=== PATIENT | female | born 1925 | race Caucasian/White ===

== ENCOUNTER 2016-07-07 14:58 | Inpatient (IN) | payer OTHER, MEDICARE ==
[2016-07-07] MEDS ORDERED: HYDROmorphone HCL CARPU-JECT 1 MG/1 ML DISP.SYRIN IVPUSH ONE ×4 (15:15→20:36)
[2016-07-07] MEDS ORDERED: HYDROmorphone HCL CARPU-JECT 2 MG/1 ML DISP.SYRIN ONE ×2 (15:26→20:37)
[2016-07-07] MEDS ORDERED: SODIUM CHLORIDE 1,000 ML IV SCH (15:30)
--- NOTE | 2016-07-07 15:38 | PDOC ---
History of Present Illness - General History Source: Patient Exam Limitations: No Limitations <Dick Mcdonnell - Last Filed: 07/07/16 19:37> - History of Present Illness Initial Comments: 07/07/16 15:35 Patient seen immediately on arrival by me documentation done later 89-year-old female with a past medical history of AODM, hypertension, hyperlipidemia, TIA, esophageal stricture, PVD, and RLS Surgical history-hysterectomy Patient is complaining of progressively severe diffuse abdominal pain since this morning She states that she did not have any abdominal pain last night She does admit to some nausea last night and vomited once She had a very small bowel movement a small morning She is complaining of very severe diffuse abdominal pain without localization She denies any dysuria urgency or frequency She denies any back pain or flank pain She denies any fever She denies any chest pain or shortness of breath Patient is in severe pain, and no further history is available at this time <Sandra Park - Last Filed: 07/08/16 14:49> - General Chief Complaint: Pain Stated Complaint: ABDOMINAL PAIN Time Seen by Provider: 07/07/16 15:05 Past History <Dick Mcdonnell - Last Filed: 07/07/16 19:37> - Past Medical History Anemia: No Asthma: No Cancer: No Cardiac Disorders: No CVA: Yes (TIA?) COPD: No CHF: No Dementia: No Diabetes: No GI Disorders: Yes (ESOPHAGEAL STRICTURE) Disorders: No HTN: Yes Hypercholesterolemia: Yes Liver Disease: No Suicide Attempt (Hx): No Seizures: No Thyroid Disease: No - Surgical History Abdominal Surgery: No Appendectomy: No Cardiac Surgery: No Cholecystectomy: No Lung Surgery: No Neurologic Surgery: No Orthopedic Surgery: Yes - Immunization History Td Vaccination: No - Psycho/Social/Smoking Cessation Hx Anxiety: No Suicidal Ideation: No Smoking Status: No Smoking History: Never smoked Have you smoked in the past 12 months: No Number of Cigarettes Smoked Daily: 0 Hx Alcohol Use: No Drug/Substance Use Hx: No Substance Use Type: None Hx Substance Use Treatment: No <Sandra Park - Last Filed: 07/08/16 14:49> - Past Medical History Allergies/Adverse Reactions: Allergies Allergy/AdvReac Type Severity Reaction Status Date / Time [place]-3 acid Ethyl Esters Allergy Unknown Rash Verified 07/07/16 15:14 [From Lovaza] Egg Derived AdvReac Intermediate Vomiting Verified 07/07/16 15:14 Home Medications: Ambulatory Orders Fenofibrate Nanocrystallized [Fenofibrate] 145 mg PO DAILY 02/03/16 Glucosamine Sulfate Dipot Chlr [Glucosamine] 1,500 mg PO DAILY 02/03/16 Metoprolol Succinate [Toprol Xl -] 25 mg PO DAILY 02/03/16 Aspirin/Dipyridamole [Aspirin-Dipyridam ER 25-200 mg] 1 each PO BID 07/07/16 Calcium Carbonate/Vitamin D3 [Calcium 600 + Vit D Tablet] 1 each PO DAILY Multivit-Min/Iron/Folic/Lutein [Centrum Silver Women Tablet] 1 each PO DAILY *Physical Exam - Vital Signs Last Vital Signs Temp Pulse Resp BP Pulse Ox 98.0 F 70 20 135/60 97 07/07/16 14:59 07/07/16 17:15 07/07/16 17:15 07/07/16 17:15 07/07/16 17:15 <Dick Mcdonnell - Last Filed: 07/07/16 19:37> - Vital Signs Last Vital Signs Temp Pulse Resp BP Pulse Ox 98.0 F 110 H 28 H 137/93 96 07/07/16 14:59 07/07/16 14:59 07/07/16 14:59 07/07/16 14:59 07/07/16 14:59 - Physical Exam Comments: 07/07/16 15:36 Physical exam Last Vital Signs Temp Pulse Resp BP Pulse Ox 98.0 F 110 H 28 H 137/93 96 07/07/16 14:59 07/07/16 14:59 07/07/16 14:59 07/07/16 14:59 07/07/16 14:59 GENERAL: The patient is awake, alert, and writhing in pain HEAD: Normal with no signs of trauma. EYES: sclera anicteric, conjunctiva are normal. ENT: Mucous membranes slightly dry NECK: Normal range of motion, supple LUNGS: Breath sounds equal, clear to auscultation bilaterally. No wheezes, and no crackles. HEART: Regular rate and rhythm, normal S1 and S2 without murmur, rub or gallop. ABDOMEN: The abdomen is distended with hypoactive but present bowel sounds There is no CVA tenderness There is diffuse abdominal tenderness to palpation, somewhat more on the right than the left, with voluntary guarding No definite hepatosplenomegaly is appreciated EXTREMITIES: Normal range of motion, no edema. No clubbing or cyanosis. No cords, erythema, or tenderness. NEUROLOGICAL: Patient is alert and answering questions, but writhing in pain, moving all extremities equally, grossly nonfocal neurologic exam PSYCH: Normal mood, normal affect. SKIN: Warm, Dry, <Sandra Park - Last Filed: 07/08/16 14:49> ED Treatment Course - LABORATORY CBC & Chemistry Diagram: 07/07/16 15:43 07/07/16 15:43 - ADDITIONAL ORDERS Additional order review: Laboratory Results 07/07/16 07/07/16 07/07/16 16:25 15:53 15:43 Sodium Potassium Chloride Carbon Dioxide Anion Gap BUN Creatinine Creat Clearance w eGFR Random Glucose Lactic Acid 1.820 Calcium Magnesium Total Bilirubin AST ALT Alkaline Phosphatase LD Total 232 H Creatine Kinase CK-MB (CK-2) Troponin I Total Protein Albumin Total Amylase Lipase Urine Color Yellow Urine Appearance Clear Urine pH 7.0 Ur Specific [place] 1.015 Urine Protein 1+ H Urine Glucose (UA) Trace Urine Ketones Negative Urine Blood Trace-intact Urine Nitrite Negative Urine Bilirubin Negative Urine Urobilinogen 0.2 e.u/dl Ur Leukocyte Esterase 1+ H Urine RBC 3-5 Urine WBC 10-20 Ur Epithelial Cells 3-5 07/07/16 07/07/16 07/07/16 15:43 15:43 15:43 Sodium 135 L Potassium 4.2 Chloride 103 Carbon Dioxide 20 L Anion Gap 12 BUN 27 H D Creatinine 0.8 D Creat Clearance w eGFR > 60 Random Glucose 149 H D Lactic Acid Calcium 10.2 Magnesium 1.6 L D Total Bilirubin 0.6 D AST 35 ALT 28 Alkaline Phosphatase 39 LD Total Creatine Kinase 297 H CK-MB (CK-2) 13.8 H Troponin I < 0.03 L Total Protein 7.4 Albumin 4.3 Total Amylase 1225 H* D Lipase 6575 H Urine Color Urine Appearance Urine pH Ur Specific [place] Urine Protein Urine Glucose (UA) Urine Ketones Urine Blood Urine Nitrite Urine Bilirubin Urine Urobilinogen Ur Leukocyte Esterase Urine RBC Urine WBC Ur Epithelial Cells 07/07/16 15:43 RBC 4.01 MCV 93.2 MCHC 34.2 RDW 12.9 MPV 8.0 - RADIOLOGY Radiology Studies Ordered: 07/07/16 19:38 EXAM: Ultrasound abdomen right upper quadrant IMAGES: 68 EXAM DATE AND TIME: 2016-07-07 17:23:59.0 REASON FOR EXAM: Abdominal pain COMPARISON: Not provided FINDINGS: The liver is enlarged measuring 19.8 cm in sagittal length with increased echotexture compatible with steatosis. There is no intrahepatic biliary dilatation. No hepatic masses visualized. The portal vein is patent The common bile duct is within normal limits for age measuring 6.8 mm There is a large shadowing stone in the gallbladder measuring 2.8 cm noted to be mobile. The gallbladder wall is normal in thickness measuring 1.9 mm. There is no pericholecystic fluid. Presence or absence of a sonographic Hudson's sign was not reported Normal appearance of the pancreas There is a small anechoic cyst in the right kidney measuring 1.7 cm and a small shadowing stone in the lower pole measuring 0.6 cm. No hydronephrosis The visualized abdominal aorta is within normal limits THIS DOCUMENT HAS BEEN ELECTRONICALLY SIGNED Zechariah Luis MD - Medications Given in the ED: ED Medications Discontinued Medications Generic Name Dose Route Start Last Admin Trade Name Freq PRN Reason Stop Dose Admin Hydromorphone HCl 0.5 mg 07/07/16 15:15 07/07/16 15:54 Dilaudid Injection - IVPUSH 07/07/16 15:16 0.5 mg ONCE ONE Administration Hydromorphone HCl 0.5 mg 07/07/16 16:59 07/07/16 16:55 Dilaudid Injection - IVPUSH 07/07/16 17:00 0.5 mg NOW ONE Administration Hydromorphone HCl 0.5 mg 07/07/16 17:45 07/07/16 17:40 Dilaudid Injection - IVPUSH 07/07/16 17:46 0.5 mg NOW ONE Administration <Dick Mcdonnell - Last Filed: 07/07/16 19:37> - LABORATORY CBC & Chemistry Diagram: 07/08/16 05:15 07/08/16 05:15 - RADIOLOGY Radiology Studies Ordered: Category Date Time Status ABDOMEN & PELVIS CT W/O CONTR [CT] Stat CT Scan 07/07/16 15:14 Ordered CHEST X-RAY PORTABLE* [RAD] Stat Radiology 07/07/16 15:14 Ordered <Sandra Park - Last Filed: 07/08/16 14:49> Medical Decision Making - Medical Decision Making 07/07/16 18:[address] Taveras. Discussed case with Dr. Wong 07/07/16 18:[address] Taveras, Who has seen the pt in the past. He states he does not go to [facility] Since she's going to the icu, he would be happy for Dr. Wong to see the patient. <Dick Mcdonnell - Last Filed: 07/07/16 19:37> - Critical Care Time Total Critical Care Time (minutes): 45 Critical Care Statement: The care of this patient involved high complexity decision making to prevent further life threatening deterioration of the patient 's condition and/or to evalute & treat vital organ system(s) failure or risk of failure. - Medical Decision Making 07/07/16 16:50 Laboratory Results - last 24 hr 07/07/16 07/07/16 07/07/16 15:43 15:43 15:43 WBC 9.0 D RBC 4.01 Hgb 12.8 Hct 37.4 MCV 93.2 MCHC 34.2 RDW 12.9 Plt Count 279 MPV 8.0 Sodium 135 L Potassium 4.2 Chloride 103 Carbon Dioxide 20 L Anion Gap 12 BUN 27 H D Creatinine 0.8 D Creat Clearance w eGFR > 60 Random Glucose 149 H D Calcium 10.2 Magnesium 1.6 L D Total Bilirubin 0.6 D AST 35 ALT 28 Alkaline Phosphatase 39 Creatine Kinase 297 H Total Protein 7.4 Albumin 4.3 Total Amylase 07/07/16 15:43 WBC RBC Hgb Hct MCV MCHC RDW Plt Count MPV Sodium Potassium Chloride Carbon Dioxide Anion Gap BUN Creatinine Creat Clearance w eGFR Random Glucose Calcium Magnesium Total Bilirubin AST ALT Alkaline Phosphatase Creatine Kinase Total Protein Albumin Total Amylase 1225 H* D CT scan of the abdomen and pelvis Acute pancreatitis Underlying chronic calcific pancreatitis Soft tissue stranding and edema is noted in a concentric manner around the second portion of the duodenal sweep, probably related to acute pancreatitis Cholelithiasis without CT evidence of acute cholecystitis Diffuse hepatic steatosis Moderate to large hiatal hernia Lipase too high to report per lab, will add LDH for Flushing score amylase 1225 Chest x-ray NAD US ordered 07/07/16 17:00 Patient is tachycardic and tachypneic Discussed with hospitalist-will admit ICU Case discussed with Dr. [id number] ICU bed Case d/w Dr Soriano - GI - will see pt in consultation (discussed with Dr Taveras - states he does not see pts at [facility]) lipase = 6575 07/07/16 17:20 EKG Normal sinus rhythm 64, normal axis Normal AV and IV conduction time Normal QTC There is poor R wave progression across the anterior precordium When compared to the EKG of 09/14/11 Today's EKG is unchanged from the prior EKG 07/07/16 19:08 Right upper quadrant ultrasound The common bile duct is normal There is a large shadowing stone in the gallbladder measuring 2.8 cm noted to be mobile The gallbladder wall is normal in thickness measuring 1.9 mm There is no pericholecystic fluid There is no intrahepatic biliary dilatation This is an imaging prison guard reading <Sandra Park - Last Filed: 07/08/16 14:49> *DC/Admit/Observation/Transfer - Attestations Scribe Attestion: 07/07/16 18:22 Documentation prepared by Dick Mcdonnell, acting as medical territory manager for Sandra Park MD. <Dick Mcdonnell - Last Filed: 07/07/16 19:37> - Discharge Dispostion Admit: Yes <Sandra Park - Last Filed: 07/08/16 14:49> Diagnosis at time of Disposition: Acute pancreatitis, Abdominal pain - Discharge Dispostion Condition at time of disposition: Fair - Referrals
[2016-07-07 16:02] LABS: MCH 31.8 pg (25.7-33.7); MCHC 34.2 g/dl (32.0-36.0); MEAN CELL VOLUME 93.2 fl (80-96); PLATELET COUNT 279 K/MM3 (134-434); RDW 12.9 % (11.6-15.6)
[2016-07-07 16:16] LABS: ALBUMIN 4.3 g/dl (3.5-5.0); ALK PHOS 39 U/L (32-92); ANION GAP 12 (8-16); BILIRUBIN,TOTAL 0.6 mg/dl (0.2-1.0); CALCIUM 10.2 mg/dl (8.4-10.2); CO2 20 mmol/L (22-28); COCKROFT - GAULT 39.95; CREATININE 0.8 mg/dl (0.6-1.3); GLUCOSE,RANDOM 149 mg/dl (74-106); MAGNESIUM 1.6 mg/dL (1.8-2.4); SGOT/AST 35 U/L (10-42); SGPT/ALT 28 U/L (10-40); TOT PROT 7.4 g/dl (6.4-8.3)
[2016-07-07 16:18] LABS: CPK(DFH) 297 IU/L (26-140)
[2016-07-07 17:06] LABS: TROPONIN I (DFP) < 0.03 ng/ml (0.03-0.50)
[2016-07-07 17:07] LABS: CK MB 13.8 ng/ml (0.3-4.0)
[2016-07-07 17:14] LABS: URINE APPEARANCE Clear; URINE BILIRUBIN Negative (NEGATIVE); URINE BLOOD Trace-intact (NEGATIVE); URINE COLOR YELLOW; URINE GLUCOSE (UA) Trace (NEGATIVE); URINE KETONE Negative (NEGATIVE); URINE LEUK ESTERASE 1+ (NEGATIVE); URINE NITRITE Negative (NEGATIVE); URINE PROTEIN 1+ (NEGATIVE); URINE UROBILINOGEN 0.2 E.U/dl (0.2-1.0)
[2016-07-07] MEDS ORDERED: LACTATED RINGERS SOLUTION 1,000 ML IV SCH (17:30)
[2016-07-07] MEDS ORDERED: HYDROmorphone HCL CARPU-JECT 1 MG/1 ML DISP.SYRIN IVPUSH PRN ×2 (21:31→21:33)
[2016-07-07] MEDS: HYDROmorphone HCL CARPU-JECT 1 MG/1 ML DISP.SYRIN IVPUSH PRN (21:44)
[2016-07-07] MEDS: ONDANSETRON 4 MG/2 ML VIAL IVPUSH PRN (21:44)
[2016-07-07] MEDS: LACTATED RINGERS SOLUTION 1,000 ML IV SCH (21:50)
[2016-07-07] MEDS: FAMOTIDINE 20 MG/50 ML IVPB 50 ML IVPB SCH (21:50)
[2016-07-07] MEDS: HEPARIN NA (PORCINE) 5,000 UNITS/ML 1ML VIAL SQ SCH (21:50)
--- NOTE | 2016-07-07 22:01 | CONSULT ---
Consult Consult Specialty:: Pulm/CCM Reason for Consultation:: acute on chronic pancreatitis - History of Present Illness Chief Complaint: nausea and vomiting History of Present Illness: This is a 89 yo woman DM, HTN, HLD, TIA, esophageal stricture, restless leg syndrome, PVD who presented with new onset progressive diffuse abdominal pain c/ b nausea and emesis x1 (NBNB). In ED she was found to have elevated amylase/ lipase:1225/6575. No transaminase (35/28), WBC normal, Calcium normal (10.2), bicarb 20. CTAP: acute pancreatitis, underlying chronic calcific pancreatits and cholelithiais w/o acute cholecystitis. U/S abd with large gall stone. She was treated with IV fluids: NS x 2liters. She is afebrile (98.2f), hemodynamically stable: BP 137/93, NSR HR 60s. GI was consulted and patient transferred to [facility] for continued care. - History Source History Provided By: Patient, Medical Record Limitations to Obtaining History: Poor Historian - Past Medical History LEGAL BILLER: Yes: TIA Cardio/Vascular: Yes: HTN, Hyperlipdemia, Other (PVD) Gastrointestinal: Yes: Constipation, GERD, Hiatal Hernia, Pancreatitis, Other ( esophageal stricture ) Endocrine: Yes: Diabetes Mellitus - Alcohol/Substance Use Hx Alcohol Use: No - Smoking History Smoking history: Never smoked Have you smoked in the past 12 months: No Aproximately how many cigarettes per day: 0 Home Medications - Allergies Allergies/Adverse Reactions: Allergies Allergy/AdvReac Type Severity Reaction Status Date / Time [place]-3 acid Ethyl Esters Allergy Unknown Rash Verified 07/07/16 15:14 [From Lovaza] Egg Derived AdvReac Intermediate Vomiting Verified 07/07/16 15:14 - Home Medications Home Medications: Ambulatory Orders Fenofibrate Nanocrystallized [Fenofibrate] 145 mg PO DAILY 02/03/16 Glucosamine Sulfate Dipot Chlr [Glucosamine] 1,500 mg PO DAILY 02/03/16 Metoprolol Succinate [Toprol Xl -] 25 mg PO DAILY 02/03/16 Aspirin/Dipyridamole [Aspirin-Dipyridam ER 25-200 mg] 1 each PO BID 07/07/16 Calcium Carbonate/Vitamin D3 [Calcium 600 + Vit D Tablet] 1 each PO DAILY Multivit-Min/Iron/Folic/Lutein [Centrum Silver Women Tablet] 1 each PO DAILY Family Disease History - Family Disease History Family History: Unremarkable Review of Systems - Review of Systems Gastrointestinal: reports: Abdominal Pain, Constipation, Nausea, Vomiting Physical Exam Vital Signs: Vital Signs Temperature 98.2 F 07/07/16 20:58 Pulse Rate 65 07/07/16 20:58 Respiratory Rate 16 07/07/16 20:58 Blood Pressure 112/68 07/07/16 20:58 O2 Sat by Pulse Oximetry (%) 96 07/07/16 19:00 Constitutional: Yes: Well Nourished, Calm, Mild Distress Eyes: Yes: EOM Intact HENT: Yes: Normocephalic Neck: Yes: Trachea Midline Cardiovascular: Yes: Regular Rate and Rhythm, S1, S2 Respiratory: Yes: CTA Bilaterally Gastrointestinal: Yes: Normal Bowel Sounds, Soft, Tenderness, Epigastrium, Vomiting Extremities: Yes: WNL Edema: No Integumentary: Yes: WNL Neurological: Yes: Alert, Oriented Labs: CBCD WBC 9.0 K/mm3 (4.0-10.8) D 07/07/16 15:43 RBC 4.01 M/mm3 (3.60-5.2) 07/07/16 15:43 Hgb 12.8 GM/dl (10.7-15.3) 07/07/16 15:43 Hct 37.4 % (32.4-45.2) 07/07/16 15:43 MCV 93.2 fl (80-96) 07/07/16 15:43 MCHC 34.2 g/dl (32.0-36.0) 07/07/16 15:43 RDW 12.9 % (11.6-15.6) 07/07/16 15:43 Plt Count 279 K/MM3 (134-434) 07/07/16 15:43 MPV 8.0 fl (7.5-11.1) 07/07/16 15:43 CMP Sodium 135 mmol/L (136-145) L 07/07/16 15:43 Potassium 4.2 mmol/L (3.5-5.1) 07/07/16 15:43 Chloride 103 mmol/L (98-107) 07/07/16 15:43 Carbon Dioxide 20 mmol/L (22-28) L 07/07/16 15:43 Anion Gap 12 (8-16) 07/07/16 15:43 BUN 27 mg/dl (7-18) H D 07/07/16 15:43 Creatinine 0.8 mg/dl (0.6-1.3) D 07/07/16 15:43 Creat Clearance w eGFR > 60 (>60) 07/07/16 15:43 Random Glucose 149 mg/dl (74-106) H D 07/07/16 15:43 Calcium 10.2 mg/dl (8.4-10.2) 07/07/16 15:43 Total Bilirubin 0.6 mg/dl (0.2-1.0) D 07/07/16 15:43 AST 35 U/L (10-42) 07/07/16 15:43 ALT 28 U/L (10-40) 07/07/16 15:43 Alkaline Phosphatase 39 U/L (32-92) 07/07/16 15:43 Total Protein 7.4 g/dl (6.4-8.3) 07/07/16 15:43 Albumin 4.3 g/dl (3.5-5.0) 07/07/16 15:43 CARDIAC ENZYMES Creatine Kinase 297 IU/L (26-140) H 07/07/16 15:43 Troponin I < 0.03 ng/ml (0.03-0.50) L 07/07/16 15:43 Laboratory Tests 07/07/16 07/07/16 07/07/16 15:43 15:43 15:43 LD Total 232 H Total Amylase 1225 H* D Lipase 6575 H Imaging - Results Cat Scan: Report Reviewed, Image Reviewed Ultrasound: Report Reviewed, Image Reviewed Assessment/Plan a/p: 89 yo woman DM, HTN, HLD, TIA esophageal stricture p/w acute on chronic pancreatitis found to have large gallstone c/f obstructive pancreatitis -GI consulted, will speak to interventional GI about ERCP -IV access -IV fluid replacement -monitor abdominal exam for compartment syndrome -no indication for ABX -pain control: hydromorphone prn -zofran prn for nausea -NPO for now, restart feeds per GI -BMP q6-8hrs -follow fingersticks -DVT/GI prophylaxis Boerem ACNP Pulm/CCM CCT: 35m
--- NOTE | 2016-07-07 22:05 | CON.GI ---
Consult Consult Specialty:: GASTROENTEROLOGY (FOR DR MONZON) Reason for Consultation:: PANCREATITIS - History of Present Illness Chief Complaint: ABDOMINAL PAIN History of Present Illness: 89 YEAR OLD FEMALE WITH ONLY GI HISTORY OF HIATAL HERNIA AND SCHATZKI'S RING ADMITTED WITH PANCREATITIS. SHE DOES NOT DRINK ALCOHOL. SHE IS A DIABETIC AND ON TRADJENTA. GALLSTONES WERE DISCOVERED TODAY. SHE DEVELOPED ABDOMINAL PAIN YESTERDAY WITH NAUSEA. THE DAY PROGRESSED SO DID HER ABDOMINAL PAIN. DUE TO THE PAIN SHE COULD NOT EAT. THE PAIN WAS WORSE TODAY ASSOCIATED WITH WORSENING NAUSEA AND SHE WENT TO THE [facility]. IN THE ER SHE WAS IN SEVERE PAIN. AMYLASE AND LIPASE VALUES WERE ELEVATED BUT LIVER FUNCTIONS WERE NORMAL. CT SCAN SHOWED CHRONIC CALCIFIC PANCREATITIS WITH ACUTE PANCREATITIS. THE US OF THE ABDOMEN REVEALED A NORMAL BILE DUCTS AND LARGE GALLBLADDER STONE. SHE IS A PATIENT OF DR GILLIAM BUT HE TOLD THE ER PHYSICIAN HE DOES NOT GO TO [facility] SO DR MONZON WAS CALLED FOR CONSULT. I AM COVERING FOR THAT GROUP. HERE AT [facility] THE PATIENT IS NAUSEATED AND HAS SOME ABDOMINAL PAIN. SHE HAS NO FEVER AND IS NOT VOMITING. - History Source History Provided By: Patient Limitations to Obtaining History: No Limitations - Past Medical History WHEEL BLOCKER: No: Alzheimer's, CVA, Dementia, Migraine, Multiple Sclerosis, Peripheral Neuropathy, Parkinson's, Seizure, Syncope, TIA, Vertigo, Other Cardio/Vascular: No: AFIB, Aneurysm, Aortic Insufficiency, Aortic Stenosis, CAD , CHF, Deep Vein Thrombosis, HTN, Hyperlipdemia, NE, Mitral Insufficiency, Mitral Stenosis, Murmur, Pulmonary Hypertension, Other Gastrointestinal: Yes: GERD, Other (SCHATZKI'S RING) Hepatobiliary: Yes: Cholelithiasis, Other (DIAGNOSED TODAY) Renal/: No: Renal Failure, Renal Inusuff, BPH, Cancer, Hematuria, Hemodialysis , Neurogenic Bladder, Renal Calculi, UTI, Other Reproductive: Yes: Other (OVARIAN CYSTS/PROLAPSED UTERUS S/P HYSTERECTOMY) Heme/Onc: No: Anemia, B12 Deficiency, Bleeding Disorder, Cancer, Current Chemotherapy, Current Radiation Therapy, Hemochromatosis, Hypercoaguable State, Myeloproliferative Synd, Sickle Cell Disease, Sickle Cell Trait, Thrombocytopenia, Other Infectious Disease: No: AIDS, C-Diff, Herpes Zoster, HIV, MRSA, STD's, Tuberculosis, VREF, Other Psych: No: Addictions, Anxiety, Bipolar, Depression, Panic, Psychosis, Schizophrenia, Other ENT: No: Allergic Rhinitis, Sinusitis, Other Endocrine: No: Wing[place]'s Disease, [place]'s Disease, Diabetes Insipidus, Diabetes Mellitus, Hyperparathyroidism, Hyperthyroidism, Hypothyroidism, Osteopenia, SIADH, Other Dermatology: No: Basal Cell, Cellulitis, Eczema, Melanoma, Psoriasis, Squamous Cell, Other - Past Surgical History Past Surgical History: Yes: Hysterectomy, Joint Replacement, Upper Endoscopy - Alcohol/Substance Use Hx Alcohol Use: No - Smoking History Smoking history: Never smoked Have you smoked in the past 12 months: No Aproximately how many cigarettes per day: 0 Home Medications - Allergies Allergies/Adverse Reactions: Allergies Allergy/AdvReac Type Severity Reaction Status Date / Time [place]-3 acid Ethyl Esters Allergy Unknown Rash Verified 07/07/16 15:14 [From Lovaza] Egg Derived AdvReac Intermediate Vomiting Verified 07/07/16 15:14 - Home Medications Home Medications: Ambulatory Orders Fenofibrate Nanocrystallized [Fenofibrate] 145 mg PO DAILY 02/03/16 Glucosamine Sulfate Dipot Chlr [Glucosamine] 1,500 mg PO DAILY 02/03/16 Metoprolol Succinate [Toprol Xl -] 25 mg PO DAILY 02/03/16 Aspirin/Dipyridamole [Aspirin-Dipyridam ER 25-200 mg] 1 each PO BID 07/07/16 Calcium Carbonate/Vitamin D3 [Calcium 600 + Vit D Tablet] 1 each PO DAILY Multivit-Min/Iron/Folic/Lutein [Centrum Silver Women Tablet] 1 each PO DAILY Family Disease History - Family Disease History Family History: Unremarkable Review of Systems - Review of Systems Constitutional: reports: Loss of Appetite, Malaise Eyes: denies: No Symptoms, Blind Spots, Blurred Vision, Double Vision, Eye Pain , Floaters, Photophobia, Recent Change in Vision, Other HENT: denies: No Symptoms, Difficult Swallowing, Ear Discharge, Ear Pain, Epistaxis, Gingival Bleeding, Hearing Loss, Mouth Swelling, Nasal Congestion, Ocular Prosthesis, Throat Pain, Toothache, Ringing in Ears, Other Neck: denies: No Symptoms, Decreased ROM, Lumps, Pain on Movement, Stiffness, Swollen Glands, Tenderness, Other Cardiovascular: denies: No Symptoms, Chest Pain, Edema, Palpitations, Shortness of Breath, Other Respiratory: denies: No Symptoms, Cough, Exercise Intolerance, Hemoptysis, Orthopnea, PND, Snoring, SOB, SOB on Exertion, Wheezing, Other Gastrointestinal: reports: Abdominal Pain, Dysphagia, Indigestion, Nausea Genitourinary: reports: No Symptoms Musculoskeletal: reports: No Symptoms Integumentary: reports: No Symptoms Neurological: reports: No Symptoms Endocrine: reports: No Symptoms Hematology/Lymphatic: reports: No Symptoms Psychiatric: reports: No Symptoms Physical Exam-GI Vital Signs: Vital Signs Temperature 98.2 F 07/07/16 20:58 Pulse Rate 65 07/07/16 20:58 Respiratory Rate 16 07/07/16 20:58 Blood Pressure 112/68 07/07/16 20:58 O2 Sat by Pulse Oximetry (%) 96 07/07/16 19:00 Constitutional: Yes: Mild Distress Eyes: Yes: Conjunctiva Clear HENT: Yes: Normocephalic Neck: Yes: Supple Cardiovascular: Yes: Regular Rate and Rhythm Respiratory: Yes: Regular Gastrointestinal Inspection: Yes: Distention ...Auscultate: Yes: Hypoactive Bowel Sounds ...Palpate: Yes: Tenderness, Epigastium (MILD GUARDING NO REBOUND) ...Rectal Exam: Yes: Deferred Musculoskeletal: Yes: WNL Extremities: Yes: WNL Integumentary: Yes: WNL Neurological: Yes: Alert, Oriented Psychiatric: Yes: WNL Labs: CBC, BMP 07/07/16 15:43 07/07/16 15:43 Laboratory Tests 07/07/16 07/07/16 07/07/16 15:43 15:43 15:43 WBC 9.0 D RBC 4.01 Hgb 12.8 Hct 37.4 MCV 93.2 MCHC 34.2 RDW 12.9 Plt Count 279 MPV 8.0 Sodium 135 L Potassium 4.2 Chloride 103 Carbon Dioxide 20 L Anion Gap 12 BUN 27 H D Creatinine 0.8 D Creat Clearance w eGFR > 60 Random Glucose 149 H D Calcium 10.2 Magnesium 1.6 L D Total Bilirubin 0.6 D AST 35 ALT 28 Alkaline Phosphatase 39 LD Total Creatine Kinase 297 H CK-MB (CK-2) 13.8 H Troponin I < 0.03 L Total Protein 7.4 Albumin 4.3 Total Amylase Lipase 6575 H Urine Color Urine Appearance Urine pH Ur Specific [place] Urine Protein Urine Glucose (UA) Urine Ketones Urine Blood Urine Nitrite Urine Bilirubin Urine Urobilinogen Ur Leukocyte Esterase Urine RBC Urine WBC Ur Epithelial Cells 07/07/16 07/07/16 07/07/16 15:43 15:43 16:25 WBC RBC Hgb Hct MCV MCHC RDW Plt Count MPV Sodium Potassium Chloride Carbon Dioxide Anion Gap BUN Creatinine Creat Clearance w eGFR Random Glucose Calcium Magnesium Total Bilirubin AST ALT Alkaline Phosphatase LD Total 232 H Creatine Kinase CK-MB (CK-2) Troponin I Total Protein Albumin Total Amylase 1225 H* D Lipase Urine Color Yellow Urine Appearance Clear Urine pH 7.0 Ur Specific [place] 1.015 Urine Protein 1+ H Urine Glucose (UA) Trace Urine Ketones Negative Urine Blood Trace-intact Urine Nitrite Negative Urine Bilirubin Negative Urine Urobilinogen 0.2 e.u/dl Ur Leukocyte Esterase 1+ H Urine RBC 3-5 Urine WBC 10-20 Ur Epithelial Cells 3-5 Imaging - Results Cat Scan: Report Reviewed, Image Reviewed Ultrasound: Report Reviewed, Image Reviewed Problem List - Problems (1) Acute pancreatitis Assessment/Plan: NPO IVF : AT [facility] FERRY WAS AT 250CC FOR A COUPLE OF HOURS. RATE DROPPED TO 200 CC /HR OF LR. CAN LOWER THIS IN 4 HOURS TO 150 CC/HR CK CXR ,WATCH FOR FLUID OVERLOAD, STRICT I&O'S FOLLOW LYTES, CA++, MAG, LIPASE LFT'S ETC. DILAUDID FOR PAIN, ZOFRAN FOR NAUSEA MILD PANCREATITIS BY [place] CRITERIA RECHECK IN 24-48 HOURS ETIOLOGY OF PANCREATITIS: ACUTE ON CHRONIC (STONE IN PANCREATIC DUCT), NO HISTORY OF ETOH, AWAIT TRIGLYCERIDES, ON ONE MED THAT CAUSE PANCREATITIS ( TRADJENTA CAUSES PANCREATITIS) POSSIBLE GALLSTONE PANCREATITIS DOUBT CONSIDERING NORMAL DUCTS AND LFT'S, ALSO CONSIDER MALIGNANCY MAY NEED FURTHER IMAGING(MRI/MRCP) D/C FANNY MONZON et.al. TO COVER IN AM. SHAHID ALONZO MD Code(s): K85.90 - ACUTE PANCREATITIS WITHOUT NECROSIS OR INFECTION, UNSP (2) Chronic calcific pancreatitis Code(s): K86.1 - OTHER CHRONIC PANCREATITIS (3) Hyperlipidemia Assessment/Plan: CK TRIGLYCERIDE LEVELS Code(s): E78.5 - HYPERLIPIDEMIA, UNSPECIFIED
[2016-07-07] MEDS ORDERED: ONDANSETRON 4 MG/2 ML VIAL IVPUSH ONE (22:34)
[2016-07-07] MEDS ORDERED: METOCLOPRAMIDE HCL INJECTION 10 MG/2 ML VIAL IVPUSH PRN (22:35)
[2016-07-07 22:39] VITALS: BMI 24.3
--- NOTE | 2016-07-07 23:23 | HP ---
CHIEF COMPLAINT: Abdominal Pain PCP: [facility] HISTORY OF PRESENT ILLNESS: Patient is a 89 year old female with PMH of DM, HTN, HLD, TIA, PVD, RLS & esophageal stricture who presented to ED with diffuse severe abdominal pain. Patient states she had isolated episodes of nausea and vomiting yesterday evening and went to bed. Since awaking this morning, patient has had severe diffuse abdominal pain that was 10/10 in severity upon initial assessment in ED. Denies fever, chills, chest pain, SOB, headache, visual changes. In the ED she was found to have amylase 1200 & lipase 6500. CT Abdomen showed acute pancreatitis, underlying chronic calcific pancreatits and cholelithiasis w /o acute cholecystitis. Patient denies history of drinking. Denies drug use. Denies episodes of RUQ pain in past. Patient states she is currently on Tradjenta (linagliptin) for DM. Recent Travel: NONE NOTED PAST MEDICAL HISTORY: ABOVE PAST SURGICAL HISTORY: Hysterectomy, orthopedic joint replacement Social History: Smoking:NONE NOTED Alcohol:NONE NOTED Drugs:NONE NOTED Family History: noncontributory Allergies [place]-3 acid Ethyl Esters [From Lovaza] Allergy (Unknown, Verified 07/07/16 15: 14) Rash UNKNOWN Egg Derived Adverse Reaction (Intermediate, Verified 07/07/16 15:14) Vomiting HOME MEDICATIONS: Home Medications Medication Instructions Recorded Fenofibrate Nanocrystallized 145 mg PO DAILY 02/03/16 [Fenofibrate] Glucosamine Sulfate Dipot Chlr 1,500 mg PO DAILY 02/03/16 [Glucosamine] Metoprolol Succinate [Toprol Xl -] 25 mg PO DAILY 02/03/16 Aspirin/Dipyridamole 1 each PO BID 07/07/16 [Aspirin-Dipyridam ER 25-200 mg] Calcium Carbonate/Vitamin D3 1 each PO DAILY 07/07/16 [Calcium 600 + Vit D Tablet] Multivit-Min/Iron/Folic/Lutein 1 each PO DAILY 07/07/16 [Centrum Silver Women Tablet] REVIEW OF SYSTEMS CONSTITUTIONAL: (+)loss of appetite, Absent: fever, chills, diaphoresis, generalized weakness, malaise, weight change HEENT: Absent: rhinorrhea, nasal congestion, throat pain, throat swelling, difficulty swallowing, mouth swelling, ear pain, eye pain, visual changes CARDIOVASCULAR: Absent: chest pain, syncope, palpitations, irregular heart rate, lightheadedness , peripheral edema RESPIRATORY: Absent: cough, shortness of breath, dyspnea with exertion, orthopnea, wheezing, stridor, hemoptysis GASTROINTESTINAL: (+)abdominal pain, nausea, vomiting, constipation, Absent: abdominal distension, diarrhea, melena, hematochezia GENITOURINARY: Absent: dysuria, frequency, urgency, hesitancy, hematuria, flank pain, genital pain MUSCULOSKELETAL: Absent: myalgia, arthralgia, joint swelling, back pain, neck pain SKIN: Absent: rash, itching, pallor HEMATOLOGIC/IMMUNOLOGIC: Absent: easy bleeding, easy bruising, lymphadenopathy, frequent infections ENDOCRINE: Absent: unexplained weight gain, unexplained weight loss, heat intolerance, cold intolerance NEUROLOGIC: Absent: headache, focal weakness or paresthesias, dizziness, unsteady gait, seizure, mental status changes, bladder or bowel incontinence PSYCHIATRIC: Absent: anxiety, depression, suicidal or homicidal ideation, hallucinations. PHYSICAL EXAMINATION Vital Signs - 24 hr 07/07/16 22:19 Temperature 98.3 F Pulse Rate 71 Respiratory 24 Rate Blood Pressure 135/81 O2 Sat by Pulse 96 Oximetry (%) GENERAL: Awake, alert, and fully oriented, in no acute distress. Much more comfortable s/p pain management. HEENT: Atraumatic, EOMI, PERRLA, No lymphadenopathy LUNGS: Breath sounds equal, clear to auscultation bilaterally. No wheezes, and no crackles. No accessory muscle use. HEART: Regular rate and rhythm, normal S1 and S2 without murmur, rub or gallop. ABDOMEN: Soft, mildly tender to palpation diffusely, not distended, hypoactive bowel sounds. no guarding, no rebound, no masses. MUSCULOSKELETAL: Normal range of motion at all joints. No bony deformities or tenderness. No CVA tenderness. UPPER EXTREMITIES: 2+ pulses, warm, well-perfused. No cyanosis. No clubbing. No peripheral edema. LOWER EXTREMITIES: 2+ pulses, warm, well-perfused. No calf tenderness. No peripheral edema. NEUROLOGICAL: Cranial nerves II-XII intact. Normal speech. Gait not observed. PSYCHIATRIC: Cooperative. Good eye contact. Appropriate mood and affect. SKIN: Warm, dry, normal turgor, no rashes or lesions noted, normal capillary refill. Laboratory Results - last 24 hr 07/07/16 21:30 Triglycerides 259 H ASSESSMENT/PLAN: 89 year old female with PMH of DM, HTN, HLD, TIA, PVD, RLS & esophageal stricture who was admitted to ICU with acute pancreatitis. #Acute Sepsis, secondary to Acute on chronic calcific pancreatitis (etiology: Tradjenta vs malignancy vs gallstone) -Keep NPO for now -IVF LR @150mls/hr -Dilaudid pain management -zofran for nausea -GI consulted -may need MRCP in AM, discuss with family -blood culture pending -CXR in AM to ensure not fluid overloaded #DM -ISS -BGM -holding tradjenta (may cause pancreatitis) #HTN -holding home meds for now (already took them today), may restart in AM once able to tolerate PO -Lopressor PRN ordered #UTI -Ceftriaxone ordered -Ur cultures sent Prophylaxis -Heparin 5000BID -Pepcid -NPO -IVF LR@150 -monitor electrolytes Visit type - Emergency Visit Emergency Visit: Yes ED Registration Date: 07/07/16 Care time: The patient presented to the Emergency Department on the above date and was hospitalized for further evaluation of their emergent condition. - New Patient This patient is new to me today: Yes Date on this admission: 07/08/16 - Critical Care Critical Care patient: Yes Total Critical Care Time (in minutes): 45 Critical Care Statement: The care of this patient involved high complexity decision making to prevent further life threatening deterioration of the patient 's condition and/or to evalute & treat vital organ system(s) failure or risk of failure.
[2016-07-08] MEDS ORDERED: METOPROLOL TARTRATE 5 MG/5 ML VIAL IVPUSH PRN ×2 (00:05→04:28)
[2016-07-08] MEDS ORDERED: CEFTRIAXONE 1 GM in DEXTROSE 5%-WATER - 50 ML IVPB SCH (00:15)
[2016-07-08] MEDS ORDERED: cefTRIAXone 1 GM/50 ML BAG (PRE-DOCKED) IVPB SCH (00:30)
--- NOTE | 2016-07-08 01:13 | PN ---
Teaching Attending Note Name of Resident: Antelmo Fernandez ATTENDING PHYSICIAN STATEMENT I saw and evaluated the patient. I reviewed the resident's note and discussed the case with the resident. I agree with the resident's findings and plan as documented. SUBJECTIVE: 89 year old female that presented to the emergency department c/o 1 day history of LUQ abdominal pain 8/10 in intensity , associated with nausea and one episode of vomiting . No fever , no diarrhea. PMH DM HTN PVD Esophageal Stricture TIA Restless Leg Syndrome Sx Hx Hysterectomy Social Hx Denies alcohol abuse Denies smoking ALL Egg OBJECTIVE: Vital Signs Temperature 98.3 F 07/07/16 22:19 Pulse Rate 71 07/07/16 22:19 Respiratory Rate 24 07/07/16 22:19 Blood Pressure 154/75 07/07/16 23:21 O2 Sat by Pulse Oximetry (%) 96 07/07/16 22:19 GENERAL: Awake, alert, and fully oriented, in no acute distress. Much more comfortable s/p pain management. HEENT: Atraumatic, EOMI, PERRLA, No lymphadenopathy LUNGS: Breath sounds equal, clear to auscultation bilaterally. No wheezes, and no crackles. No accessory muscle use. HEART: Regular rate and rhythm, normal S1 and S2 without murmur, rub or gallop. ABDOMEN: Soft, mildly tender to palpation diffusely, not distended, hypoactive bowel sounds. no guarding, no rebound, no masses. MUSCULOSKELETAL: Normal range of motion at all joints. No bony deformities or tenderness. No CVA tenderness. UPPER EXTREMITIES: 2+ pulses, warm, well-perfused. No cyanosis. No clubbing. No peripheral edema. LOWER EXTREMITIES: 2+ pulses, warm, well-perfused. No calf tenderness. No peripheral edema. NEUROLOGICAL: Cranial nerves II-XII intact. Normal speech. Gait not observed. PSYCHIATRIC: Cooperative. Good eye contact. Appropriate mood and affect. SKIN: Warm, dry, normal turgor, no rashes or lesions noted, normal capillary refill. Abnormal Lab Results 07/07/16 07/07/16 07/07/16 15:43 15:43 15:43 Sodium 135 L Carbon Dioxide 20 L BUN 27 H D Random Glucose 149 H D Magnesium 1.6 L D LD Total Creatine Kinase 297 H CK-MB (CK-2) 13.8 H Troponin I < 0.03 L Triglycerides Total Amylase 1225 H* D Lipase 6575 H Urine Protein Ur Leukocyte Esterase 07/07/16 07/07/16 07/07/16 15:43 16:25 21:30 Sodium Carbon Dioxide BUN Random Glucose Magnesium LD Total 232 H Creatine Kinase CK-MB (CK-2) Troponin I Triglycerides 259 H Total Amylase Lipase Urine Protein 1+ H Ur Leukocyte Esterase 1+ H CTAP: acute pancreatitis, underlying chronic calcific pancreatits and cholelithiais w/o acute cholecystitis. U/S abd with large gall stone. ASSESSMENT AND PLAN: 1. Acute on chronic pancreatitis- gallstone , vs medication induced ( Trigenta) . Other causes of obstructive process , such as malignancy, can not be excluded - NPO -IVF -Monitor enzymes - MRCP - Dilaudid for pain 2. Pyuria- - UA cultures are sent - Rocephin was given - was follow cultures 3. DM - continue with SS coverage 4. DVT PPX
[2016-07-08] MEDS: HYDROmorphone HCL CARPU-JECT 1 MG/1 ML DISP.SYRIN IVPUSH PRN ×3 (03:54→11:52)
[2016-07-08] MEDS ORDERED: HYDROmorphone HCL CARPU-JECT 2 MG/1 ML DISP.SYRIN IVPUSH ONE (05:00)
[2016-07-08] MEDS ORDERED: HYDROmorphone HCL CARPU-JECT 2 MG/1 ML DISP.SYRIN ONE (05:06)
[2016-07-08 06:16] LABS: MCH 32.6 pg (25.7-33.7); MCHC 34.1 g/dl (32.0-36.0); MEAN CELL VOLUME 95.4 fl (80-96); MEAN PLT VOLUME 8.1 fl (7.5-11.1); PLATELET COUNT 234 K/MM3 (134-434); RDW 13.5 % (11.6-15.6); WHITE BLOOD COUNT 8.3 K/mm3 (4.0-10.0)
[2016-07-08 06:53] LABS: ALBUMIN 3.3 g/dl (3.4-5.0); CALCIUM 8.8 mg/dL (8.5-10.1); COCKROFT - GAULT 42.5; CREATININE 0.8 mg/dL (0.55-1.02); MAGNESIUM 1.3 mg/dL (1.8-2.4)
--- NOTE | 2016-07-08 06:54 | PN ---
Physical Exam: SUBJECTIVE: Patient seen and examined OBJECTIVE: Vital Signs Period Temp Pulse Resp BP Sys/[place] Pulse Ox Last 24 Hr 98.2 F-98.3 F 66-88 18-24 112-189/50-111 96 GENERAL: The patient is awake, alert, and fully oriented, in no acute distress. HEAD: Normal with no signs of trauma. EYES: PERRL, extraocular movements intact, sclera anicteric, conjunctiva clear. No ptosis. ENT: Ears normal, nares patent, oropharynx clear without exudates, moist mucous membranes. NECK: Trachea midline, full range of motion, supple. LUNGS: Breath sounds equal, clear to auscultation bilaterally, no wheezes, no crackles, no accessory muscle use. HEART: Regular rate and rhythm, S1, S2 without murmur, rub or gallop. ABDOMEN: Soft, nontender, nondistended, normoactive bowel sounds, no guarding, no rebound, no hepatosplenomegaly, no masses. EXTREMITIES: 2+ pulses, warm, well-perfused, no edema. NEUROLOGICAL: Cranial nerves II through XII grossly intact. Normal speech, gait not observed. PSYCH: Normal mood, normal affect. SKIN: Warm, dry, normal turgor, no rashes or lesions noted Laboratory Results - last 24 hr 07/07/16 07/08/16 21:30 05:15 WBC 8.3 RBC 3.64 Hgb 11.9 Hct 34.7 MCV 95.4 MCHC 34.1 RDW 13.5 Plt Count 234 MPV 8.1 Triglycerides 259 H Active Medications Generic Name Dose Route Start Last Admin Trade Name Freq PRN Reason Stop Dose Admin Ceftriaxone Sodium 1 gm 07/08/16 00:30 07/08/16 03:54 Rocephin 1gm Ivpb (Pre-Docked) IVPB 1 gm DAILY ORTEGA Administration Chlorhexidine Gluconate 1 applic 07/08/16 22:00 Hibiclens For Decolonization - TP HS ORTEGA Heparin Sodium (Porcine) 5,000 unit 07/07/16 22:00 07/07/16 21:50 Heparin - SQ 5,000 unit BID ORTEGA Administration Hydromorphone HCl 0.5 mg 07/07/16 21:33 07/07/16 23:00 Dilaudid Injection - IVPUSH 0.5 mg Q4H PRN Administration Pain 4-6 Hydromorphone HCl 1 mg 07/07/16 21:34 07/08/16 06:40 Dilaudid Injection - IVPUSH 2 mg Q4H PRN Administration Pain >6 Lactated Ringer's 1,000 mls @ 150 mls/hr 07/07/16 21:45 07/07/16 21:50 Lactated Ringers Solution IV 07/08/16 12:00 150 mls/hr ASDIR ORTEGA Administration Famotidine/Sodium Chloride 50 mls @ 100 mls/hr 07/07/16 22:00 07/07/16 21:50 Pepcid 20 Mg Premixed Ivpb - IVPB 100 mls/hr BID ORTEGA Administration Insulin Aspart 1 vial 07/08/16 07:00 Novolog Vial Sliding Scale - SQ TIDAC [facility] Protocol Metoprolol Tartrate 5 mg 07/08/16 04:28 Lopressor Injection - IVPUSH Q4H PRN HYPERTENSION Mupirocin 1 applic 07/08/16 10:00 Bactroban Ointment (For Decolonization) - NS 07/13/16 09:59 BID [facility] Ondansetron HCl 4 mg 07/07/16 21:34 07/07/16 21:44 Zofran Injection IVPUSH 4 mg Q6H PRN Administration NAUSEA AND/OR VOMITING ASSESSMENT/PLAN:
[2016-07-08 06:58] LABS: BILIRUBIN,DIRECT 0.1 mg/dL (0.0-0.2); BILIRUBIN,TOTAL 0.3 mg/dL (0.2-1.0); PHOSPHOROUS 4.2 mg/dL (2.5-4.9)
[2016-07-08] MEDS: INSULIN SLIDING SCALE (NOVOLOG) 1 VIAL SQ SCH ×3 (07:07→17:32)
[2016-07-08] MEDS ORDERED: ALBUTEROL SO4 2.5/IPRATROPIUM 0.5 INH SOL 3 ML VIAL.NEB. NEB PRN (08:02)
[2016-07-08] MEDS ORDERED: MAGNESIUM SULF 50% (8.12 MEQ/2 ML-1 GM VIAL) IVPB ONE (08:15)
[2016-07-08] MEDS: LACTATED RINGERS SOLUTION 1,000 ML IV SCH (08:18)
[2016-07-08] MEDS: HEPARIN NA (PORCINE) 5,000 UNITS/ML 1ML VIAL SQ SCH ×2 (10:04→22:11)
[2016-07-08] MEDS: MUPIROCIN 2% TOPICAL OINTMENT FOR DECOLONIZATION NS SCH ×2 (10:04→22:10)
[2016-07-08] MEDS: FAMOTIDINE 20 MG/50 ML IVPB 50 ML IVPB SCH ×2 (10:04→22:11)
--- NOTE | 2016-07-08 11:36 | PN ---
Teaching Attending Note Name of Resident: Bo Butler ATTENDING PHYSICIAN STATEMENT I saw and evaluated the patient. I reviewed the resident's note and discussed the case with the resident. I agree with the resident's findings and plan as documented. SUBJECTIVE: OBJECTIVE: Last Vital Signs Temp Pulse Resp BP Pulse Ox 99.2 F 75 13 142/60 97 07/08/16 10:00 07/08/16 10:00 07/08/16 10:00 07/08/16 10:00 07/08/16 09:29 General NAD CV S1 S2 RRR + murmur no rub/gallop Lungs CTA B/L no wheezing/rales/rhonchi abdomen +epigastric and suprapubic tenderness no rebound or guarding. soft +BS ASSESSMENT AND PLAN: 89yo F wtih PMH DM, HTN, HLD, TIA, PVD, RLS & esophageal stricture presented to the ER and was admitted for further evaluation of their emergent condition 1. Acute pancreatitis- due to gallstones vs medication induced. Bisap 3. clinically stable. remain NPO until has hunger. cont LR, pain control. GI on board. plan for MCP for better visualization. will consult surgery as gallbladder will need to be removed on this admission once pancreatitis has resolved. check TG. hold trajenda. pain control 2. Hypomagnesemia- MG 2g 3. +UA- symptomatic suprapubic tenderness. will treat at this time. Ceftriaxone day1. complete 3 day course 4. HTN- controlled. cont home medications 5. DM- hold oral agents, hold trajenda. ISS, BGM 6. DVT ppx- hep sq The care of this patient involved high complexity decision making to prevent further life threatening deterioration of the patient's condition and/or to evalute & treat vital organ system(s) failure or risk of failure. 40 minutes critical care time
--- NOTE | 2016-07-08 12:39 | PN ---
Teaching Attending Note Name of Resident: Erik Arana ATTENDING PHYSICIAN STATEMENT I saw and evaluated the patient. I reviewed the resident's note and discussed the case with the resident. I agree with the resident's findings and plan as documented. SUBJECTIVE: Patient seen and examined in the ICU. Awake and alert. Some improvement in abdominal pain, but still present. Mildly tachypniec at rest and now on VM O2. Denies CP or SOB. CXR: Increased vascular congestion / fluid in the fissure Intake & Output 07/05/16 07/06/16 07/07/16 07/08/16 23:59 23:59 23:59 23:59 Intake Total 1800 2450 Output Total 75 425 Balance 1725 2025 Weight 128 lb 8.472 oz 125 lb 14.143 oz Last Vital Signs Temp Pulse Resp BP Pulse Ox 99.2 F 83 14 127/58 96 07/08/16 10:00 07/08/16 12:00 07/08/16 12:00 07/08/16 12:00 07/08/16 12:06 Active Medications Albuterol/Ipratropium (Duoneb -) 1 amp NEB Q6H PRN PRN Reason: SHORTNESS OF BREATH Ceftriaxone Sodium (Rocephin 1gm Ivpb (Pre-Docked)) 1 gm IVPB DAILY [facility] Last Admin: 07/08/16 03:54 Dose: 1 gm Chlorhexidine Gluconate (Hibiclens For Decolonization -) 1 applic TP HS [facility] Heparin Sodium (Porcine) (Heparin -) 5,000 unit SQ BID [facility] Last Admin: 07/08/16 10:04 Dose: 5,000 unit Hydromorphone HCl (Dilaudid Injection -) 0.5 mg IVPUSH Q4H PRN PRN Reason: Pain 4-6 Last Admin: 07/07/16 23:00 Dose: 0.5 mg Hydromorphone HCl (Dilaudid Injection -) 1 mg IVPUSH Q4H PRN PRN Reason: Pain >6 Last Admin: 07/08/16 11:52 Dose: 1 mg Famotidine/Sodium Chloride (Pepcid 20 Mg Premixed Ivpb -) 50 mls @ 100 mls/hr IVPB BID [facility] Last Admin: 07/08/16 10:04 Dose: 100 mls/hr Insulin Aspart (Novolog Vial Sliding Scale -) 1 vial SQ TIDAC [facility] PRN Reason: Protocol Last Admin: 07/08/16 12:23 Dose: 2 units Metoprolol Tartrate (Lopressor Injection -) 5 mg IVPUSH Q4H PRN PRN Reason: HYPERTENSION Mupirocin (Bactroban Ointment (For Decolonization) -) 1 applic NS BID [facility] Stop: 07/13/16 09:59 Last Admin: 07/08/16 10:04 Dose: 1 applic Ondansetron HCl (Zofran Injection) 4 mg IVPUSH Q6H PRN PRN Reason: NAUSEA AND/OR VOMITING Last Admin: 07/07/16 21:44 Dose: 4 mg Constitutional: Yes: Awake and alert, mildly tachpneic at rest Eyes: Yes: EOM Intact HENT: Yes: Normocephalic Neck: Yes: Trachea Midline Cardiovascular: Yes: Regular Rate and Rhythm, S1, S2 Respiratory: Yes: CTA Bilaterally Gastrointestinal: Yes: Normal Bowel Sounds, Soft, Tenderness, Epigastrium, Vomiting Extremities: Yes: WNL Edema: No Integumentary: Yes: WNL Neurological: Yes: Alert, Oriented Labs: Laboratory Results - last 24 hr 07/07/16 07/07/16 07/07/16 15:43 15:43 15:43 WBC 9.0 D RBC 4.01 Hgb 12.8 Hct 37.4 MCV 93.2 MCHC 34.2 RDW 12.9 Plt Count 279 MPV 8.0 Sodium 135 L Potassium 4.2 Chloride 103 Carbon Dioxide 20 L Anion Gap 12 BUN 27 H D Creatinine 0.8 D Creat Clearance w eGFR > 60 POC Glucometer Random Glucose 149 H D Lactic Acid Calcium 10.2 Phosphorus Magnesium 1.6 L D Total Bilirubin 0.6 D Direct Bilirubin AST 35 ALT 28 Alkaline Phosphatase 39 LD Total Creatine Kinase 297 H CK-MB (CK-2) 13.8 H Troponin I < 0.03 L Total Protein 7.4 Albumin 4.3 Triglycerides Total Amylase Lipase 6575 H Urine Color Urine Appearance Urine pH Ur Specific [place] Urine Protein Urine Glucose (UA) Urine Ketones Urine Blood Urine Nitrite Urine Bilirubin Urine Urobilinogen Ur Leukocyte Esterase Urine RBC Urine WBC Ur Epithelial Cells 07/07/16 07/07/16 07/07/16 15:43 15:43 15:53 WBC RBC Hgb Hct MCV MCHC RDW Plt Count MPV Sodium Potassium Chloride Carbon Dioxide Anion Gap BUN Creatinine Creat Clearance w eGFR POC Glucometer Random Glucose Lactic Acid 1.820 Calcium Phosphorus Magnesium Total Bilirubin Direct Bilirubin AST ALT Alkaline Phosphatase LD Total 232 H Creatine Kinase CK-MB (CK-2) Troponin I Total Protein Albumin Triglycerides Total Amylase 1225 H* D Lipase Urine Color Urine Appearance Urine pH Ur Specific [place] Urine Protein Urine Glucose (UA) Urine Ketones Urine Blood Urine Nitrite Urine Bilirubin Urine Urobilinogen Ur Leukocyte Esterase Urine RBC Urine WBC Ur Epithelial Cells 07/07/16 07/07/16 07/08/16 16:25 21:30 05:15 WBC 8.3 RBC 3.64 Hgb 11.9 Hct 34.7 MCV 95.4 MCHC 34.1 RDW 13.5 Plt Count 234 MPV 8.1 Sodium Potassium Chloride Carbon Dioxide Anion Gap BUN Creatinine Creat Clearance w eGFR POC Glucometer Random Glucose Lactic Acid Calcium Phosphorus Magnesium Total Bilirubin Direct Bilirubin AST ALT Alkaline Phosphatase LD Total Creatine Kinase CK-MB (CK-2) Troponin I Total Protein Albumin Triglycerides 259 H Total Amylase Lipase Urine Color Yellow Urine Appearance Clear Urine pH 7.0 Ur Specific [place] 1.015 Urine Protein 1+ H Urine Glucose (UA) Trace Urine Ketones Negative Urine Blood Trace-intact Urine Nitrite Negative Urine Bilirubin Negative Urine Urobilinogen 0.2 e.u/dl Ur Leukocyte Esterase 1+ H Urine RBC 3-5 Urine WBC 10-20 Ur Epithelial Cells 3-5 07/08/16 07/08/16 05:15 12:12 WBC RBC Hgb Hct MCV MCHC RDW Plt Count MPV Sodium 141 Potassium 4.0 Chloride 105 Carbon Dioxide 24 Anion Gap 12 BUN 16 Creatinine 0.8 Creat Clearance w eGFR POC Glucometer 151.01133 Random Glucose 125 H Lactic Acid Calcium 8.8 Phosphorus 4.2 Magnesium 1.3 L Total Bilirubin 0.3 Direct Bilirubin 0.1 AST 27 ALT 25 Alkaline Phosphatase 34 L LD Total Creatine Kinase CK-MB (CK-2) Troponin I Total Protein 6.0 L Albumin 3.3 L Triglycerides Total Amylase 816 H Lipase Urine Color Urine Appearance Urine pH Ur Specific [place] Urine Protein Urine Glucose (UA) Urine Ketones Urine Blood Urine Nitrite Urine Bilirubin Urine Urobilinogen Ur Leukocyte Esterase Urine RBC Urine WBC Ur Epithelial Cells Assessment/Plan Acute gallstone/obstructive pancreatitis (?) Early ARDS versus Pulmonary vascular congestion due to volume DM HTN HPL TIA Esophageal stricture by history Decrease IVF Monitor abdominal exam for compartment syndrome Monitor CXR Monitor off ABX for now Pain control May need NIPPV Zofran PRN NPO Follow fingersticks DVT/GI prophylaxis Dr Tirado Critical care time spent in reviewing chart, evaluating patient and formulating plan 35 min
--- NOTE | 2016-07-08 13:17 | CONSULT ---
- Consultation REQUESTING PROVIDER: Dede Brar MD CONSULT REQUEST: CTSP for evaluation and management of abdominal pain due to pancreatitis of ? origin. PCP:Dede Brar HISTORY OF PRESENT ILLNESS: 89 y/o W/F presented w/ abdominal pain of acute origin; w/u in the ER revealed acute on chronic pancreatitis; patient has known cholelithiasis dating back at least 4 years; NOC. Patients chart was reviewed. PMHx: as noted PSHx: as noted Home Medications Medication Instructions Recorded Fenofibrate Nanocrystallized 145 mg PO DAILY 02/03/16 [Fenofibrate] Glucosamine Sulfate Dipot Chlr 1,500 mg PO DAILY 02/03/16 [Glucosamine] Metoprolol Succinate [Toprol Xl -] 25 mg PO DAILY 02/03/16 Aspirin/Dipyridamole 1 each PO BID 07/07/16 [Aspirin-Dipyridam ER 25-200 mg] Calcium Carbonate/Vitamin D3 1 each PO DAILY 07/07/16 [Calcium 600 + Vit D Tablet] Multivit-Min/Iron/Folic/Lutein 1 each PO DAILY 07/07/16 [Centrum Silver Women Tablet] Allergies Allergy/AdvReac Type Severity Reaction Status Date / Time [place]-3 acid Ethyl Esters Allergy Unknown Rash Verified 07/07/16 15:14 [From Lovaza] Egg Derived AdvReac Intermediate Vomiting Verified 07/07/16 15:14 REVIEW OF SYSTEMS: as above PHYSICAL EXAM: GENERAL: Awake, alert, and fully oriented, in no acute distress in ICU. HEAD: Normal with no signs of trauma. EYES:Sclera anicteric, conjunctiva clear. NECK: Normal ROM, supple without lymphadenopathy, JVD, or masses. ABDOMEN: Soft, nontender, distended and tympanitic, normoactive bowel sounds, no guarding, no rebound, no masses. No organomegaly. No hernias. MUSCULOSKELETAL: Normal ROM at all joints. No bony deformities or tenderness. No CVA tenderness. UPPER EXTREMITIES: 2+ pulses, warm, well-perfused. No cyanosis. Cap refill <2 seconds. No peripheral edema. LOWER EXTREMITIES: 2+ pulses, warm, well-perfused. No calf tenderness. No peripheral edema. NEUROLOGICAL: Normal speech, gait not observed. PSYCH: Cooperative. Good eye contact. Appropriate mood and affect. SKIN: Warm, dry, normal turgor, no rashes or lesions noted. Vital Signs Temperature 99.2 F 07/08/16 10:00 Pulse Rate 83 07/08/16 12:00 Respiratory Rate 14 07/08/16 12:00 Blood Pressure 127/58 07/08/16 12:00 O2 Sat by Pulse Oximetry (%) 96 07/08/16 12:06 Lab Results WBC 8.3 K/mm3 (4.0-10.0) 07/08/16 05:15 RBC 3.64 M/mm3 (3.60-5.2) 07/08/16 05:15 Hgb 11.9 GM/dL (10.7-15.3) 07/08/16 05:15 Hct 34.7 % (32.4-45.2) 07/08/16 05:15 MCV 95.4 fl (80-96) 07/08/16 05:15 MCHC 34.1 g/dl (32.0-36.0) 07/08/16 05:15 RDW 13.5 % (11.6-15.6) 07/08/16 05:15 Plt Count 234 K/MM3 (134-434) 07/08/16 05:15 Sodium 141 mmol/L (136-145) 07/08/16 05:15 Potassium 4.0 mmol/L (3.5-5.1) 07/08/16 05:15 Chloride 105 mmol/L (98-107) 07/08/16 05:15 Carbon Dioxide 24 mmol/L (21-32) 07/08/16 05:15 Anion Gap 12 (8-16) 07/08/16 05:15 BUN 16 mg/dL (7-18) 07/08/16 05:15 Creatinine 0.8 mg/dL (0.55-1.02) 07/08/16 05:15 Random Glucose 125 mg/dL (74-106) H 07/08/16 05:15 Calcium 8.8 mg/dL (8.5-10.1) 07/08/16 05:15 labs/imaging to date reviewed. IMP: pancreatitis; doubt of biliary tract origin given 1 large stone in the gallbladder and non dilated ducts and normal LFT's. PLAN:Would continue w/ NPO/IVF/trend amylase/lipase and follow clinically and w / repeat imaging as needed; will f/u. Preston Chan MD FACS Visit type - Case Type Case Type: ED Admission - Emergency Emergency Visit: Yes ED Registration Date: 07/07/16 Care time: The patient presented to the Emergency Department on the above date and was hospitalized for further evaluation of their emergent condition. - New patient This patient is new to me today: Yes Date on this admission: 07/08/16 - Critical Care Critical Care patient: Yes Total Critical Care Time: 30 Critical Care Statement: The care of this patient involved high complexity decision making to prevent further life threatening deterioration of the patient 's condition and/or to evalute & treat vital organ system(s) failure or risk of failure.
--- NOTE | 2016-07-08 13:29 | MSN ---
Progress Note (short form) - Note Progress Note: Saw and evaluated patient this AM. Patient was alert and oriented to time and place and was in no apparent distress. Patient states that her abdominal pain has come down to a 7/10 and is still present at midline. Patient complains of no more nausea or vomiting. Patient has not had any BMs since yesterday morning. Patient has had no burning with urination. Patient will remain NPO but will be given food if she has appetite. Patient will continue to be on 150cc/hr of fluid. GI on board. Pt will get an MRCP for further imaging studies and will most likely need a cholecystectomy once acute pancreatitis resolves. Continue to monitor vitals and labs Current Medications Generic Name Dose Route Start Last Admin Trade Name Freq PRN Reason Stop Dose Admin Albuterol/Ipratropium 1 amp 07/08/16 08:02 Duoneb - NEB Q6H PRN SHORTNESS OF BREATH Chlorhexidine Gluconate 1 applic 07/08/16 22:00 Hibiclens For Decolonization - TP HS [facility] Heparin Sodium (Porcine) 5,000 unit 07/07/16 22:00 07/08/16 10:04 Heparin - SQ 5,000 unit BID [facility] Administration Hydromorphone HCl 0.5 mg 07/07/16 21:33 07/07/16 23:00 Dilaudid Injection - IVPUSH 0.5 mg Q4H PRN Administration Pain 4-6 Hydromorphone HCl 1 mg 07/07/16 21:34 07/08/16 11:52 Dilaudid Injection - IVPUSH 1 mg Q4H PRN Administration Pain >6 Famotidine/Sodium Chloride 50 mls @ 100 mls/hr 07/07/16 22:00 07/08/16 10:04 Pepcid 20 Mg Premixed Ivpb - IVPB 100 mls/hr BID [facility] Administration Insulin Aspart 1 vial 07/08/16 07:00 07/08/16 12:23 Novolog Vial Sliding Scale - SQ 2 units TIDAC [facility] Administration Protocol Metoprolol Tartrate 5 mg 07/08/16 04:28 Lopressor Injection - IVPUSH Q4H PRN HYPERTENSION Mupirocin 1 applic 07/08/16 10:00 07/08/16 10:04 Bactroban Ointment (For Decolonization) - NS 07/13/16 09:59 1 applic BID [facility] Administration Ondansetron HCl 4 mg 07/07/16 21:34 07/07/16 21:44 Zofran Injection IVPUSH 4 mg Q6H PRN Administration NAUSEA AND/OR VOMITING Vital Signs Period Temp Pulse Resp BP Sys/[place]aver Pulse Ox Last 24 Hr 98.0 F-99.2 F 64-110 13-28 112-189/50-111 95-98 PHYSICAL EXAM GENERAL: Alert, oriented to person, time, and place. 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, normal speech, gait not observed EXTREMITIES: 2+ pulses bilaterally, warm, well perfused, no edema Laboratory Results - last 24 hr 07/07/16 07/07/16 07/07/16 15:43 15:43 15:43 WBC 9.0 D RBC 4.01 Hgb 12.8 Hct 37.4 MCV 93.2 MCHC 34.2 RDW 12.9 Plt Count 279 MPV 8.0 Sodium 135 L Potassium 4.2 Chloride 103 Carbon Dioxide 20 L Anion Gap 12 BUN 27 H D Creatinine 0.8 D Creat Clearance w eGFR > 60 POC Glucometer Random Glucose 149 H D Lactic Acid Calcium 10.2 Phosphorus Magnesium 1.6 L D Total Bilirubin 0.6 D Direct Bilirubin AST 35 ALT 28 Alkaline Phosphatase 39 LD Total Creatine Kinase 297 H CK-MB (CK-2) 13.8 H Troponin I < 0.03 L Total Protein 7.4 Albumin 4.3 Triglycerides Total Amylase Lipase 6575 H Urine Color Urine Appearance Urine pH Ur Specific Ruth Urine Protein Urine Glucose (UA) Urine Ketones Urine Blood Urine Nitrite Urine Bilirubin Urine Urobilinogen Ur Leukocyte Esterase Urine RBC Urine WBC Ur Epithelial Cells 07/07/16 07/07/16 07/07/16 15:43 15:43 15:53 WBC RBC Hgb Hct MCV MCHC RDW Plt Count MPV Sodium Potassium Chloride Carbon Dioxide Anion Gap BUN Creatinine Creat Clearance w eGFR POC Glucometer Random Glucose Lactic Acid 1.820 Calcium Phosphorus Magnesium Total Bilirubin Direct Bilirubin AST ALT Alkaline Phosphatase LD Total 232 H Creatine Kinase CK-MB (CK-2) Troponin I Total Protein Albumin Triglycerides Total Amylase 1225 H* D Lipase Urine Color Urine Appearance Urine pH Ur Specific Ruth Urine Protein Urine Glucose (UA) Urine Ketones Urine Blood Urine Nitrite Urine Bilirubin Urine Urobilinogen Ur Leukocyte Esterase Urine RBC Urine WBC Ur Epithelial Cells 07/07/16 07/07/16 07/08/16 16:25 21:30 05:15 WBC 8.3 RBC 3.64 Hgb 11.9 Hct 34.7 MCV 95.4 MCHC 34.1 RDW 13.5 Plt Count 234 MPV 8.1 Sodium Potassium Chloride Carbon Dioxide Anion Gap BUN Creatinine Creat Clearance w eGFR POC Glucometer Random Glucose Lactic Acid Calcium Phosphorus Magnesium Total Bilirubin Direct Bilirubin AST ALT Alkaline Phosphatase LD Total Creatine Kinase CK-MB (CK-2) Troponin I Total Protein Albumin Triglycerides 259 H Total Amylase Lipase Urine Color Yellow Urine Appearance Clear Urine pH 7.0 Ur Specific Ruth 1.015 Urine Protein 1+ H Urine Glucose (UA) Trace Urine Ketones Negative Urine Blood Trace-intact Urine Nitrite Negative Urine Bilirubin Negative Urine Urobilinogen 0.2 e.u/dl Ur Leukocyte Esterase 1+ H Urine RBC 3-5 Urine WBC 10-20 Ur Epithelial Cells 3-5 07/08/16 07/08/16 05:15 12:12 WBC RBC Hgb Hct MCV MCHC RDW Plt Count MPV Sodium 141 Potassium 4.0 Chloride 105 Carbon Dioxide 24 Anion Gap 12 BUN 16 Creatinine 0.8 Creat Clearance w eGFR POC Glucometer 151.73270 Random Glucose 125 H Lactic Acid Calcium 8.8 Phosphorus 4.2 Magnesium 1.3 L Total Bilirubin 0.3 Direct Bilirubin 0.1 AST 27 ALT 25 Alkaline Phosphatase 34 L LD Total Creatine Kinase CK-MB (CK-2) Troponin I Total Protein 6.0 L Albumin 3.3 L Triglycerides Total Amylase 816 H Lipase Urine Color Urine Appearance Urine pH Ur Specific Ruth Urine Protein Urine Glucose (UA) Urine Ketones Urine Blood Urine Nitrite Urine Bilirubin Urine Urobilinogen Ur Leukocyte Esterase Urine RBC Urine WBC Ur Epithelial Cells IMAGING CXR (07/07/16): No acute pathology. Degenerative changes. Hiatal hernia. Large heart. Sclerotic knob. Probable old trauma proximal left. CXR (07/08/16): Repeated for signs of fluid overload. No changes Abdominal/Pelvic CT (07/07/16): Acute pancreatitis. Underlying chronic calcific pancreatitis. Cholelithiasis without CT evidence of cholecystitis Abdominal US (07/07/16): Cholelithiasis, Diffuse fatty infiltration of the liver with hepatomegaly ASSESSMENT/PLAN 89 y/o F with PMHx of DMII, HTN, HLD, TIA presents to ED with severe abdominal pain. Admitted for abdominal pain secondary to acute pancreatitis 1. Acute pancreatitis -Amylase 1225, Lipase 6575 -[place] score of 6, BISAP score of 2 -NPO for now, give food once patient has appetite -Lactated ringers 150cc/hr -IV Dilaudid for pain -IV Zofran for N/V -GI on board -Likely needs MRCP -F/U with surgery for cholecystectomy once pancreatitis resolves 2. DMII -ISS -BGM, ACHS -Hold Tradjenta (can cause pancreatitis) 3. HTN -Lopressor 5 mg Q4H PRN -Restart home meds once off NPO 4. UTI -Discontinued Ceftriaxone -Likely resolved 5. Ppx -IV Heparin for DVT -Famotidine for GI Dispo: Med/surg
[2016-07-08] MEDS ORDERED: LACTATED RINGERS SOLUTION 1,000 ML IV SCH ×3 (13:30→20:15)
--- NOTE | 2016-07-08 14:06 | PN ---
Physical Exam: SUBJECTIVE: Patient seen and examined Pt is complaining of abdominal pain c/o generalized weakness C/o Nausea but no vomiting pt has poor appetite No fever or chills OBJECTIVE: Vital Signs Period Temp Pulse Resp BP Sys/[place]aver Pulse Ox Last 24 Hr 98.2 F-99.7 F 66-88 12-24 95-189/48-111 96-98 GENERAL: The patient is awake, alert, and fully oriented, in no acute distress. HEAD: Normal with no signs of trauma. ENT: Ears normal, nares patent, oropharynx clear without exudates, moist mucous membranes. NECK: Trachea midline, full range of motion, supple. LUNGS: Breath sounds equal, clear to auscultation bilaterally, no wheezes, no crackles, no accessory muscle use. HEART: Regular rate and rhythm, S1, S2 with systolic murmur, rub or gallop. ABDOMEN: Soft, diffusely tender, worse in epigatric, distended, normoactive bowel sounds, mild guarding, no rebound, no hepatosplenomegaly, no masses. EXTREMITIES: 2+ pulses, warm, well-perfused, no edema. NEUROLOGICAL: Normal speech, gait not observed. PSYCH: Normal mood, normal affect. SKIN: Warm, dry, normal turgor, no rashes or lesions noted Laboratory Results - last 24 hr 07/07/16 07/08/16 07/08/16 21:30 05:15 05:15 WBC 8.3 RBC 3.64 Hgb 11.9 Hct 34.7 MCV 95.4 MCHC 34.1 RDW 13.5 Plt Count 234 MPV 8.1 Sodium 141 Potassium 4.0 Chloride 105 Carbon Dioxide 24 Anion Gap 12 BUN 16 Creatinine 0.8 POC Glucometer Random Glucose 125 H Calcium 8.8 Phosphorus 4.2 Magnesium 1.3 L Total Bilirubin 0.3 Direct Bilirubin 0.1 AST 27 ALT 25 Alkaline Phosphatase 34 L Total Protein 6.0 L Albumin 3.3 L Triglycerides 259 H Total Amylase 816 H 07/08/16 12:12 WBC RBC Hgb Hct MCV MCHC RDW Plt Count MPV Sodium Potassium Chloride Carbon Dioxide Anion Gap BUN Creatinine POC Glucometer 151.87233 Random Glucose Calcium Phosphorus Magnesium Total Bilirubin Direct Bilirubin AST ALT Alkaline Phosphatase Total Protein Albumin Triglycerides Total Amylase Active Medications Generic Name Dose Route Start Last Admin Trade Name Freq PRN Reason Stop Dose Admin Albuterol/Ipratropium 1 amp 04/24/17 08:02 Duoneb - NEB Q6H PRN SHORTNESS OF BREATH Chlorhexidine Gluconate 1 applic 07/08/16 22:00 Hibiclens For Decolonization - TP HS [facility] Heparin Sodium (Porcine) 5,000 unit 07/07/16 22:00 07/08/16 10:04 Heparin - SQ 5,000 unit BID [facility] Administration Hydromorphone HCl 0.5 mg 07/07/16 21:33 07/07/16 23:00 Dilaudid Injection - IVPUSH 0.5 mg Q4H PRN Administration Pain 4-6 Hydromorphone HCl 1 mg 07/07/16 21:34 07/08/16 11:52 Dilaudid Injection - IVPUSH 1 mg Q4H PRN Administration Pain >6 Famotidine/Sodium Chloride 50 mls @ 100 mls/hr 07/07/16 22:00 07/08/16 10:04 Pepcid 20 Mg Premixed Ivpb - IVPB 100 mls/hr BID [facility] Administration Lactated Ringer's 1,000 mls @ 75 mls/hr 07/08/16 13:59 Lactated Ringers Solution IV ASDIR [facility] Insulin Aspart 1 vial 07/08/16 07:00 07/08/16 12:23 Novolog Vial Sliding Scale - SQ 2 units TIDAC [facility] Administration Protocol Metoprolol Tartrate 5 mg 07/08/16 04:28 Lopressor Injection - IVPUSH Q4H PRN HYPERTENSION Mupirocin 1 applic 07/08/16 10:00 07/08/16 10:04 Bactroban Ointment (For Decolonization) - NS 07/13/16 09:59 1 applic BID [facility] Administration Ondansetron HCl 4 mg 07/07/16 21:34 07/07/16 21:44 Zofran Injection IVPUSH 4 mg Q6H PRN Administration NAUSEA AND/OR VOMITING CBC, BMP 07/08/16 05:15 07/08/16 05:15 Microbiology Laboratory Tests 07/07/16 07/07/16 07/07/16 15:43 15:43 15:43 LD Total Troponin I < 0.03 L Albumin Total Amylase 1225 H* D Lipase 6575 H Urine Nitrite Ur Leukocyte Esterase Urine WBC 07/07/16 07/07/1617 15:43 16:25 05:15 LD Total 232 H Troponin I Albumin 3.3 L Total Amylase 816 H Lipase Urine Nitrite Negative Ur Leukocyte Esterase 1+ H Urine WBC 10-20 ASSESSMENT/PLAN: 89 year old female with pmh og DM, HTN, HPLD, TIA, PVD, RLS, esophageal stricture presneted to the Ed with complaint of severe abdominal pain accompanied by nausea and non bloody, non bilious episode of vomiting. Pt was found to have Acute pancreatitis. Acute pancreatitis [place] II score 6, Bisap 2 Amylase 1225, Lipase 6575 Pt has Gallstone, no biliary tract dilation, hepatomegaly and fatty infiltrates on CT abdomen and Ultrasound NPO, may resume diet when patient wants to eat IV fluid LR 150ml/h Dilaudid IV PRN for pain Zofran PRN for Nausea GI consulted, Dr Wong Surgery consulted Dr Chan Blood culture Diabetes Pt is NPO Novolog sliding scale Blood sugar has been less than 150 in last 24 hours HTN Pt is NPO will resume home meds whenever patient is tolerating PO meds Lopressor 5mg PRN IV q4h UTI UA with positive leuk esterase, 10-20 WBC Pt has suprapubic tenderness Unknown if it related to generalized abdominal tenderness Ceftriaxone 1mg IV daily Hypomagnesemia Mg 1.6 yesterday, today Mg 1.2 Magnesium sulfate 2gm IV once repeat Mg in am FEN Fluid: NS at 150ml/h Electrolytes: chemistry in am Nutrition: NPO DVT prophyalaxis: SCD Disposition: Pending resolution of pancreatitis Visit type - Emergency Visit Emergency Visit: Yes ED Registration Date: 07/07/16 Care time: The patient presented to the Emergency Department on the above date and was hospitalized for further evaluation of their emergent condition. - New Patient This patient is new to me today: Yes Date on this admission: 07/08/16 - Critical Care Critical Care patient: Yes Total Critical Care Time (in minutes): 40 Critical Care Statement: The care of this patient involved high complexity decision making to prevent further life threatening deterioration of the patient 's condition and/or to evalute & treat vital organ system(s) failure or risk of failure. - Discharge Referral Referred to [facility] No
--- NOTE | 2016-07-08 14:20 | CONSULT ---
Consultation: REQUESTING PROVIDER: CONSULT REQUEST: We have been asked to medically evaluate this patient for ( specify). HISTORY OF PRESENT ILLNESS: Patient is a 89 year old female with PMH of DM, HTN, HLD, TIA, PVD, esophageal stricture who presented to ED yesterday with diffuse severe abdominal pain x 1 day. Patient states that is associated with nausea and constipation. Abdominal pain is 9/10 in severity, constant, feels like "bloating''. Denies fever, chills , chest pain, SOB, headache, visual changes. She is also complaining of increased urgency to urinate for 2 days. She denies dysuria, hematuria. She denies diarrhea. She denies alcohol abuse. The pt denies headache, LOC, vision problems. REVIEW OF SYSTEMS: CONSTITUTIONAL: loss of appetite Absent: fever, chills, diaphoresis, generalized weakness, malaise, weight change HEENT: Absent: rhinorrhea, nasal congestion, throat pain, throat swelling, difficulty swallowing, mouth swelling, ear pain, eye pain, visual changes CARDIOVASCULAR: Absent: chest pain, syncope, palpitations, irregular heart rate, lightheadedness , peripheral edema RESPIRATORY: Absent: cough, shortness of breath, dyspnea with exertion, orthopnea, wheezing, stridor, hemoptysis GASTROINTESTINAL: abdominal pain, abdominal distension Absent: nausea, vomiting, diarrhea, constipation, melena, hematochezia GENITOURINARY: urgency Absent: dysuria, frequency, hesitancy, hematuria, flank pain, genital pain MUSCULOSKELETAL: Absent: myalgia, arthralgia, joint swelling, back pain, neck pain SKIN: Absent: rash, itching, pallor NEUROLOGIC: Absent: headache, focal weakness or paresthesias, dizziness, unsteady gait, seizure, mental status changes, bladder or bowel incontinence PSYCHIATRIC: Absent: anxiety, depression, suicidal or homicidal ideation, hallucinations. PHYSICAL EXAMINATION Vital Signs - 24 hr 07/07/16 07/07/16 07/08/16 22:19 23:21 00:00 Temperature 98.3 F Pulse Rate 71 66 Respiratory 24 20 Rate Blood Pressure 135/81 154/75 174/75 O2 Sat by Pulse 96 Oximetry (%) 07/08/16 07/08/16 07/08/16 02:00 03:00 04:00 Temperature 98.2 F Pulse Rate 76 88 72 Respiratory 18 22 Rate Blood Pressure 172/111 174/102 189/77 O2 Sat by Pulse Oximetry (%) 07/08/16 07/08/16 07/08/16 06:00 08:00 09:00 Temperature Pulse Rate 74 73 Respiratory 18 16 Rate Blood Pressure 112/50 167/72 O2 Sat by Pulse 98 98 Oximetry (%) 07/08/16 07/08/16 07/08/16 09:29 10:00 12:00 Temperature 99.2 F Pulse Rate 72 75 83 Respiratory 13 14 Rate Blood Pressure 142/60 127/58 O2 Sat by Pulse 97 Oximetry (%) 07/08/16 07/08/16 07/08/16 12:06 13:29 13:30 Temperature 99.7 F H Pulse Rate 80 Respiratory 12 Rate Blood Pressure 95/48 O2 Sat by Pulse 96 96 Oximetry (%) GENERAL: Awake, alert, and fully oriented, in no acute distress. HEAD: Normal with no signs of trauma. EYES: Pupils equal, round and reactive to light, extraocular movements intact, sclera anicteric, conjunctiva clear. No lid lag. EARS, NOSE, THROAT: Ears normal, nares patent, oropharynx clear without exudates. Moist mucous membranes. NECK: Normal range of motion, supple without lymphadenopathy, JVD, or masses. LUNGS: Breath sounds equal, clear to auscultation bilaterally. No wheezes, and no crackles. No accessory muscle use. HEART: Regular rate and rhythm, normal S1 and S2 systolic murmur over second right intercostal space and left sternal border, no rub or gallop. ABDOMEN: Soft, nontender, distended, normoactive bowel sounds, no guarding, no rebound, no masses. MUSCULOSKELETAL: Normal range of motion at all joints. No bony deformities or tenderness. No CVA tenderness. UPPER EXTREMITIES: 2+ pulses, warm, well-perfused. No cyanosis. No clubbing. No peripheral edema. LOWER EXTREMITIES: 2+ pulses, warm, well-perfused. No calf tenderness. No peripheral edema. NEUROLOGICAL: No facial asymmetry. Normal speech. Normal gait. PSYCHIATRIC: Cooperative. Good eye contact. Appropriate mood and affect. SKIN: Warm, dry, normal turgor, no rashes or lesions noted. Laboratory Results - last 24 hr 07/07/16 07/08/16 07/08/16 21:30 05:15 05:15 WBC 8.3 RBC 3.64 Hgb 11.9 Hct 34.7 MCV 95.4 MCHC 34.1 RDW 13.5 Plt Count 234 MPV 8.1 Sodium 141 Potassium 4.0 Chloride 105 Carbon Dioxide 24 Anion Gap 12 BUN 16 Creatinine 0.8 POC Glucometer Random Glucose 125 H Calcium 8.8 Phosphorus 4.2 Magnesium 1.3 L Total Bilirubin 0.3 Direct Bilirubin 0.1 AST 27 ALT 25 Alkaline Phosphatase 34 L Total Protein 6.0 L Albumin 3.3 L Triglycerides 259 H Total Amylase 816 H 07/08/16 12:12 WBC RBC Hgb Hct MCV MCHC RDW Plt Count MPV Sodium Potassium Chloride Carbon Dioxide Anion Gap BUN Creatinine POC Glucometer [phone] Random Glucose Calcium Phosphorus Magnesium Total Bilirubin Direct Bilirubin AST ALT Alkaline Phosphatase Total Protein Albumin Triglycerides Total Amylase Active Medications Generic Name Dose Route Start Last Admin Trade Name Freq PRN Reason Stop Dose Admin Albuterol/Ipratropium 1 amp 07/08/16 08:02 Duoneb - NEB Q6H PRN SHORTNESS OF BREATH Chlorhexidine Gluconate 1 applic 07/08/16 22:00 Hibiclens For Decolonization - TP HS ORTEGA Heparin Sodium (Porcine) 5,000 unit 07/07/16 22:00 07/08/16 10:04 Heparin - SQ 5,000 unit BID ORTEGA Administration Hydromorphone HCl 0.5 mg 07/07/16 21:33 07/07/16 23:00 Dilaudid Injection - IVPUSH 0.5 mg Q4H PRN Administration Pain 4-6 Hydromorphone HCl 1 mg 07/07/16 21:34 07/08/16 11:52 Dilaudid Injection - IVPUSH 1 mg Q4H PRN Administration Pain >6 Famotidine/Sodium Chloride 50 mls @ 100 mls/hr 07/07/16 22:00 07/08/16 10:04 Pepcid 20 Mg Premixed Ivpb - IVPB 100 mls/hr BID ORTEGA Administration Lactated Ringer's 1,000 mls @ 75 mls/hr 07/08/16 13:59 Lactated Ringers Solution IV ASDIR [facility]TEGA Insulin Aspart 1 vial 07/08/16 07:00 07/08/16 12:23 Novolog Vial Sliding Scale - SQ 2 units TIDAC [facility]TEGA Administration Protocol Metoprolol Tartrate 5 mg 07/08/16 04:28 Lopressor Injection - IVPUSH Q4H PRN HYPERTENSION Mupirocin 1 applic 07/08/16 10:00 07/08/16 10:04 Bactroban Ointment (For Decolonization) - NS 07/13/16 09:59 1 applic BID ORTEGA Administration Ondansetron HCl 4 mg 07/07/16 21:34 07/07/16 21:44 Zofran Injection IVPUSH 4 mg Q6H PRN Administration NAUSEA AND/OR VOMITING ASSESSMENT/PLAN: Patient is a 89 year old female with PMH of DM, HTN, HLD, TIA, PVD, esophageal stricture who presented to ED with diffuse severe abdominal pain x 1 day. Patient states that is associated with nausea and constipation. She is admitted for acute pancreatitis. Acute pancreatitis: mild -possibly due to gallstone vs. medication induced -continue Ringer Lactate at 75 ml/hr, pain medications -no antibiotics indicated, no biliary duct obstruction, no abscess Asymptomatic bacteriuria: -no antibiotics recommended, pt asymtomatic DM: -continue ISS HTN: -continue Metoprolol Fluid : LR 100ml/hr electrolyte : monitor K, Ca, Mg, nutrition : NPO Dispo: We will continue to follow the patient. Thank you for this consultative opportunity. Visit type - Emergency Visit Emergency Visit: Yes ED Registration Date: 07/07/16 Care time: The patient presented to the Emergency Department on the above date and was hospitalized for further evaluation of their emergent condition. - New Patient This patient is new to me today: Yes Date on this admission: 07/08/16 - Critical Care Critical Care patient: Yes Total Critical Care Time (in minutes): 60 Critical Care Statement: The care of this patient involved high complexity decision making to prevent further life threatening deterioration of the patient 's condition and/or to evalute & treat vital organ system(s) failure or risk of failure.
--- NOTE | 2016-07-08 14:49 | PN ---
Addendum entered and electronically signed by Erik Arana RES 07/08/16 15:17 : magnesium: 1.3, 2gm iv mag given. Addendum entered and electronically signed by Erik Arana, LYDIA 07/08/16 15:16 : cxr : pulmonary edema. Original Note: Physical Exam: SUBJECTIVE: Patient seen and examined patient is of acute mild pancreatitis ( modified mi clasification ), could be gall stone induce states that pain has improved, complains of nausea and vomiting abdomen is distended, BS negative denies chest pain, denies passage of flatus OBJECTIVE: Vital Signs Period Temp Pulse Resp BP Sys/Beaver Pulse Ox Last 24 Hr 98.2 F-99.7 F 66-88 12-24 95-189/48-111 96-98 GENERAL: The patient is awake, alert, and fully oriented, ENT:dry mucus membrane NECK: Trachea midline, full range of motion, supple. LUNGS: Breath sounds equal, clear to auscultation bilaterally, no wheezes, no crackles, HEART:s1s2 normal ABDOMEN: distended, bs1, tenderness in LUQ and epigastric, EXTREMITIES: 2+ pulses, warm, well-perfused, no edema. PSYCH: Normal mood, SKIN: Warm, dry, Laboratory Results - last 24 hr 07/07/16 07/08/16 07/08/16 21:30 05:15 05:15 WBC 8.3 RBC 3.64 Hgb 11.9 Hct 34.7 MCV 95.4 MCHC 34.1 RDW 13.5 Plt Count 234 MPV 8.1 Sodium 141 Potassium 4.0 Chloride 105 Carbon Dioxide 24 Anion Gap 12 BUN 16 Creatinine 0.8 POC Glucometer Random Glucose 125 H Calcium 8.8 Phosphorus 4.2 Magnesium 1.3 L Total Bilirubin 0.3 Direct Bilirubin 0.1 AST 27 ALT 25 Alkaline Phosphatase 34 L Total Protein 6.0 L Albumin 3.3 L Triglycerides 259 H Total Amylase 816 H 07/08/16 12:12 WBC RBC Hgb Hct MCV MCHC RDW Plt Count MPV Sodium Potassium Chloride Carbon Dioxide Anion Gap BUN Creatinine POC Glucometer [phone] Random Glucose Calcium Phosphorus Magnesium Total Bilirubin Direct Bilirubin AST ALT Alkaline Phosphatase Total Protein Albumin Triglycerides Total Amylase Active Medications Generic Name Dose Route Start Last Admin Trade Name Freq PRN Reason Stop Dose Admin Albuterol/Ipratropium 1 amp 07/08/16 08:02 Duoneb - NEB Q6H PRN SHORTNESS OF BREATH Chlorhexidine Gluconate 1 applic 07/08/16 22:00 Hibiclens For Decolonization - TP HS ORTEGA Heparin Sodium (Porcine) 5,000 unit 07/07/16 22:00 07/08/16 10:04 Heparin - SQ 5,000 unit BID ORTEGA Administration Hydromorphone HCl 0.5 mg 07/07/16 21:33 07/07/16 23:00 Dilaudid Injection - IVPUSH 0.5 mg Q4H PRN Administration Pain 4-6 Hydromorphone HCl 1 mg 07/07/16 21:34 07/08/16 11:52 Dilaudid Injection - IVPUSH 1 mg Q4H PRN Administration Pain >6 Famotidine/Sodium Chloride 50 mls @ 100 mls/hr 07/07/16 22:00 07/08/16 10:04 Pepcid 20 Mg Premixed Ivpb - IVPB 100 mls/hr BID ORTEGA Administration Lactated Ringer's 1,000 mls @ 75 mls/hr 07/08/16 14:30 Lactated Ringers Solution IV ASDIR [facility] Insulin Aspart 1 vial 07/08/16 07:00 07/08/16 12:23 Novolog Vial Sliding Scale - SQ 2 units TIDAC [facility] Administration Protocol Metoprolol Tartrate 5 mg 07/08/16 04:28 Lopressor Injection - IVPUSH Q4H PRN HYPERTENSION Mupirocin 1 applic 07/08/16 10:00 07/08/16 10:04 Bactroban Ointment (For Decolonization) - NS 07/13/16 09:59 1 applic BID ORTEGA Administration Ondansetron HCl 4 mg 07/07/16 21:34 07/07/16 21:44 Zofran Injection IVPUSH 4 mg Q6H PRN Administration NAUSEA AND/OR VOMITING ASSESSMENT/PLAN: acute mild pancreatitis ( modified mi classification ) pain control with dilaudid acetaminophen IV fluid RL 100ml/hr, maintain urine output 0.5ml to 1ml/kg/hr zofran for nausea and vomiting duoneb nebulizer incentive spirometry blood glucose monitoring monitor sr calcium and electrolyte monitor vitals monitor intake/ output once pain gets better, distension decrease, try to start her on feed( oral or ng or njft ) DM on novalog sliding scale bgm monitoring HTN monitor BP on lopressor 5mg IV prn Fluid : LR 100ml/hr electrolyte : monitor K, Ca, Mg, nutrition : NPO dvt pro ; heparin sq gi pro : pepcid bid dispo: admit in icu Visit type - Emergency Visit Emergency Visit: Yes ED Registration Date: 07/07/16 Care time: The patient presented to the Emergency Department on the above date and was hospitalized for further evaluation of their emergent condition. - New Patient This patient is new to me today: Yes Date on this admission: 07/08/16 - Critical Care Critical Care patient: Yes Total Critical Care Time (in minutes): 45 Critical Care Statement: The care of this patient involved high complexity decision making to prevent further life threatening deterioration of the patient 's condition and/or to evalute & treat vital organ system(s) failure or risk of failure.
--- NOTE | 2016-07-08 14:56 | PN ---
Teaching Attending Note Name of Resident: Quynh Puente ATTENDING PHYSICIAN STATEMENT I saw and evaluated the patient. I reviewed the resident's note and discussed the case with the resident. I agree with the resident's findings and plan as documented. SUBJECTIVE: OBJECTIVE: ASSESSMENT AND PLAN: acute pancreatitis asymptomatic bacteriuria cultures sent given one dose of rocephin would hold further antibiotics at this time
[2016-07-08] MEDS ORDERED: HYDROmorphone HCL CARPU-JECT 1 MG/1 ML DISP.SYRIN IVPUSH PRN ×2 (15:05→17:45)
[2016-07-08] MEDS ORDERED: ACETAMINOPHEN 1000 MG/100 ML VIAL (NON FORMULARY) IVPB PRN (15:07)
[2016-07-08] MEDS ORDERED: HYDROmorphone HCL CARPU-JECT 1 MG/1 ML DISP.SYRIN ONE (16:13)
[2016-07-08] MEDS ORDERED: HYDROmorphone HCL CARPU-JECT 1 MG/1 ML DISP.SYRIN IVPUSH SCH (18:00)
--- NOTE | 2016-07-08 20:10 | PN ---
GI Progress Note Subjective: No acute events + abdominal pain No vomiting - Objective Vital Signs: Vital Signs Temperature 99.0 F 07/08/16 18:00 Pulse Rate 84 07/08/16 18:00 Respiratory Rate 12 07/08/16 18:00 Blood Pressure 109/61 07/08/16 18:00 O2 Sat by Pulse Oximetry (%) 96 07/08/16 13:30 Constitutional: Calm Eyes: No: Sclera Icterus Cardiovascular: Yes: Regular Rate and Rhythm Respiratory: Yes: CTA Bilaterally Gastrointestinal Inspection: No: Distention ...Auscultate: Yes: Hypoactive Bowel Sounds ...Palpate: Yes: Tenderness (upper abdomen) ...Percussion: No: Tympanitic Edema: No Neurological: Yes: Alert, Oriented Labs: CBC, BMP 07/08/16 05:15 07/08/16 05:15 Problem List - Problems (1) Acute pancreatitis Assessment/Plan: LFTs' not suggestive of gallstone pancreatitis. ? If Tradjenta induced Still with abdominal pain Opiate analgesia IV hydration If pain improves tomorrow advance to clear liquid diet AM labs Code(s): K85.90 - ACUTE PANCREATITIS WITHOUT NECROSIS OR INFECTION, UNSP
[2016-07-08] MEDS ORDERED: HYDROmorphone HCL CARPU-JECT 1 MG/1 ML DISP.SYRIN IVPUSH ONE (21:05)
[2016-07-08] MEDS ORDERED: PT OWN MED DRAWER 7, Y5N ONE (22:03)
[2016-07-08] MEDS: CHLORHEXIDINE GLUCONATE 4% CLEANSER FOR DECOLONIZATION TP SCH (22:11)
[2016-07-09] MEDS ORDERED: HYDROmorphone HCL CARPU-JECT 2 MG/1 ML DISP.SYRIN ONE (00:14)
[2016-07-09] MEDS: HYDROmorphone HCL CARPU-JECT 1 MG/1 ML DISP.SYRIN IVPUSH PRN ×4 (04:48→19:48)
[2016-07-09] MEDS ORDERED: HEMOQUE TEST 1 EACH EACH ONE (06:06)
[2016-07-09] MEDS ORDERED: HYDROmorphone HCL CARPU-JECT 1 MG/1 ML DISP.SYRIN IVPUSH ONE (06:21)
[2016-07-09] MEDS: INSULIN SLIDING SCALE (NOVOLOG) 1 VIAL SQ SCH ×3 (06:34→16:32)
[2016-07-09 06:51] LABS: BASOPHIL 0.2 % (0-2.0); EOSINOPHIL 0.3 % (0-4.5); MCH 31.8 pg (25.7-33.7); MCHC 32.8 g/dl (32.0-36.0); MEAN CELL VOLUME 96.9 fl (80-96); MEAN PLT VOLUME 7.9 fl (7.5-11.1); NEUTROPHILS 87.1 % (42.8-82.8); PLATELET COUNT 201 K/MM3 (134-434); RDW 14.3 % (11.6-15.6); WHITE BLOOD COUNT 11.3 K/mm3 (4.0-10.0)
[2016-07-09 07:14] LABS: ALBUMIN 2.7 g/dl (3.4-5.0); CALCIUM 7.7 mg/dL (8.5-10.1); CREATININE 2.1 mg/dL (0.55-1.02)
[2016-07-09 07:16] LABS: BILIRUBIN,TOTAL 0.5 mg/dL (0.2-1.0); TOT PROT 5.5 g/dl (6.4-8.2)
--- NOTE | 2016-07-09 08:47 | PN ---
Addendum entered and electronically signed by Dez Mercado PA 07/09/16 14:36: Amylase down to 803 Original Note: Progress Note (short form) - Note Progress Note: Resting in position of comfort. Still having some abd pain (slightly improved since admit to hospital). Denies n/v/f/c, CP, SOB, flatus or bowel movement AVSS. Afebrile Lab Trends 3 07/07/16 07/07/16 07/07/16 07/08/16 07/09/16 15:43 15:43 15:43 05:15 05:17 WBC 9.0 D 8.3 11.3 BUN 25 Creatinine 2.1 Magnesium 1.6 L D 1.3 Total Amylase 1225 H* D 816 PE Gen: alert. nad Abd: distended. LUQ/epigastric mild ttp. hypoactive bowel sounds. Problem List - Problems (1) Drug-induced acute pancreatitis Assessment/Plan: LFTs' not suggestive of gallstone pancreatitis. Most likely Tradjenta induced. Pain management PRN IV fluid Monitor rising BUN/Cr Leukocytosis - monitor WBC IV abx at discretion of ICU attending GI/DVT ppx Cont ICU management f/u repeat Amylase No acute surgical pathology indicating surgery. Will continue to follow. Above discussed with Dr. Chan and agrees Code(s): K85.30 - DRUG INDUCED ACUTE PANCREATITIS WITHOUT NECROSIS OR INFCT
[2016-07-09] MEDS ORDERED: LACTATED RINGERS SOLUTION 1,000 ML IV SCH (09:28)
--- NOTE | 2016-07-09 09:35 | PN ---
GI Progress Note Subjective: No acute events States pain somewhat improved No BM as of yet - Objective Vital Signs: Vital Signs Temperature 98.8 F 07/09/16 02:00 Pulse Rate 82 07/09/16 06:00 Respiratory Rate 19 07/09/16 06:00 Blood Pressure 115/65 07/09/16 06:00 O2 Sat by Pulse Oximetry (%) 96 07/08/16 19:49 Constitutional: Calm Eyes: No: Sclera Icterus Cardiovascular: Yes: Regular Rate and Rhythm, Murmur Respiratory: Yes: CTA Bilaterally Gastrointestinal Inspection: Yes: Distention (protuberant abdomen) ...Auscultate: Yes: Normoactive Bowel Sounds (improved from yesterday) ...Palpate: Yes: Tenderness (marked TTP epigastrium (same as yesterday). + TTP LLQ/RLQ) Edema: No Neurological: Yes: Alert, Oriented Labs: CBC, BMP 07/09/16 05:17 07/09/16 05:17 Problem List - Problems (1) Acute pancreatitis Assessment/Plan: Ms. portillo says that the pain somewhat improved however still markedly tender on exam today with worsening leukocytosis. BISAP score is 3 at this point. High risk for mortality. Along with markedly elevated CRP which is independent indicator for severe pancreatitis Renal evaluation called. No IV dye was given when CT scan was initially performed therefore evaluating extent for extent of pancreatic injury / neccrosis on that study is limited Continue supportive measures Guarded condition I discussed the case with her son today and that his mother is still critically ill Code(s): K85.90 - ACUTE PANCREATITIS WITHOUT NECROSIS OR INFECTION, UNSP
[2016-07-09] MEDS: FAMOTIDINE 20 MG/50 ML IVPB 50 ML IVPB SCH ×2 (09:47→21:30)
[2016-07-09] MEDS: HEPARIN NA (PORCINE) 5,000 UNITS/ML 1ML VIAL SQ SCH ×2 (09:47→21:30)
[2016-07-09] MEDS: MUPIROCIN 2% TOPICAL OINTMENT FOR DECOLONIZATION NS SCH ×2 (09:48→21:30)
--- NOTE | 2016-07-09 09:56 | EKG ---
Test Reason : Blood Pressure : / mmHG Vent. Rate : 064 BPM Atrial Rate : 064 BPM P-R Int : 182 ms QRS Dur : 082 ms QT Int : 416 ms P-R-T Axes : 058 042 038 degrees QTc Int : 429 ms NORMAL SINUS RHYTHM POSSIBLE LEFT ATRIAL ENLARGEMENT POOR R WAVE PROGRESSION NO PREVIOUS ECGS AVAILABLE Confirmed by MD SHAHLA, JEFFERSON ([id number]) on 07/09/2016 9:55:59 AM Referred By: PHILLIP Confirmed By:JEFFERSON GALE MD
[2016-07-09] MEDS: DEXTROSE 5%-LACTATED RINGERS 1,000 ML IV SCH (12:15)
--- NOTE | 2016-07-09 12:31 | MSN ---
Progress Note (short form) - Note Progress Note: Saw and evaluated patient this AM. Patient was alert and oriented to time and place and was in no apparent distress. Patient appeared to be more comfortable but still stated that her pain was a 7/10. Pain was situated in RUQ and midline abdominal area. Patient also felt much more fatigued. Patient denied F/C, N/V, shortness of breath, chest pain, diarrhea, constipation. Patient still has not had any BMs since admission. Patient's creatinine increased from 0.8 to 2.1. Patient's WBC also increased from 8.3 to 11.3. CXR done this AM shows some increased density at the left base. F/U recommended. Raised patient's fluids from 100 to 150cc/hr. GI and surgery on board. Per GI, patient will continue to be on supportive measures. Per surgery, there is no acute surgical pathology indicating surgery. Will continue to monitor patient's vitals and labs Current Medications Generic Name Dose Route Start Last Admin Trade Name Freq PRN Reason Stop Dose Admin Albuterol/Ipratropium 1 amp 07/08/16 08:02 Duoneb - NEB Q6H PRN SHORTNESS OF BREATH Chlorhexidine Gluconate 1 applic 07/08/16 22:00 07/08/16 22:11 Hibiclens For Decolonization - TP 1 applic HS ORTEGA Administration Heparin Sodium (Porcine) 5,000 unit 07/07/16 22:00 07/09/16 09:47 Heparin - SQ 5,000 unit BID ORTEGA Administration Hydromorphone HCl 2 mg 07/09/16 00:14 07/09/16 09:27 Dilaudid Injection - IVPUSH 2 mg Q3H PRN Administration Pain >6 Famotidine/Sodium Chloride 50 mls @ 100 mls/hr 07/07/16 22:00 07/09/16 09:47 Pepcid 20 Mg Premixed Ivpb - IVPB 100 mls/hr BID ORTEGA Administration Dextrose/Lactated Ringer's 1,000 mls @ 150 mls/hr 07/09/16 12:15 D5-Lr - IV ASDIR [facility] Insulin Aspart 1 vial 07/08/16 07:00 07/09/16 06:34 Novolog Vial Sliding Scale - SQ Not Given TIDAC [facility] Protocol Metoprolol Tartrate 5 mg 07/08/16 04:28 Lopressor Injection - IVPUSH Q4H PRN HYPERTENSION Mupirocin 1 applic 07/08/16 10:00 07/09/16 09:48 Bactroban Ointment (For Decolonization) - NS 07/13/16 09:59 1 applic BID ORTEGA Administration Ondansetron HCl 4 mg 07/07/16 21:34 07/07/16 21:44 Zofran Injection IVPUSH 4 mg Q6H PRN Administration NAUSEA AND/OR VOMITING Vital Signs Period Temp Pulse Resp BP Sys/Beaver Pulse Ox Last 24 Hr 98.8 F-99.7 F 79-88 10-22 95-157/48-89 96-96 PHYSICAL EXAM GENERAL: Alert, oriented to person, time, and place. 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, normal speech, gait not observed EXTREMITIES: 2+ pulses bilaterally, warm, well perfused, no edema Laboratory Results - last 24 hr 07/08/16 07/08/16 07/09/16 17:27 20:48 05:17 WBC 11.3 H D RBC 3.86 Hgb 12.3 Hct 37.4 MCV 96.9 H MCHC 32.8 RDW 14.3 Plt Count 201 MPV 7.9 Neutrophils % 87.1 H Lymphocytes % 6.5 L Monocytes % 5.9 Eosinophils % 0.3 Basophils % 0.2 Sodium Potassium Chloride Carbon Dioxide Anion Gap BUN Creatinine Creat Clearance w eGFR POC Glucometer 144.72827 141.63437 Random Glucose Calcium Total Bilirubin AST ALT Alkaline Phosphatase C-Reactive Protein Total Protein Albumin Total Amylase 07/09/16 07/09/16 07/09/16 05:17 05:17 05:17 WBC RBC Hgb Hct MCV MCHC RDW Plt Count MPV Neutrophils % Lymphocytes % Monocytes % Eosinophils % Basophils % Sodium 139 Potassium 4.5 Chloride 106 Carbon Dioxide 22 Anion Gap 11 BUN 25 H D Creatinine 2.1 H D Creat Clearance w eGFR 22.18 POC Glucometer Random Glucose 123 H Calcium 7.7 L Total Bilirubin 0.5 D AST 38 H D ALT 29 Alkaline Phosphatase 31 L C-Reactive Protein 26.0 H Total Protein 5.5 L Albumin 2.7 L Total Amylase 803 H Cancelled 07/09/16 06:13 WBC RBC Hgb Hct MCV MCHC RDW Plt Count MPV Neutrophils % Lymphocytes % Monocytes % Eosinophils % Basophils % Sodium Potassium Chloride Carbon Dioxide Anion Gap BUN Creatinine Creat Clearance w eGFR POC Glucometer [phone] Random Glucose Calcium Total Bilirubin AST ALT Alkaline Phosphatase C-Reactive Protein Total Protein Albumin Total Amylase IMAGING CXR (07/07/16): No acute pathology. Degenerative changes. Hiatal hernia. Large heart. Sclerotic knob. Probable old trauma proximal left. CXR (07/08/16): Repeated for signs of fluid overload. No changes Abdominal/Pelvic CT (07/07/16): Acute pancreatitis. Underlying chronic calcific pancreatitis. Cholelithiasis without CT evidence of cholecystitis Abdominal US (07/07/16): Cholelithiasis, Diffuse fatty infiltration of the liver with hepatomegaly CXR (07/09/16): Increased density seen at the left base. ASSESSMENT/PLAN 89 y/o F with PMHx of DMII, HTN, HLD, TIA presents to ED with severe abdominal pain. Admitted for abdominal pain secondary to acute pancreatitis 1. Acute pancreatitis -Amylase 1225, Lipase 6575 -[place] score of 6, BISAP score of 3 -NPO -Lactated ringers 150cc/hr -IV Dilaudid, Tylenol for pain -IV Zofran for N/V -GI and surgery on board -Continue supportive measures per GI 2. DMII -ISS -BGM, ACHS -Hold Tradjenta (can cause pancreatitis) 3. Renal insufficiency -Creatinine 2.1 -Likely secondary to hypovolemia -Raised fluids to 150 cc/hr -Continue to monitor 4. HTN -Lopressor 5 mg Q4H PRN -Restart home meds once off NPO 5. UTI -Discontinued Ceftriaxone -Likely resolved 6. Ppx -IV Heparin for DVT -Famotidine for GI Dispo: ICU
--- NOTE | 2016-07-09 13:00 | PN ---
Teaching Attending Note Name of Resident: Quynh Puente ATTENDING PHYSICIAN STATEMENT I saw and evaluated the patient. I reviewed the resident's note and discussed the case with the resident. I agree with the resident's findings and plan as documented. SUBJECTIVE: OBJECTIVE: ASSESSMENT AND PLAN: severe pancreatitis- PARVEEN IVF, analgesia management per ICU/GI/surgery doubt UTI s/p ceftriaxone f/u cultures overall prognosis is guarded
--- NOTE | 2016-07-09 13:06 | PN ---
Teaching Attending Note Name of Resident: Erik Arana ATTENDING PHYSICIAN STATEMENT I saw and evaluated the patient. I reviewed the resident's note and discussed the case with the resident. I agree with the resident's findings and plan as documented. SUBJECTIVE: Patient seen and examined in the ICU. Awake and alert. Some improvement in abdominal pain, but still present. Mildly tachypniec at rest and now on VM O2. Denies CP or SOB. CXR: Increased vascular congestion / fluid in the fissure Intake & Output 07/05/16 07/06/16 07/07/16 07/08/16 23:59 23:59 23:59 23:59 Intake Total 1800 2450 Output Total 75 425 Balance 1725 2025 Weight 128 lb 8.472 oz 125 lb 14.143 oz Last Vital Signs Temp Pulse Resp BP Pulse Ox 99.2 F 83 14 127/58 96 07/08/16 10:00 07/08/16 12:00 07/08/16 12:00 07/08/16 12:00 07/08/16 12:06 Active Medications Albuterol/Ipratropium (Duoneb -) 1 amp NEB Q6H PRN PRN Reason: SHORTNESS OF BREATH Ceftriaxone Sodium (Rocephin 1gm Ivpb (Pre-Docked)) 1 gm IVPB DAILY [facility] Last Admin: 07/08/16 03:54 Dose: 1 gm Chlorhexidine Gluconate (Hibiclens For Decolonization -) 1 applic TP HS [facility] Heparin Sodium (Porcine) (Heparin -) 5,000 unit SQ BID [facility] Last Admin: 07/08/16 10:04 Dose: 5,000 unit Hydromorphone HCl (Dilaudid Injection -) 0.5 mg IVPUSH Q4H PRN PRN Reason: Pain 4-6 Last Admin: 07/07/16 23:00 Dose: 0.5 mg Hydromorphone HCl (Dilaudid Injection -) 1 mg IVPUSH Q4H PRN PRN Reason: Pain >6 Last Admin: 07/08/16 11:52 Dose: 1 mg Famotidine/Sodium Chloride (Pepcid 20 Mg Premixed Ivpb -) 50 mls @ 100 mls/hr IVPB BID [facility] Last Admin: 07/08/16 10:04 Dose: 100 mls/hr Insulin Aspart (Novolog Vial Sliding Scale -) 1 vial SQ TIDAC [facility] PRN Reason: Protocol Last Admin: 07/08/16 12:23 Dose: 2 units Metoprolol Tartrate (Lopressor Injection -) 5 mg IVPUSH Q4H PRN PRN Reason: HYPERTENSION Mupirocin (Bactroban Ointment (For Decolonization) -) 1 applic NS BID [facility] Stop: 07/13/16 09:59 Last Admin: 07/08/16 10:04 Dose: 1 applic Ondansetron HCl (Zofran Injection) 4 mg IVPUSH Q6H PRN PRN Reason: NAUSEA AND/OR VOMITING Last Admin: 07/07/16 21:44 Dose: 4 mg Constitutional: Yes: Awake and alert, mildly tachpneic at rest Eyes: Yes: EOM Intact HENT: Yes: Normocephalic Neck: Yes: Trachea Midline Cardiovascular: Yes: Regular Rate and Rhythm, S1, S2 Respiratory: Yes: CTA Bilaterally Gastrointestinal: Yes: Normal Bowel Sounds, Soft, Tenderness, Epigastrium, Vomiting Extremities: Yes: WNL Edema: No Integumentary: Yes: WNL Neurological: Yes: Alert, Oriented Labs: Laboratory Results - last 24 hr 07/07/16 07/07/16 07/07/16 15:43 15:43 15:43 WBC 9.0 D RBC 4.01 Hgb 12.8 Hct 37.4 MCV 93.2 MCHC 34.2 RDW 12.9 Plt Count 279 MPV 8.0 Sodium 135 L Potassium 4.2 Chloride 103 Carbon Dioxide 20 L Anion Gap 12 BUN 27 H D Creatinine 0.8 D Creat Clearance w eGFR > 60 POC Glucometer Random Glucose 149 H D Lactic Acid Calcium 10.2 Phosphorus Magnesium 1.6 L D Total Bilirubin 0.6 D Direct Bilirubin AST 35 ALT 28 Alkaline Phosphatase 39 LD Total Creatine Kinase 297 H CK-MB (CK-2) 13.8 H Troponin I < 0.03 L Total Protein 7.4 Albumin 4.3 Triglycerides Total Amylase Lipase 6575 H Urine Color Urine Appearance Urine pH Ur Specific [place] Urine Protein Urine Glucose (UA) Urine Ketones Urine Blood Urine Nitrite Urine Bilirubin Urine Urobilinogen Ur Leukocyte Esterase Urine RBC Urine WBC Ur Epithelial Cells 07/07/16 07/07/16 07/07/16 15:43 15:43 15:53 WBC RBC Hgb Hct MCV MCHC RDW Plt Count MPV Sodium Potassium Chloride Carbon Dioxide Anion Gap BUN Creatinine Creat Clearance w eGFR POC Glucometer Random Glucose Lactic Acid 1.820 Calcium Phosphorus Magnesium Total Bilirubin Direct Bilirubin AST ALT Alkaline Phosphatase LD Total 232 H Creatine Kinase CK-MB (CK-2) Troponin I Total Protein Albumin Triglycerides Total Amylase 1225 H* D Lipase Urine Color Urine Appearance Urine pH Ur Specific [place] Urine Protein Urine Glucose (UA) Urine Ketones Urine Blood Urine Nitrite Urine Bilirubin Urine Urobilinogen Ur Leukocyte Esterase Urine RBC Urine WBC Ur Epithelial Cells 07/07/16 07/07/16 07/08/16 16:25 21:30 05:15 WBC 8.3 RBC 3.64 Hgb 11.9 Hct 34.7 MCV 95.4 MCHC 34.1 RDW 13.5 Plt Count 234 MPV 8.1 Sodium Potassium Chloride Carbon Dioxide Anion Gap BUN Creatinine Creat Clearance w eGFR POC Glucometer Random Glucose Lactic Acid Calcium Phosphorus Magnesium Total Bilirubin Direct Bilirubin AST ALT Alkaline Phosphatase LD Total Creatine Kinase CK-MB (CK-2) Troponin I Total Protein Albumin Triglycerides 259 H Total Amylase Lipase Urine Color Yellow Urine Appearance Clear Urine pH 7.0 Ur Specific [place] 1.015 Urine Protein 1+ H Urine Glucose (UA) Trace Urine Ketones Negative Urine Blood Trace-intact Urine Nitrite Negative Urine Bilirubin Negative Urine Urobilinogen 0.2 e.u/dl Ur Leukocyte Esterase 1+ H Urine RBC 3-5 Urine WBC 10-20 Ur Epithelial Cells 3-5 07/08/16 07/08/16 05:15 12:12 WBC RBC Hgb Hct MCV MCHC RDW Plt Count MPV Sodium 141 Potassium 4.0 Chloride 105 Carbon Dioxide 24 Anion Gap 12 BUN 16 Creatinine 0.8 Creat Clearance w eGFR POC Glucometer 151.57183 Random Glucose 125 H Lactic Acid Calcium 8.8 Phosphorus 4.2 Magnesium 1.3 L Total Bilirubin 0.3 Direct Bilirubin 0.1 AST 27 ALT 25 Alkaline Phosphatase 34 L LD Total Creatine Kinase CK-MB (CK-2) Troponin I Total Protein 6.0 L Albumin 3.3 L Triglycerides Total Amylase 816 H Lipase Urine Color Urine Appearance Urine pH Ur Specific [place] Urine Protein Urine Glucose (UA) Urine Ketones Urine Blood Urine Nitrite Urine Bilirubin Urine Urobilinogen Ur Leukocyte Esterase Urine RBC Urine WBC Ur Epithelial Cells Assessment/Plan Acute gallstone/obstructive pancreatitis Mild Pulmonary vascular congestion possibly due to volume DM HTN HPL TIA Esophageal stricture by history Increase IVF due to ARF and fluctuating hemodynamics Monitor abdominal exam Monitor CXR Monitor off ABX for now Pain control NIPPV if respiratory status worsens Zofran PRN NPO Follow fingersticks DVT/GI prophylaxis Check afternoon BMP Dr Tirado Critical care time spent in reviewing chart, evaluating patient and formulating plan 35 min
--- NOTE | 2016-07-09 14:02 | PN ---
Physical Exam: SUBJECTIVE: Patient seen and examined patient is of acute severe pancreatitis ( modified mi clasification ), creatinine elevated. states that pain has improved, abdomen is distended, BS negative denies chest pain, denies passage of flatus. patient creatinine increased from 0.8 to 2.1, will increase IV fluid to 150ml/ hr. Maintain urine output of 0.5 to 1ml/kg/hr. last 24 hr urine output 425. cxr shows vascular congestion keep spo2 > 90. on 4 L nasal canula continue spirometry q1h catheterize patient for proper intake/ output management OBJECTIVE: Vital Signs Period Temp Pulse Resp BP Sys/Beaver Pulse Ox Last 24 Hr 98.8 F-99.4 F 79-88 10-22 103-157/61-89 96-96 GENERAL: The patient is awake, alert, and fully oriented, ENT:dry mucus membrane NECK: Trachea midline, full range of motion, supple. LUNGS: Breath sounds equal, clear to auscultation bilaterally, no wheezes, no crackles, HEART:s1s2 normal ABDOMEN: distended, bs1, tenderness in LUQ and epigastric, EXTREMITIES: 2+ pulses, warm, well-perfused, no edema. PSYCH: Normal mood, SKIN: Warm, dry, Laboratory Results - last 24 hr 07/08/16 07/08/16 07/09/16 17:27 20:48 05:17 WBC 11.3 H D RBC 3.86 Hgb 12.3 Hct 37.4 MCV 96.9 H MCHC 32.8 RDW 14.3 Plt Count 201 MPV 7.9 Neutrophils % 87.1 H Lymphocytes % 6.5 L Monocytes % 5.9 Eosinophils % 0.3 Basophils % 0.2 Sodium Potassium Chloride Carbon Dioxide Anion Gap BUN Creatinine Creat Clearance w eGFR POC Glucometer 144.88809 141.67258 Random Glucose Calcium Total Bilirubin AST ALT Alkaline Phosphatase C-Reactive Protein Total Protein Albumin Total Amylase 07/09/16 07/09/16 07/09/16 05:17 05:17 05:17 WBC RBC Hgb Hct MCV MCHC RDW Plt Count MPV Neutrophils % Lymphocytes % Monocytes % Eosinophils % Basophils % Sodium 139 Potassium 4.5 Chloride 106 Carbon Dioxide 22 Anion Gap 11 BUN 25 H D Creatinine 2.1 H D Creat Clearance w eGFR 22.18 POC Glucometer Random Glucose 123 H Calcium 7.7 L Total Bilirubin 0.5 D AST 38 H D ALT 29 Alkaline Phosphatase 31 L C-Reactive Protein 26.0 H Total Protein 5.5 L Albumin 2.7 L Total Amylase 803 H Cancelled 07/09/16 06:13 WBC RBC Hgb Hct MCV MCHC RDW Plt Count MPV Neutrophils % Lymphocytes % Monocytes % Eosinophils % Basophils % Sodium Potassium Chloride Carbon Dioxide Anion Gap BUN Creatinine Creat Clearance w eGFR POC Glucometer 140.25348 Random Glucose Calcium Total Bilirubin AST ALT Alkaline Phosphatase C-Reactive Protein Total Protein Albumin Total Amylase Active Medications Generic Name Dose Route Start Last Admin Trade Name Freq PRN Reason Stop Dose Admin Albuterol/Ipratropium 1 amp 07/08/16 08:02 Duoneb - NEB Q6H PRN SHORTNESS OF BREATH Chlorhexidine Gluconate 1 applic 07/08/16 22:00 07/08/16 22:11 Hibiclens For Decolonization - TP 1 applic HS [facility] Administration Heparin Sodium (Porcine) 5,000 unit 07/07/16 22:00 07/09/16 09:47 Heparin - SQ 5,000 unit BID [facility] Administration Hydromorphone HCl 2 mg 07/09/16 00:14 07/09/16 09:27 Dilaudid Injection - IVPUSH 2 mg Q3H PRN Administration Pain >6 Famotidine/Sodium Chloride 50 mls @ 100 mls/hr 07/07/16 22:00 07/09/16 09:47 Pepcid 20 Mg Premixed Ivpb - IVPB 100 mls/hr BID [facility] Administration Dextrose/Lactated Ringer's 1,000 mls @ 150 mls/hr 07/09/16 12:15 D5-Lr - IV ASDIR [facility] Insulin Aspart 1 vial 07/08/16 07:00 07/09/16 06:34 Novolog Vial Sliding Scale - [facility]Q [facility] Metoprolol Tartrate 5 mg 07/08/16 04:28 Lopressor Injection - IVPUSH Q4H PRN HYPERTENSION Mupirocin 1 applic 07/08/16 10:00 07/09/16 09:48 Bactroban Ointment (For Decolonization) - NS 07/13/16 09:59 1 applic BID [facility] Administration Ondansetron HCl 4 mg 07/07/16 21:34 07/07/16 21:44 Zofran Injection IVPUSH 4 mg Q6H PRN Administration NAUSEA AND/OR VOMITING ASSESSMENT/PLAN: acute severe pancreatitis ( modified mi classification ), creatinine elevated pain control with dilaudid acetaminophen IV fluid D5RL 150ml/hr, maintain urine output 0.5ml to 1ml/kg/hr zofran for nausea and vomiting duoneb nebulizer incentive spirometry q1h blood glucose monitoring monitor sr calcium and electrolyte monitor vitals monitor intake/ output 3950/ 425 once pain gets better, distension decrease, try to start her on feed( oral or ng or njft ) PARVEEN could be prerenal increase fluid to 150ml/hr avoid nephrotoxic drugs monitor creatnine. DM on novalog sliding scale bgm monitoring HTN monitor BP on lopressor 5mg IV prn Fluid : d5LR 150ml/hr electrolyte : monitor K, Ca, Mg, nutrition : NPO dvt pro ; heparin sq gi pro : pepcid bid dispo: admit in icu Visit type - Emergency Visit Emergency Visit: Yes ED Registration Date: 07/07/16 Care time: The patient presented to the Emergency Department on the above date and was hospitalized for further evaluation of their emergent condition. - New Patient This patient is new to me today: No - Critical Care Critical Care patient: Yes Total Critical Care Time (in minutes): 45 Critical Care Statement: The care of this patient involved high complexity decision making to prevent further life threatening deterioration of the patient 's condition and/or to evalute & treat vital organ system(s) failure or risk of failure.
--- NOTE | 2016-07-09 15:08 | PN ---
Physical Exam: SUBJECTIVE: Patient seen and examined Pt was sleeping this morning Abdominal pain has improved from yesterday Pt has nausea but no vomiting NO fever or chills overnight Dyspnea has improved from yesterday OBJECTIVE: Vital Signs Period Temp Pulse Resp BP Sys/Beaver Pulse Ox Last 24 Hr 98.8 F-99.4 F 79-88 10- 100-157/59-89 96-96 GENERAL: The patient is awake, alert, and fully oriented, in no acute distress. HEAD: Normal with no signs of trauma. ENT: Ears normal, nares patent, oropharynx clear without exudates, dry mucous membranes. NECK: Trachea midline, full range of motion, supple. LUNGS: Breath sounds equal, clear to auscultation bilaterally, no wheezes, no crackles, no accessory muscle use. HEART: Regular rate and rhythm, S1, S2 with systolic murmur, rub or gallop. ABDOMEN: Soft, diffusely tender, worse in epigatric, distended, normoactive bowel sounds, mild guarding, no rebound, no hepatosplenomegaly, no masses. EXTREMITIES: 2+ pulses, warm, well-perfused, no edema. NEUROLOGICAL: Normal speech, gait not observed. PSYCH: Normal mood, normal affect. SKIN: Warm, dry, normal turgor, no rashes or lesions noted Laboratory Results - last 24 hr 07/08/16 07/08/16 07/09/16 17:27 20:48 05:17 WBC 11.3 H D RBC 3.86 Hgb 12.3 Hct 37.4 MCV 96.9 H MCHC 32.8 RDW 14.3 Plt Count 201 MPV 7.9 Neutrophils % 87.1 H Lymphocytes % 6.5 L Monocytes % 5.9 Eosinophils % 0.3 Basophils % 0.2 Sodium Potassium Chloride Carbon Dioxide Anion Gap BUN Creatinine Creat Clearance w eGFR POC Glucometer 144.29276 141.46141 Random Glucose Calcium Total Bilirubin AST ALT Alkaline Phosphatase C-Reactive Protein Total Protein Albumin Total Amylase 07/09/16 07/09/16 07/09/16 05:17 05:17 05:17 WBC RBC Hgb Hct MCV MCHC RDW Plt Count MPV Neutrophils % Lymphocytes % Monocytes % Eosinophils % Basophils % Sodium 139 Potassium 4.5 Chloride 106 Carbon Dioxide 22 Anion Gap 11 BUN 25 H D Creatinine 2.1 H D Creat Clearance w eGFR 22.18 POC Glucometer Random Glucose 123 H Calcium 7.7 L Total Bilirubin 0.5 D AST 38 H D ALT 29 Alkaline Phosphatase 31 L C-Reactive Protein 26.0 H Total Protein 5.5 L Albumin 2.7 L Total Amylase 803 H Cancelled 07/09/16 07/09/16 06:13 14:43 WBC RBC Hgb Hct MCV MCHC RDW Plt Count MPV Neutrophils % Lymphocytes % Monocytes % Eosinophils % Basophils % Sodium Potassium Chloride Carbon Dioxide Anion Gap BUN Creatinine Creat Clearance w eGFR POC Glucometer 140.61718 145.36996 Random Glucose Calcium Total Bilirubin AST ALT Alkaline Phosphatase C-Reactive Protein Total Protein Albumin Total Amylase Active Medications Generic Name Dose Route Start Last Admin Trade Name Freq PRN Reason Stop Dose Admin Albuterol/Ipratropium 1 amp 07/08/16 08:02 Duoneb - NEB Q6H PRN SHORTNESS OF BREATH Chlorhexidine Gluconate 1 applic 07/08/16 22:00 07/08/16 22:11 Hibiclens For Decolonization - TP 1 applic HS [facility] Administration Heparin Sodium (Porcine) 5,000 unit 07/07/16 22:00 07/09/16 09:47 Heparin - SQ 5,000 unit BID [facility] Administration Hydromorphone HCl 2 mg 07/09/16 00:14 07/09/16 09:27 Dilaudid Injection - IVPUSH 2 mg Q3H PRN Administration Pain >6 Famotidine/Sodium Chloride 50 mls @ 100 mls/hr 07/07/16 22:00 07/09/16 09:47 Pepcid 20 Mg Premixed Ivpb - IVPB 100 mls/hr BID [facility] Administration Dextrose/Lactated Ringer's 1,000 mls @ 150 mls/hr 07/09/16 12:15 D5-Lr - IV [facility] Insulin Aspart 1 vial 07/08/16 07:00 07/09/16 14:47 Novolog Vial Sliding Scale - SQ Not Given [facility] Protocol Metoprolol Tartrate 5 mg 07/08/16 04:28 Lopressor Injection - IVPUSH Q4H PRN HYPERTENSION Mupirocin 1 applic 07/08/16 10:00 07/09/16 09:48 Bactroban Ointment (For Decolonization) - NS 07/13/16 09:59 1 applic BID [facility] Administration Ondansetron HCl 4 mg 07/07/16 21:34 07/07/16 21:44 Zofran Injection IVPUSH 4 mg Q6H PRN Administration NAUSEA AND/OR VOMITING CBC, BMP 07/09/16 05:17 07/09/16 05:17 ASSESSMENT/PLAN: 89 year old female with pmh og DM, HTN, HPLD, TIA, PVD, RLS, esophageal stricture presneted to the Ed with complaint of severe abdominal pain accompanied by nausea and non bloody, non bilious episode of vomiting. Pt was found to have Acute pancreatitis. Acute pancreatitis Augusta II score 6, Bisap 2 Amylase 1225, Lipase 6575 on admission Pt has Gallstone, no biliary tract dilation, hepatomegaly and fatty infiltrates on CT abdomen and Ultrasound NPO, may resume diet when patient wants to eat increase IV fluid to D5LR 150ml/h Dilaudid IV PRN for pain Zofran PRN for Nausea GI consulted, Dr Wong Surgery consulted Dr Chan Blood culture PARVEEN Cr 0.8 to 2.1 Likely due to hypovolemia Increase IV fluid for adequate fluid resuscitation Diabetes Pt is NPO Novolog sliding scale Blood sugar has been less than 150 in last 24 hours HTN Pt is NPO will resume home meds whenever patient is tolerating PO meds Lopressor 5mg PRN IV q4h asymptomatic bacteruria UA with positive leuk esterase, 10-20 WBC Pt has no dysuria, no hematuria, no polyuria Received 1 day of Ceftriaxone gm IV No need for antibiotics coverage Hypomagnesemia Mg Mg 1.2 yesterday, Magnesium sulfate 2gm IV given repeat Mg in am FEN Fluid: D5LR at 150ml/h Electrolytes: chemistry in am Nutrition: NPO DVT prophyalaxis: SCD Disposition: Pending resolution of pancreatitis Visit type - Emergency Visit Emergency Visit: Yes ED Registration Date: 07/07/16 Care time: The patient presented to the Emergency Department on the above date and was hospitalized for further evaluation of their emergent condition. - New Patient This patient is new to me today: Yes Date on this admission: 07/09/16 - Critical Care Critical Care patient: No - Discharge Referral Referred to [facility] No
--- NOTE | 2016-07-09 15:30 | PN ---
Physical Exam: SUBJECTIVE: Patient seen and examined. The ppt is still complaining of severe abdominal p[ain. She denies having BM, N/V. No fever, no overnight events. OBJECTIVE: Vital Signs Period Temp Pulse Resp BP Sys/Beaver Pulse Ox Last 24 Hr 98.8 F-99.4 F 79-88 10-22 100-157/59-89 96-96 GENERAL: The patient is awake, alert, and fully oriented, in no acute distress. HEAD: Normal with no signs of trauma. EYES: PERRL, extraocular movements intact, sclera anicteric, conjunctiva clear. No ptosis. ENT: Ears normal, nares patent, oropharynx clear without exudates, moist mucous membranes. NECK: Trachea midline, full range of motion, supple. LUNGS: Breath sounds equal, clear to auscultation bilaterally, no wheezes, no crackles, no accessory muscle use. HEART: Regular rate and rhythm, normal S1 and S2 systolic murmur over second right intercostal space and left sternal border, no rub or gallop. ABDOMEN: Soft, tender in 4Q, distended, normoactive bowel sounds, no guarding, no rebound, no hepatosplenomegaly, no masses. EXTREMITIES: 2+ pulses, warm, well-perfused, no edema. NEUROLOGICAL: Normal speech, gait not observed. PSYCH: Normal mood, normal affect. SKIN: Warm, dry, normal turgor, no rashes. Laboratory Results - last 24 hr 07/08/16 07/08/16 07/09/16 17:27 20:48 05:17 WBC 11.3 H D RBC 3.86 Hgb 12.3 Hct 37.4 MCV 96.9 H MCHC 32.8 RDW 14.3 Plt Count 201 MPV 7.9 Neutrophils % 87.1 H Lymphocytes % 6.5 L Monocytes % 5.9 Eosinophils % 0.3 Basophils % 0.2 Sodium Potassium Chloride Carbon Dioxide Anion Gap BUN Creatinine Creat Clearance w eGFR POC Glucometer 144.77418 141.79881 Random Glucose Calcium Total Bilirubin AST ALT Alkaline Phosphatase C-Reactive Protein Total Protein Albumin Total Amylase 07/09/16 07/09/16 07/09/16 05:17 05:17 05:17 WBC RBC Hgb Hct MCV MCHC RDW Plt Count MPV Neutrophils % Lymphocytes % Monocytes % Eosinophils % Basophils % Sodium 139 Potassium 4.5 Chloride 106 Carbon Dioxide 22 Anion Gap 11 BUN 25 H D Creatinine 2.1 H D Creat Clearance w eGFR 22.18 POC Glucometer Random Glucose 123 H Calcium 7.7 L Total Bilirubin 0.5 D AST 38 H D ALT 29 Alkaline Phosphatase 31 L C-Reactive Protein 26.0 H Total Protein 5.5 L Albumin 2.7 L Total Amylase 803 H Cancelled 07/09/16 07/09/16 06:13 14:43 WBC RBC Hgb Hct MCV MCHC RDW Plt Count MPV Neutrophils % Lymphocytes % Monocytes % Eosinophils % Basophils % Sodium Potassium Chloride Carbon Dioxide Anion Gap BUN Creatinine Creat Clearance w eGFR POC Glucometer 140.61373 145.86904 Random Glucose Calcium Total Bilirubin AST ALT Alkaline Phosphatase C-Reactive Protein Total Protein Albumin Total Amylase Active Medications Generic Name Dose Route Start Last Admin Trade Name Freq PRN Reason Stop Dose Admin Albuterol/Ipratropium 1 amp 07/08/16 08:02 Duoneb - NEB Q6H PRN SHORTNESS OF BREATH Chlorhexidine Gluconate 1 applic 07/08/16 22:00 07/08/16 22:11 Hibiclens For Decolonization - TP 1 applic HS [facility] Administration Heparin Sodium (Porcine) 5,000 unit 07/07/16 22:00 07/09/16 09:47 Heparin - SQ 5,000 unit BID [facility] Administration Hydromorphone HCl 2 mg 07/09/16 00:14 07/09/16 13:30 Dilaudid Injection - IVPUSH 2 mg Q3H PRN Administration Pain >6 Famotidine/Sodium Chloride 50 mls @ 100 mls/hr 07/07/16 22:00 07/09/16 09:47 Pepcid 20 Mg Premixed Ivpb - IVPB 100 mls/hr BID [facility] Administration Dextrose/Lactated Ringer's 1,000 mls @ 150 mls/hr 07/09/16 12:15 07/09/16 12:15 D5-Lr - IV 150 mls/hr ASDIR [facility] Administration Insulin Aspart 1 vial 07/08/16 07:00 07/09/16 14:47 Novolog Vial Sliding Scale - SQ Not Given TIDAC COUNT [facility]CLUDES [facility] Protocol Metoprolol Tartrate 5 mg 07/08/16 04:28 Lopressor Injection - IVPUSH Q4H PRN HYPERTENSION Mupirocin 1 applic 07/08/16 10:00 07/09/16 09:48 Bactroban Ointment (For Decolonization) - NS 07/13/16 09:59 1 applic BID [facility] Administration Ondansetron HCl 4 mg 07/07/16 21:34 07/07/16 21:44 Zofran Injection IVPUSH 4 mg Q6H PRN Administration NAUSEA AND/OR VOMITING ASSESSMENT/PLAN: Patient is a 89 year old female with PMH of DM, HTN, HLD, TIA, PVD, esophageal stricture who presented to ED with diffuse severe abdominal pain x 1 day. Patient states that is associated with nausea and constipation. She is admitted for acute pancreatitis. Acute pancreatitis: -possibly due to gallstone vs. medication induced -continue Ringer Lactate at 75 ml/hr, pain medications -no antibiotics indicated, no biliary duct obstruction, no abscess -BISAP score 3 Asymptomatic bacteriuria: -no antibiotics recommended, pt asymtomatic DM: -continue ISS HTN: -continue Metoprolol Fluid : dextrose/Lr electrolyte : monitor K, Ca, Mg, nutrition : NPO, will resume when pt wants to eat Dispo: We will continue to follow the patient. Thank you for this consultative opportunity. Visit type - Emergency Visit Emergency Visit: Yes ED Registration Date: 07/07/16 Care time: The patient presented to the Emergency Department on the above date and was hospitalized for further evaluation of their emergent condition. - New Patient This patient is new to me today: No - Critical Care Critical Care patient: Yes Total Critical Care Time (in minutes): 45 Critical Care Statement: The care of this patient involved high complexity decision making to prevent further life threatening deterioration of the patient 's condition and/or to evalute & treat vital organ system(s) failure or risk of failure.
[2016-07-09 17:17] LABS: CALCIUM 7.8 mg/dL (8.5-10.1)
[2016-07-09 17:19] LABS: COCKROFT - GAULT 14.45; CREATININE 2.5 mg/dL (0.55-1.02); MAGNESIUM 2.3 mg/dL (1.8-2.4)
--- NOTE | 2016-07-09 17:51 | CONSULT ---
Consult Consult Specialty:: Nephrology Reason for Consultation:: PARVEEN - History of Present Illness Chief Complaint: abdominal pain History of Present Illness: Pt is an 89 year old female with pmhx of DM, HTN, Chol, esophageal stricture and PVD who presents to the hospital with abdominal pain. She was found to have pancreatitis and admitted to the ICU. She developed PARVEEN today and I was called to evaluate her. She has been on fluids however they were decrease as she developed signs of failure. She is currently awake. She complains of abdominal discomfort. She denies palpitations. She denies history of CKD. - History Source History Provided By: Patient, Medical Record - Past Medical History Gastrointestinal: Yes: GERD, Other (SCHATZKI'S RING) Hepatobiliary: Yes: Cholelithiasis, Other (DIAGNOSED TODAY) ...: No Endocrine: Yes: Diabetes Mellitus - Past Surgical History Past Surgical History: Yes: Hysterectomy, Joint Replacement, Upper Endoscopy - Alcohol/Substance Use Hx Alcohol Use: No - Smoking History Smoking history: Never smoked Have you smoked in the past 12 months: No Aproximately how many cigarettes per day: 0 Home Medications - Allergies Allergies/Adverse Reactions: Allergies Allergy/AdvReac Type Severity Reaction Status Date / Time Tarzan-3 acid Ethyl Esters Allergy Unknown Rash Verified 07/07/16 15:14 [From Lovaza] Egg Derived AdvReac Intermediate Vomiting Verified 07/07/16 15:14 - Home Medications Home Medications: Ambulatory Orders Fenofibrate Nanocrystallized [Fenofibrate] 145 mg PO DAILY 02/03/16 Glucosamine Sulfate Dipot Chlr [Glucosamine] 1,500 mg PO DAILY 02/03/16 Metoprolol Succinate [Toprol Xl -] 25 mg PO DAILY 02/03/16 Aspirin/Dipyridamole [Aspirin-Dipyridam ER 25-200 mg] 1 each PO BID 07/07/16 Calcium Carbonate/Vitamin D3 [Calcium 600 + Vit D Tablet] 1 each PO DAILY Multivit-Min/Iron/Folic/Lutein [Centrum Silver Women Tablet] 1 each PO DAILY Family Disease History - Family Disease History Family History: Denies Review of Systems - Review of Systems Constitutional: reports: Malaise Eyes: reports: No Symptoms HENT: reports: No Symptoms Neck: reports: No Symptoms Respiratory: reports: No Symptoms Gastrointestinal: reports: No Symptoms Genitourinary: reports: Other (discomfort from grey) Musculoskeletal: reports: Muscle Weakness Neurological: reports: No Symptoms Endocrine: reports: No Symptoms Psychiatric: reports: No Symptoms Physical Exam Vital Signs: Vital Signs Temperature 98.9 F 07/09/16 16:00 Pulse Rate 81 07/09/16 16:00 Respiratory Rate 10 L 07/09/16 16:00 Blood Pressure 117/53 07/09/16 16:00 O2 Sat by Pulse Oximetry (%) 96 07/09/16 10:15 Constitutional: Yes: Calm Eyes: Yes: Conjunctiva Clear Cardiovascular: Yes: S1, S2 Respiratory: Yes: On Nasal O2 Gastrointestinal: Yes: Soft Renal/: Yes: Grey Present Musculoskeletal: Yes: WNL Extremities: Yes: WNL Edema: No Neurological: Yes: Oriented Psychiatric: Yes: Oriented Labs: CBC, BMP 07/09/16 05:17 07/09/16 16:00 Laboratory Tests 07/07/16 07/07/16 07/07/16 15:43 15:43 16:25 WBC 9.0 D Hgb 12.8 Plt Count 279 Sodium Potassium Chloride Carbon Dioxide Anion Gap BUN 27 H D Creatinine 0.8 D Urine Color Yellow Urine Appearance Clear Urine pH 7.0 Ur Specific [place] 1.015 Urine Protein 1+ H Urine Glucose (UA) Trace Urine Ketones Negative Urine Blood Trace-intact Urine Nitrite Negative Urine Bilirubin Negative Urine Urobilinogen 0.2 e.u/dl Ur Leukocyte Esterase 1+ H Urine RBC 3-5 Urine WBC 10-20 Ur Epithelial Cells 3-5 07/08/16 07/08/16 07/09/16 05:15 05:15 05:17 WBC 8.3 11.3 H D Hgb 11.9 12.3 Plt Count 234 201 Sodium 141 Potassium 4.0 Chloride 105 Carbon Dioxide 24 Anion Gap 12 BUN 16 Creatinine 0.8 Urine Color Urine Appearance Urine pH Ur Specific [place] Urine Protein Urine Glucose (UA) Urine Ketones Urine Blood Urine Nitrite Urine Bilirubin Urine Urobilinogen Ur Leukocyte Esterase Urine RBC Urine WBC Ur Epithelial Cells 07/09/16 07/09/16 05:17 16:00 WBC Hgb Plt Count Sodium 139 142 Potassium 4.5 5.0 Chloride 106 108 H Carbon Dioxide 22 24 Anion Gap 11 10 BUN 25 H D 30 H Creatinine 2.1 H D 2.5 H Urine Color Urine Appearance Urine pH Ur Specific [place] Urine Protein Urine Glucose (UA) Urine Ketones Urine Blood Urine Nitrite Urine Bilirubin Urine Urobilinogen Ur Leukocyte Esterase Urine RBC Urine WBC Ur Epithelial Cells Imaging - Results Chest X-ray: Report Reviewed Problem List - Problems (1) Abdominal pain Code(s): R10.9 - UNSPECIFIED ABDOMINAL PAIN (2) Acute pancreatitis Code(s): K85.90 - ACUTE PANCREATITIS WITHOUT NECROSIS OR INFECTION, UNSP (3) Arthritis Code(s): M19.90 - UNSPECIFIED OSTEOARTHRITIS, UNSPECIFIED SITE (4) PARVEEN (acute kidney injury) Code(s): N17.9 - ACUTE KIDNEY FAILURE, UNSPECIFIED Assessment/Plan Current Medications Generic Name Dose Route Start Last Admin Trade Name Freq PRN Reason Stop Dose Admin Albuterol/Ipratropium 1 amp 07/08/16 08:02 Duoneb - NEB Q6H PRN SHORTNESS OF BREATH Chlorhexidine Gluconate 1 applic 07/08/16 22:00 07/08/16 22:11 Hibiclens For Decolonization - TP 1 applic HS ORTEGA Administration Heparin Sodium (Porcine) 5,000 unit 07/07/16 22:00 07/09/16 09:47 Heparin - SQ 5,000 unit BID ORTEGA Administration Hydromorphone HCl 2 mg 07/09/16 00:14 07/09/16 13:30 Dilaudid Injection - IVPUSH 2 mg Q3H PRN Administration Pain >6 Famotidine/Sodium Chloride 50 mls @ 100 mls/hr 07/07/16 22:00 07/09/16 09:47 Pepcid 20 Mg Premixed Ivpb - IVPB 100 mls/hr BID ORTEGA Administration Dextrose/Lactated Ringer's 1,000 mls @ 150 mls/hr 07/09/16 12:15 07/09/16 12:15 D5-Lr - IV 150 mls/hr ASDIR ORTEGA Administration Insulin Aspart 1 vial 07/08/16 07:00 07/09/16 16:32 Novolog Vial Sliding Scale - SQ Not Given TIDAC [facility] Protocol Metoprolol Tartrate 5 mg 07/08/16 04:28 Lopressor Injection - IVPUSH Q4H PRN HYPERTENSION Mupirocin 1 applic 07/08/16 10:00 07/09/16 09:48 Bactroban Ointment (For Decolonization) - NS 07/13/16 09:59 1 applic BID ORTEGA Administration Ondansetron HCl 4 mg 07/07/16 21:34 07/07/16 21:44 Zofran Injection IVPUSH 4 mg Q6H PRN Administration NAUSEA AND/OR VOMITING Impression 1. PARVEEN 2. acute pancreatitis 3. DM 4. arthritis 5. PVD 6. hyperlipidemia Plan - keep NPO - cont fluids - alerted about repeat labs by nursing staff, reviewed with investigator internal revenue. Cont fluids and repeat in am - check kidney and bladder ultrasound - check UA, electrolytes and creatinine to calculate fena - monitor pulse ox and volume status closely - monitor urine output - repeat cxr in am - case discussed with ICU team - monitor blood sugar - GI input appreciated - will follow pt closely - keep pt in ICU Dr More
--- NOTE | 2016-07-09 18:42 | PN ---
Teaching Attending Note Name of Resident: Bo Butler ATTENDING PHYSICIAN STATEMENT I saw and evaluated the patient. I reviewed the resident's note and discussed the case with the resident. I agree with the resident's findings and plan as documented. SUBJECTIVE: Patient has no complaints. She denies abdominal pain, nausea. OBJECTIVE: Vital Signs Period Temp Pulse Resp BP Sys/Beaver Pulse Ox Last 24 Hr 98.8 F-99.4 F 79-87 10-19 100-157/53-89 96-96 HEART: S1S2, RRR, (+) 2/6 systolic murmur LUNGS: Clear ABDOMEN: Soft, non-distended, normal BS, (+) epigastric tenderness EXTREMITIES: No edema ASSESSMENT AND PLAN: This is an 89-year-old woman with a history of type 2 DM, HTN, hyperlipidemia, TIA, PAD, RLS, esophageal stricture who presented to the ER with abdominal pain. 1. Acute pancreatitis - Secondary to gallstones vs medication - Tradjenta held - Continue NPO, IV fluid 2. Acute kidney injury secondary to hypovolemia - Increase IV fluid - Monitor BUN, creatinine 3. Hypotension secondary to hypovolemia - Increase IV fluid 4. Hypomagnesemia - Magnesium supplementation given 5. Asymptomatic bacteriuria - Rocephin discontinued 6. HTN - Continue Lopressor IV as needed 7. Type 2 DM - Continue Novolog sliding scale 8. Hyperlipidemia 9. PAD 10. History of TIA 11. Restless leg syndrome
[2016-07-09 20:58] LABS: URINE APPEARANCE SLCLOUDY; URINE BILIRUBIN NEGATIVE (NEGATIVE); URINE COLOR YELLOW; URINE GLUCOSE (UA) NEGATIVE (NEGATIVE); URINE KETONE TRACE (NEGATIVE); URINE LEUK ESTERASE NEGATIVE (NEGATIVE); URINE NITRITE NEGATIVE (NEGATIVE); URINE PROTEIN NEGATIVE (NEGATIVE); URINE UROBILINOGEN NEGATIVE E.U./dl (0.2-1.0)
[2016-07-09 21:05] LABS: URINE BLOOD 3+ (NEGATIVE)
[2016-07-09 21:11] LABS: URINE MUCUS RARE; URINE RBC 22 /hpf (0-3); URINE WBC 11 /hpf (3-5)
[2016-07-09] MEDS: CHLORHEXIDINE GLUCONATE 4% CLEANSER FOR DECOLONIZATION TP SCH (21:30)
[2016-07-10] MEDS: HYDROmorphone HCL CARPU-JECT 1 MG/1 ML DISP.SYRIN IVPUSH PRN ×3 (00:07→07:27)
[2016-07-10 06:13] LABS: BASOPHIL 0.1 % (0-2.0); EOSINOPHIL 1.2 % (0-4.5); MCH 31.7 pg (25.7-33.7); MCHC 32.8 g/dl (32.0-36.0); MEAN CELL VOLUME 96.5 fl (80-96); MEAN PLT VOLUME 8.1 fl (7.5-11.1); NEUTROPHILS 82.8 % (42.8-82.8); PLATELET COUNT 202 K/MM3 (134-434); RDW 14.2 % (11.6-15.6); WHITE BLOOD COUNT 9.8 K/mm3 (4.0-10.0)
[2016-07-10] MEDS: INSULIN SLIDING SCALE (NOVOLOG) 1 VIAL SQ SCH ×3 (06:26→16:36)
[2016-07-10 06:34] LABS: COCKROFT - GAULT 32.725; CREATININE 1.1 mg/dL (0.55-1.02)
[2016-07-10] MEDS ORDERED: ACETAMINOPHEN 1000 MG/100 ML VIAL (NON FORMULARY) IVPB ONE (07:07)
[2016-07-10] MEDS ORDERED: morphine CARPU-JECT 4 MG/1 ML DISP.SYRIN IVPUSH PRN (08:49)
[2016-07-10] MEDS ORDERED: ACETAMINOPHEN 1000 MG/100 ML VIAL (NON FORMULARY) IVPB PRN (08:51)
[2016-07-10] MEDS: MUPIROCIN 2% TOPICAL OINTMENT FOR DECOLONIZATION NS SCH ×2 (09:39→21:40)
[2016-07-10] MEDS: HEPARIN NA (PORCINE) 5,000 UNITS/ML 1ML VIAL SQ SCH ×2 (09:39→21:39)
--- NOTE | 2016-07-10 09:39 | PN ---
Teaching Attending Note Name of Resident: Quynh Puente ATTENDING PHYSICIAN STATEMENT I saw and evaluated the patient. I reviewed the resident's note and discussed the case with the resident. I agree with the resident's findings and plan as documented. SUBJECTIVE: OBJECTIVE: ASSESSMENT AND PLAN:
[2016-07-10] MEDS: FAMOTIDINE 20 MG/50 ML IVPB 50 ML IVPB SCH ×2 (09:40→21:38)
--- NOTE | 2016-07-10 11:06 | MSN ---
Progress Note (short form) - Note Progress Note: Saw and evaluated patient this AM. Patient was very fatigued and lightheaded from pain medications that were recently given. Patient was not complaining of any pain at present time but throughout the night patient had several 10/10 pain episodes. IV Tylenol and Dilaudid were last given at 8am. Patient's BP was decreased yesterday at 62/50 but after raising fluids to 150cc/hr, they have been stable with last reading of 117/64. Dr. More was consulted yesterday due to patient's elevated creatinine (2.5). Per Dr. More, pt was to get a Renal and Bladder US. Renal and Bladder US showed bilateral renal cysts and mild to moderate right hydronephrosis. The bladder was not distended. UA done this AM showed a urine sodium of 59 and a urine creatinine of 101. Creatinine was 1.1 this AM and FeNA was 0.44% which shows that her ARF was like likely due to hypovolemia. GI and surgery still on board. Will change pt's Dilaudid to Morphine and add Tylenol for better pain coverage. Pt will likely need a cholecystectomy once pt's pancreatitis resolves. Will add on LFTs for this AM and get a repeat CT scan to monitor for complications. Continue to monitor vitals and labs. Current Medications Generic Name Dose Route Start Last Admin Trade Name Ernestina PRN Reason Stop Dose Admin Acetaminophen 1,000 mg 07/10/16 08:51 Ofirmev Injection - IVPB 07/11/16 02:52 Q6H PRN FEVER OR PAIN Albuterol/Ipratropium 1 amp 07/08/16 08:02 Duoneb - NEB Q6H PRN SHORTNESS OF BREATH Chlorhexidine Gluconate 1 applic 07/08/16 22:00 07/09/16 21:30 Hibiclens For Decolonization - TP 1 applic HS ORTEGA Administration Heparin Sodium (Porcine) 5,000 unit 07/07/16 22:00 07/10/16 09:39 Heparin - SQ 5,000 unit BID ORTEGA Administration Famotidine/Sodium Chloride 50 mls @ 100 mls/hr 07/07/16 22:00 07/10/16 09:40 Pepcid 20 Mg Premixed Ivpb - IVPB 100 mls/hr BID ORTEGA Administration Dextrose/Lactated Ringer's 1,000 mls @ 150 mls/hr 07/09/16 12:15 07/09/16 12:15 D5-Lr - IV 150 mls/hr ASDIR ORTEGA Administration Insulin Aspart 1 vial 07/08/16 07:00 07/10/16 06:26 Novolog Vial Sliding Scale - SQ 2 units TIDAC ORTEGA Administration Protocol Metoprolol Tartrate 5 mg 07/08/16 04:28 Lopressor Injection - IVPUSH Q4H PRN HYPERTENSION Morphine Sulfate 4 mg 07/10/16 08:49 Morphine Injection - IVPUSH Q4H PRN PAIN Mupirocin 1 applic 07/08/16 10:00 07/10/16 09:39 Bactroban Ointment (For Decolonization) - NS 07/13/16 09:59 1 applic BID ORTEGA Administration Ondansetron HCl 4 mg 07/07/16 21:34 07/07/16 21:44 Zofran Injection IVPUSH 4 mg Q6H PRN Administration NAUSEA AND/OR VOMITING Vital Signs Period Temp Pulse Resp BP Sys/[place] Pulse Ox Last 24 Hr 98.8 F-100 F 66-101 10-24 82-174/39-77 92-93 PHYSICAL EXAM GENERAL: Alert, oriented to person, time, and place. In no apparent distress. Fatigued and lightheaded EYES: PERRLA, EOMI, conjunctiva clear BL ENT: Ears normal, nares patent, no signs of trauma NECK: Trachea midline, no JVD HEART: 3/6 pansystolic murmur, +S1, S2, no gallops LUNGS: Equal breath sounds bilaterally, no wheezes, rubs ABDOMEN: Soft, nontender, hypoactive bowel sounds in all four quadrants. No tenderness to palpation MSK: Muscle strength 5/5 globally NEURO: limnologist intact, normal speech, gait not observed EXTREMITIES: 2+ pulses bilaterally, warm, well perfused, no edema Laboratory Results - last 24 hr 07/08/16 07/09/16 07/09/16 05:15 05:17 14:43 WBC RBC Hgb Hct MCV MCHC RDW Plt Count MPV Neutrophils % Lymphocytes % Monocytes % Eosinophils % Basophils % Sodium Potassium Chloride Carbon Dioxide Anion Gap BUN Creatinine POC Glucometer 145.52967 Random Glucose Calcium Ionized Calcium 5.0 Magnesium Total Bilirubin Direct Bilirubin AST ALT Alkaline Phosphatase Total Protein Albumin Total Amylase 803 H Urine Color Urine Appearance Urine pH Ur Specific [place] Urine Protein Urine Glucose (UA) Urine Ketones Urine Blood Urine Nitrite Urine Bilirubin Urine Urobilinogen Ur Leukocyte Esterase Urine RBC Urine WBC Urine Mucus Ur Random Sodium Ur Random Potassium Ur Random Chloride Ur Random Urea Nitrogn Urine Creatinine 07/09/16 07/09/16 07/09/16 16:00 16:11 19:00 WBC RBC Hgb Hct MCV MCHC RDW Plt Count MPV Neutrophils % Lymphocytes % Monocytes % Eosinophils % Basophils % Sodium 142 Potassium 5.0 Chloride 108 H Carbon Dioxide 24 Anion Gap 10 BUN 30 H Creatinine 2.5 H POC Glucometer [phone] Random Glucose 109 H Calcium 7.8 L Ionized Calcium Magnesium 2.3 D Total Bilirubin Direct Bilirubin AST ALT Alkaline Phosphatase Total Protein Albumin Total Amylase Urine Color Urine Appearance Urine pH Ur Specific [place] Urine Protein Urine Glucose (UA) Urine Ketones Urine Blood Urine Nitrite Urine Bilirubin Urine Urobilinogen Ur Leukocyte Esterase Urine RBC Urine WBC Urine Mucus Ur Random Sodium Ur Random Potassium Ur Random Chloride Ur Random Urea Nitrogn Cancelled Urine Creatinine 07/09/16 07/09/16 07/09/16 19:00 19:00 19:00 WBC RBC Hgb Hct MCV MCHC RDW Plt Count MPV Neutrophils % Lymphocytes % Monocytes % Eosinophils % Basophils % Sodium Potassium Chloride Carbon Dioxide Anion Gap BUN Creatinine POC Glucometer Random Glucose Calcium Ionized Calcium Magnesium Total Bilirubin Direct Bilirubin AST ALT Alkaline Phosphatase Total Protein Albumin Total Amylase Urine Color Urine Appearance Urine pH Ur Specific [place] Urine Protein Urine Glucose (UA) Urine Ketones Urine Blood Urine Nitrite Urine Bilirubin Urine Urobilinogen Ur Leukocyte Esterase Urine RBC Urine WBC Urine Mucus Ur Random Sodium 59 Ur Random Potassium 27.0 Ur Random Chloride 39 Ur Random Urea Nitrogn 338 Urine Creatinine 101.0 07/09/16 07/09/16 07/10/16 19:00 19:00 05:20 WBC 9.8 RBC 3.48 L Hgb 11.0 D Hct 33.6 MCV 96.5 H MCHC 32.8 RDW 14.2 Plt Count 202 MPV 8.1 Neutrophils % 82.8 Lymphocytes % 7.9 L D Monocytes % 8.0 Eosinophils % 1.2 D Basophils % 0.1 Sodium Potassium Chloride Carbon Dioxide Anion Gap BUN Creatinine POC Glucometer Random Glucose Calcium Ionized Calcium Magnesium Total Bilirubin Direct Bilirubin AST ALT Alkaline Phosphatase Total Protein Albumin Total Amylase Urine Color Yellow Urine Appearance Slcloudy Urine pH 5.0 Ur Specific [place] 1.013 Urine Protein Negative Urine Glucose (UA) Negative Urine Ketones Trace H Urine Blood 3+ H Urine Nitrite Negative Urine Bilirubin Negative Urine Urobilinogen Negative Ur Leukocyte Esterase Negative Urine RBC 22 Urine WBC 11 Urine Mucus Rare Ur Random Sodium Ur Random Potassium Ur Random Chloride Ur Random Urea Nitrogn Urine Creatinine 101.0 07/10/16 07/10/16 05:20 05:20 WBC RBC Hgb Hct MCV MCHC RDW Plt Count MPV Neutrophils % Lymphocytes % Monocytes % Eosinophils % Basophils % Sodium 146 H Potassium 4.2 Chloride 111 H Carbon Dioxide 25 Anion Gap 10 BUN 21 H D Creatinine 1.1 H D POC Glucometer Random Glucose 153 H D Calcium 8.0 L Ionized Calcium Magnesium Total Bilirubin Cancelled Direct Bilirubin Cancelled AST Cancelled ALT Cancelled Alkaline Phosphatase Cancelled Total Protein Cancelled Albumin Cancelled Total Amylase Urine Color Urine Appearance Urine pH Ur Specific [place] Urine Protein Urine Glucose (UA) Urine Ketones Urine Blood Urine Nitrite Urine Bilirubin Urine Urobilinogen Ur Leukocyte Esterase Urine RBC Urine WBC Urine Mucus Ur Random Sodium Ur Random Potassium Ur Random Chloride Ur Random Urea Nitrogn Urine Creatinine IMAGING CXR (07/07/16): No acute pathology. Degenerative changes. Hiatal hernia. Large heart. Sclerotic knob. Probable old trauma proximal left. CXR (07/08/16): Repeated for signs of fluid overload. No changes Abdominal/Pelvic CT (07/07/16): Acute pancreatitis. Underlying chronic calcific pancreatitis. Cholelithiasis without CT evidence of cholecystitis Abdominal US (07/07/16): Cholelithiasis, Diffuse fatty infiltration of the liver with hepatomegaly CXR (07/09/16): Increased density seen at the left base. Renal/Bladder US (07/09/16): Bilateral renal cysts. Mild to moderate right hydronephrosis. Urinary bladder is not distended/visualized. Fluid filled bowel loops versus small amount of free fluid in the right and left lower quadrant. CXR (07/10/16): Slightly worse. Progressive congestive changes ASSESSMENT/PLAN 89 y/o F with PMHx of DMII, HTN, HLD, TIA presents to ED with severe abdominal pain. Admitted for abdominal pain secondary to acute pancreatitis 1. Acute pancreatitis -Amylase 1225, Lipase 6575 -[place] score of 6, BISAP score of 3 -NPO -Lactated ringers 150cc/hr -Add IV Morphine 2mg Q4H for better pain control -Add IV Tylenol for better pain control -IV Zofran for N/V -GI and surgery on board -Continue supportive measures per GI -CT scan w/contrast, add LFTs for this AM to monitor for complications -Likely needs cholecystectomy once pancreatitis resolves 2. DMII -ISS -BGM, ACHS -Hold Tradjenta (can cause pancreatitis) 3. ARF secondary to hypovolemia -Resolved -Creatinine decreased from 2.1 to 1.1 -Likely secondary to hypovolemia (FeNA is 0.44%) -Lactated Ringers 150 cc/hr -Continue to monitor 4. HTN -Lopressor 5 mg Q4H PRN -Restart home meds once off NPO 5. UTI -Discontinued Ceftriaxone -Likely resolved 6. Ppx -IV Heparin for DVT -Famotidine for GI Dispo: ICU
--- NOTE | 2016-07-10 11:16 | PN ---
Physical Exam: SUBJECTIVE: Patient seen and examined. She was lethargic this AM. Overnight the pt was comploaining of severe abdominal pain, 10/10. Tmax 100. She was given Tylenol. Maldonado cath inserted. OBJECTIVE: Vital Signs Period Temp Pulse Resp BP Sys/Beaver Pulse Ox Last 24 Hr 98.8 F-100 F 66-101 10-24 82-174/39-77 92-93 GENERAL: The patient is sleeping, lethargic. HEAD: Normal with no signs of trauma. ENT: moist mucous membranes. NECK: supple. LUNGS: Breath sounds equal, clear to auscultation bilaterally, no wheezes, no crackles, no accessory muscle use. HEART: Regular rate and rhythm, S1, S2 , systolic murmur over right and left sternal border, rub or gallop. ABDOMEN: Soft, tender, distended, hypoactive bowel sounds, no guarding, no rebound. EXTREMITIES:no edema. NEUROLOGICAL: No facial asymmetry, gait not observed. SKIN: Warm, dry, normal turgor, no rashes or lesions noted Laboratory Results - last 24 hr 07/08/16 07/09/16 07/09/16 05:15 05:17 14:43 WBC RBC Hgb Hct MCV MCHC RDW Plt Count MPV Neutrophils % Lymphocytes % Monocytes % Eosinophils % Basophils % Sodium Potassium Chloride Carbon Dioxide Anion Gap BUN Creatinine POC Glucometer 145.67158 Random Glucose Calcium Ionized Calcium 5.0 Magnesium Total Bilirubin Direct Bilirubin AST ALT Alkaline Phosphatase Total Protein Albumin Total Amylase 803 H Urine Color Urine Appearance Urine pH Ur Specific [place] Urine Protein Urine Glucose (UA) Urine Ketones Urine Blood Urine Nitrite Urine Bilirubin Urine Urobilinogen Ur Leukocyte Esterase Urine RBC Urine WBC Urine Mucus Ur Random Sodium Ur Random Potassium Ur Random Chloride Ur Random Urea Nitrogn Urine Creatinine 07/09/16 07/09/16 07/09/16 16:00 16:11 19:00 WBC RBC Hgb Hct MCV MCHC RDW Plt Count MPV Neutrophils % Lymphocytes % Monocytes % Eosinophils % Basophils % Sodium 142 Potassium 5.0 Chloride 108 H Carbon Dioxide 24 Anion Gap 10 BUN 30 H Creatinine 2.5 H POC Glucometer 87.95866 Random Glucose 109 H Calcium 7.8 L Ionized Calcium Magnesium 2.3 D Total Bilirubin Direct Bilirubin AST ALT Alkaline Phosphatase Total Protein Albumin Total Amylase Urine Color Urine Appearance Urine pH Ur Specific [place] Urine Protein Urine Glucose (UA) Urine Ketones Urine Blood Urine Nitrite Urine Bilirubin Urine Urobilinogen Ur Leukocyte Esterase Urine RBC Urine WBC Urine Mucus Ur Random Sodium Ur Random Potassium Ur Random Chloride Ur Random Urea Nitrogn Cancelled Urine Creatinine 07/09/16 07/09/16 07/09/16 19:00 19:00 19:00 WBC RBC Hgb Hct MCV MCHC RDW Plt Count MPV Neutrophils % Lymphocytes % Monocytes % Eosinophils % Basophils % Sodium Potassium Chloride Carbon Dioxide Anion Gap BUN Creatinine POC Glucometer Random Glucose Calcium Ionized Calcium Magnesium Total Bilirubin Direct Bilirubin AST ALT Alkaline Phosphatase Total Protein Albumin Total Amylase Urine Color Urine Appearance Urine pH Ur Specific [place] Urine Protein Urine Glucose (UA) Urine Ketones Urine Blood Urine Nitrite Urine Bilirubin Urine Urobilinogen Ur Leukocyte Esterase Urine RBC Urine WBC Urine Mucus Ur Random Sodium 59 Ur Random Potassium 27.0 Ur Random Chloride 39 Ur Random Urea Nitrogn 338 Urine Creatinine 101.0 07/09/16 07/09/16 07/10/16 19:00 19:00 05:20 WBC 9.8 RBC 3.48 L Hgb 11.0 D Hct 33.6 MCV 96.5 H MCHC 32.8 RDW 14.2 Plt Count 202 MPV 8.1 Neutrophils % 82.8 Lymphocytes % 7.9 L D Monocytes % 8.0 Eosinophils % 1.2 D Basophils % 0.1 Sodium Potassium Chloride Carbon Dioxide Anion Gap BUN Creatinine POC Glucometer Random Glucose Calcium Ionized Calcium Magnesium Total Bilirubin Direct Bilirubin AST ALT Alkaline Phosphatase Total Protein Albumin Total Amylase Urine Color Yellow Urine Appearance Slcloudy Urine pH 5.0 Ur Specific [place] 1.013 Urine Protein Negative Urine Glucose (UA) Negative Urine Ketones Trace H Urine Blood 3+ H Urine Nitrite Negative Urine Bilirubin Negative Urine Urobilinogen Negative Ur Leukocyte Esterase Negative Urine RBC 22 Urine WBC 11 Urine Mucus Rare Ur Random Sodium Ur Random Potassium Ur Random Chloride Ur Random Urea Nitrogn Urine Creatinine 101.0 07/10/16 07/10/16 05:20 05:20 WBC RBC Hgb Hct MCV MCHC RDW Plt Count MPV Neutrophils % Lymphocytes % Monocytes % Eosinophils % Basophils % Sodium 146 H Potassium 4.2 Chloride 111 H Carbon Dioxide 25 Anion Gap 10 BUN 21 H D Creatinine 1.1 H D POC Glucometer Random Glucose 153 H D Calcium 8.0 L Ionized Calcium Magnesium Total Bilirubin Cancelled Direct Bilirubin Cancelled AST Cancelled ALT Cancelled Alkaline Phosphatase Cancelled Total Protein Cancelled Albumin Cancelled Total Amylase Urine Color Urine Appearance Urine pH Ur Specific [place] Urine Protein Urine Glucose (UA) Urine Ketones Urine Blood Urine Nitrite Urine Bilirubin Urine Urobilinogen Ur Leukocyte Esterase Urine RBC Urine WBC Urine Mucus Ur Random Sodium Ur Random Potassium Ur Random Chloride Ur Random Urea Nitrogn Urine Creatinine Active Medications Generic Name Dose Route Start Last Admin Trade Name Freq PRN Reason Stop Dose Admin Acetaminophen 1,000 mg 07/10/16 08:51 Ofirmev Injection - IVPB 07/11/16 02:52 Q6H PRN FEVER OR PAIN Albuterol/Ipratropium 1 amp 07/08/16 08:02 Duoneb - NEB Q6H PRN SHORTNESS OF BREATH Chlorhexidine Gluconate 1 applic 07/08/16 22:00 07/09/16 21:30 Hibiclens For Decolonization - TP 1 applic HS [facility] Administration Heparin Sodium (Porcine) 5,000 unit 07/07/16 22:00 07/10/16 09:39 Heparin - SQ 5,000 unit BID [facility] Administration Famotidine/Sodium Chloride 50 mls @ 100 mls/hr 07/07/16 22:00 07/10/16 09:40 Pepcid 20 Mg Premixed Ivpb - IVPB 100 mls/hr BID [facility] Administration Dextrose/Lactated Ringer's 1,000 mls @ 150 mls/hr 07/09/16 12:15 07/09/16 12:15 D5-Lr - IV 150 mls/hr ASDIR [facility] Administration Insulin Aspart 1 vial 07/08/16 07:00 07/10/16 11:10 Novolog Vial Sliding Scale - SQ Not Given TIDAC [facility] Protocol Metoprolol Tartrate 5 mg 07/08/16 04:28 Lopressor Injection - IVPUSH Q4H PRN HYPERTENSION Morphine Sulfate 4 mg 07/10/16 08:49 Morphine Injection - IVPUSH Q4H PRN PAIN Mupirocin 1 applic 07/08/16 10:00 07/10/16 09:39 Bactroban Ointment (For Decolonization) - NS 07/13/16 09:59 1 applic BID [facility] Administration Ondansetron HCl 4 mg 07/07/16 21:34 07/07/16 21:44 Zofran Injection IVPUSH 4 mg Q6H PRN Administration NAUSEA AND/OR VOMITING ASSESSMENT/PLAN: Patient is a 89 year old female with PMH of DM, HTN, HLD, TIA, PVD, esophageal stricture who presented to ED with diffuse severe abdominal pain x 1 day. Patient states that is associated with nausea and constipation. She is admitted for acute pancreatitis. Acute pancreatitis: -possibly due to gallstone vs. medication induced -continue IV hydration, pain medications -no antibiotics indicated, no biliary duct obstruction, no abscess, will observe -BISAP score 3 Asymptomatic bacteriuria: -no antibiotics recommended, pt asymtomatic, Urine culture contaminated, blood culture neg. DM: -continue ISS HTN: -continue Metoprolol Fluid : dextrose/Lr electrolyte : monitor K, Ca, Mg, nutrition : NPO, will resume when pt wants to eat Dispo: We will continue to follow the patient. Thank you for this consultative opportunity. Visit type - Emergency Visit Emergency Visit: Yes ED Registration Date: 07/07/16 Care time: The patient presented to the Emergency Department on the above date and was hospitalized for further evaluation of their emergent condition. - New Patient This patient is new to me today: No - Critical Care Critical Care patient: Yes Total Critical Care Time (in minutes): 40 Critical Care Statement: The care of this patient involved high complexity decision making to prevent further life threatening deterioration of the patient 's condition and/or to evalute & treat vital organ system(s) failure or risk of failure.
--- NOTE | 2016-07-10 12:16 | PN ---
Teaching Attending Note Name of Resident: Erik Arana ATTENDING PHYSICIAN STATEMENT I saw and evaluated the patient. I reviewed the resident's note and discussed the case with the resident. I agree with the resident's findings and plan as documented. SUBJECTIVE: Pt seen and examined in the ICU. Still with diffuse abdominal pain. No fevers recorded. No nausea or vomiting. Denies shortness of breath or chest pain. OBJECTIVE: Last Vital Signs Temp Pulse Resp BP Pulse Ox 98.8 F 66 16 82/46 93 L 07/10/16 10:00 07/10/16 10:24 07/10/16 10:00 07/10/16 10:00 07/10/16 10:24 Intake & Output 07/07/16 07/08/16 07/09/16 07/10/16 23:59 23:59 23:59 23:59 Intake Total 1800 3950 2950 2150 Output Total 75 425 1100 600 Balance 1725 3525 1850 1550 Weight 128 lb 8.472 oz 125 lb 14.143 oz 133 lb 13.129 oz 132 lb 1.6 oz Gen: somnolent but arousable HEENT: dry mucous membranes Heart: RRR Lung: decreased breath sounds at the bases Abd: softly distended, mild TTP upper quadrants Ext: no edema CBC, BMP 07/10/16 05:20 07/10/16 05:20 Active Medications Acetaminophen (Ofirmev Injection -) 1,000 mg IVPB Q6H PRN PRN Reason: FEVER OR PAIN Stop: 07/11/16 02:52 Albuterol/Ipratropium (Duoneb -) 1 amp NEB Q6H PRN PRN Reason: SHORTNESS OF BREATH Chlorhexidine Gluconate (Hibiclens For Decolonization -) 1 applic TP HS [facility] Last Admin: 07/09/16 21:30 Dose: 1 applic Heparin Sodium (Porcine) (Heparin -) 5,000 unit SQ BID [facility] Last Admin: 07/10/16 09:39 Dose: 5,000 unit Famotidine/Sodium Chloride (Pepcid 20 Mg Premixed Ivpb -) 50 mls @ 100 mls/hr IVPB BID [facility] Last Admin: 07/10/16 09:40 Dose: 100 mls/hr Dextrose/Lactated Ringer's (D5-Lr -) 1,000 mls @ 150 mls/hr IV ASDIR [facility] Last Admin: 07/09/16 12:15 Dose: 150 mls/hr Insulin Aspart (Novolog Vial Sliding Scale -) 1 vial SQ TIDAC [facility] PRN Reason: Protocol Last Admin: 07/10/16 11:10 Dose: Not Given Metoprolol Tartrate (Lopressor Injection -) 5 mg IVPUSH Q4H PRN PRN Reason: HYPERTENSION Morphine Sulfate (Morphine Injection -) 4 mg IVPUSH Q4H PRN PRN Reason: PAIN Mupirocin (Bactroban Ointment (For Decolonization) -) 1 applic NS BID [facility] Stop: 07/13/16 09:59 Last Admin: 07/10/16 09:39 Dose: 1 applic Ondansetron HCl (Zofran Injection) 4 mg IVPUSH Q6H PRN PRN Reason: NAUSEA AND/OR VOMITING Last Admin: 07/07/16 21:44 Dose: 4 mg ASSESSMENT AND PLAN: Acute Pancreatitis presumed from medications Acute Kidney injury DM Hyperlipidemia PAD - bolus IVF - monitor urine output, creatinine - pt with normal WBC, afebrile with improving renal failure, would defer further contrast at this time - O2 to keep SPo2 90% - pain control - incentive spirometry - monitor CXR - monitor lytes, Ca++ - NPO - DVT prophylaxis - continue ICU monitoring for now critical care time spent in reviewing chart, evaluating patient and formulating plan 35 min
[2016-07-10] MEDS: DEXTROSE 5%-LACTATED RINGERS 1,000 ML IV SCH ×2 (13:00→21:19)
--- NOTE | 2016-07-10 13:44 | PN ---
Progress Note, Physician History of Present Illness: Pt seen and examined at bedside. She is more awake and interactive today. She denies shortness of breath. She denies abdominal pain. - Current Medication List Current Medications: Active Medications Acetaminophen (Ofirmev Injection -) 1,000 mg IVPB Q6H PRN PRN Reason: FEVER OR PAIN Stop: 07/11/16 02:52 Albuterol/Ipratropium (Duoneb -) 1 amp NEB Q6H PRN PRN Reason: SHORTNESS OF BREATH Chlorhexidine Gluconate (Hibiclens For Decolonization -) [address] [facility] Last Admin: 07/09/16 21:30 Dose: 1 applic Heparin Sodium (Porcine) (Heparin -) 5,[address] [facility] Last Admin: 07/10/16 09:39 Dose: 5,000 unit Famotidine/Sodium Chloride (Pepcid 20 Mg Premixed Ivpb -) 50 mls @ 100 mls/hr IVPB BID [facility] Last Admin: 07/10/16 09:40 Dose: 100 mls/hr Dextrose/Lactated Ringer's (D5-Lr -) 1,000 mls @ 150 mls/hr IV ASDIR [facility] Last Admin: 07/09/16 12:15 Dose: 150 mls/hr Insulin Aspart (Novolog Vial Sliding Scale -) 1 vial SQ TIDAC [facility] PRN Reason: Protocol Last Admin: 07/10/16 11:10 Dose: Not Given Metoprolol Tartrate (Lopressor Injection -) 5 mg IVPUSH Q4H PRN PRN Reason: HYPERTENSION Morphine Sulfate (Morphine Injection -) 4 mg IVPUSH Q4H PRN PRN Reason: PAIN Mupirocin (Bactroban Ointment (For Decolonization) -) [address] [facility] Stop: 07/13/16 09:59 Last Admin: 07/10/16 09:39 Dose: 1 applic Ondansetron HCl (Zofran Injection) 4 mg IVPUSH Q6H PRN PRN Reason: NAUSEA AND/OR VOMITING Last Admin: 07/07/16 21:44 Dose: 4 mg - Objective Vital Signs: Vital Signs Temperature 98.8 F 07/10/16 10:00 Pulse Rate 66 07/10/16 10:24 Respiratory Rate 16 07/10/16 10:00 Blood Pressure 82/46 07/10/16 10:00 O2 Sat by Pulse Oximetry (%) 93 L 07/10/16 10:24 Constitutional: Yes: Calm Eyes: Yes: Conjunctiva Clear HENT: Yes: Atraumatic Neck: Yes: Supple Cardiovascular: Yes: S1, S2 Respiratory: Yes: CTA Bilaterally Genitourinary: Yes: Maldonado Present Edema: No Neurological: Yes: Oriented Psychiatric: Yes: Oriented Labs: CBC, BMP 07/10/16 05:20 07/10/16 05:20 Problem List - Problems (1) Abdominal pain Code(s): R10.9 - UNSPECIFIED ABDOMINAL PAIN (2) Acute pancreatitis Code(s): K85.90 - ACUTE PANCREATITIS WITHOUT NECROSIS OR INFECTION, UNSP (3) Arthritis Code(s): M19.90 - UNSPECIFIED OSTEOARTHRITIS, UNSPECIFIED SITE (4) PARVEEN (acute kidney injury) Code(s): N17.9 - ACUTE KIDNEY FAILURE, UNSPECIFIED Assessment/Plan Current Medications Generic Name Dose Route Start Last Admin Trade Name Freq PRN Reason Stop Dose Admin Acetaminophen 1,000 mg 07/10/16 08:51 Ofirmev Injection - IVPB 07/11/16 02:52 Q6H PRN FEVER OR PAIN Albuterol/Ipratropium 1 amp 07/08/16 08:02 Duoneb - NEB Q6H PRN SHORTNESS OF BREATH Chlorhexidine Gluconate 1 applic 07/08/16 22:00 07/09/16 21:30 Hibiclens For Decolonization - TP 1 applic HS [facility] Administration Heparin Sodium (Porcine) 5,000 unit 07/07/16 22:00 07/10/16 09:39 Heparin - SQ 5,000 unit BID [facility] Administration Famotidine/Sodium Chloride 50 mls @ 100 mls/hr 07/07/16 22:00 07/10/16 09:40 Pepcid 20 Mg Premixed Ivpb - IVPB 100 mls/hr BID [facility] Administration Dextrose/Lactated Ringer's 1,000 mls @ 150 mls/hr 07/09/16 12:15 07/09/16 12:15 D5-Lr - IV 150 mls/hr ASDIR [facility] Administration Insulin Aspart 1 vial 07/08/16 07:00 07/10/16 11:10 Novolog Vial Sliding Scale - SQ Not Given TIDAC [facility] Protocol Metoprolol Tartrate 5 mg 07/08/16 04:28 Lopressor Injection - IVPUSH Q4H PRN HYPERTENSION Morphine Sulfate 4 mg 07/10/16 08:49 Morphine Injection - IVPUSH Q4H PRN PAIN Mupirocin 1 applic 07/08/16 10:00 07/10/16 09:39 Bactroban Ointment (For Decolonization) - NS 07/13/16 09:59 1 applic BID [facility] Administration Ondansetron HCl 4 mg 07/07/16 21:34 07/07/16 21:44 Zofran Injection IVPUSH 4 mg Q6H PRN Administration NAUSEA AND/OR VOMITING Impression 1. PARVEEN 2. acute pancreatitis 3. DM 4. arthritis 5. PVD 6. hyperlipidemia 7. right kidney hydronephrosis Plan - renal function is stabilizing - cont fluids - repeat labs in am - monitor pulse ox - parveen likely from pre-renal disease (FENa was about 1 last night) - right renal hydro on ultrasound, recommend urology eval - repeat cxr in am - GI follow up - keep pt in ICU Dr More
--- NOTE | 2016-07-10 14:04 | PN ---
Physical Exam: SUBJECTIVE: Patient seen and examined Patient states that her pain abdomen has improved. Denies nausea, vomiting Denies shortness of breath. renal function improved urine output 1100. OBJECTIVE: Vital Signs Period Temp Pulse Resp BP Sys/Beaver Pulse Ox Last 24 Hr 98.8 F-100 F 66-101 10-24 82-174/39-68 92-93 GENERAL: The patient is awake, alert, and fully oriented, ENT:dry mucus membrane NECK: Trachea midline, full range of motion, supple. LUNGS: Breath sounds equal, clear to auscultation bilaterally, no wheezes, no crackles, HEART:s1s2 normal ABDOMEN: distended, bs1, tenderness in LUQ and epigastric, EXTREMITIES: 2+ pulses, warm, well-perfused, no edema. PSYCH: Normal mood, SKIN: Warm, dry, Laboratory Results - last 24 hr 07/08/16 07/09/16 07/09/16 05:15 14:43 16:00 WBC RBC Hgb Hct MCV MCHC RDW Plt Count MPV Neutrophils % Lymphocytes % Monocytes % Eosinophils % Basophils % Sodium 142 Potassium 5.0 Chloride 108 H Carbon Dioxide 24 Anion Gap 10 BUN 30 H Creatinine 2.5 H POC Glucometer 145.54015 Random Glucose 109 H Calcium 7.8 L Ionized Calcium 5.0 Magnesium 2.3 D Total Bilirubin Direct Bilirubin AST ALT Alkaline Phosphatase Total Protein Albumin Urine Color Urine Appearance Urine pH Ur Specific [place] Urine Protein Urine Glucose (UA) Urine Ketones Urine Blood Urine Nitrite Urine Bilirubin Urine Urobilinogen Ur Leukocyte Esterase Urine RBC Urine WBC Urine Mucus Ur Random Sodium Ur Random Potassium Ur Random Chloride Ur Random Urea Nitrogn Urine Creatinine 07/09/16 07/09/16 07/09/16 16:11 19:00 19:00 WBC RBC Hgb Hct MCV MCHC RDW Plt Count MPV Neutrophils % Lymphocytes % Monocytes % Eosinophils % Basophils % Sodium Potassium Chloride Carbon Dioxide Anion Gap BUN Creatinine POC Glucometer 87.44018 Random Glucose Calcium Ionized Calcium Magnesium Total Bilirubin Direct Bilirubin AST ALT Alkaline Phosphatase Total Protein Albumin Urine Color Urine Appearance Urine pH Ur Specific [place] Urine Protein Urine Glucose (UA) Urine Ketones Urine Blood Urine Nitrite Urine Bilirubin Urine Urobilinogen Ur Leukocyte Esterase Urine RBC Urine WBC Urine Mucus Ur Random Sodium Ur Random Potassium Ur Random Chloride Ur Random Urea Nitrogn Cancelled Urine Creatinine 101.0 07/09/16 07/09/16 07/09/16 19:00 19:00 19:00 WBC RBC Hgb Hct MCV MCHC RDW Plt Count MPV Neutrophils % Lymphocytes % Monocytes % Eosinophils % Basophils % Sodium Potassium Chloride Carbon Dioxide Anion Gap BUN Creatinine POC Glucometer Random Glucose Calcium Ionized Calcium Magnesium Total Bilirubin Direct Bilirubin AST ALT Alkaline Phosphatase Total Protein Albumin Urine Color Yellow Urine Appearance Slcloudy Urine pH 5.0 Ur Specific [place] 1.013 Urine Protein Negative Urine Glucose (UA) Negative Urine Ketones Trace H Urine Blood 3+ H Urine Nitrite Negative Urine Bilirubin Negative Urine Urobilinogen Negative Ur Leukocyte Esterase Negative Urine RBC 22 Urine WBC 11 Urine Mucus Rare Ur Random Sodium 59 Ur Random Potassium 27.0 Ur Random Chloride 39 Ur Random Urea Nitrogn 338 Urine Creatinine 07/09/16 07/10/16 07/10/16 19:00 05:20 05:20 WBC 9.8 RBC 3.48 L Hgb 11.0 D Hct 33.6 MCV 96.5 H MCHC 32.8 RDW 14.2 Plt Count 202 MPV 8.1 Neutrophils % 82.8 Lymphocytes % 7.9 L D Monocytes % 8.0 Eosinophils % 1.2 D Basophils % 0.1 Sodium 146 H Potassium 4.2 Chloride 111 H Carbon Dioxide 25 Anion Gap 10 BUN 21 H D Creatinine 1.1 H D POC Glucometer Random Glucose 153 H D Calcium 8.0 L Ionized Calcium Magnesium Total Bilirubin Direct Bilirubin AST ALT Alkaline Phosphatase Total Protein Albumin Urine Color Urine Appearance Urine pH Ur Specific [place] Urine Protein Urine Glucose (UA) Urine Ketones Urine Blood Urine Nitrite Urine Bilirubin Urine Urobilinogen Ur Leukocyte Esterase Urine RBC Urine WBC Urine Mucus Ur Random Sodium Ur Random Potassium Ur Random Chloride Ur Random Urea Nitrogn Urine Creatinine 101.0 07/10/16 07/10/16 07/10/16 05:20 06:22 08:40 WBC RBC Hgb Hct MCV MCHC RDW Plt Count MPV Neutrophils % Lymphocytes % Monocytes % Eosinophils % Basophils % Sodium Potassium Chloride Carbon Dioxide Anion Gap BUN Creatinine POC Glucometer 179.50931 Random Glucose Calcium Ionized Calcium Magnesium Total Bilirubin Cancelled Direct Bilirubin Cancelled AST Cancelled ALT Cancelled Alkaline Phosphatase Cancelled Total Protein Cancelled Albumin Cancelled Urine Color Urine Appearance Urine pH Ur Specific [place] Urine Protein Urine Glucose (UA) Urine Ketones Urine Blood Urine Nitrite Urine Bilirubin Urine Urobilinogen Ur Leukocyte Esterase Urine RBC Urine WBC Urine Mucus Ur Random Sodium 103 Ur Random Potassium 23.0 Ur Random Chloride 119 Ur Random Urea Nitrogn Urine Creatinine 07/10/16 11:09 WBC RBC Hgb Hct MCV MCHC RDW Plt Count MPV Neutrophils % Lymphocytes % Monocytes % Eosinophils % Basophils % Sodium Potassium Chloride Carbon Dioxide Anion Gap BUN Creatinine POC Glucometer 91.36730 Random Glucose Calcium Ionized Calcium Magnesium Total Bilirubin Direct Bilirubin AST ALT Alkaline Phosphatase Total Protein Albumin Urine Color Urine Appearance Urine pH Ur Specific [place] Urine Protein Urine Glucose (UA) Urine Ketones Urine Blood Urine Nitrite Urine Bilirubin Urine Urobilinogen Ur Leukocyte Esterase Urine RBC Urine WBC Urine Mucus Ur Random Sodium Ur Random Potassium Ur Random Chloride Ur Random Urea Nitrogn Urine Creatinine Active Medications Generic Name Dose Route Start Last Admin Trade Name Freq PRN Reason Stop Dose Admin Acetaminophen 1,000 mg 07/10/16 08:51 Ofirmev Injection - IVPB 07/11/16 02:52 Q6H PRN FEVER OR PAIN Albuterol/Ipratropium 1 amp 07/08/16 08:02 Duoneb - NEB Q6H PRN SHORTNESS OF BREATH Chlorhexidine Gluconate 1 applic 07/08/16 22:00 07/09/16 21:30 Hibiclens For Decolonization - TP 1 applic HS [facility] Administration Heparin Sodium (Porcine) 5,000 unit 07/07/16 22:00 07/10/16 09:39 Heparin - SQ 5,000 unit BID [facility] Administration Famotidine/Sodium Chloride 50 mls @ 100 mls/hr 07/07/16 22:00 07/10/16 09:40 Pepcid 20 Mg Premixed Ivpb - IVPB 100 mls/hr BID [facility] Administration Dextrose/Lactated Ringer's 1,000 mls @ 150 mls/hr 07/09/16 12:15 07/09/16 12:15 D5-Lr - IV 150 mls/hr ASDIR [facility] Administration Insulin Aspart 1 vial 07/08/16 07:00 07/10/16 11:10 Novolog Vial Sliding Scale - SQ Not Given TIDAC [facility] Protocol Metoprolol Tartrate 5 mg 07/08/16 04:28 Lopressor Injection - IVPUSH Q4H PRN HYPERTENSION Morphine Sulfate 4 mg 07/10/16 08:49 Morphine Injection - IVPUSH Q4H PRN PAIN Mupirocin 1 applic 07/08/16 10:00 07/10/16 09:39 Bactroban Ointment (For Decolonization) - NS 07/13/16 09:59 1 applic BID [facility] Administration Ondansetron HCl 4 mg 07/07/16 21:34 07/07/16 21:44 Zofran Injection IVPUSH 4 mg Q6H PRN Administration NAUSEA AND/OR VOMITING ASSESSMENT/PLAN: acute severe pancreatitis ( modified mi classification ), creatinine elevated pain control morphine and acetaminophen IV fluid D5RL 150ml/hr, maintain urine output 0.5ml to 1ml/kg/hr zofran for nausea and vomiting duoneb nebulizer incentive spirometry q1h blood glucose monitoring monitor sr calcium and electrolyte monitor vitals monitor intake/ output 2950/1100 once pain gets better, distension decrease, try to start her on feed( oral or ng or njft ) PARVEEN creatnine decreased from 2.5 to 1.1 could be prerenal continue with 150ml/hr avoid nephrotoxic drugs monitor creatnine. DM on novalog sliding scale bgm monitoring HTN monitor BP on lopressor 5mg IV prn hypernatremia na 146 fluid deficit 0.6 L monitor sodium Fluid : d5LR 150ml/hr electrolyte : monitor K, Ca, Mg, nutrition : NPO dvt pro ; heparin sq gi pro : pepcid bid dispo: admit in icu Visit type - Emergency Visit Emergency Visit: Yes ED Registration Date: 07/07/16 Care time: The patient presented to the Emergency Department on the above date and was hospitalized for further evaluation of their emergent condition. - New Patient This patient is new to me today: No - Critical Care Critical Care patient: Yes Total Critical Care Time (in minutes): 45 Critical Care Statement: The care of this patient involved high complexity decision making to prevent further life threatening deterioration of the patient 's condition and/or to evalute & treat vital organ system(s) failure or risk of failure.
[2016-07-10 16:16] LABS: ALBUMIN 2.2 g/dl (3.4-5.0); BILIRUBIN,DIRECT 0.2 mg/dL (0.0-0.2); BILIRUBIN,TOTAL 0.3 mg/dL (0.2-1.0); CALCIUM 7.9 mg/dL (8.5-10.1); COCKROFT - GAULT 45.05; CREATININE 0.8 mg/dL (0.55-1.02); TOT PROT 5.2 g/dl (6.4-8.2)
--- NOTE | 2016-07-10 16:20 | PN ---
Physical Exam: SUBJECTIVE: Patient seen and examined Pt is awake, alert and oriented Abdominal pain and tenderness is more controlled no fever or chills no n/v No dizziness or confusion OBJECTIVE: Vital Signs Period Temp Pulse Resp BP Sys/Beaver Pulse Ox Last 24 Hr 98.8 F-100 F 66-101 11-24 82-174/39-68 92-93 GENERAL: The patient is awake, alert, and fully oriented, in no acute distress. HEAD: Normal with no signs of trauma. ENT: Ears normal, nares patent, oropharynx clear without exudates, moist mucous membranes. NECK: Trachea midline, full range of motion, supple. LUNGS: Breath sounds equal, clear to auscultation bilaterally, no wheezes, no accessory muscle use. HEART: Regular rate and rhythm, S1, S2 with systolic murmur, rub or gallop. ABDOMEN: Soft, non-tender, less distended, normoactive bowel sounds, no guarding no rebound, no hepatosplenomegaly, no masses. EXTREMITIES: 2+ pulses, warm, well-perfused, no edema. NEUROLOGICAL: Normal speech, gait not observed. PSYCH: Normal mood, normal affect. SKIN: Warm, dry, normal turgor, no rashes or lesions noted Laboratory Results - last 24 hr 07/08/16 07/09/16 07/09/16 05:15 16:00 16:11 WBC RBC Hgb Hct MCV MCHC RDW Plt Count MPV Neutrophils % Lymphocytes % Monocytes % Eosinophils % Basophils % Sodium 142 Potassium 5.0 Chloride 108 H Carbon Dioxide 24 Anion Gap 10 BUN 30 H Creatinine 2.5 H POC Glucometer 87.88774 Random Glucose 109 H Calcium 7.8 L Ionized Calcium 5.0 Magnesium 2.3 D Total Bilirubin Direct Bilirubin AST ALT Alkaline Phosphatase Total Protein Albumin Urine Color Urine Appearance Urine pH Ur Specific [place] Urine Protein Urine Glucose (UA) Urine Ketones Urine Blood Urine Nitrite Urine Bilirubin Urine Urobilinogen Ur Leukocyte Esterase Urine RBC Urine WBC Urine Mucus Ur Random Sodium Ur Random Potassium Ur Random Chloride Ur Random Urea Nitrogn Urine Creatinine 07/09/16 07/09/16 07/09/16 19:00 19:00 19:00 WBC RBC Hgb Hct MCV MCHC RDW Plt Count MPV Neutrophils % Lymphocytes % Monocytes % Eosinophils % Basophils % Sodium Potassium Chloride Carbon Dioxide Anion Gap BUN Creatinine POC Glucometer Random Glucose Calcium Ionized Calcium Magnesium Total Bilirubin Direct Bilirubin AST ALT Alkaline Phosphatase Total Protein Albumin Urine Color Urine Appearance Urine pH Ur Specific [place] Urine Protein Urine Glucose (UA) Urine Ketones Urine Blood Urine Nitrite Urine Bilirubin Urine Urobilinogen Ur Leukocyte Esterase Urine RBC Urine WBC Urine Mucus Ur Random Sodium 59 Ur Random Potassium 27.0 Ur Random Chloride 39 Ur Random Urea Nitrogn Cancelled Urine Creatinine 101.0 07/09/16 07/09/16 07/09/16 19:00 19:00 19:00 WBC RBC Hgb Hct MCV MCHC RDW Plt Count MPV Neutrophils % Lymphocytes % Monocytes % Eosinophils % Basophils % Sodium Potassium Chloride Carbon Dioxide Anion Gap BUN Creatinine POC Glucometer Random Glucose Calcium Ionized Calcium Magnesium Total Bilirubin Direct Bilirubin AST ALT Alkaline Phosphatase Total Protein Albumin Urine Color Yellow Urine Appearance Slcloudy Urine pH 5.0 Ur Specific [place] 1.013 Urine Protein Negative Urine Glucose (UA) Negative Urine Ketones Trace H Urine Blood 3+ H Urine Nitrite Negative Urine Bilirubin Negative Urine Urobilinogen Negative Ur Leukocyte Esterase Negative Urine RBC 22 Urine WBC 11 Urine Mucus Rare Ur Random Sodium Ur Random Potassium Ur Random Chloride Ur Random Urea Nitrogn 338 Urine Creatinine 101.0 07/10/16 07/10/16 07/10/16 05:20 05:20 05:20 WBC 9.8 RBC 3.48 L Hgb 11.0 D Hct 33.6 MCV 96.5 H MCHC 32.8 RDW 14.2 Plt Count 202 MPV 8.1 Neutrophils % 82.8 Lymphocytes % 7.9 L D Monocytes % 8.0 Eosinophils % 1.2 D Basophils % 0.1 Sodium 146 H Potassium 4.2 Chloride 111 H Carbon Dioxide 25 Anion Gap 10 BUN 21 H D Creatinine 1.1 H D POC Glucometer Random Glucose 153 H D Calcium 8.0 L Ionized Calcium Magnesium Total Bilirubin Cancelled Direct Bilirubin Cancelled AST Cancelled ALT Cancelled Alkaline Phosphatase Cancelled Total Protein Cancelled Albumin Cancelled Urine Color Urine Appearance Urine pH Ur Specific [place] Urine Protein Urine Glucose (UA) Urine Ketones Urine Blood Urine Nitrite Urine Bilirubin Urine Urobilinogen Ur Leukocyte Esterase Urine RBC Urine WBC Urine Mucus Ur Random Sodium Ur Random Potassium Ur Random Chloride Ur Random Urea Nitrogn Urine Creatinine 07/10/16 07/10/16 07/10/16 06:22 08:40 11:09 WBC RBC Hgb Hct MCV MCHC RDW Plt Count MPV Neutrophils % Lymphocytes % Monocytes % Eosinophils % Basophils % Sodium Potassium Chloride Carbon Dioxide Anion Gap BUN Creatinine POC Glucometer 179.45644 91.11047 Random Glucose Calcium Ionized Calcium Magnesium Total Bilirubin Direct Bilirubin AST ALT Alkaline Phosphatase Total Protein Albumin Urine Color Urine Appearance Urine pH Ur Specific [place] Urine Protein Urine Glucose (UA) Urine Ketones Urine Blood Urine Nitrite Urine Bilirubin Urine Urobilinogen Ur Leukocyte Esterase Urine RBC Urine WBC Urine Mucus Ur Random Sodium 103 Ur Random Potassium 23.0 Ur Random Chloride 119 Ur Random Urea Nitrogn Urine Creatinine Active Medications Generic Name Dose Route Start Last Admin Trade Name Freq PRN Reason Stop Dose Admin Acetaminophen 1,000 mg 07/10/16 08:51 Ofirmev Injection - IVPB 07/11/16 02:52 Q6H PRN FEVER OR PAIN Albuterol/Ipratropium 1 amp 07/08/16 08:02 Duoneb - NEB Q6H PRN SHORTNESS OF BREATH Chlorhexidine Gluconate 1 applic 07/08/16 22:00 07/09/16 21:30 Hibiclens For Decolonization - TP 1 applic HS ORTEGA Administration Heparin Sodium (Porcine) 5,000 unit 07/07/16 22:00 07/10/16 09:39 Heparin - SQ 5,000 unit BID ORTEGA Administration Famotidine/Sodium Chloride 50 mls @ 100 mls/hr 07/07/16 22:00 07/10/16 09:40 Pepcid 20 Mg Premixed Ivpb - IVPB 100 mls/hr BID ORTEGA Administration Dextrose/Lactated Ringer's 1,000 mls @ 150 mls/hr 07/09/16 12:15 07/10/16 13:00 D5-Lr - IV 150 mls/hr ASDIR ORTEGA Administration Insulin Aspart 1 vial 07/08/16 07:00 07/10/16 11:10 Novolog Vial Sliding Scale - SQ Not Given TIDAC [facility] Protocol Metoprolol Tartrate 5 mg 07/08/16 04:28 Lopressor Injection - IVPUSH Q4H PRN HYPERTENSION Morphine Sulfate 4 mg 07/10/16 08:49 07/10/16 15:38 Morphine Injection - IVPUSH 4 mg Q4H PRN Administration PAIN Mupirocin 1 applic 07/08/16 10:00 07/10/16 09:39 Bactroban Ointment (For Decolonization) - NS 07/13/16 09:59 1 applic BID ORTEGA Administration Ondansetron HCl 4 mg 04/23/17 21:34 07/07/16 21:44 Zofran Injection IVPUSH 4 mg Q6H PRN Administration NAUSEA AND/OR VOMITING CBC, BMP 07/10/16 05:20 Microbiology 07/07/16 17:47 Urine - Urine Clean Catch Urine Culture - Final Contaminated: Please Repeat 07/07/16 15:54 Blood - Peripheral Venous Blood Culture - Preliminary NO GROWTH OBTAINED AFTER 72 HOURS, INCUBATION TO CONTINUE FOR 2 DAYS. 07/07/16 15:43 Blood - Peripheral Venous Blood Culture - Preliminary NO GROWTH OBTAINED AFTER 72 HOURS, INCUBATION TO CONTINUE FOR 2 DAYS. Laboratory Tests 07/09/16 07/09/16 07/09/16 05:17 05:17 16:00 Calcium 7.7 L Magnesium 2.3 D Total Bilirubin 0.5 D C-Reactive Protein 26.0 H Total Protein 5.5 L Albumin 2.7 L Total Amylase 803 H 07/10/16 05:20 Calcium 8.0 L Magnesium Total Bilirubin C-Reactive Protein Total Protein Albumin Total Amylase ASSESSMENT/PLAN: 89 year old female with pmh og DM, HTN, HPLD, TIA, PVD, RLS, esophageal stricture presneted to the Ed with complaint of severe abdominal pain accompanied by nausea and non bloody, non bilious episode of vomiting. Pt was found to have Acute pancreatitis. Acute pancreatitis Gregory II score 6, Bisap 2 Amylase 1225, Lipase 6575 on admission Pt has Gallstone, no biliary tract dilation, hepatomegaly and fatty infiltrates on CT abdomen and Ultrasound NPO, may resume diet when patient wants to eat increase IV fluid to D5LR 150ml/h Morphine IV PRN for pain Acetaminophen IV PRN Zofran PRN for Nausea GI consulted, Dr Wong Surgery consulted Dr Chan Blood culture Consider Abdominal/Pelvis CT with IV and Oral contrast PARVEEN Cr 0.8 to 2.1 Likely due to hypovolemia Fena 0.48 yesterday Increase IV fluid for adequate fluid resuscitation Today Cr 1.1 Diabetes Now controlled Pt is NPO Novolog sliding scale HTN Pt is NPO will resume home meds whenever patient is tolerating PO meds Lopressor 5mg PRN IV q4h asymptomatic bacteruria UA with positive leuk esterase, 10-20 WBC Pt has no dysuria, no hematuria, no polyuria Received 1 day of Ceftriaxone gm IV No need for antibiotics coverage FEN Fluid: D5LR at 150ml/h Electrolytes: chemistry in am Nutrition: NPO DVT prophyalaxis: SCD Disposition: Pending resolution of pancreatitis Visit type - Emergency Visit Emergency Visit: Yes ED Registration Date: 07/07/16 Care time: The patient presented to the Emergency Department on the above date and was hospitalized for further evaluation of their emergent condition. - New Patient This patient is new to me today: Yes Date on this admission: 07/10/16 - Critical Care Critical Care patient: Yes Total Critical Care Time (in minutes): 40 Critical Care Statement: The care of this patient involved high complexity decision making to prevent further life threatening deterioration of the patient 's condition and/or to evalute & treat vital organ system(s) failure or risk of failure. - Discharge Referral Referred to [facility] No
--- NOTE | 2016-07-10 17:53 | PN ---
Teaching Attending Note Name of Resident: Bo Butler ATTENDING PHYSICIAN STATEMENT I saw and evaluated the patient. I reviewed the resident's note and discussed the case with the resident. I agree with the resident's findings and plan as documented. SUBJECTIVE: Patient denies pain, nausea. BP is better today. OBJECTIVE: Vital Signs Period Temp Pulse Resp BP Sys/Beaver Pulse Ox Last 24 Hr 98.8 F-100 F 66-101 11-24 82-174/39-68 92-93 HEART: S1S2, RRR, (+) 2/6 systolic murmur LUNGS: Clear ABDOMEN: Soft, non-distended, normal BS, non-tender EXTREMITIES: No edema ASSESSMENT AND PLAN: This is an 89-year-old woman with a history of type 2 DM, HTN, hyperlipidemia, TIA, PAD, RLS, esophageal stricture who presented to the ER with abdominal pain. 1. Acute pancreatitis - Secondary to gallstones vs medication - Tradjenta held - Continue NPO, IV fluid 2. Acute kidney injury secondary to hypovolemia - Improving with IV fluid - Continue to monitor creatinine 3. Hypotension secondary to hypovolemia - Improving with IV fluid 4. Hypomagnesemia - Improved 5. Asymptomatic bacteriuria - Rocephin discontinued 6. HTN - Continue Lopressor IV as needed 7. Type 2 DM - Continue Novolog sliding scale 8. Hyperlipidemia 9. PAD 10. History of TIA 11. Restless leg syndrome
[2016-07-10] MEDS: HYDROmorphone HCL CARPU-JECT 2 MG/1 ML DISP.SYRIN IVPB PRN (18:04)
--- NOTE | 2016-07-10 20:10 | PN ---
GI Progress Note Subjective: No acute events Still receiving opiatae analgesia but she says that her abdominal pain is improved from previous Bit more tachypnic tonight - Objective Vital Signs: Vital Signs Temperature 99.4 F Tmax: 100 07/10/16 14:00 Pulse Rate 77 07/10/16 18:00 Respiratory Rate 18 07/10/16 18:00 Blood Pressure 117/55 07/10/16 18:00 O2 Sat by Pulse Oximetry (%) 93 L on 5L NC 07/10/16 10:24 7A-7P: I: 2100 O: 1650 balance: + 450 Constitutional: Calm Eyes: No: Sclera Icterus Cardiovascular: Yes: Regular Rate and Rhythm, Tachycardia Respiratory: Yes: Other (fine crackeles at right lung base with some expiratory wheezing bilaterally) Gastrointestinal Inspection: Yes: Distention (protuberant but soft) ...Auscultate: Yes: Normoactive Bowel Sounds (improved from previous exams) ...Palpate: Yes: Tenderness (improved TTP upper abdomen). No: Guarding, Tenderness, Rebound ...Percussion: No: Tympanitic Neurological: Yes: Alert Labs: CBC, BMP 07/10/16 05:20 07/10/16 15:40 - ....Imaging X-ray: Report Reviewed (progressive congestive changes) Problem List - Problems (1) Acute pancreatitis Assessment/Plan: Appears to be clinical improvement I think Ms. Sheth's abdominal exam is improved tonight and there is time to hold off on the contrast imaging study of the pancreas, especially with the renal function having just recovered. Patient with wheezes and fine crackles on lung exam. Decreasing fluid rate to 100cc per hour If continued improvement, advance to clears and continue to decrease fluids Code(s): K85.90 - ACUTE PANCREATITIS WITHOUT NECROSIS OR INFECTION, UNSP
[2016-07-10] MEDS ORDERED: HYDROmorphone HCL CARPU-JECT 1 MG/1 ML DISP.SYRIN IVPUSH ONE (21:18)
[2016-07-10] MEDS: CHLORHEXIDINE GLUCONATE 4% CLEANSER FOR DECOLONIZATION TP SCH (21:40)
[2016-07-11] MEDS: HYDROmorphone HCL CARPU-JECT 2 MG/1 ML DISP.SYRIN IVPB PRN ×2 (02:18→06:33)
[2016-07-11 06:11] LABS: BASOPHIL 0.1 % (0-2.0); EOSINOPHIL 1.1 % (0-4.5); MCH 31.4 pg (25.7-33.7); MCHC 32.4 g/dl (32.0-36.0); MEAN CELL VOLUME 96.9 fl (80-96); MEAN PLT VOLUME 8.2 fl (7.5-11.1); PLATELET COUNT 205 K/MM3 (134-434); WHITE BLOOD COUNT 9.3 K/mm3 (4.0-10.0)
[2016-07-11 06:33] LABS: ALBUMIN 2.1 g/dl (3.4-5.0); ANION GAP 10 (8-16); CALCIUM 8.3 mg/dL (8.5-10.1); CO2 26 mmol/L (21-32); GLUCOSE,RANDOM 149 mg/dL (74-106); MAGNESIUM 1.6 mg/dL (1.8-2.4); PHOSPHOROUS 1.5 mg/dL (2.5-4.9)
[2016-07-11 06:35] LABS: ALK PHOS 34 U/L (45-117); BILIRUBIN,TOTAL 0.2 mg/dL (0.2-1.0); CREATININE 0.5 mg/dL (0.55-1.02); SGOT/AST 24 U/L (15-37); SGPT/ALT 20 U/L (12-78)
[2016-07-11] MEDS: INSULIN SLIDING SCALE (NOVOLOG) 1 VIAL SQ SCH ×3 (06:41→17:54)
[2016-07-11] MEDS ORDERED: MAGNESIUM SULF 50% (8.12 MEQ/2 ML-1 GM VIAL) IVPB ONE (07:02)
[2016-07-11] MEDS ORDERED: POTASSIUM PHOSPHATE 30 MM in SODIUM CHLORIDE 250 ML IVPB ONE (07:03)
--- NOTE | 2016-07-11 07:52 | PN ---
Progress Note (short form) - Note Progress Note: No acute events over past 24 hrs per RN notes. Still c/o abd pain but states it has improved slightly. Receiving opiate pain management. Still no bowel movement recorded since admit to hospital. Her BUN/Cr has normalized. Denies n/v/f/c, CP, SOB, or flatus Last Vital Signs Temp Pulse Resp BP Pulse Ox 100.0 F 86 20 150/70 93 L 07/11/16 06:00 07/11/16 06:00 07/11/16 06:00 07/11/16 06:00 07/10/16 20:37 CBC, BMP 07/11/16 05:15 07/11/16 05:15 Microbiology 07/07/16 15:54 Blood - Peripheral Venous Blood Culture - Prelim NO GROWTH OBTAINED AFTER 72 HOURS, INCUBATION TO CONT FOR 2 DAYS. 07/07/16 15:43 Blood - Peripheral Venous Blood Culture - Prelim NO GROWTH OBTAINED AFTER 72 HOURS, INCUBATION TO CONT FOR 2 DAYS. 07/07/16 17:47 Urine - Urine Clean Catch Urine Culture - Final Contaminated : Please Repeat CXR 07/10: Progressive congestive changes PE Gen: alert. nad ENT: sclera anicteric Pulm: Fine crackles at RLL base. Expiratory wheezing bilaterally. Cor: rrr Abd: softly distended. Normoactive Bowel Sounds. Tympanic throughout. Mildly ttp (epigastric/LUQ but improved to previous exam). Negative rebound/guarding, or rigidity. LE: soft. nt b/l. SCDs <Dez Mercado P - Last Filed: 07/11/16 08:02> - Note Progress Note: Attending Surgeon Patient seen and evaluated; concur w/ assessment and plan as outlined. Preston Chan MD FACS <Preston Chan N - Last Filed: 07/11/16 09:41> Problem List - Problems (1) Drug-induced acute pancreatitis Assessment/Plan: If patient continues to improve can start patient on trial of liquids. Incentive spiromter Hypomag 1.6, replete elyte GI/DVT ppx Pain management PRN Tylenol 650mg PO for fever > 100.3F PRN Cont ICU management Code(s): K85.30 - DRUG INDUCED ACUTE PANCREATITIS WITHOUT NECROSIS OR INFCT <Dez Mercado P - Last Filed: 07/11/16 08:02>
[2016-07-11] MEDS ORDERED: PT OWN MED DRAWER 7, Y5N ONE (08:53)
[2016-07-11] MEDS: FAMOTIDINE 20 MG/50 ML IVPB 50 ML IVPB SCH ×2 (09:21→22:16)
[2016-07-11] MEDS: MUPIROCIN 2% TOPICAL OINTMENT FOR DECOLONIZATION NS SCH ×2 (10:19→22:16)
[2016-07-11] MEDS: HEPARIN NA (PORCINE) 5,000 UNITS/ML 1ML VIAL SQ SCH ×2 (10:19→22:16)
[2016-07-11] MEDS: ACETAMINOPHEN 1000 MG/100 ML VIAL (NON FORMULARY) IVPB PRN ×2 (11:24→17:03)
[2016-07-11] MEDS ORDERED: HYDROmorphone HCL CARPU-JECT 2 MG/1 ML DISP.SYRIN IVPB PRN (12:29)
--- NOTE | 2016-07-11 13:49 | PN ---
Physical Exam: SUBJECTIVE: Patient seen and examined In morning patient denies of pain abdomen but after 2-3 hours when effect of pain med subsided pain started crying in pain. Patient was given 1mg dilaudid and she feels better on that. denies sob, chest pain, oral mucosa is dry, abdomen is still distended but soft, tenderness decreased since before. OBJECTIVE: Vital Signs Period Temp Pulse Resp BP Sys/Beaver Pulse Ox Last 24 Hr 98.6 F-100 F 73-88 12-26 90-160/47-72 92-96 GENERAL: The patient is awake, alert, and fully oriented, ENT:dry mucus membrane NECK: Trachea midline, full range of motion, supple. LUNGS: Breath sounds equal, clear to auscultation bilaterally, no wheezes, crackles present HEART:s1s2 normal ABDOMEN: distended, bs1, tenderness decreased, BS + EXTREMITIES: 2+ pulses, warm, well-perfused, no edema. PSYCH: Normal mood, SKIN: Warm, dry, Laboratory Results - last 24 hr 07/10/16 07/10/16 07/11/16 15:40 16:35 05:15 WBC 9.3 RBC 3.24 L Hgb 10.2 L Hct 31.4 L MCV 96.9 H MCHC 32.4 RDW 14.0 Plt Count 205 MPV 8.2 Neutrophils % 81.0 Lymphocytes % 8.2 Monocytes % 9.6 Eosinophils % 1.1 Basophils % 0.1 Sodium 145 Potassium 3.9 Chloride 108 H Carbon Dioxide 28 Anion Gap 9 BUN 15 D Creatinine 0.8 D Creat Clearance w eGFR POC Glucometer 85.75866 Random Glucose 119 H D Calcium 7.9 L Phosphorus Magnesium Total Bilirubin 0.3 D Direct Bilirubin 0.2 D AST 25 D ALT 22 D Alkaline Phosphatase 33 L C-Reactive Protein Total Protein 5.2 L Albumin 2.2 L 07/11/16 07/11/16 07/11/16 05:15 05:15 06:39 WBC RBC Hgb Hct MCV MCHC RDW Plt Count MPV Neutrophils % Lymphocytes % Monocytes % Eosinophils % Basophils % Sodium 143 Potassium 3.8 Chloride 107 Carbon Dioxide 26 Anion Gap 10 BUN 8 D Creatinine 0.5 L D Creat Clearance w eGFR > 60 POC Glucometer 167.12850 Random Glucose 149 H D Calcium 8.3 L Phosphorus 1.5 L D Magnesium 1.6 L D Total Bilirubin 0.2 D Direct Bilirubin AST 24 ALT 20 Alkaline Phosphatase 34 L C-Reactive Protein 31.1 H D Total Protein 5.0 L Albumin 2.1 L 07/11/16 11:39 WBC RBC Hgb Hct MCV MCHC RDW Plt Count MPV Neutrophils % Lymphocytes % Monocytes % Eosinophils % Basophils % Sodium Potassium Chloride Carbon Dioxide Anion Gap BUN Creatinine Creat Clearance w eGFR POC Glucometer 138.32150 Random Glucose Calcium Phosphorus Magnesium Total Bilirubin Direct Bilirubin AST ALT Alkaline Phosphatase C-Reactive Protein Total Protein Albumin Active Medications Generic Name Dose Route Start Last Admin Trade Name Freq PRN Reason Stop Dose Admin Acetaminophen 1,000 mg 07/11/16 10:22 07/11/16 11:24 Ofirmev Injection - IVPB 07/12/16 04:23 1,000 mg Q6H PRN Administration FEVER OR PAIN Albuterol/Ipratropium 1 amp 07/08/16 08:02 Duoneb - NEB Q6H PRN SHORTNESS OF BREATH Chlorhexidine Gluconate 1 applic 07/08/16 22:00 07/10/16 21:40 Hibiclens For Decolonization - TP 1 applic HS ORTEGA Administration Heparin Sodium (Porcine) 5,000 unit 07/07/16 22:00 07/11/16 10:19 Heparin - SQ 5,000 unit BID ORTEGA Administration Hydromorphone HCl 1 mg 07/11/16 12:29 Dilaudid Injection - IVPB Q4H PRN PAIN Famotidine/Sodium Chloride 50 mls @ 100 mls/hr 07/07/16 22:00 07/11/16 09:21 Pepcid 20 Mg Premixed Ivpb - IVPB 100 mls/hr BID ORTEGA Administration Dextrose/Lactated Ringer's 1,000 mls @ 100 mls/hr 07/10/16 20:42 07/10/16 21:19 D5-Lr - IV 100 mls/hr ASDIR ORTEGA Administration Insulin Aspart 1 vial 07/08/16 07:00 07/11/16 11:48 Novolog Vial Sliding Scale - SQ Not Given TIDAC [facility] Protocol Metoprolol Tartrate 5 mg 07/08/16 04:28 Lopressor Injection - IVPUSH Q4H PRN HYPERTENSION Mupirocin 1 applic 07/08/16 10:00 07/11/16 10:19 Bactroban Ointment (For Decolonization) - NS 07/13/16 09:59 1 applic BID ORTEGA Administration Ondansetron HCl 4 mg 07/07/16 21:34 07/07/16 21:44 Zofran Injection IVPUSH 4 mg Q6H PRN Administration NAUSEA AND/OR VOMITING ASSESSMENT/PLAN: acute severe pancreatitis ( modified mi classification ), creatinine elevated pain control morphine and acetaminophen IV fluid D5RL 100ml/hr, maintain urine output 0.5ml to 1ml/kg/hr zofran for nausea and vomiting duoneb nebulizer incentive spirometry q1h blood glucose monitoring monitor sr calcium and electrolyte monitor vitals monitor intake/ output 6050/2550 once pain gets better, distension decrease, try to start her on feed( oral or ng or njft ) had hypomagnesemia, hyophosphatemia: mag and regan given PARVEEN creatnine decreased from 2.5 to 0.5 could be prerenal continue with 100ml/hr avoid nephrotoxic drugs monitor creatnine. DM on novalog sliding scale bgm monitoring HTN monitor BP on lopressor 5mg IV prn hypernatremia improved Fluid : d5LR 100ml/hr electrolyte : monitor K, Ca, Mg, nutrition : NPO dvt pro ; heparin sq gi pro : pepcid bid dispo: admit in icu Visit type - Emergency Visit Emergency Visit: Yes ED Registration Date: 07/07/16 Care time: The patient presented to the Emergency Department on the above date and was hospitalized for further evaluation of their emergent condition. - New Patient This patient is new to me today: No - Critical Care Critical Care patient: Yes Total Critical Care Time (in minutes): 45 Critical Care Statement: The care of this patient involved high complexity decision making to prevent further life threatening deterioration of the patient 's condition and/or to evalute & treat vital organ system(s) failure or risk of failure.
--- NOTE | 2016-07-11 13:49 | PN ---
Teaching Attending Note Name of Resident: Erik Arana ATTENDING PHYSICIAN STATEMENT I saw and evaluated the patient. I reviewed the resident's note and discussed the case with the resident. I agree with the resident's findings and plan as documented. SUBJECTIVE: Patient seen and examined in the ICU. Awake and alert. Some improvement in abdominal pain, but still present on the left. Mildly tachypniec at rest. Denies CP or SOB. CXR: Bilateral increased vascular congestion Intake & Output 07/08/16 07/09/16 07/10/16 07/11/16 23:59 23:59 23:59 23:59 Intake Total 3950 2950 6050 1550 Output Total 425 1100 2550 850 Balance 3525 1850 3500 700 Weight 125 lb 14.143 oz 133 lb 13.129 oz 132 lb 1.6 oz 134 lb 0.657 oz Last Vital Signs Temp Pulse Resp BP Pulse Ox 99.2 F 76 12 120/56 96 07/11/16 10:00 07/11/16 12:54 07/11/16 12:54 07/11/16 12:54 07/11/16 11:57 Active Medications Acetaminophen (Ofirmev Injection -) 1,000 mg IVPB Q6H PRN PRN Reason: FEVER OR PAIN Stop: 07/12/16 04:23 Last Admin: 07/11/16 11:24 Dose: 1,000 mg Albuterol/Ipratropium (Duoneb -) 1 amp NEB Q6H PRN PRN Reason: SHORTNESS OF BREATH Chlorhexidine Gluconate (Hibiclens For Decolonization -) 1 applic TP HS [facility] Last Admin: 07/10/16 21:40 Dose: 1 applic Heparin Sodium (Porcine) (Heparin -) 5,000 unit SQ BID [facility] Last Admin: 07/11/16 10:19 Dose: 5,000 unit Hydromorphone HCl (Dilaudid Injection -) 1 mg IVPB Q4H PRN PRN Reason: PAIN Famotidine/Sodium Chloride (Pepcid 20 Mg Premixed Ivpb -) 50 mls @ 100 mls/hr IVPB BID [facility] Last Admin: 07/11/16 09:21 Dose: 100 mls/hr Dextrose/Lactated Ringer's (D5-Lr -) 1,000 mls @ 100 mls/hr IV ASDIR [facility] Last Admin: 07/10/16 21:19 Dose: 100 mls/hr Insulin Aspart (Novolog Vial Sliding Scale -) 1 vial SQ TIDAC [facility] PRN Reason: Protocol Last Admin: 07/11/16 11:48 Dose: Not Given Metoprolol Tartrate (Lopressor Injection -) 5 mg IVPUSH Q4H PRN PRN Reason: HYPERTENSION Mupirocin (Bactroban Ointment (For Decolonization) -) 1 applic NS BID [facility] Stop: 07/13/16 09:59 Last Admin: 07/11/16 10:19 Dose: 1 applic Ondansetron HCl (Zofran Injection) 4 mg IVPUSH Q6H PRN PRN Reason: NAUSEA AND/OR VOMITING Last Admin: 07/07/16 21:44 Dose: 4 mg Constitutional: Yes: Awake and alert, mildly tachpneic at rest Eyes: Yes: EOM Intact HENT: Yes: Normocephalic Neck: Yes: Trachea Midline Cardiovascular: Yes: Regular Rate and Rhythm, S1, S2 Respiratory: Yes: Bibasilar rhonchi Gastrointestinal: Yes: Softly distended, (+) BS, (+) Tenderness on the left Extremities: Yes: WNL Edema: No Integumentary: Yes: WNL Neurological: Yes: Alert, Oriented Labs: Laboratory Results - last 24 hr 07/10/16 07/10/16 07/11/16 15:40 16:35 05:15 WBC 9.3 RBC 3.24 L Hgb 10.2 L Hct 31.4 L MCV 96.9 H MCHC 32.4 RDW 14.0 Plt Count 205 MPV 8.2 Neutrophils % 81.0 Lymphocytes % 8.2 Monocytes % 9.6 Eosinophils % 1.1 Basophils % 0.1 Sodium 145 Potassium 3.9 Chloride 108 H Carbon Dioxide 28 Anion Gap 9 BUN 15 D Creatinine 0.8 D Creat Clearance w eGFR POC Glucometer 85.08101 Random Glucose 119 H D Calcium 7.9 L Phosphorus Magnesium Total Bilirubin 0.3 D Direct Bilirubin 0.2 D AST 25 D ALT 22 D Alkaline Phosphatase 33 L C-Reactive Protein Total Protein 5.2 L Albumin 2.2 L 07/11/16 07/11/16 07/11/16 05:15 05:15 06:39 WBC RBC Hgb Hct MCV MCHC RDW Plt Count MPV Neutrophils % Lymphocytes % Monocytes % Eosinophils % Basophils % Sodium 143 Potassium 3.8 Chloride 107 Carbon Dioxide 26 Anion Gap 10 BUN 8 D Creatinine 0.5 L D Creat Clearance w eGFR > 60 POC Glucometer 167.01139 Random Glucose 149 H D Calcium 8.3 L Phosphorus 1.5 L D Magnesium 1.6 L D Total Bilirubin 0.2 D Direct Bilirubin AST 24 ALT 20 Alkaline Phosphatase 34 L C-Reactive Protein 31.1 H D Total Protein 5.0 L Albumin 2.1 L 07/11/16 11:39 WBC RBC Hgb Hct MCV MCHC RDW Plt Count MPV Neutrophils % Lymphocytes % Monocytes % Eosinophils % Basophils % Sodium Potassium Chloride Carbon Dioxide Anion Gap BUN Creatinine Creat Clearance w eGFR POC Glucometer 138.28267 Random Glucose Calcium Phosphorus Magnesium Total Bilirubin Direct Bilirubin AST ALT Alkaline Phosphatase C-Reactive Protein Total Protein Albumin Assessment/Plan Acute gallstone/obstructive pancreatitis Pulmonary vascular congestion DM HTN HPL TIA Esophageal stricture by history Since there is continued pain -> (?) distal feeds versus a trial of oral intake -> Will discuss with GI Monitor CXR Monitor off ABX Pain control Zofran PRN Follow fingersticks DVT/GI prophylaxis Once enteral nutrition initiated -> Decrease IVF Dr Tirado Critical care time spent in reviewing chart, evaluating patient and formulating plan 35 min
--- NOTE | 2016-07-11 14:39 | PN ---
Progress Note, Physician History of Present Illness: Pt seen and examined at bedside. She is awake and appears comfortable. She feels that the abdominal discomfort is improving. - Current Medication List Current Medications: Active Medications Acetaminophen (Ofirmev Injection -) 1,000 mg IVPB Q6H PRN PRN Reason: FEVER OR PAIN Stop: 07/12/16 04:23 Last Admin: 07/11/16 11:24 Dose: 1,000 mg Albuterol/Ipratropium (Duoneb -) 1 amp NEB Q6H PRN PRN Reason: SHORTNESS OF BREATH Chlorhexidine Gluconate (Hibiclens For Decolonization -) 1 applic TP HS [facility] Last Admin: 07/10/16 21:40 Dose: 1 applic Heparin Sodium (Porcine) (Heparin -) 5,000 unit SQ BID [facility] Last Admin: 07/11/16 10:19 Dose: 5,000 unit Hydromorphone HCl (Dilaudid Injection -) 1 mg IVPB Q4H PRN PRN Reason: PAIN Famotidine/Sodium Chloride (Pepcid 20 Mg Premixed Ivpb -) 50 mls @ 100 mls/hr IVPB BID [facility] Last Admin: 07/11/16 09:21 Dose: 100 mls/hr Dextrose/Lactated Ringer's (D5-Lr -) 1,000 mls @ 100 mls/hr IV ASDIR [facility] Last Admin: 07/10/16 21:19 Dose: 100 mls/hr Insulin Aspart (Novolog Vial Sliding Scale -) 1 vial SQ TIDAC [facility] PRN Reason: Protocol Last Admin: 07/11/16 11:48 Dose: Not Given Metoprolol Tartrate (Lopressor Injection -) 5 mg IVPUSH Q4H PRN PRN Reason: HYPERTENSION Mupirocin (Bactroban Ointment (For Decolonization) -) 1 applic NS BID [facility] Stop: 07/13/16 09:59 Last Admin: 07/11/16 10:19 Dose: 1 applic Ondansetron HCl (Zofran Injection) 4 mg IVPUSH Q6H PRN PRN Reason: NAUSEA AND/OR VOMITING Last Admin: 07/07/16 21:44 Dose: 4 mg - Objective Vital Signs: Vital Signs Temperature 99.2 F 07/11/16 10:00 Pulse Rate 76 07/11/16 12:54 Respiratory Rate 12 07/11/16 12:54 Blood Pressure 120/56 07/11/16 12:54 O2 Sat by Pulse Oximetry (%) 96 07/11/16 11:57 Constitutional: Yes: Calm Eyes: Yes: Conjunctiva Clear HENT: Yes: Atraumatic Cardiovascular: Yes: S1, S2 Respiratory: Yes: Rhonchi Gastrointestinal: Yes: Soft, Tenderness Genitourinary: Yes: Grey Present Musculoskeletal: Yes: WNL Edema: No Neurological: Yes: Oriented Psychiatric: Yes: Oriented Labs: CBC, BMP 07/11/16 05:15 07/11/16 05:15 Problem List - Problems (1) Abdominal pain Code(s): R10.9 - UNSPECIFIED ABDOMINAL PAIN (2) Acute pancreatitis Code(s): K85.90 - ACUTE PANCREATITIS WITHOUT NECROSIS OR INFECTION, UNSP (3) Arthritis Code(s): M19.90 - UNSPECIFIED OSTEOARTHRITIS, UNSPECIFIED SITE (4) PARVEEN (acute kidney injury) Code(s): N17.9 - ACUTE KIDNEY FAILURE, UNSPECIFIED Assessment/Plan Current Medications Generic Name Dose Route Start Last Admin Trade Name Freq PRN Reason Stop Dose Admin Acetaminophen 1,000 mg 07/11/16 10:22 07/11/16 11:24 Ofirmev Injection - IVPB 07/12/16 04:23 1,000 mg Q6H PRN Administration FEVER OR PAIN Albuterol/Ipratropium 1 amp 07/08/16 08:02 Duoneb - NEB Q6H PRN SHORTNESS OF BREATH Chlorhexidine Gluconate 1 applic 07/08/16 22:00 07/10/16 21:40 Hibiclens For Decolonization - TP 1 applic HS [facility] Administration Heparin Sodium (Porcine) 5,000 unit 07/07/16 22:00 07/11/16 10:19 Heparin - SQ 5,000 unit BID [facility] Administration Hydromorphone HCl 1 mg 07/11/16 12:29 Dilaudid Injection - IVPB Q4H PRN PAIN Famotidine/Sodium Chloride 50 mls @ 100 mls/hr 07/07/16 22:00 07/11/16 09:21 Pepcid 20 Mg Premixed Ivpb - IVPB 100 mls/hr BID [facility] Administration Dextrose/Lactated Ringer's 1,000 mls @ 100 mls/hr 07/10/16 20:42 07/10/16 21:19 D5-Lr - IV 100 mls/hr ASDIR [facility] Administration Insulin Aspart 1 vial 07/08/16 07:00 07/11/16 11:48 Novolog Vial Sliding Scale - SQ Not Given TIDAC [facility] Protocol Metoprolol Tartrate 5 mg 07/08/16 04:28 Lopressor Injection - IVPUSH Q4H PRN HYPERTENSION Mupirocin 1 applic 07/08/16 10:00 07/11/16 10:19 Bactroban Ointment (For Decolonization) - NS 07/13/16 09:59 1 applic BID [facility] Administration Ondansetron HCl 4 mg 07/07/16 21:34 07/07/16 21:44 Zofran Injection IVPUSH 4 mg Q6H PRN Administration NAUSEA AND/OR VOMITING Impression 1. PARVEEN 2. acute pancreatitis 3. DM 4. arthritis 5. PVD 6. hyperlipidemia 7. right kidney hydronephrosis Plan - renal function is improved - repeat labs in am - agree with decreasing rate of fluids - replace lytes - can d/c grey catheter - will follow - GI follow up - right renal hydro on ultrasound, recommend urology eval - repeat cxr in am Dr More
[2016-07-11] MEDS: ONDANSETRON 4 MG/2 ML VIAL IVPUSH PRN (14:43)
--- NOTE | 2016-07-11 16:20 | PN ---
Physical Exam: SUBJECTIVE: Patient seen and examined Pt is complaining of abdominal pain and some nausea no fever or chills No vomiting No dizziness no confusion no shortness or breath no palpitation Pt get sleepy after taking IV dilaudid OBJECTIVE: Vital Signs Period Temp Pulse Resp BP Sys/Beaver Pulse Ox Last 24 Hr 98.6 F-100 F 73-88 12-26 90-160/47-74 92-96 GENERAL: The patient is awake, alert, and fully oriented, in mild distress. HEAD: Normal with no signs of trauma. ENT: Ears normal, nares patent, oropharynx clear without exudates, moist mucous membranes. NECK: Trachea midline, full range of motion, supple. LUNGS: Breath sounds equal, clear to auscultation bilaterally, no wheezes, no accessory muscle use. HEART: Regular rate and rhythm, S1, S2 with systolic murmur, rub or gallop. ABDOMEN: Soft, diffuse tenderness more in epigastric, less distended, normoactive bowel sounds, no guarding no rebound, no hepatosplenomegaly, no masses. EXTREMITIES: 2+ pulses, warm, well-perfused, no edema. NEUROLOGICAL: Normal speech, gait not observed. PSYCH: Normal mood, normal affect. SKIN: Warm, dry, normal turgor, no rashes or lesions noted Laboratory Results - last 24 hr 07/10/16 07/10/16 07/11/16 15:40 16:35 05:15 WBC 9.3 RBC 3.24 L Hgb 10.2 L Hct 31.4 L MCV 96.9 H MCHC 32.4 RDW 14.0 Plt Count 205 MPV 8.2 Neutrophils % 81.0 Lymphocytes % 8.2 Monocytes % 9.6 Eosinophils % 1.1 Basophils % 0.1 Sodium 145 Potassium 3.9 Chloride 108 H Carbon Dioxide 28 Anion Gap 9 BUN 15 D Creatinine 0.8 D Creat Clearance w eGFR POC Glucometer 85.76979 Random Glucose 119 H D Calcium 7.9 L Phosphorus Magnesium Total Bilirubin 0.3 D Direct Bilirubin 0.2 D AST 25 D ALT 22 D Alkaline Phosphatase 33 L C-Reactive Protein Total Protein 5.2 L Albumin 2.2 L 07/11/16 07/11/16 07/11/16 05:15 05:15 06:39 WBC RBC Hgb Hct MCV MCHC RDW Plt Count MPV Neutrophils % Lymphocytes % Monocytes % Eosinophils % Basophils % Sodium 143 Potassium 3.8 Chloride 107 Carbon Dioxide 26 Anion Gap 10 BUN 8 D Creatinine 0.5 L D Creat Clearance w eGFR > 60 POC Glucometer 167.02215 Random Glucose 149 H D Calcium 8.3 L Phosphorus 1.5 L D Magnesium 1.6 L D Total Bilirubin 0.2 D Direct Bilirubin AST 24 ALT 20 Alkaline Phosphatase 34 L C-Reactive Protein 31.1 H D Total Protein 5.0 L Albumin 2.1 L 07/11/16 11:39 WBC RBC Hgb Hct MCV MCHC RDW Plt Count MPV Neutrophils % Lymphocytes % Monocytes % Eosinophils % Basophils % Sodium Potassium Chloride Carbon Dioxide Anion Gap BUN Creatinine Creat Clearance w eGFR POC Glucometer 138.26114 Random Glucose Calcium Phosphorus Magnesium Total Bilirubin Direct Bilirubin AST ALT Alkaline Phosphatase C-Reactive Protein Total Protein Albumin Active Medications Generic Name Dose Route Start Last Admin Trade Name Freq PRN Reason Stop Dose Admin Acetaminophen 1,000 mg 07/11/16 10:22 07/11/16 11:24 Ofirmev Injection - IVPB 07/12/16 04:23 1,000 mg Q6H PRN Administration FEVER OR PAIN Albuterol/Ipratropium 1 amp 07/08/16 08:02 Duoneb - NEB Q6H PRN SHORTNESS OF BREATH Chlorhexidine Gluconate 1 applic 07/08/16 22:00 07/10/16 21:40 Hibiclens For Decolonization - TP 1 applic HS [facility] Administration Heparin Sodium (Porcine) 5,000 unit 07/07/16 22:00 07/11/16 10:19 Heparin - SQ 5,000 unit BID [facility] Administration Hydromorphone HCl 1 mg 07/11/16 12:29 Dilaudid Injection - IVPB Q4H PRN PAIN Famotidine/Sodium Chloride 50 mls @ 100 mls/hr 07/07/16 22:00 07/11/16 09:21 Pepcid 20 Mg Premixed Ivpb - IVPB 100 mls/hr BID [facility] Administration Dextrose/Lactated Ringer's 1,000 mls @ 100 mls/hr 07/10/16 20:42 07/10/16 21:19 D5-Lr - IV 100 mls/hr ASDIR [facility] Administration Insulin Aspart 1 vial 07/08/16 07:00 07/11/16 11:48 Novolog Vial Sliding Scale - SQ Not Given TIDAC [facility] Protocol Metoprolol Tartrate 5 mg 07/08/16 04:28 Lopressor Injection - IVPUSH Q4H PRN HYPERTENSION Mupirocin 1 applic 07/08/16 10:00 07/11/16 10:19 Bactroban Ointment (For Decolonization) - NS 07/13/16 09:59 1 applic BID [facility] Administration Ondansetron HCl 4 mg 07/07/16 21:34 07/11/16 14:43 Zofran Injection IVPUSH 4 mg Q6H PRN Administration NAUSEA AND/OR VOMITING CBC, BMP 07/11/16 05:15 07/11/16 05:15 Microbiology 07/10/16 12:25 Urine - Urine Maldonado Urine Culture - Final NO GROWTH OBTAINED 07/07/16 15:54 Blood - Peripheral Venous Blood Culture - Preliminary NO GROWTH OBTAINED AFTER 96 HOURS, INCUBATION TO CONTINUE FOR 1 DAYS. 07/07/16 15:43 Blood - Peripheral Venous Blood Culture - Preliminary NO GROWTH OBTAINED AFTER 96 HOURS, INCUBATION TO CONTINUE FOR 1 DAYS. Laboratory Tests 07/11/16 07/11/16 05:15 05:15 Calcium 8.3 L Phosphorus 1.5 L D Magnesium 1.6 L D AST 24 ALT 20 Alkaline Phosphatase 34 L C-Reactive Protein 31.1 H D Albumin 2.1 L ASSESSMENT/PLAN: 89 year old female with pmh og DM, HTN, HPLD, TIA, PVD, RLS, esophageal stricture presented to the Ed with complaint of severe abdominal pain accompanied by nausea and non bloody, non bilious episode of vomiting. Pt was found to have Acute pancreatitis. Acute pancreatitis likely due to gallstone, r/o Trajenta effect. [place] II score 6, Bisap 1 Amylase 1225, Lipase 6575 on admission Pt has Gallstone, no biliary tract dilation, hepatomegaly and fatty infiltrates on CT abdomen and Ultrasound NPO, may resume diet when patient wants to eat increase IV fluid to D5LR 100ml/h Dilaudid IV PRN for pain Acetaminophen IV PRN Zofran PRN for Nausea GI consulted, Dr Wong on case Surgery consulted Dr Chan, no surgical intervention right now Blood culture Consider Abdominal/Pelvis CT if no improvement or worsening of pain, fever. PARVEEN Cr 0.8 to 2.1 Likely due to hypovolemia Fena 0.48 yesterday Increase IV fluid for adequate fluid resuscitation Today Cr 1.1 Intake and output keep output >30-60 ml/h Diabetes Now controlled Pt is NPO Novolog sliding scale HTN Pt is NPO will resume home meds whenever patient is tolerating PO meds Lopressor 5mg PRN IV q4h FEN Fluid: D5LR at 100ml/h Electrolytes: chemistry in am Nutrition: NPO DVT prophyalaxis: SCD Disposition: Pending resolution of pancreatitis Visit type - Emergency Visit Emergency Visit: Yes ED Registration Date: 07/07/16 Care time: The patient presented to the Emergency Department on the above date and was hospitalized for further evaluation of their emergent condition. - New Patient This patient is new to me today: Yes Date on this admission: 07/11/16 - Critical Care Critical Care patient: Yes Total Critical Care Time (in minutes): 45 Critical Care Statement: The care of this patient involved high complexity decision making to prevent further life threatening deterioration of the patient 's condition and/or to evalute & treat vital organ system(s) failure or risk of failure. - Discharge Referral Referred to [facility] No
--- NOTE | 2016-07-11 16:22 | PN ---
Physical Exam: SUBJECTIVE: Patient seen and examined. She is still complaining of abdominal pain. She states that it hasn't improved. T max 100, no overnight events. OBJECTIVE: Vital Signs Period Temp Pulse Resp BP Sys/Beaver Pulse Ox Last 24 Hr 98.6 F-100 F 73-88 12-26 90-160/47-74 92-96 GENERAL: The patient is awake, alert, and fully oriented, in no acute distress, lethargic. HEAD: Normal with no signs of trauma. ENT: moist mucous membranes. NECK: supple. LUNGS: Breath sounds equal, crackles at bases B/L, no wheezes, no accessory muscle use. HEART: Regular rate and rhythm, S1, S2 , systolic murmur over right and left sternal border, rub or gallop. ABDOMEN: Soft, tender in all 4 Q, distended, hypoactive bowel sounds, no guarding, no rebound. EXTREMITIES:no edema. NEUROLOGICAL: No facial asymmetry, gait not observed. SKIN: Warm, dry, normal turgor, no rashes or lesions noted Laboratory Results - last 24 hr 07/10/16 07/10/16 07/11/16 15:40 16:35 05:15 WBC 9.3 RBC 3.24 L Hgb 10.2 L Hct 31.4 L MCV 96.9 H MCHC 32.4 RDW 14.0 Plt Count 205 MPV 8.2 Neutrophils % 81.0 Lymphocytes % 8.2 Monocytes % 9.6 Eosinophils % 1.1 Basophils % 0.1 Sodium 145 Potassium 3.9 Chloride 108 H Carbon Dioxide 28 Anion Gap 9 BUN 15 D Creatinine 0.8 D Creat Clearance w eGFR POC Glucometer 85.96733 Random Glucose 119 H D Calcium 7.9 L Phosphorus Magnesium Total Bilirubin 0.3 D Direct Bilirubin 0.2 D AST 25 D ALT 22 D Alkaline Phosphatase 33 L C-Reactive Protein Total Protein 5.2 L Albumin 2.2 L 07/11/16 07/11/16 07/11/16 05:15 05:15 06:39 WBC RBC Hgb Hct MCV MCHC RDW Plt Count MPV Neutrophils % Lymphocytes % Monocytes % Eosinophils % Basophils % Sodium 143 Potassium 3.8 Chloride 107 Carbon Dioxide 26 Anion Gap 10 BUN 8 D Creatinine 0.5 L D Creat Clearance w eGFR > 60 POC Glucometer 167.50048 Random Glucose 149 H D Calcium 8.3 L Phosphorus 1.5 L D Magnesium 1.6 L D Total Bilirubin 0.2 D Direct Bilirubin AST 24 ALT 20 Alkaline Phosphatase 34 L C-Reactive Protein 31.1 H D Total Protein 5.0 L Albumin 2.1 L 07/11/16 11:39 WBC RBC Hgb Hct MCV MCHC RDW Plt Count MPV Neutrophils % Lymphocytes % Monocytes % Eosinophils % Basophils % Sodium Potassium Chloride Carbon Dioxide Anion Gap BUN Creatinine Creat Clearance w eGFR POC Glucometer 138.09306 Random Glucose Calcium Phosphorus Magnesium Total Bilirubin Direct Bilirubin AST ALT Alkaline Phosphatase C-Reactive Protein Total Protein Albumin Active Medications Generic Name Dose Route Start Last Admin Trade Name Freq PRN Reason Stop Dose Admin Acetaminophen 1,000 mg 07/11/16 10:22 07/11/16 11:24 Ofirmev Injection - IVPB 07/12/16 04:23 1,000 mg Q6H PRN Administration FEVER OR PAIN Albuterol/Ipratropium 1 amp 07/08/16 08:02 Duoneb - NEB Q6H PRN SHORTNESS OF BREATH Chlorhexidine Gluconate 1 applic 07/08/16 22:00 07/10/16 21:40 Hibiclens For Decolonization - TP 1 applic HS [facility] Administration Heparin Sodium (Porcine) 5,000 unit 07/07/16 22:00 07/11/16 10:19 Heparin - SQ 5,000 unit BID [facility] Administration Hydromorphone HCl 1 mg 07/11/16 12:29 Dilaudid Injection - IVPB Q4H PRN PAIN Famotidine/Sodium Chloride 50 mls @ 100 mls/hr 07/07/16 22:00 07/11/16 09:21 Pepcid 20 Mg Premixed Ivpb - IVPB 100 mls/hr BID [facility] Administration Dextrose/Lactated Ringer's 1,000 mls @ 100 mls/hr 07/10/16 20:42 07/10/16 21:19 D5-Lr - IV 100 mls/hr ASDIR [facility] Administration Insulin Aspart 1 vial 07/08/16 07:00 07/11/16 11:48 Novolog Vial Sliding Scale - SQ Not Given TIDAC [facility] Protocol Metoprolol Tartrate 5 mg 07/08/16 04:28 Lopressor Injection - IVPUSH Q4H PRN HYPERTENSION Mupirocin 1 applic 07/08/16 10:00 07/11/16 10:19 Bactroban Ointment (For Decolonization) - NS 07/13/16 09:59 1 applic BID [facility] Administration Ondansetron HCl 4 mg 07/07/16 21:34 07/11/16 14:43 Zofran Injection IVPUSH 4 mg Q6H PRN Administration NAUSEA AND/OR VOMITING ASSESSMENT/PLAN: Patient is a 89 year old female with PMH of DM, HTN, HLD, TIA, PVD, esophageal stricture who presented to ED with diffuse severe abdominal pain x 1 day. Patient states that is associated with nausea and constipation. She is admitted for acute pancreatitis. Acute pancreatitis: -possibly due to gallstone vs. medication induced -continue IV hydration, pain medications -no antibiotics indicated, no biliary duct obstruction, no abscess, will observe Asymptomatic bacteriuria: -no antibiotics recommended, pt asymtomatic, Urine culture contaminated, blood culture neg. DM: -continue ISS HTN: -continue Metoprolol Dispo: We will continue to follow the patient. Thank you for this consultative opportunity. Visit type - Emergency Visit Emergency Visit: Yes ED Registration Date: 07/07/16 Care time: The patient presented to the Emergency Department on the above date and was hospitalized for further evaluation of their emergent condition. - New Patient This patient is new to me today: No - Critical Care Critical Care patient: Yes Total Critical Care Time (in minutes): 30 Critical Care Statement: The care of this patient involved high complexity decision making to prevent further life threatening deterioration of the patient 's condition and/or to evalute & treat vital organ system(s) failure or risk of failure.
--- NOTE | 2016-07-11 16:51 | PN ---
Teaching Attending Note Name of Resident: Bo Butler ATTENDING PHYSICIAN STATEMENT I saw and evaluated the patient. I reviewed the resident's note and discussed the case with the resident. I agree with the resident's findings and plan as documented. SUBJECTIVE: Patient is having intermittent abdominal pain. She gets relief with Dilaudid. OBJECTIVE: Vital Signs Period Temp Pulse Resp BP Sys/Beaver Pulse Ox Last 24 Hr 98.6 F-100 F 73-88 12-26 90-160/47-74 92-96 HEART: S1S2, RRR, (+) 2/6 systolic murmur LUNGS: Clear ABDOMEN: Soft, non-distended, normal BS, non-tender EXTREMITIES: No edema ASSESSMENT AND PLAN: This is an 89-year-old woman with a history of type 2 DM, HTN, hyperlipidemia, TIA, PAD, RLS, esophageal stricture who presented to the ER with abdominal pain. 1. Acute pancreatitis - Secondary to gallstones vs medication - Tradjenta held - Continue NPO, IV fluid - Patient continues to have pain - Will repeat CT 2. Acute kidney injury secondary to hypovolemia - Improved with IV fluid 3. Hypotension secondary to hypovolemia - Improved with IV fluid 4. Hypomagnesemia - Improved 5. Asymptomatic bacteriuria - Rocephin discontinued 6. HTN - Continue Lopressor IV as needed 7. Type 2 DM - Continue Novolog sliding scale 8. Hyperlipidemia 9. PAD 10. History of TIA 11. Restless leg syndrome
--- NOTE | 2016-07-11 16:54 | PN ---
Teaching Attending Note Name of Resident: Quynh Puente ATTENDING PHYSICIAN STATEMENT I saw and evaluated the patient. I reviewed the resident's note and discussed the case with the resident. I agree with the resident's findings and plan as documented. SUBJECTIVE: OBJECTIVE: ASSESSMENT AND PLAN: Pancreatitis Low grade temp Observe off antibiotics
--- NOTE | 2016-07-11 17:23 | PN ---
GI Progress Note Subjective: Complains of abdominal pain No acute events overnight - Objective Vital Signs: Vital Signs Temperature 99.0 F 07/11/16 14:00 Pulse Rate 76 07/11/16 16:00 Respiratory Rate 15 07/11/16 16:00 Blood Pressure 142/72 07/11/16 16:00 O2 Sat by Pulse Oximetry (%) 96 07/11/16 11:57 Constitutional: Calm Eyes: No: Sclera Icterus Cardiovascular: Yes: Regular Rate and Rhythm Respiratory: Yes: CTA Bilaterally (improved from previous) Gastrointestinal Inspection: No: Distention ...Auscultate: Yes: Normoactive Bowel Sounds ...Palpate: Yes: Tenderness (TTP epigastrium) ...Percussion: No: Tympanitic Neurological: Yes: Alert Labs: CBC, BMP 07/11/16 05:15 07/11/16 05:15 Problem List - Problems (1) Acute pancreatitis Assessment/Plan: Hard to read Ms. Sheth clinically but Given continued pain complaints, elevated CRP, at this point would proceed with contrast CT scan to evaluate. If pain does not improve and it appears as though she has worsening pancreatitis, will need attempt at enteral feeding, preferntially post pyloric Code(s): K85.90 - ACUTE PANCREATITIS WITHOUT NECROSIS OR INFECTION, UNSP
[2016-07-11] MEDS: DEXTROSE 5%-LACTATED RINGERS 1,000 ML IV SCH (20:40)
[2016-07-11] MEDS: CHLORHEXIDINE GLUCONATE 4% CLEANSER FOR DECOLONIZATION TP SCH (22:16)
[2016-07-12 06:29] LABS: BASOPHIL 0.1 % (0-2.0); EOSINOPHIL 1.6 % (0-4.5); MCH 31.4 pg (25.7-33.7); MCHC 32.8 g/dl (32.0-36.0); NEUTROPHILS 79.5 % (42.8-82.8); PLATELET COUNT 231 K/MM3 (134-434); RDW 13.6 % (11.6-15.6); WHITE BLOOD COUNT 8.9 K/mm3 (4.0-10.0)
[2016-07-12 06:32] LABS: CALCIUM 8.5 mg/dL (8.5-10.1); COCKROFT - GAULT 73.1; CREATININE 0.5 mg/dL (0.55-1.02)
[2016-07-12] MEDS: INSULIN SLIDING SCALE (NOVOLOG) 1 VIAL SQ SCH ×3 (06:45→17:08)
[2016-07-12] MEDS ORDERED: DEXTROSE 5%-LACTATED RINGERS 1,000 ML IV SCH ×2 (09:09→11:54)
[2016-07-12] MEDS: FAMOTIDINE 20 MG/50 ML IVPB 50 ML IVPB SCH ×2 (09:16→21:26)
[2016-07-12] MEDS: HEPARIN NA (PORCINE) 5,000 UNITS/ML 1ML VIAL SQ SCH ×2 (09:27→21:26)
[2016-07-12] MEDS: MUPIROCIN 2% TOPICAL OINTMENT FOR DECOLONIZATION NS SCH (09:30)
[2016-07-12] MEDS ORDERED: POLYETHYLENE GLYCOL 3350 119 GM BTL PO PRN (10:01)
[2016-07-12] MEDS ORDERED: DOCUSATE SODIUM 100 MG CAPSULE (FP) PO PRN (10:01)
[2016-07-12] MEDS ORDERED: oxyCODONE HCL 5 MG TABLET PO PRN (11:58)
[2016-07-12] MEDS ORDERED: ACETAMINOPHEN 1000 MG/100 ML VIAL (NON FORMULARY) IVPB PRN ×2 (11:59→14:37)
--- NOTE | 2016-07-12 12:34 | PN ---
Teaching Attending Note Name of Resident: Erik Arana ATTENDING PHYSICIAN STATEMENT I saw and evaluated the patient. I reviewed the resident's note and discussed the case with the resident. I agree with the resident's findings and plan as documented. SUBJECTIVE: Patient seen and examined in the ICU. Awake and alert. Some improvement in abdominal pain, but still mild discomfort on the left. Tolerating clear liquids. Denies CP or SOB. CXR: Bilateral pleural effusions Intake & Output 07/09/16 07/10/16 07/11/16 07/12/16 23:59 23:59 23:59 23:59 Intake Total 2950 6050 2620 1250 Output Total 1100 2550 2150 500 Balance 1850 3500 470 750 Weight 133 lb 13.129 oz 132 lb 1.6 oz 134 lb 0.657 oz 133 lb 9.6 oz Last Vital Signs Temp Pulse Resp BP Pulse Ox 99.4 F 80 14 163/59 95 07/12/16 10:00 07/12/16 12:02 07/12/16 11:49 07/12/16 11:49 07/12/16 12:02 Active Medications Acetaminophen (Ofirmev Injection -) 1,000 mg IVPB Q6H PRN PRN Reason: FEVER OR PAIN Stop: 07/13/16 06:00 Albuterol/Ipratropium (Duoneb -) 1 amp NEB Q6H PRN PRN Reason: SHORTNESS OF BREATH Heparin Sodium (Porcine) (Heparin -) 5,000 unit SQ BID [facility] Last Admin: 07/12/16 09:27 Dose: 5,000 unit Famotidine/Sodium Chloride (Pepcid 20 Mg Premixed Ivpb -) 50 mls @ 100 mls/hr IVPB BID [facility] Last Admin: 07/12/16 09:16 Dose: 100 mls/hr Dextrose/Lactated Ringer's (D5-Lr -) 1,000 mls @ 42 mls/hr IV ASDIR [facility] Last Admin: 07/12/16 12:00 Dose: 42 mls/hr Insulin Aspart (Novolog Vial Sliding Scale -) 1 vial SQ TIDAC [facility] PRN Reason: Protocol Last Admin: 07/12/16 11:58 Dose: Not Given Metoprolol Tartrate (Lopressor Injection -) 5 mg IVPUSH Q4H PRN PRN Reason: HYPERTENSION Mupirocin (Bactroban Ointment (For Decolonization) -) 1 applic NS BID [facility] Stop: 07/13/16 09:59 Last Admin: 07/12/16 09:30 Dose: 1 applic Ondansetron HCl (Zofran Injection) 4 mg IVPUSH Q6H PRN PRN Reason: NAUSEA AND/OR VOMITING Last Admin: 07/11/16 14:43 Dose: 4 mg Oxycodone HCl (Roxicodone -) 2.5 mg PO Q4H PRN PRN Reason: PAIN Constitutional: Yes: Awake and alert Eyes: Yes: EOM Intact HENT: Yes: Normocephalic Neck: Yes: Trachea Midline Cardiovascular: Yes: Regular Rate and Rhythm, S1, S2 Respiratory: Yes: Bibasilar rhonchi Gastrointestinal: Yes: Softly distended, (+) BS, (+) Mild tenderness on the left Extremities: Yes: WNL Edema: No Integumentary: Yes: WNL Neurological: Yes: Alert, Oriented Labs: Laboratory Results - last 24 hr 07/11/16 07/12/16 07/12/16 17:48 05:15 05:15 WBC 8.9 RBC 3.08 L Hgb 9.7 L Hct 29.6 L MCV 96.0 MCHC 32.8 RDW 13.6 Plt Count 231 MPV 8.0 Neutrophils % 79.5 Lymphocytes % 8.9 Monocytes % 9.9 Eosinophils % 1.6 Basophils % 0.1 Sodium 142 Potassium 3.6 Chloride 105 Carbon Dioxide 28 Anion Gap 9 BUN 7 Creatinine 0.5 L POC Glucometer [phone] Random Glucose 123 H Calcium 8.5 07/12/16 07/12/16 05:46 11:44 WBC RBC Hgb Hct MCV MCHC RDW Plt Count MPV Neutrophils % Lymphocytes % Monocytes % Eosinophils % Basophils % Sodium Potassium Chloride Carbon Dioxide Anion Gap BUN Creatinine POC Glucometer 149.43656 145.41062 Random Glucose Calcium Assessment/Plan Acute gallstone/obstructive pancreatitis Pulmonary vascular congestion DM HTN HPL TIA Esophageal stricture by history Clear liquids Pain control Zofran PRN Follow fingersticks DVT/GI prophylaxis If tolerating PO intake -> minimize IVF 4W/4S monitoring Dr Tirado Critical care time spent in reviewing chart, evaluating patient and formulating plan 35 min
--- NOTE | 2016-07-12 12:49 | PN ---
Physical Exam: SUBJECTIVE: Patient seen and examined Pt is feeling better Still have abdominal pain but more controlled No nausea, eating breakfast on clear diet and tolerating it well No fever or chill OBJECTIVE: Vital Signs Period Temp Pulse Resp BP Sys/Beaver Pulse Ox Last 24 Hr 98.2 F-99.4 F 68-80 11-18 120-163/54-79 95-96 GENERAL: The patient is awake, alert, and fully oriented, in no distress. HEAD: Normal with no signs of trauma. ENT: Ears normal, nares patent, oropharynx clear without exudates, moist mucous membranes. NECK: Trachea midline, full range of motion, supple. LUNGS:bibasilar crackles to auscultation bilaterally, no wheezes, no accessory muscle use. HEART: Regular rate and rhythm, S1, S2 with systolic murmur, rub or gallop. ABDOMEN: Soft, diffuse tenderness more in epigastric, less distended, normoactive bowel sounds, no guarding no rebound, no hepatosplenomegaly, no masses. EXTREMITIES: 2+ pulses, warm, well-perfused, no edema. NEUROLOGICAL: Normal speech, gait not observed. PSYCH: Normal mood, normal affect. SKIN: Warm, dry, normal turgor, no rashes or lesions noted G Laboratory Results - last 24 hr 07/11/16 07/12/16 07/12/16 17:48 05:15 05:15 WBC 8.9 RBC 3.08 L Hgb 9.7 L Hct 29.6 L MCV 96.0 MCHC 32.8 RDW 13.6 Plt Count 231 MPV 8.0 Neutrophils % 79.5 Lymphocytes % 8.9 Monocytes % 9.9 Eosinophils % 1.6 Basophils % 0.1 Sodium 142 Potassium 3.6 Chloride 105 Carbon Dioxide 28 Anion Gap 9 BUN 7 Creatinine 0.5 L POC Glucometer 176.77050 Random Glucose 123 H Calcium 8.5 07/12/16 07/12/16 05:46 11:44 WBC RBC Hgb Hct MCV MCHC RDW Plt Count MPV Neutrophils % Lymphocytes % Monocytes % Eosinophils % Basophils % Sodium Potassium Chloride Carbon Dioxide Anion Gap BUN Creatinine POC Glucometer 149.66189 145.95302 Random Glucose Calcium Active Medications Generic Name Dose Route Start Last Admin Trade Name Freq PRN Reason Stop Dose Admin Acetaminophen 1,000 mg 07/12/16 11:59 Ofirmev Injection - IVPB 07/13/16 06:00 Q6H PRN FEVER OR PAIN Albuterol/Ipratropium 1 amp 07/08/16 08:02 Duoneb - NEB Q6H PRN SHORTNESS OF BREATH Chlorhexidine Gluconate 1 applic 07/12/16 22:00 Hibiclens For Decolonization - TP HS [facility] Heparin Sodium (Porcine) 5,000 unit 07/07/16 22:00 07/12/16 09:27 Heparin - SQ 5,000 unit BID [facility] Administration Famotidine/Sodium Chloride 50 mls @ 100 mls/hr 07/07/16 22:00 07/12/16 09:16 Pepcid 20 Mg Premixed Ivpb - IVPB 100 mls/hr BID [facility] Administration Dextrose/Lactated Ringer's 1,000 mls @ 42 mls/hr 07/12/16 11:54 07/12/16 12:00 D5-Lr - IV 42 mls/hr ASDIR [facility] Administration Insulin Aspart 1 vial 07/08/16 07:00 07/12/16 11:58 Novolog Vial Sliding Scale - SQ Not Given TIDAC [facility] Protocol Metoprolol Tartrate 5 mg 07/08/16 04:28 Lopressor Injection - IVPUSH Q4H PRN HYPERTENSION Mupirocin 1 applic 07/08/16 10:00 07/12/16 09:30 Bactroban Ointment (For Decolonization) - NS 07/13/16 09:59 1 applic BID [facility] Administration Ondansetron HCl 4 mg 07/07/16 21:34 07/11/16 14:43 Zofran Injection IVPUSH 4 mg Q6H PRN Administration NAUSEA AND/OR VOMITING Oxycodone HCl 2.5 mg 07/12/16 11:58 Roxicodone - PO Q4H PRN PAIN CBC, BMP 07/12/16 05:15 07/12/16 05:15 Microbiology 07/10/16 12:25 Urine - Urine Maldonado Urine Culture - Final NO GROWTH OBTAINED 07/07/16 17:47 Urine - Urine Clean Catch Urine Culture - Final Contaminated: Please Repeat 07/07/16 15:54 Blood - Peripheral Venous Blood Culture - Preliminary NO GROWTH OBTAINED AFTER 96 HOURS, INCUBATION TO CONTINUE FOR 1 DAYS. 07/07/16 15:43 Blood - Peripheral Venous Blood Culture - Preliminary NO GROWTH OBTAINED AFTER 96 HOURS, INCUBATION TO CONTINUE FOR 1 DAYS. ASSESSMENT/PLAN: 89 year old female with pmh og DM, HTN, HPLD, TIA, PVD, RLS, esophageal stricture presented to the Ed with complaint of severe abdominal pain accompanied by nausea and non bloody, non bilious episode of vomiting. Pt was found to have Acute pancreatitis. Acute pancreatitis likely due to gallstone, r/o Trajenta effect. Kiana II score 6, Bisap 1 Amylase 1225, Lipase 6575 on admission Pt has Gallstone, no biliary tract dilation, hepatomegaly and fatty infiltrates and acute pancreatitis on CT abdomen and Ultrasound Pt is clinically improving despite new CT abdomen and Pelvis showing Worsening of pancreatitis with ascitic fluid and b/l pleural effusion Pt is currently on liquid diet will advance as tolerated Decrease IV fluid to D5LR 42ml/h Dilaudid IV PRN for pain Acetaminophen IV PRN Zofran PRN for Nausea GI consulted, Dr Wong on case Surgery consulted Dr Chan, no surgical intervention right now Pt PARVEEN Cr 0.8 to 2.1 earlier this week, due to hypovolemia with Fena 0.48 Since renal function has improved with IV fluid Today Cr 0.5, BUN 7 Intake and output keep output >30-60 ml/h Diabetes Now controlled Novolog sliding scale HTN resume home meds Lopressor 5mg PRN IV q4h FEN Fluid: D5LR at 42ml/h Electrolytes: chemistry in am Nutrition: clear liquid, Advance as tolerated DVT prophyalaxis: SCD Disposition: transfer to telemetry Visit type - Emergency Visit Emergency Visit: Yes ED Registration Date: 07/07/16 Care time: The patient presented to the Emergency Department on the above date and was hospitalized for further evaluation of their emergent condition. - New Patient This patient is new to me today: Yes - Critical Care Critical Care patient: No - Discharge Referral Referred to [facility] Med P.C.: No
--- NOTE | 2016-07-12 14:29 | PN ---
Physical Exam: SUBJECTIVE: Patient seen and examined pain abdomen has decreased denies sob, chest pain. patient states she has passed flatus BS present cxr b/l effusion patient started on oral clear liquid, tolerated it without pain IV decreased to 42ml/hr. As po intake increases will stop the fluid continue with spirometry OBJECTIVE: Vital Signs Period Temp Pulse Resp BP Sys/Beaver Pulse Ox Last 24 Hr 98.2 F-99.4 F 68-80 11-18 126-164/54-79 95-96 GENERAL: The patient is awake, alert, and fully oriented, ENT:moist mucus membrane NECK: Trachea midline, full range of motion, supple. LUNGS: decrease breath souns at b/l base, crepts present, no wheezing. HEART:s1s2 normal ABDOMEN: distension decreased, bs+, tenderness decreased, abdomen softer than before. EXTREMITIES: 2+ pulses, warm, well-perfused, no edema. PSYCH: Normal mood, SKIN: Warm, dry, Laboratory Results - last 24 hr 07/11/16 07/12/16 07/12/16 17:48 05:15 05:15 WBC 8.9 RBC 3.08 L Hgb 9.7 L Hct 29.6 L MCV 96.0 MCHC 32.8 RDW 13.6 Plt Count 231 MPV 8.0 Neutrophils % 79.5 Lymphocytes % 8.9 Monocytes % 9.9 Eosinophils % 1.6 Basophils % 0.1 Sodium 142 Potassium 3.6 Chloride 105 Carbon Dioxide 28 Anion Gap 9 BUN 7 Creatinine 0.5 L POC Glucometer [phone] Random Glucose 123 H Calcium 8.5 07/12/16 07/12/16 05:46 11:44 WBC RBC Hgb Hct MCV MCHC RDW Plt Count MPV Neutrophils % Lymphocytes % Monocytes % Eosinophils % Basophils % Sodium Potassium Chloride Carbon Dioxide Anion Gap BUN Creatinine POC Glucometer 149.24586 145.72803 Random Glucose Calcium Active Medications Generic Name Dose Route Start Last Admin Trade Name Freq PRN Reason Stop Dose Admin Acetaminophen 1,000 mg 07/12/16 11:59 07/12/16 14:11 Ofirmev Injection - IVPB 07/13/16 06:00 1,000 mg Q6H PRN Administration FEVER OR PAIN Albuterol/Ipratropium 1 amp 07/08/16 08:02 Duoneb - NEB Q6H PRN SHORTNESS OF BREATH Chlorhexidine Gluconate 1 applic 07/12/16 22:00 Hibiclens For Decolonization - TP HS [facility] Heparin Sodium (Porcine) 5,000 unit 07/07/16 22:00 07/12/16 09:27 Heparin - SQ 5,000 unit BID [facility] Administration Famotidine/Sodium Chloride 50 mls @ 100 mls/hr 07/07/16 22:00 07/12/16 09:16 Pepcid 20 Mg Premixed Ivpb - IVPB 100 mls/hr BID [facility] Administration Dextrose/Lactated Ringer's 1,000 mls @ 42 mls/hr 07/12/16 11:54 07/12/16 12:00 D5-Lr - IV 42 mls/hr ASDIR [facility] Administration Insulin Aspart 1 vial 07/08/16 07:00 07/12/16 11:58 Novolog Vial Sliding Scale - SQ Not Given TIDAC [facility] Protocol Metoprolol Tartrate 5 mg 07/08/16 04:28 Lopressor Injection - IVPUSH Q4H PRN HYPERTENSION Mupirocin 1 applic 07/08/16 10:00 07/12/16 09:30 Bactroban Ointment (For Decolonization) - NS 07/13/16 09:59 1 applic BID [facility] Administration Ondansetron HCl 4 mg 07/07/16 21:34 07/11/16 14:43 Zofran Injection IVPUSH 4 mg Q6H PRN Administration NAUSEA AND/OR VOMITING Oxycodone HCl 2.5 mg 07/12/16 11:58 07/12/16 14:10 Roxicodone - PO 2.5 mg Q4H PRN Administration PAIN ASSESSMENT/PLAN: acute severe pancreatitis ( modified mi classification ), creatinine elevated pain control with oxycodone po and acetaminophen IV IV fluid D5RL 42ml/hr, maintain urine output 0.5ml to 1ml/kg/hr zofran for nausea and vomiting duoneb nebulizer prn incentive spirometry q1h blood glucose monitoring monitor sr calcium and electrolyte ( ca 8.5) monitor vitals monitor intake/ output started on oral clear liquid, tolerated without pain. slowly increase oral intake. PARVEEN improved avoid nephrotoxic drugs monitor creatnine. DM on novalog sliding scale bgm monitoring HTN monitor BP on lopressor 5mg IV prn hypernatremia improved Fluid : d5LR 42ml/hr electrolyte : monitor K, Ca, Mg, nutrition : clear liquid dvt pro ; heparin sq gi pro : pepcid bid dispo: transfer tele Visit type - Emergency Visit Emergency Visit: Yes ED Registration Date: 07/07/16 Care time: The patient presented to the Emergency Department on the above date and was hospitalized for further evaluation of their emergent condition. - New Patient This patient is new to me today: No - Critical Care Critical Care patient: Yes Total Critical Care Time (in minutes): 45 Critical Care Statement: The care of this patient involved high complexity decision making to prevent further life threatening deterioration of the patient 's condition and/or to evalute & treat vital organ system(s) failure or risk of failure.
[2016-07-12] MEDS ORDERED: METOPROLOL TARTRATE 5 MG/5 ML VIAL IVPUSH PRN (14:37)
[2016-07-12] MEDS ORDERED: ALBUTEROL SO4 2.5/IPRATROPIUM 0.5 INH SOL 3 ML VIAL.NEB. NEB PRN (14:37)
[2016-07-12] MEDS ORDERED: ONDANSETRON 4 MG/2 ML VIAL IVPUSH PRN (14:37)
[2016-07-12] MEDS: DEXTROSE 5%-LACTATED RINGERS 1,000 ML IV SCH (14:40)
--- NOTE | 2016-07-12 16:11 | PN ---
Teaching Attending Note Name of Resident: Bo Butler ATTENDING PHYSICIAN STATEMENT I saw and evaluated the patient. I reviewed the resident's note and discussed the case with the resident. I agree with the resident's findings and plan as documented. SUBJECTIVE: Patient denies pain. OBJECTIVE: Vital Signs Period Temp Pulse Resp BP Sys/Beaver Pulse Ox Last 24 Hr 98.2 F-99.4 F 68-83 11-22 126-166/54-79 95-96 HEART: S1S2, RRR, (+) 2/6 systolic murmur LUNGS: Clear ABDOMEN: Soft, non-distended, normal BS, non-tender EXTREMITIES: No edema ASSESSMENT AND PLAN: This is an 89-year-old woman with a history of type 2 DM, HTN, hyperlipidemia, TIA, PAD, RLS, esophageal stricture who presented to the ER with abdominal pain. 1. Acute pancreatitis - Secondary to gallstones vs medication - Tradjenta held - CT shows bilateral pleural effusions and lower lobe atelectasis, ascites, increasing peripancreatic inflammation and fluid - Clinically improving - Continue clear liquids, IV fluid 2. Acute kidney injury secondary to hypovolemia - Improved 3. Hypotension secondary to hypovolemia - Improved 4. Hypomagnesemia - Improved 5. Asymptomatic bacteriuria - Rocephin discontinued 6. HTN - Continue Lopressor IV as needed 7. Type 2 DM - Continue Novolog sliding scale 8. Hyperlipidemia 9. PAD 10. History of TIA 11. Restless leg syndrome
--- NOTE | 2016-07-12 16:13 | PN ---
Progress Note, Physician History of Present Illness: Pt seen and examined at bedside. She appears comfortable. She denies shortness of breath. - Current Medication List Current Medications: Active Medications Acetaminophen (Ofirmev Injection -) 1,000 mg IVPB Q6H PRN PRN Reason: FEVER OR PAIN Stop: 07/13/16 06:00 Albuterol/Ipratropium (Duoneb -) 1 amp NEB Q6H PRN PRN Reason: SHORTNESS OF BREATH Chlorhexidine Gluconate (Hibiclens For Decolonization -) 1 applic TP HS [facility] Heparin Sodium (Porcine) (Heparin -) 5,000 unit SQ BID [facility] Dextrose/Lactated Ringer's (D5-Lr -) 1,000 mls @ 42 mls/hr IV ASDIR [facility] Last Admin: 07/12/16 14:40 Dose: 42 mls/hr Famotidine/Sodium Chloride (Pepcid 20 Mg Premixed Ivpb -) 50 mls @ 100 mls/hr IVPB BID [facility] Insulin Aspart (Novolog Vial Sliding Scale -) 1 vial SQ TIDAC [facility] PRN Reason: Protocol Metoprolol Tartrate (Lopressor Injection -) 5 mg IVPUSH Q4H PRN PRN Reason: HYPERTENSION Mupirocin (Bactroban Ointment (For Decolonization) -) 1 applic NS BID [facility] Stop: 07/13/16 09:59 Ondansetron HCl (Zofran Injection) 4 mg IVPUSH Q6H PRN PRN Reason: NAUSEA AND/OR VOMITING Oxycodone HCl (Roxicodone -) 2.5 mg PO Q4H PRN PRN Reason: PAIN - Objective Vital Signs: Vital Signs Temperature 99.3 F 07/12/16 14:00 Pulse Rate 83 07/12/16 15:59 Respiratory Rate 22 07/12/16 15:59 Blood Pressure 166/67 07/12/16 15:59 O2 Sat by Pulse Oximetry (%) 95 07/12/16 15:59 Constitutional: Yes: Calm Eyes: Yes: Conjunctiva Clear HENT: Yes: Atraumatic Neck: Yes: Supple Cardiovascular: Yes: S1, S2 Respiratory: Yes: On Nasal O2 Gastrointestinal: Yes: Soft Genitourinary: Yes: Grey Present Edema: No Neurological: Yes: Oriented Labs: CBC, BMP 07/12/16 05:15 07/12/16 05:15 Problem List - Problems (1) Abdominal pain Code(s): R10.9 - UNSPECIFIED ABDOMINAL PAIN (2) Acute pancreatitis Code(s): K85.90 - ACUTE PANCREATITIS WITHOUT NECROSIS OR INFECTION, UNSP (3) Arthritis Code(s): M19.90 - UNSPECIFIED OSTEOARTHRITIS, UNSPECIFIED SITE (4) PARVEEN (acute kidney injury) Code(s): N17.9 - ACUTE KIDNEY FAILURE, UNSPECIFIED Assessment/Plan Current Medications Generic Name Dose Route Start Last Admin Trade Name Freq PRN Reason Stop Dose Admin Acetaminophen 1,000 mg 07/12/16 14:37 Ofirmev Injection - IVPB 07/13/16 06:00 Q6H PRN FEVER OR PAIN Albuterol/Ipratropium 1 amp 07/12/16 14:37 Duoneb - NEB Q6H PRN SHORTNESS OF BREATH Chlorhexidine Gluconate 1 applic 07/12/16 22:00 Hibiclens For Decolonization - TP HS [facility] Heparin Sodium (Porcine) 5,000 unit 07/12/16 22:00 Heparin - SQ BID [facility] Dextrose/Lactated Ringer's 1,000 mls @ 42 mls/hr 07/12/16 14:37 07/12/16 14:40 D5-Lr - IV 42 mls/hr ASDIR [facility] Administration Famotidine/Sodium Chloride 50 mls @ 100 mls/hr 07/12/16 22:00 Pepcid 20 Mg Premixed Ivpb - IVPB BID [facility] Insulin Aspart 1 vial 07/12/16 16:30 Novolog Vial Sliding Scale - SQ TIDAC [facility] Protocol Metoprolol Tartrate 5 mg 07/12/16 14:37 Lopressor Injection - IVPUSH Q4H PRN HYPERTENSION Mupirocin 1 applic 07/12/16 22:00 Bactroban Ointment (For Decolonization) - NS 07/13/16 09:59 BID [facility] Ondansetron HCl 4 mg 07/12/16 14:37 Zofran Injection IVPUSH Q6H PRN NAUSEA AND/OR VOMITING Oxycodone HCl 2.5 mg 07/12/16 14:37 Roxicodone - PO Q4H PRN PAIN Impression 1. PARVEEN 2. acute pancreatitis 3. DM 4. arthritis 5. PVD 6. hyperlipidemia 7. right kidney hydronephrosis Plan - renal function is stable - can d/c grey catheter - agree with decreasing fluids particularly if pt is started on clears - will follow PRN - GI follow up - right renal hydro on ultrasound, recommend urology eval - discussed with ICU team Dr More
--- NOTE | 2016-07-12 17:45 | PN ---
GI Progress Note Subjective: No acute events 2L + urine output today - Objective Vital Signs: Vital Signs Temperature 99.3 F 07/12/16 14:00 Pulse Rate 83 07/12/16 15:59 Respiratory Rate 22 07/12/16 15:59 Blood Pressure 166/67 07/12/16 15:59 O2 Sat by Pulse Oximetry (%) 95 07/12/16 15:59 Constitutional: Calm Eyes: No: Sclera Icterus Respiratory: Yes: Diminished (at bases bilaterally) Gastrointestinal Inspection: Yes: Distention (protuberant) ...Auscultate: Yes: Normoactive Bowel Sounds ...Palpate: Yes: Tenderness (improved TTP epigastrium) Edema: No (No LE edema) Neurological: Yes: Alert Labs: CBC, BMP 07/12/16 05:15 07/12/16 05:15 Problem List - Problems (1) Acute pancreatitis Assessment/Plan: Some clinical improvement however still with significant inflammatory changes on most recent CT scan. Would continue IV hydration until continued clinical improvement is seen and patient able to tolerate PO more substantially Still guarded condition Ordered repeat Mg/Phos and hepatic panel for today If worsening pain, will need attempt at enteral nutrition via Nasogastric or nasojejunal feeding tube Code(s): K85.90 - ACUTE PANCREATITIS WITHOUT NECROSIS OR INFECTION, UNSP
[2016-07-12 19:13] LABS: ALBUMIN 2.7 g/dl (3.4-5.0); BILIRUBIN,DIRECT 0.1 mg/dL (0.0-0.2); BILIRUBIN,TOTAL 0.3 mg/dL (0.2-1.0); MAGNESIUM 1.5 mg/dL (1.8-2.4); PHOSPHOROUS 1.4 mg/dL (2.5-4.9); TOT PROT 6.4 g/dl (6.4-8.2)
[2016-07-12] MEDS ORDERED: MAGNESIUM SULF 50% (8.12 MEQ/2 ML-1 GM VIAL) IVPB ONE (20:57)
[2016-07-12] MEDS ORDERED: CHLORHEXIDINE GLUCONATE 0.12% 15ML CUP MM SCH (22:00)
[2016-07-12] MEDS ORDERED: MUPIROCIN 2% TOPICAL OINTMENT FOR DECOLONIZATION NS SCH (22:00)
[2016-07-12] MEDS: oxyCODONE HCL 5 MG TABLET PO PRN (23:16)
[2016-07-12] MEDS: CHLORHEXIDINE GLUCONATE 4% CLEANSER FOR DECOLONIZATION TP SCH (23:20)
[2016-07-13] MEDS ORDERED: HYDROmorphone HCL CARPU-JECT 1 MG/1 ML DISP.SYRIN IVPB ONE ×2 (00:48)
[2016-07-13] MEDS: INSULIN SLIDING SCALE (NOVOLOG) 1 VIAL SQ SCH ×3 (06:11→17:36)
[2016-07-13] MEDS: oxyCODONE HCL 5 MG TABLET PO PRN ×3 (06:20→19:13)
[2016-07-13 07:28] LABS: BASOPHIL 0.2 % (0-2.0); EOSINOPHIL 0.9 % (0-4.5); MCH 31.4 pg (25.7-33.7); MCHC 32.9 g/dl (32.0-36.0); MEAN CELL VOLUME 95.4 fl (80-96); MEAN PLT VOLUME 7.3 fl (7.5-11.1); NEUTROPHILS 81.3 % (42.8-82.8); PLATELET COUNT 268 K/MM3 (134-434); RDW 13.6 % (11.6-15.6); WHITE BLOOD COUNT 11.3 K/mm3 (4.0-10.0)
[2016-07-13 07:59] LABS: CALCIUM 8.9 mg/dL (8.5-10.1); MAGNESIUM 1.9 mg/dL (1.8-2.4)
[2016-07-13 08:01] LABS: COCKROFT - GAULT 72.25; CREATININE 0.5 mg/dL (0.55-1.02)
--- NOTE | 2016-07-13 10:11 | PN ---
Physical Exam: SUBJECTIVE: Patient seen and examined. She is complaining of abdominal pain. She denies nausea, vomiting. OBJECTIVE: Vital Signs Period Temp Pulse Resp BP Sys/Beaver Pulse Ox Last 24 Hr 98.2 F-99.3 F 68-94 14-22 124-166/59-77 94-100 GENERAL: The patient is awake, alert, and fully oriented, in no acute distress. LUNGS: Breath sounds equal, clear to auscultation bilaterally, no wheezes, no crackles, no accessory muscle use. HEART: Regular rate and rhythm, S1, S2, (+) 3/6 systolic murmur ABDOMEN: Soft, (+) mild epigastric/LUQ tenderness, nondistended, normoactive bowel sounds, no guarding, no rebound, no hepatosplenomegaly, no masses. EXTREMITIES: 2+ pulses, warm, well-perfused, no edema. Laboratory Results - last 24 hr 07/12/16 07/12/16 07/12/16 05:46 11:44 16:55 WBC RBC Hgb Hct MCV MCHC RDW Plt Count MPV Neutrophils % Lymphocytes % Monocytes % Eosinophils % Basophils % Sodium Potassium Chloride Carbon Dioxide Anion Gap BUN Creatinine POC Glucometer 149.90983 145.02517 238.62163 Random Glucose Calcium Phosphorus Magnesium Total Bilirubin Direct Bilirubin AST ALT Alkaline Phosphatase Total Protein Albumin Triglycerides 07/12/16 07/13/16 07/13/16 18:00 05:47 06:00 WBC 11.3 H RBC 3.34 L Hgb 10.5 L Hct 31.8 L MCV 95.4 MCHC 32.9 RDW 13.6 Plt Count 268 MPV 7.3 L Neutrophils % 81.3 Lymphocytes % 6.3 L D Monocytes % 11.3 H Eosinophils % 0.9 Basophils % 0.2 Sodium Potassium Chloride Carbon Dioxide Anion Gap BUN Creatinine POC Glucometer 142 Random Glucose Calcium Phosphorus 1.4 L Magnesium 1.5 L Total Bilirubin 0.3 D Direct Bilirubin 0.1 D AST 27 ALT 22 Alkaline Phosphatase 52 D Total Protein 6.4 D Albumin 2.7 L D Triglycerides 07/13/16 06:00 WBC RBC Hgb Hct MCV MCHC RDW Plt Count MPV Neutrophils % Lymphocytes % Monocytes % Eosinophils % Basophils % Sodium 138 Potassium 3.1 L Chloride 100 Carbon Dioxide 28 Anion Gap 10 BUN 6 L Creatinine 0.5 L POC Glucometer Random Glucose 161 H D Calcium 8.9 Phosphorus Magnesium 1.9 D Total Bilirubin Direct Bilirubin AST ALT Alkaline Phosphatase Total Protein Albumin Triglycerides 308 H Active Medications Generic Name Dose Route Start Last Admin Trade Name Fretravis PRN Reason Stop Dose Admin Albuterol/Ipratropium 1 amp 07/12/16 14:37 Duoneb - NEB Q6H PRN SHORTNESS OF BREATH Chlorhexidine Gluconate 1 applic 07/12/16 22:00 07/12/16 23:20 Hibiclens For Decolonization - TP Not Given HS ORTEGA Heparin Sodium (Porcine) 5,000 unit 07/12/16 22:00 07/12/16 21:26 Heparin - SQ 5,000 unit BID [facility] Administration Dextrose/Lactated Ringer's 1,000 mls @ 42 mls/hr 07/12/16 14:37 07/12/16 14:40 D5-Lr - IV 42 mls/hr ASDIR [facility] Administration Famotidine/Sodium Chloride 50 mls @ 100 mls/hr 07/12/16 22:00 07/12/16 21:26 Pepcid 20 Mg Premixed Ivpb - IVPB 100 mls/hr BID [facility] Administration Insulin Aspart 1 vial 07/12/16 16:30 07/13/16 06:11 Novolog Vial Sliding Scale - SQ Not Given [facility] Protocol Metoprolol Tartrate 5 mg 07/12/16 14:37 Lopressor Injection - IVPUSH Q4H PRN HYPERTENSION Ondansetron HCl 4 mg 07/12/16 14:37 Zofran Injection IVPUSH Q6H PRN NAUSEA AND/OR VOMITING Oxycodone HCl 2.5 mg 07/12/16 14:37 07/13/16 06:20 Roxicodone - PO 2.5 mg Q4H PRN Administration PAIN ASSESSMENT/PLAN: This is an 89-year-old woman with a history of type 2 DM, HTN, hyperlipidemia, TIA, PAD, RLS, esophageal stricture who presented to the ER with abdominal pain. 1. Acute pancreatitis - Secondary to gallstones vs medication - Tradjenta held - Repeat CT shows bilateral pleural effusions and lower lobe atelectasis, ascites, increasing peripancreatic inflammation and fluid - Clinically improving - Continue clear liquids, IV fluid 2. Acute kidney injury secondary to hypovolemia - Improved 3. Hypotension secondary to hypovolemia - Improved 4. Hypomagnesemia - Improved 5. Hypokalemia - Replete potassium 6. Hypophosphatemia - Supplement phosphorus 7. Asymptomatic bacteriuria - Rocephin discontinued 8. HTN - Restart Toprol XL 9. Type 2 DM - Continue Novolog sliding scale 10. Hyperlipidemia 11. PAD 12. History of TIA 13. Restless leg syndrome Visit type - Emergency Visit Emergency Visit: Yes ED Registration Date: 07/07/16 Care time: The patient presented to the Emergency Department on the above date and was hospitalized for further evaluation of their emergent condition. - New Patient This patient is new to me today: No - Critical Care Critical Care patient: No - Discharge Referral Referred to [facility] No
[2016-07-13] MEDS: FAMOTIDINE 20 MG/50 ML IVPB 50 ML IVPB SCH ×2 (10:12→21:39)
[2016-07-13] MEDS: HEPARIN NA (PORCINE) 5,000 UNITS/ML 1ML VIAL SQ SCH ×2 (10:15→21:39)
[2016-07-13] MEDS ORDERED: POTASSIUM PHOSPHATE 30 MM in SODIUM CHLORIDE 500 ML IVPB ONE (11:00)
--- NOTE | 2016-07-13 12:52 | PN ---
Progress Note (short form) - Note Progress Note: Overall appears better. Still with mild abdominal discomfort. Denies CP or SOB. Intake & Output 07/10/16 07/11/16 07/12/16 07/13/16 23:59 23:59 23:59 23:59 Intake Total 6050 2620 3605 4358 Output Total 2550 2150 4900 1600 Balance 3500 470 -1295 2758 Weight 132 lb 1.6 oz 134 lb 0.657 oz 133 lb 9.6 oz Last Vital Signs Temp Pulse Resp BP Pulse Ox 99.1 F 90 20 152/79 93 L 07/13/16 09:10 07/13/16 09:10 07/13/16 09:10 07/13/16 09:10 07/13/16 10:00 Active Medications Albuterol/Ipratropium (Duoneb -) 1 amp NEB Q6H PRN PRN Reason: SHORTNESS OF BREATH Chlorhexidine Gluconate (Hibiclens For Decolonization -) 1 applic TP HS [facility] Last Admin: 07/12/16 23:20 Dose: Not Given Heparin Sodium (Porcine) (Heparin -) 5,000 unit SQ BID [facility] Last Admin: 07/13/16 10:15 Dose: 5,000 unit Dextrose/Lactated Ringer's (D5-Lr -) 1,000 mls @ 42 mls/hr IV ASDIR [facility] Last Admin: 07/12/16 14:40 Dose: 42 mls/hr Famotidine/Sodium Chloride (Pepcid 20 Mg Premixed Ivpb -) 50 mls @ 100 mls/hr IVPB BID [facility] Last Admin: 07/13/16 10:12 Dose: 100 mls/hr Potassium Phosphate 30 mm/ (Sodium Chloride) 510 mls @ 62.5 mls/hr IVPB ONCE ONE Stop: 07/13/16 19:09 Last Admin: 07/13/16 12:14 Dose: 62.5 mls/hr Insulin Aspart (Novolog Vial Sliding Scale -) 1 vial SQ TIDAC [facility] PRN Reason: Protocol Last Admin: 07/13/16 12:08 Dose: Not Given Metoprolol Tartrate (Lopressor Injection -) 5 mg IVPUSH Q4H PRN PRN Reason: HYPERTENSION Ondansetron HCl (Zofran Injection) 4 mg IVPUSH Q6H PRN PRN Reason: NAUSEA AND/OR VOMITING Oxycodone HCl (Roxicodone -) 2.5 mg PO Q4H PRN PRN Reason: PAIN Last Admin: 07/13/16 06:20 Dose: 2.5 mg Constitutional: Yes: Awake and alert Eyes: Yes: EOM Intact HENT: Yes: Normocephalic Neck: Yes: Trachea Midline Cardiovascular: Yes: Regular Rate and Rhythm, S1, S2 Respiratory: Yes: Bibasilar rhonchi Gastrointestinal: Yes: Softly distended, (+) BS, (+) Mild tenderness on the left Extremities: Yes: WNL Edema: No Integumentary: Yes: WNL Neurological: Yes: Alert, Oriented Labs: Laboratory Results - last 24 hr 07/12/16 07/12/16 07/13/16 16:55 18:00 05:47 WBC RBC Hgb Hct MCV MCHC RDW Plt Count MPV Neutrophils % Lymphocytes % Monocytes % Eosinophils % Basophils % Sodium Potassium Chloride Carbon Dioxide Anion Gap BUN Creatinine POC Glucometer [phone] Random Glucose Calcium Phosphorus 1.4 L Magnesium 1.5 L Total Bilirubin 0.3 D Direct Bilirubin 0.1 D AST 27 ALT 22 Alkaline Phosphatase 52 D Total Protein 6.4 D Albumin 2.7 L D Triglycerides 07/13/16 07/13/16 06:00 06:00 WBC 11.3 H RBC 3.34 L Hgb 10.5 L Hct 31.8 L MCV 95.4 MCHC 32.9 RDW 13.6 Plt Count 268 MPV 7.3 L Neutrophils % 81.3 Lymphocytes % 6.3 L D Monocytes % 11.3 H Eosinophils % 0.9 Basophils % 0.2 Sodium 138 Potassium 3.1 L Chloride 100 Carbon Dioxide 28 Anion Gap 10 BUN 6 L Creatinine 0.5 L POC Glucometer Random Glucose 161 H D Calcium 8.9 Phosphorus Magnesium 1.9 D Total Bilirubin Direct Bilirubin AST ALT Alkaline Phosphatase Total Protein Albumin Triglycerides 308 H Assessment/Plan Acute gallstone/obstructive pancreatitis Pulmonary vascular congestion DM HTN HPL TIA Esophageal stricture by history PO as tolerated Pain control Zofran PRN DVT/GI prophylaxis Incentive Spirometry Dr Tirado
[2016-07-13] MEDS: METOPROLOL SUCCINATE 25 MG TAB.SR.24H (FP) PO SCH (14:47)
[2016-07-13] MEDS: DEXTROSE 5%-LACTATED RINGERS 1,000 ML IV SCH (14:56)
--- NOTE | 2016-07-13 15:13 | PN ---
GI Progress Note Subjective: GI NOte: Has pain and low grade fever but no vomiting. Feels bloated and tells me that she has not had a BM in several days - Objective Vital Signs: Vital Signs Temperature 99.1 F 07/13/16 09:10 Pulse Rate 90 07/13/16 09:10 Respiratory Rate 20 07/13/16 09:10 Blood Pressure 152/79 07/13/16 09:10 O2 Sat by Pulse Oximetry (%) 93 L 07/13/16 10:00 Gastrointestinal Inspection: Yes: Distention ...Auscultate: Yes: Hypoactive Bowel Sounds ...Palpate: Yes: Soft, Tenderness, Epigastium (mild), Other (midl) Labs: CBC, BMP 07/13/16 06:00 07/13/16 06:00 Laboratory Tests 07/07/16 07/12/16 15:43 18:00 Total Bilirubin 0.3 D AST 27 ALT 22 Alkaline Phosphatase 52 D Albumin 2.7 L D Lipase 6575 H Assessment/Plan Acute pancreatitis with rising WBC and low grade fever off antibiotics. Will reculture and repeat CT if trend continues. Continue clear liquids
[2016-07-13 17:33] LABS: URINE APPEARANCE CLEAR; URINE BILIRUBIN NEGATIVE (NEGATIVE); URINE COLOR YELLOW; URINE GLUCOSE (UA) 2+ (NEGATIVE); URINE KETONE TRACE (NEGATIVE); URINE LEUK ESTERASE NEGATIVE (NEGATIVE); URINE NITRITE NEGATIVE (NEGATIVE); URINE UROBILINOGEN NEGATIVE E.U./dl (0.2-1.0)
[2016-07-13 17:34] LABS: URINE BLOOD 2+ (NEGATIVE); URINE PROTEIN 1+ (NEGATIVE)
[2016-07-13 17:36] LABS: URINE MUCUS RARE; URINE RBC 27 /hpf (0-3); URINE WBC 4 /hpf (3-5)
[2016-07-13] MEDS: DOCUSATE SODIUM 100 MG CAPSULE (FP) PO SCH (17:36)
--- NOTE | 2016-07-13 17:54 | PN ---
Progress Note, Physician History of Present Illness: Pt seen and examined at bedside. She say she does not feel well today. She denies abdominal pain. - Current Medication List Current Medications: Active Medications Albuterol/Ipratropium (Duoneb -) 1 amp NEB Q6H PRN PRN Reason: SHORTNESS OF BREATH Chlorhexidine Gluconate (Hibiclens For Decolonization -) 1 applic TP HS [facility] Last Admin: 07/12/16 23:20 Dose: Not Given Docusate Sodium (Colace -) 100 mg PO DAILY [facility] Last Admin: 07/13/16 17:36 Dose: 100 mg Heparin Sodium (Porcine) (Heparin -) 5,000 unit SQ BID [facility] Last Admin: 07/13/16 10:15 Dose: 5,000 unit Dextrose/Lactated Ringer's (D5-Lr -) 1,000 mls @ 42 mls/hr IV ASDIR [facility] Last Admin: 07/13/16 14:56 Dose: 42 mls/hr Famotidine/Sodium Chloride (Pepcid 20 Mg Premixed Ivpb -) 50 mls @ 100 mls/hr IVPB BID [facility] Last Admin: 07/13/16 10:12 Dose: 100 mls/hr Potassium Phosphate 30 mm/ (Sodium Chloride) 510 mls @ 62.5 mls/hr IVPB ONCE ONE Stop: 07/13/16 19:09 Last Admin: 07/13/16 12:14 Dose: 62.5 mls/hr Insulin Aspart (Novolog Vial Sliding Scale -) 1 vial SQ TIDAC [facility] PRN Reason: Protocol Last Admin: 07/13/16 17:36 Dose: 2 units Metoprolol Succinate (Toprol Xl -) 25 mg PO DAILY [facility] Last Admin: 07/13/16 14:47 Dose: 25 mg Ondansetron HCl (Zofran Injection) 4 mg IVPUSH Q6H PRN PRN Reason: NAUSEA AND/OR VOMITING Oxycodone HCl (Roxicodone -) 2.5 mg PO Q4H PRN PRN Reason: PAIN Last Admin: 07/13/16 14:46 Dose: 2.5 mg - Objective Vital Signs: Vital Signs Temperature 100.8 F H 07/13/16 15:52 Pulse Rate 92 H 07/13/16 14:36 Respiratory Rate 18 07/13/16 14:36 Blood Pressure 137/70 07/13/16 14:36 O2 Sat by Pulse Oximetry (%) 93 L 07/13/16 10:00 Constitutional: Yes: Calm Eyes: Yes: Conjunctiva Clear HENT: Yes: Atraumatic Cardiovascular: Yes: S1, S2 Respiratory: Yes: CTA Bilaterally Gastrointestinal: Yes: Soft Genitourinary: Yes: Maldonado Present Musculoskeletal: Yes: Muscle Weakness Edema: No Neurological: Yes: Oriented Psychiatric: Yes: Oriented Labs: CBC, BMP 07/13/16 06:00 07/13/16 06:00 Problem List - Problems (1) Abdominal pain Code(s): R10.9 - UNSPECIFIED ABDOMINAL PAIN (2) Acute pancreatitis Code(s): K85.90 - ACUTE PANCREATITIS WITHOUT NECROSIS OR INFECTION, UNSP (3) Arthritis Code(s): M19.90 - UNSPECIFIED OSTEOARTHRITIS, UNSPECIFIED SITE (4) PARVEEN (acute kidney injury) Code(s): N17.9 - ACUTE KIDNEY FAILURE, UNSPECIFIED Assessment/Plan Current Medications Generic Name Dose Route Start Last Admin Trade Name Freq PRN Reason Stop Dose Admin Albuterol/Ipratropium 1 amp 07/12/16 14:37 Duoneb - NEB Q6H PRN SHORTNESS OF BREATH Chlorhexidine Gluconate 1 applic 07/12/16 22:00 07/12/16 23:20 Hibiclens For Decolonization - TP Not Given HS ORTEGA Docusate Sodium 100 mg 07/13/16 16:30 07/13/16 17:36 Colace - PO 100 mg DAILY [facility] Administration Heparin Sodium (Porcine) 5,000 unit 07/12/16 22:00 07/13/16 10:15 Heparin - SQ 5,000 unit BID [facility] Administration Dextrose/Lactated Ringer's 1,000 mls @ 42 mls/hr 07/12/16 14:37 07/13/16 14:56 D5-Lr - IV 42 mls/hr ASDIR [facility] Administration Famotidine/Sodium Chloride 50 mls @ 100 mls/hr 07/12/16 22:00 07/13/16 10:12 Pepcid 20 Mg Premixed Ivpb - IVPB 100 mls/hr BID [facility] Administration Potassium Phosphate 30 mm/ 510 mls @ 62.5 mls/hr 07/13/16 11:00 07/13/16 12:14 Sodium Chloride IVPB 07/13/16 19:09 62.5 mls/hr ONCE ONE Administration Insulin Aspart 1 vial 07/12/16 16:30 07/13/16 17:36 Novolog Vial Sliding Scale - SQ 2 units TIDAC [facility] Administration Protocol Metoprolol Succinate 25 mg 07/13/16 14:00 07/13/16 14:47 Toprol Xl - PO 25 mg DAILY [facility] Administration Ondansetron HCl 4 mg 07/12/16 14:37 Zofran Injection IVPUSH Q6H PRN NAUSEA AND/OR VOMITING Oxycodone HCl 2.5 mg 07/12/16 14:37 07/13/16 14:46 Roxicodone - PO 2.5 mg Q4H PRN Administration PAIN Impression 1. PARVEEN 2. acute pancreatitis 3. DM 4. arthritis 5. PVD 6. hyperlipidemia 7. right kidney hydronephrosis 8. hypokalemia Plan - replace potassium - cont fluids - GI input appreciated, pt on clears - monitor labs - right renal hydro on ultrasound, recommend urology eval - discussed with ICU team Dr More
[2016-07-13] MEDS ORDERED: POTASSIUM CHLORIDE TABS 20 MEQ TABLET.ER (FP) PO ONE ×3 (17:55→22:00)
[2016-07-13 21:05] LABS: MCH 30.7 pg (25.7-33.7); MCHC 32.5 g/dl (32.0-36.0); MEAN CELL VOLUME 94.4 fl (80-96); MEAN PLT VOLUME 7.9 fl (7.5-11.1); PLATELET COUNT 302 K/MM3 (134-434); RDW 13.6 % (11.6-15.6); WHITE BLOOD COUNT 12.6 K/mm3 (4.0-10.0)
[2016-07-13] MEDS: ACETAMINOPHEN 325 MG TABLET (FP) PO PRN (21:38)
[2016-07-13 22:04] LABS: PLATELET ESTIMATE ADEQUATE (NORMAL)
[2016-07-13] MEDS: CHLORHEXIDINE GLUCONATE 4% CLEANSER FOR DECOLONIZATION TP SCH (22:58)
[2016-07-14] MEDS: INSULIN SLIDING SCALE (NOVOLOG) 1 VIAL SQ SCH ×3 (06:11→17:15)
[2016-07-14] MEDS: ACETAMINOPHEN 325 MG TABLET (FP) PO PRN ×3 (06:40→23:21)
[2016-07-14 08:30] LABS: BASOPHIL 0.1 % (0-2.0); EOSINOPHIL 0.6 % (0-4.5); MCH 31.5 pg (25.7-33.7); MCHC 33.6 g/dl (32.0-36.0); MEAN CELL VOLUME 93.9 fl (80-96); MEAN PLT VOLUME 7.5 fl (7.5-11.1); NEUTROPHILS 80.7 % (42.8-82.8); PLATELET COUNT 318 K/MM3 (134-434); RDW 13.8 % (11.6-15.6); WHITE BLOOD COUNT 14.7 K/mm3 (4.0-10.0)
[2016-07-14] MEDS: HEPARIN NA (PORCINE) 5,000 UNITS/ML 1ML VIAL SQ SCH ×2 (10:52→21:33)
[2016-07-14] MEDS: DOCUSATE SODIUM 100 MG CAPSULE (FP) PO SCH (10:52)
[2016-07-14] MEDS: METOPROLOL SUCCINATE 25 MG TAB.SR.24H (FP) PO SCH (10:52)
[2016-07-14] MEDS: FAMOTIDINE 20 MG/50 ML IVPB 50 ML IVPB SCH ×2 (10:53→21:33)
--- NOTE | 2016-07-14 11:14 | PN ---
Progress Note, Physician History of Present Illness: Pt seen and examined at bedside. She is awake and alert. She denies shortness of breath. She complains of abdominal discomfort. - Current Medication List Current Medications: Active Medications Acetaminophen (Tylenol -) 650 mg PO Q6H PRN PRN Reason: FEVER OR PAIN Last Admin: 07/14/16 06:40 Dose: 650 mg Albuterol/Ipratropium (Duoneb -) 1 amp NEB Q6H PRN PRN Reason: SHORTNESS OF BREATH Chlorhexidine Gluconate (Hibiclens For Decolonization -) 1 applic TP HS [facility] Last Admin: 07/13/16 22:58 Dose: Not Given Docusate Sodium (Colace -) 100 mg PO DAILY [facility] Last Admin: 07/14/16 10:52 Dose: 100 mg Heparin Sodium (Porcine) (Heparin -) 5,000 unit SQ BID [facility] Last Admin: 07/14/16 10:52 Dose: 5,000 unit Dextrose/Lactated Ringer's (D5-Lr -) 1,000 mls @ 42 mls/hr IV ASDIR [facility] Last Admin: 07/13/16 14:56 Dose: 42 mls/hr Famotidine/Sodium Chloride (Pepcid 20 Mg Premixed Ivpb -) 50 mls @ 100 mls/hr IVPB BID [facility] Last Admin: 07/14/16 10:53 Dose: 100 mls/hr Insulin Aspart (Novolog Vial Sliding Scale -) 1 vial SQ [facility] PRN Reason: Protocol Last Admin: 07/14/16 06:11 Dose: 2 units Metoprolol Succinate (Toprol Xl -) 25 mg PO DAILY [facility] Last Admin: 07/14/16 10:52 Dose: 25 mg Ondansetron HCl (Zofran Injection) 4 mg IVPUSH Q6H PRN PRN Reason: NAUSEA AND/OR VOMITING Oxycodone HCl (Roxicodone -) 2.5 mg PO Q4H PRN PRN Reason: PAIN Last Admin: 07/13/16 19:13 Dose: 2.5 mg - Objective Vital Signs: Vital Signs Temperature 100.4 F H 07/14/16 06:00 Pulse Rate 78 07/14/16 06:00 Respiratory Rate 18 07/14/16 06:00 Blood Pressure 121/55 07/14/16 06:00 O2 Sat by Pulse Oximetry (%) 93 L 07/13/16 21:00 Constitutional: Yes: Calm Eyes: Yes: Conjunctiva Clear HENT: Yes: Atraumatic Neck: Yes: Supple Cardiovascular: Yes: S1, S2 Respiratory: Yes: On Nasal O2 Gastrointestinal: Yes: Soft, Tenderness, Epigastrium Genitourinary: Yes: Maldonado Present Musculoskeletal: Yes: WNL Edema: No Neurological: Yes: Oriented Psychiatric: Yes: Oriented Labs: CBC, BMP 07/14/16 07:05 07/14/16 07:05 Problem List - Problems (1) Abdominal pain Code(s): R10.9 - UNSPECIFIED ABDOMINAL PAIN (2) Acute pancreatitis Code(s): K85.90 - ACUTE PANCREATITIS WITHOUT NECROSIS OR INFECTION, UNSP (3) Arthritis Code(s): M19.90 - UNSPECIFIED OSTEOARTHRITIS, UNSPECIFIED SITE (4) PARVEEN (acute kidney injury) Code(s): N17.9 - ACUTE KIDNEY FAILURE, UNSPECIFIED Assessment/Plan Current Medications Generic Name Dose Route Start Last Admin Trade Name Freq PRN Reason Stop Dose Admin Acetaminophen 650 mg 07/13/16 19:14 07/14/16 06:40 Tylenol - PO 650 mg Q6H PRN Administration FEVER OR PAIN Albuterol/Ipratropium 1 amp 07/12/16 14:37 Duoneb - NEB Q6H PRN SHORTNESS OF BREATH Chlorhexidine Gluconate 1 applic 07/12/16 22:00 07/13/16 22:58 Hibiclens For Decolonization - TP Not Given HS [facility] Docusate Sodium 100 mg 07/13/16 16:30 07/14/16 10:52 Colace - PO 100 mg DAILY [facility] Administration Heparin Sodium (Porcine) 5,000 unit 07/12/16 22:00 07/14/16 10:52 Heparin - SQ 5,000 unit BID [facility] Administration Dextrose/Lactated Ringer's 1,000 mls @ 42 mls/hr 07/12/16 14:37 07/13/16 14:56 D5-Lr - IV 42 mls/hr ASDIR [facility] Administration Famotidine/Sodium Chloride 50 mls @ 100 mls/hr 07/12/16 22:00 07/14/16 10:53 Pepcid 20 Mg Premixed Ivpb - IVPB 100 mls/hr BID [facility] Administration Insulin Aspart 1 vial 07/12/16 16:30 07/14/16 06:11 Novolog Vial Sliding Scale - SQ 2 units TIDAC [facility] Administration Protocol Metoprolol Succinate 25 mg 07/13/16 14:00 07/14/16 10:52 Toprol Xl - PO 25 mg DAILY [facility] Administration Ondansetron HCl 4 mg 07/12/16 14:37 Zofran Injection IVPUSH Q6H PRN NAUSEA AND/OR VOMITING Oxycodone HCl 2.5 mg 07/12/16 14:37 07/13/16 19:13 Roxicodone - PO 2.5 mg Q4H PRN Administration PAIN Laboratory Tests 07/07/16 07/11/16 07/14/16 16:25 05:15 07:05 Potassium 3.7 Phosphorus 1.5 L D Magnesium 1.6 L D Ur Specific Weiner 1.015 Urine Protein 1+ H Urine Glucose (UA) Trace Impression 1. PARVEEN 2. acute pancreatitis 3. DM 4. arthritis 5. PVD 6. hyperlipidemia 7. right kidney hydronephrosis 8. hypokalemia Plan - potassium is improved - cont fluids - follow up rest of bmp as it is pending - monitor labs - right renal hydro on ultrasound, recommend urology eval Dr More
[2016-07-14 11:55] LABS: ALBUMIN 2.6 g/dl (3.4-5.0); BILIRUBIN,DIRECT 0.1 mg/dL (0.0-0.2); BILIRUBIN,TOTAL 0.3 mg/dL (0.2-1.0); CALCIUM 8.6 mg/dL (8.5-10.1); COCKROFT - GAULT 60.35; CREATININE 0.6 mg/dL (0.55-1.02); MAGNESIUM 1.5 mg/dL (1.8-2.4); PHOSPHOROUS 2.3 mg/dL (2.5-4.9); TOT PROT 5.9 g/dl (6.4-8.2)
[2016-07-14] MEDS ORDERED: MAGNESIUM SULF 50% (8.12 MEQ/2 ML-1 GM VIAL) IVPB ONE (12:44)
[2016-07-14] MEDS ORDERED: POTASSIUM PHOSPHATE 30 MM in SODIUM CHLORIDE 500 ML IVPB ONE (12:44)
--- NOTE | 2016-07-14 12:58 | PN ---
Physical Exam: SUBJECTIVE: Patient seen and examined. Patient is sleepy. She says pain is better controlled. OBJECTIVE: Vital Signs Period Temp Pulse Resp BP Sys/Beaver Pulse Ox Last 24 Hr 98.9 F-101.6 F 77-92 18-20 114-137/40-77 93-94 GENERAL: The patient is awake, alert, and fully oriented, in no acute distress. LUNGS: Breath sounds equal, clear to auscultation bilaterally, no wheezes, no crackles, no accessory muscle use. HEART: Regular rate and rhythm, S1, S2, (+) 3/6 systolic murmur ABDOMEN: Soft, (+) mild epigastric/LUQ tenderness, nondistended, normoactive bowel sounds, no guarding, no rebound, no hepatosplenomegaly, no masses. EXTREMITIES: 2+ pulses, warm, well-perfused, no edema. Laboratory Results - last 24 hr 07/13/16 07/13/16 07/13/16 16:50 17:27 20:45 WBC RBC Hgb Hct MCV MCHC RDW Plt Count MPV Neutrophils % Lymphocytes % Monocytes % Eosinophils % Basophils % Band Neutrophils Reactive Lymphocytes Platelet Estimate RBC Morphology Sodium Potassium Chloride Carbon Dioxide Anion Gap BUN Creatinine POC Glucometer 169 Random Glucose Lactic Acid 1.997 Calcium Phosphorus Magnesium Total Bilirubin Direct Bilirubin AST ALT Alkaline Phosphatase Total Protein Albumin Urine Color Yellow Urine Appearance Clear Urine pH 6.0 Ur Specific Victor 1.015 Urine Protein 1+ H Urine Glucose (UA) 2+ H Urine Ketones Trace H Urine Blood 2+ H Urine Nitrite Negative Urine Bilirubin Negative Urine Urobilinogen Negative Ur Leukocyte Esterase Negative Urine RBC 27 Urine WBC 4 Urine Mucus Rare 07/13/16 07/13/16 07/14/16 20:45 21:07 05:16 WBC 12.6 H RBC 3.34 L Hgb 10.2 L Hct 31.5 L MCV 94.4 MCHC 32.5 RDW 13.6 Plt Count 302 MPV 7.9 Neutrophils % 75.0 Lymphocytes % 8.0 D Monocytes % 10.0 Eosinophils % Basophils % Band Neutrophils 5.0 Reactive Lymphocytes 2 Platelet Estimate Adequate RBC Morphology Appears normal Sodium Potassium Chloride Carbon Dioxide Anion Gap BUN Creatinine POC Glucometer 167 169 Random Glucose Lactic Acid Calcium Phosphorus Magnesium Total Bilirubin Direct Bilirubin AST ALT Alkaline Phosphatase Total Protein Albumin Urine Color Urine Appearance Urine pH Ur Specific Victor Urine Protein Urine Glucose (UA) Urine Ketones Urine Blood Urine Nitrite Urine Bilirubin Urine Urobilinogen Ur Leukocyte Esterase Urine RBC Urine WBC Urine Mucus 07/14/16 07/14/16 07:05 07:05 WBC 14.7 H RBC 3.23 L Hgb 10.2 L Hct 30.3 L MCV 93.9 MCHC 33.6 RDW 13.8 Plt Count 318 MPV 7.5 Neutrophils % 80.7 Lymphocytes % 7.5 L Monocytes % 11.1 H Eosinophils % 0.6 Basophils % 0.1 Band Neutrophils Reactive Lymphocytes Platelet Estimate RBC Morphology Sodium 139 Potassium 3.7 Chloride 103 Carbon Dioxide 26 Anion Gap 10 BUN 8 D Creatinine 0.6 POC Glucometer Random Glucose 127 H D Lactic Acid Calcium 8.6 Phosphorus 2.3 L D Magnesium 1.5 L D Total Bilirubin 0.3 Direct Bilirubin 0.1 AST 19 D ALT 19 Alkaline Phosphatase 56 Total Protein 5.9 L Albumin 2.6 L Urine Color Urine Appearance Urine pH Ur Specific Victor Urine Protein Urine Glucose (UA) Urine Ketones Urine Blood Urine Nitrite Urine Bilirubin Urine Urobilinogen Ur Leukocyte Esterase Urine RBC Urine WBC Urine Mucus Active Medications Generic Name Dose Route Start Last Admin Trade Name Rafaelq PRN Reason Stop Dose Admin Acetaminophen 650 mg 07/13/16 19:14 07/14/16 06:40 Tylenol - PO 650 mg Q6H PRN Administration FEVER OR PAIN Albuterol/Ipratropium 1 amp 07/12/16 14:37 Duoneb - NEB Q6H PRN SHORTNESS OF BREATH Chlorhexidine Gluconate 1 applic 07/12/16 22:00 07/13/16 22:58 Hibiclens For Decolonization - TP Not Given HS [facility] Docusate Sodium 100 mg 07/13/16 16:30 07/14/16 10:52 Colace - PO 100 mg DAILY [facility] Administration Heparin Sodium (Porcine) 5,000 unit 07/12/16 22:00 07/14/16 10:52 Heparin - SQ 5,000 unit BID [facility] Administration Dextrose/Lactated Ringer's 1,000 mls @ 42 mls/hr 07/12/16 14:37 07/13/16 14:56 D5-Lr - IV 42 mls/hr ASDIR [facility] Administration Famotidine/Sodium Chloride 50 mls @ 100 mls/hr 07/12/16 22:00 07/14/16 10:53 Pepcid 20 Mg Premixed Ivpb - IVPB 100 mls/hr BID [facility] Administration Insulin Aspart 1 vial 07/12/16 16:30 07/14/16 12:33 Novolog Vial Sliding Scale - SQ Not Given TIDAC [facility] Protocol Metoprolol Succinate 25 mg 07/13/16 14:00 07/14/16 10:52 Toprol Xl - PO 25 mg DAILY [facility] Administration Ondansetron HCl 4 mg 07/12/16 14:37 Zofran Injection IVPUSH Q6H PRN NAUSEA AND/OR VOMITING Oxycodone HCl 2.5 mg 07/12/16 14:37 07/13/16 19:13 Roxicodone - PO 2.5 mg Q4H PRN Administration PAIN ASSESSMENT/PLAN: This is an 89-year-old woman with a history of type 2 DM, HTN, hyperlipidemia, TIA, PAD, RLS, esophageal stricture who presented to the ER with abdominal pain. 1. Acute pancreatitis - Secondary to gallstones vs medication - Tradjenta held - Repeat CT shows bilateral pleural effusions and lower lobe atelectasis, ascites, increasing peripancreatic inflammation and fluid - Had temp 101.6 last night and WBC increased today - if persists, will repeat CT - Continue clear liquids, IV fluid 2. Acute kidney injury secondary to hypovolemia - Improved 3. Hypotension secondary to hypovolemia - Improved 4. Hypomagnesemia - Continue to supplement magnesium 5. Hypokalemia - Improved 6. Hypophosphatemia - Continue to supplement phosphorus 7. Asymptomatic bacteriuria - Rocephin discontinued 8. Acute anemia, likely secondary to acute pancreatitis - Hemoglobin stable 9. HTN - Continue Toprol XL 10. Type 2 DM - Continue Novolog sliding scale 11. Hyperlipidemia 12. PAD 13. History of TIA 14. Restless leg syndrome Visit type - Emergency Visit Emergency Visit: Yes ED Registration Date: 07/07/16 Care time: The patient presented to the Emergency Department on the above date and was hospitalized for further evaluation of their emergent condition. - New Patient This patient is new to me today: No - Critical Care Critical Care patient: No - Discharge Referral Referred to [facility] No
--- NOTE | 2016-07-14 13:21 | PN ---
Progress Note (short form) - Note Progress Note: Overall appears better. Abdominal discomfort improving. Denies CP or SOB. Intake & Output 07/11/16 07/12/16 07/13/16 07/14/16 23:59 23:59 23:59 23:59 Intake Total 2620 3605 5642 500 Output Total 2150 4900 3125 1100 Balance 470 -1295 2517 -600 Weight 134 lb 0.657 oz 133 lb 9.6 oz Last Vital Signs Temp Pulse Resp BP Pulse Ox 100.4 F H 78 18 121/55 94 L 07/14/16 06:00 07/14/16 06:00 07/14/16 06:00 07/14/16 06:00 07/14/16 10:00 Active Medications Acetaminophen (Tylenol -) 650 mg PO Q6H PRN PRN Reason: FEVER OR PAIN Last Admin: 07/14/16 06:40 Dose: 650 mg Albuterol/Ipratropium (Duoneb -) 1 amp NEB Q6H PRN PRN Reason: SHORTNESS OF BREATH Chlorhexidine Gluconate (Hibiclens For Decolonization -) 1 applic TP HS [facility] Last Admin: 07/13/16 22:58 Dose: Not Given Docusate Sodium (Colace -) 100 mg PO DAILY [facility] Last Admin: 07/14/16 10:52 Dose: 100 mg Heparin Sodium (Porcine) (Heparin -) 5,000 unit SQ BID [facility] Last Admin: 07/14/16 10:52 Dose: 5,000 unit Dextrose/Lactated Ringer's (D5-Lr -) 1,000 mls @ 42 mls/hr IV ASDIR [facility] Last Admin: 07/13/16 14:56 Dose: 42 mls/hr Famotidine/Sodium Chloride (Pepcid 20 Mg Premixed Ivpb -) 50 mls @ 100 mls/hr IVPB BID [facility] Last Admin: 07/14/16 10:53 Dose: 100 mls/hr Potassium Phosphate 30 mm/ (Sodium Chloride) 510 mls @ 62.5 mls/hr IVPB ONCE ONE Stop: 07/14/16 20:53 Insulin Aspart (Novolog Vial Sliding Scale -) 1 vial SQ TIDAC [facility] PRN Reason: Protocol Last Admin: 07/14/16 12:33 Dose: Not Given Metoprolol Succinate (Toprol Xl -) 25 mg PO DAILY [facility] Last Admin: 07/14/16 10:52 Dose: 25 mg Ondansetron HCl (Zofran Injection) 4 mg IVPUSH Q6H PRN PRN Reason: NAUSEA AND/OR VOMITING Oxycodone HCl (Roxicodone -) 2.5 mg PO Q4H PRN PRN Reason: PAIN Last Admin: 07/13/16 19:13 Dose: 2.5 mg Constitutional: Yes: Awake and alert Eyes: Yes: EOM Intact HENT: Yes: Normocephalic Neck: Yes: Trachea Midline Cardiovascular: Yes: Regular Rate and Rhythm, S1, S2 Respiratory: Yes: Bibasilar rhonchi Gastrointestinal: Yes: Softly distended, (+) BS, (+) Mild tenderness on the left Extremities: Yes: WNL Edema: No Integumentary: Yes: WNL Neurological: Yes: Alert, Oriented Labs: Laboratory Results - last 24 hr 07/13/16 07/13/16 07/13/16 16:50 17:27 20:45 WBC RBC Hgb Hct MCV MCHC RDW Plt Count MPV Neutrophils % Lymphocytes % Monocytes % Eosinophils % Basophils % Band Neutrophils Reactive Lymphocytes Platelet Estimate RBC Morphology Sodium Potassium Chloride Carbon Dioxide Anion Gap BUN Creatinine POC Glucometer 169 Random Glucose Lactic Acid 1.997 Calcium Phosphorus Magnesium Total Bilirubin Direct Bilirubin AST ALT Alkaline Phosphatase Total Protein Albumin Urine Color Yellow Urine Appearance Clear Urine pH 6.0 Ur Specific [place] 1.015 Urine Protein 1+ H Urine Glucose (UA) 2+ H Urine Ketones Trace H Urine Blood 2+ H Urine Nitrite Negative Urine Bilirubin Negative Urine Urobilinogen Negative Ur Leukocyte Esterase Negative Urine RBC 27 Urine WBC 4 Urine Mucus Rare 07/13/16 07/13/16 07/14/16 20:45 21:07 05:16 WBC 12.6 H RBC 3.34 L Hgb 10.2 L Hct 31.5 L MCV 94.4 MCHC 32.5 RDW 13.6 Plt Count 302 MPV 7.9 Neutrophils % 75.0 Lymphocytes % 8.0 D Monocytes % 10.0 Eosinophils % Basophils % Band Neutrophils 5.0 Reactive Lymphocytes 2 Platelet Estimate Adequate RBC Morphology Appears normal Sodium Potassium Chloride Carbon Dioxide Anion Gap BUN Creatinine POC Glucometer 167 169 Random Glucose Lactic Acid Calcium Phosphorus Magnesium Total Bilirubin Direct Bilirubin AST ALT Alkaline Phosphatase Total Protein Albumin Urine Color Urine Appearance Urine pH Ur Specific [place] Urine Protein Urine Glucose (UA) Urine Ketones Urine Blood Urine Nitrite Urine Bilirubin Urine Urobilinogen Ur Leukocyte Esterase Urine RBC Urine WBC Urine Mucus 07/14/16 07/14/16 07/14/16 07:05 07:05 12:32 WBC 14.7 H RBC 3.23 L Hgb 10.2 L Hct 30.3 L MCV 93.9 MCHC 33.6 RDW 13.8 Plt Count 318 MPV 7.5 Neutrophils % 80.7 Lymphocytes % 7.5 L Monocytes % 11.1 H Eosinophils % 0.6 Basophils % 0.1 Band Neutrophils Reactive Lymphocytes Platelet Estimate RBC Morphology Sodium 139 Potassium 3.7 Chloride 103 Carbon Dioxide 26 Anion Gap 10 BUN 8 D Creatinine 0.6 POC Glucometer 130 Random Glucose 127 H D Lactic Acid Calcium 8.6 Phosphorus 2.3 L D Magnesium 1.5 L D Total Bilirubin 0.3 Direct Bilirubin 0.1 AST 19 D ALT 19 Alkaline Phosphatase 56 Total Protein 5.9 L Albumin 2.6 L Urine Color Urine Appearance Urine pH Ur Specific [place] Urine Protein Urine Glucose (UA) Urine Ketones Urine Blood Urine Nitrite Urine Bilirubin Urine Urobilinogen Ur Leukocyte Esterase Urine RBC Urine WBC Urine Mucus Assessment/Plan Acute gallstone/obstructive pancreatitis Pulmonary vascular congestion DM HTN HPL TIA Esophageal stricture by history PO as tolerated Pain control Zofran PRN DVT/GI prophylaxis Incentive Spirometry Dr Tirado
--- NOTE | 2016-07-14 15:10 | PN ---
GI Progress Note Subjective: GI Note: Despite last night's fever and rising WBC Yamile tells me that she is feeling better. Nursing informs me that she got up to the bathroom and had a BM earlier today. No vomiting. Fever has defervesced. - Objective Vital Signs: Vital Signs Temperature 98.3 F 07/14/16 14:51 Pulse Rate 72 07/14/16 14:51 Respiratory Rate 16 07/14/16 14:51 Blood Pressure 124/70 07/14/16 14:51 O2 Sat by Pulse Oximetry (%) 94 L 07/14/16 10:00 Constitutional: Calm ...Auscultate: Yes: Normoactive Bowel Sounds ...Palpate: Yes: Soft, Other (nontender) Labs: CBC, BMP 07/14/16 07:05 07/14/16 07:05 Laboratory Tests 07/12/16 07/13/16 07/14/16 05:15 20:45 07:05 WBC 8.9 12.6 H 14.7 H Hgb 10.2 L Total Bilirubin Direct Bilirubin AST ALT Alkaline Phosphatase 07/14/16 07:05 WBC Hgb Total Bilirubin 0.3 Direct Bilirubin 0.1 AST 19 D ALT 19 Alkaline Phosphatase 56 Assessment/Plan Acute pancreatitis with rising WBC and fever off antibiotics. Will repeat CT if trend continues. Try full liquids
[2016-07-14] MEDS: DEXTROSE 5%-LACTATED RINGERS 1,000 ML IV SCH (17:13)
[2016-07-14] MEDS: CHLORHEXIDINE GLUCONATE 4% CLEANSER FOR DECOLONIZATION TP SCH (21:34)
[2016-07-14] MEDS: oxyCODONE HCL 5 MG TABLET PO PRN (23:17)
[2016-07-15] MEDS: oxyCODONE HCL 5 MG TABLET PO PRN ×4 (03:45→21:07)
[2016-07-15] MEDS: INSULIN SLIDING SCALE (NOVOLOG) 1 VIAL SQ SCH ×3 (06:39→17:14)
[2016-07-15] MEDS: ACETAMINOPHEN 325 MG TABLET (FP) PO PRN ×2 (06:40→21:07)
[2016-07-15 07:21] LABS: MCHC 32.9 g/dl (32.0-36.0); MEAN CELL VOLUME 94.4 fl (80-96); MEAN PLT VOLUME 7.4 fl (7.5-11.1); PLATELET COUNT 407 K/MM3 (134-434); RDW 13.6 % (11.6-15.6); WHITE BLOOD COUNT 20.1 K/mm3 (4.0-10.0)
[2016-07-15 07:32] LABS: CALCIUM 9.1 mg/dL (8.5-10.1); COCKROFT - GAULT 51.85; CREATININE 0.7 mg/dL (0.55-1.02); MAGNESIUM 1.8 mg/dL (1.8-2.4); PHOSPHOROUS 3.2 mg/dL (2.5-4.9)
[2016-07-15 07:48] LABS: C-REACTIVE PROTEIN 28.9 MG/DL (0.00-0.3)
[2016-07-15] MEDS: FAMOTIDINE 20 MG/50 ML IVPB 50 ML IVPB SCH ×2 (10:31→21:06)
[2016-07-15] MEDS: DOCUSATE SODIUM 100 MG CAPSULE (FP) PO SCH (10:33)
[2016-07-15] MEDS: HEPARIN NA (PORCINE) 5,000 UNITS/ML 1ML VIAL SQ SCH ×2 (10:33→21:07)
[2016-07-15] MEDS: METOPROLOL SUCCINATE 25 MG TAB.SR.24H (FP) PO SCH (10:33)
[2016-07-15 12:08] LABS: METAMYELOCYTE 3 % (0-2)
[2016-07-15 12:09] LABS: PLATELET ESTIMATE ADEQUATE (NORMAL)
[2016-07-15] MEDS: DEXTROSE 5%-LACTATED RINGERS 1,000 ML IV SCH ×2 (14:00→16:19)
--- NOTE | 2016-07-15 14:19 | PN ---
Progress Note, Physician History of Present Illness: PULMONARY ALERT,C/O ABD PAIN,-SOB - Current Medication List Current Medications: Active Medications Acetaminophen (Tylenol -) 650 mg PO Q6H PRN PRN Reason: FEVER OR PAIN Last Admin: 07/15/16 06:40 Dose: 650 mg Albuterol/Ipratropium (Duoneb -) 1 amp NEB Q6H PRN PRN Reason: SHORTNESS OF BREATH Chlorhexidine Gluconate (Hibiclens For Decolonization -) 1 applic TP HS [facility] Last Admin: 07/14/16 21:34 Dose: Not Given Docusate Sodium (Colace -) 100 mg PO DAILY [facility] Last Admin: 07/15/16 10:33 Dose: 100 mg Heparin Sodium (Porcine) (Heparin -) 5,000 unit SQ BID [facility] Last Admin: 07/15/16 10:33 Dose: 5,000 unit Dextrose/Lactated Ringer's (D5-Lr -) 1,000 mls @ 42 mls/hr IV ASDIR [facility] Last Admin: 07/15/16 14:00 Dose: 42 mls/hr Famotidine/Sodium Chloride (Pepcid 20 Mg Premixed Ivpb -) 50 mls @ 100 mls/hr IVPB BID [facility] Last Admin: 07/15/16 10:31 Dose: 100 mls/hr Insulin Aspart (Novolog Vial Sliding Scale -) 1 vial SQ TIDAC [facility] PRN Reason: Protocol Last Admin: 07/15/16 11:39 Dose: 2 units Metoprolol Succinate (Toprol Xl -) 25 mg PO DAILY [facility] Last Admin: 07/15/16 10:33 Dose: 25 mg Ondansetron HCl (Zofran Injection) 4 mg IVPUSH Q6H PRN PRN Reason: NAUSEA AND/OR VOMITING Oxycodone HCl (Roxicodone -) 5 mg PO Q4H PRN PRN Reason: PAIN Last Admin: 07/15/16 10:35 Dose: 5 mg - Objective Vital Signs: Vital Signs Temperature 98.8 F 07/15/16 10:00 Pulse Rate 81 07/15/16 10:00 Respiratory Rate 19 07/15/16 10:00 Blood Pressure 121/77 07/15/16 10:00 O2 Sat by Pulse Oximetry (%) 97 07/14/16 21:00 Constitutional: Yes: Well Nourished, Mild Distress (SECONDARY TO ABD PAIN) Eyes: Yes: WNL HENT: Yes: WNL Neck: Yes: WNL Cardiovascular: Yes: Regular Rate and Rhythm, S1, S2 Respiratory: Yes: Diminished Gastrointestinal: Yes: Distention, Tenderness Extremities: Yes: WNL Edema: No Labs: CBC, BMP 07/15/16 05:41 07/15/16 05:41 Problem List - Problems (1) PARVEEN (acute kidney injury) Code(s): N17.9 - ACUTE KIDNEY FAILURE, UNSPECIFIED (2) Abdominal pain Code(s): R10.9 - UNSPECIFIED ABDOMINAL PAIN (3) Acute pancreatitis Code(s): K85.90 - ACUTE PANCREATITIS WITHOUT NECROSIS OR INFECTION, UNSP (4) Chronic calcific pancreatitis Code(s): K86.1 - OTHER CHRONIC PANCREATITIS (5) Arthritis Code(s): M19.90 - UNSPECIFIED OSTEOARTHRITIS, UNSPECIFIED SITE (6) Hyperlipidemia Code(s): E78.5 - HYPERLIPIDEMIA, UNSPECIFIED (7) Diabetes Code(s): E11.9 - TYPE 2 DIABETES MELLITUS WITHOUT COMPLICATIONS Assessment/Plan Assessment/Plan Acute gallstone/obstructive pancreatitis Pulmonary vascular congestion DM HTN HPL TIA Esophageal stricture by history PO as tolerated Pain control Zofran PRN DVT/GI prophylaxis CT ABD/PELVIS Incentive Spirometry DR CAGLE
--- NOTE | 2016-07-15 14:57 | PN ---
Progress Note, Physician History of Present Illness: Pt seen and examined at bedside. She still complains of abdominal discomfort. - Current Medication List Current Medications: Active Medications Acetaminophen (Tylenol -) 650 mg PO Q6H PRN PRN Reason: FEVER OR PAIN Last Admin: 07/15/16 06:40 Dose: 650 mg Albuterol/Ipratropium (Duoneb -) 1 amp NEB Q6H PRN PRN Reason: SHORTNESS OF BREATH Chlorhexidine Gluconate (Hibiclens For Decolonization -) 1 applic TP HS [facility] Last Admin: 07/14/16 21:34 Dose: Not Given Docusate Sodium (Colace -) 100 mg PO DAILY [facility] Last Admin: 07/15/16 10:33 Dose: 100 mg Heparin Sodium (Porcine) (Heparin -) 5,000 unit SQ BID [facility] Last Admin: 07/15/16 10:33 Dose: 5,000 unit Dextrose/Lactated Ringer's (D5-Lr -) 1,000 mls @ 42 mls/hr IV ASDIR [facility] Last Admin: 07/15/16 14:00 Dose: 42 mls/hr Famotidine/Sodium Chloride (Pepcid 20 Mg Premixed Ivpb -) 50 mls @ 100 mls/hr IVPB BID [facility] Last Admin: 07/15/16 10:31 Dose: 100 mls/hr Insulin Aspart (Novolog Vial Sliding Scale -) 1 vial SQ TIDAC [facility] PRN Reason: Protocol Last Admin: 07/15/16 11:39 Dose: 2 units Metoprolol Succinate (Toprol Xl -) 25 mg PO DAILY [facility] Last Admin: 07/15/16 10:33 Dose: 25 mg Ondansetron HCl (Zofran Injection) 4 mg IVPUSH Q6H PRN PRN Reason: NAUSEA AND/OR VOMITING Oxycodone HCl (Roxicodone -) 5 mg PO Q4H PRN PRN Reason: PAIN Last Admin: 07/15/16 10:35 Dose: 5 mg - Objective Vital Signs: Vital Signs Temperature 98.9 F 07/15/16 14:00 Pulse Rate 88 07/15/16 14:00 Respiratory Rate 18 07/15/16 14:00 Blood Pressure 142/74 07/15/16 14:00 O2 Sat by Pulse Oximetry (%) 97 07/14/16 21:00 Constitutional: Yes: Calm Eyes: Yes: Conjunctiva Clear HENT: Yes: Atraumatic Cardiovascular: Yes: S1, S2 Respiratory: Yes: On Nasal O2 Gastrointestinal: Yes: Soft Genitourinary: Yes: WNL Musculoskeletal: Yes: WNL Edema: No Neurological: Yes: Oriented Psychiatric: Yes: Oriented Labs: CBC, BMP 07/15/16 05:41 07/15/16 05:41 Problem List - Problems (1) Abdominal pain Code(s): R10.9 - UNSPECIFIED ABDOMINAL PAIN (2) Acute pancreatitis Code(s): K85.90 - ACUTE PANCREATITIS WITHOUT NECROSIS OR INFECTION, UNSP (3) Arthritis Code(s): M19.90 - UNSPECIFIED OSTEOARTHRITIS, UNSPECIFIED SITE (4) PARVEEN (acute kidney injury) Code(s): N17.9 - ACUTE KIDNEY FAILURE, UNSPECIFIED Assessment/Plan Current Medications Generic Name Dose Route Start Last Admin Trade Name Freq PRN Reason Stop Dose Admin Acetaminophen 650 mg 07/13/16 19:14 07/15/16 06:40 Tylenol - PO 650 mg Q6H PRN Administration FEVER OR PAIN Albuterol/Ipratropium 1 amp 07/12/16 14:37 Duoneb - NEB Q6H PRN SHORTNESS OF BREATH Chlorhexidine Gluconate 1 applic 07/12/16 22:00 07/14/16 21:34 Hibiclens For Decolonization - TP Not Given HS [facility] Docusate Sodium 100 mg 07/13/16 16:30 07/15/16 10:33 Colace - PO 100 mg DAILY [facility] Administration Heparin Sodium (Porcine) 5,000 unit 07/12/16 22:00 07/15/16 10:33 Heparin - SQ 5,000 unit BID [facility] Administration Dextrose/Lactated Ringer's 1,000 mls @ 42 mls/hr 07/12/16 14:37 07/15/16 14:00 D5-Lr - IV 42 mls/hr ASDIR [facility] Administration Famotidine/Sodium Chloride 50 mls @ 100 mls/hr 07/12/16 22:00 07/15/16 10:31 Pepcid 20 Mg Premixed Ivpb - IVPB 100 mls/hr BID [facility] Administration Insulin Aspart 1 vial 07/12/16 16:30 07/15/16 11:39 Novolog Vial Sliding Scale - SQ 2 units TIDAC [facility] Administration Protocol Metoprolol Succinate 25 mg 07/13/16 14:00 07/15/16 10:33 Toprol Xl - PO 25 mg DAILY [facility] Administration Ondansetron HCl 4 mg 07/12/16 14:37 Zofran Injection IVPUSH Q6H PRN NAUSEA AND/OR VOMITING Oxycodone HCl 5 mg 07/15/16 08:48 07/15/16 10:35 Roxicodone - PO 5 mg Q4H PRN Administration PAIN Impression 1. PARVEEN 2. acute pancreatitis 3. DM 4. arthritis 5. PVD 6. hyperlipidemia 7. right kidney hydronephrosis 8. hypokalemia Plan - follow up ct scan - cont fluids - lytes are stable - urology eval - monitor labs - right renal hydro on ultrasound, recommend urology eval - will follow PRN Dr More
--- NOTE | 2016-07-15 15:11 | PN ---
Physical Exam: SUBJECTIVE: Patient seen and examined Pt is awake, alert and oriented Was eating breakfast with no n/v C/o of abdominal pain all night Pt has low grade fever OBJECTIVE: Vital Signs Period Temp Pulse Resp BP Sys/Beaver Pulse Ox Last 24 Hr 98.2 F-100.7 F 71-88 18-20 121-148/61-81 97 GENERAL: The patient is awake, alert, and fully oriented, in no distress. NECK: Trachea midline, full range of motion, supple. LUNGS:bibasilar crackles to auscultation bilaterally, no wheezes, no accessory muscle use. HEART: Regular rate and rhythm, S1, S2 with systolic murmur, rub or gallop. ABDOMEN: Soft, epigastric tenderness, distended, normoactive bowel sounds, no guarding no rebound, no hepatosplenomegaly, no masses. EXTREMITIES: 2+ pulses, warm, well-perfused, no edema. NEUROLOGICAL: Normal speech, gait not observed. PSYCH: Normal mood, normal affect. SKIN: Warm, dry, normal turgor, no rashes or lesions noted Laboratory Results - last 24 hr 07/14/16 07/15/16 07/15/16 16:57 05:41 05:41 WBC 20.1 H D RBC 3.53 L Hgb 11.0 Hct 33.3 MCV 94.4 MCHC 32.9 RDW 13.6 Plt Count 407 D MPV 7.4 L Neutrophils % 75.0 Lymphocytes % 13.0 D Monocytes % 6.0 Band Neutrophils 1.0 D Metamyelocytes 3 H Myelocytes 2 Differential Comment Manual diff done Platelet Estimate Adequate Sodium 138 Potassium 3.6 Chloride 100 Carbon Dioxide 27 Anion Gap 11 BUN 8 Creatinine 0.7 POC Glucometer 156 Random Glucose 188 H D Calcium 9.1 Phosphorus 3.2 D Magnesium 1.8 C-Reactive Protein Total Amylase Lipase 07/15/16 07/15/16 07/15/16 05:41 05:53 11:37 WBC RBC Hgb Hct MCV MCHC RDW Plt Count MPV Neutrophils % Lymphocytes % Monocytes % Band Neutrophils Metamyelocytes Myelocytes Differential Comment Platelet Estimate Sodium Potassium Chloride Carbon Dioxide Anion Gap BUN Creatinine POC Glucometer 186 193 Random Glucose Calcium Phosphorus Magnesium C-Reactive Protein 28.9 H D Total Amylase 45 D Lipase 229 Active Medications Generic Name Dose Route Start Last Admin Trade Name Freq PRN Reason Stop Dose Admin Acetaminophen 650 mg 07/13/16 19:14 07/15/16 06:40 Tylenol - PO 650 mg Q6H PRN Administration FEVER OR PAIN Albuterol/Ipratropium 1 amp 07/12/16 14:37 Duoneb - NEB Q6H PRN SHORTNESS OF BREATH Chlorhexidine Gluconate 1 applic 07/12/16 22:00 07/14/16 21:34 Hibiclens For Decolonization - TP Not Given [facility] Docusate Sodium 100 mg 07/13/16 16:30 07/15/16 10:33 Colace - PO 100 mg DAILY [facility] Administration Heparin Sodium (Porcine) 5,000 unit 07/12/16 22:00 07/15/16 10:33 Heparin - SQ 5,000 unit BID [facility] Administration Dextrose/Lactated Ringer's 1,000 mls @ 42 mls/hr 07/12/16 14:37 07/15/16 14:00 D5-Lr - IV 42 mls/hr ASDIR [facility] Administration Famotidine/Sodium Chloride 50 mls @ 100 mls/hr 07/12/16 22:00 07/15/16 10:31 Pepcid 20 Mg Premixed Ivpb - IVPB 100 mls/hr BID [facility] Administration Insulin Aspart 1 vial 07/12/16 16:30 07/15/16 11:39 Novolog Vial Sliding Scale - SQ 2 units TIDAC [facility] Administration Protocol Metoprolol Succinate 25 mg 07/13/16 14:00 07/15/16 10:33 Toprol Xl - PO 25 mg DAILY [facility] Administration Ondansetron HCl 4 mg 07/12/16 14:37 Zofran Injection IVPUSH Q6H PRN NAUSEA AND/OR VOMITING Oxycodone HCl 5 mg 07/15/16 08:48 07/15/16 14:56 Roxicodone - PO 5 mg Q4H PRN Administration PAIN CBC, BMP 07/15/16 05:41 07/15/16 05:41 Microbiology 07/13/16 17:27 Urine - Urine Maldonado Urine Culture - Preliminary Group D Strep Or Entero Coccus 07/13/16 17:05 Blood - Peripheral Venous Blood Culture - Preliminary NO GROWTH OBTAINED AFTER 24 HOURS, INCUBATION TO CONTINUE FOR 4 DAYS. 07/13/16 17:05 Blood - Peripheral Venous Blood Culture - Preliminary NO GROWTH OBTAINED AFTER 24 HOURS, INCUBATION TO CONTINUE FOR 4 DAYS. ASSESSMENT/PLAN: 89 year old female with pmh og DM, HTN, HPLD, TIA, PVD, RLS, esophageal stricture presented to the Ed with complaint of severe abdominal pain accompanied by nausea and non bloody, non bilious episode of vomiting. Pt was found to have Acute pancreatitis. Acute pancreatitis likely due to gallstone, r/o Trajenta effect. [place] II score 6, Bisap 1 Amylase 1225, Lipase 6575 on admission Pt is having fever, abdominal pain is still severe Will repeat CT abdomen and pelvis with IV contrast Consider increasing IV fluid Oxycodone 5mg PO Q4h for pain Zofran PRN for Nausea GI consulted, Dr Wong on case Surgery consulted Dr Chan, no surgical intervention right now Sepsis from UTI wbc 20.1, fever urine culture positive for enteroccus recall ID Vancomycin IV 1 gm once Diabetes Now controlled Novolog sliding scale HTN resume home meds Lopressor 5mg PRN IV q4h FEN Fluid: D5LR at 42ml/h Electrolytes: chemistry in am Nutrition: DVT prophyalaxis: SCD Disposition: transfer to telemetry Visit type - Emergency Visit Emergency Visit: Yes ED Registration Date: 07/07/16 Care time: The patient presented to the Emergency Department on the above date and was hospitalized for further evaluation of their emergent condition. - New Patient This patient is new to me today: Yes - Critical Care Critical Care patient: No - Discharge Referral Referred to [facility] Med P.C.: No
--- NOTE | 2016-07-15 15:14 | PN ---
GI Progress Note Subjective: States abdominal pain worse WBC's have been trending up Low grade temps - Objective Vital Signs: Vital Signs Temperature 98.9 F 07/15/16 14:00 Pulse Rate 88 07/15/16 14:00 Respiratory Rate 18 07/15/16 14:00 Blood Pressure 142/74 07/15/16 14:00 O2 Sat by Pulse Oximetry (%) 97 07/14/16 21:00 Constitutional: Calm Eyes: No: Sclera Icterus Cardiovascular: Yes: Regular Rate and Rhythm Respiratory: Yes: Diminished (at bases bilaterally) Gastrointestinal Inspection: Yes: Distention (protuberant) ...Auscultate: Yes: Normoactive Bowel Sounds ...Palpate: Yes: Tenderness (TTP epigastrium) ...Percussion: No: Tympanitic Edema: Yes Edema: LLE: Trace, RLE: Trace Neurological: Yes: Alert Labs: CBC, BMP 07/15/16 05:41 07/15/16 05:41 Hepatic Panel Total Bilirubin 0.3 mg/dL (0.2-1.0) 07/14/16 07:05 Direct Bilirubin 0.1 mg/dL (0.0-0.2) 07/14/16 07:05 AST 19 U/L (15-37) D 07/14/16 07:05 ALT 19 U/L (12-78) 07/14/16 07:05 Alkaline Phosphatase 56 U/L (45-117) 07/14/16 07:05 Albumin 2.6 g/dl (3.4-5.0) L 07/14/16 07:05 Problem List - Problems (1) Acute pancreatitis Assessment/Plan: Awaiting read from repeat CT scan. continued pain with worsening WBC. may benefit from post bulbartube feeds if patient will tolerate NGT feeding Guarded prognosis NPO / IV hydration Code(s): K85.90 - ACUTE PANCREATITIS WITHOUT NECROSIS OR INFECTION, UNSP
[2016-07-15] MEDS ORDERED: VANCOMYCIN 1 GRAM (PRE-DOCKED) 1,000 MG/250 ML BAG IVPB ONE (15:15)
--- NOTE | 2016-07-15 17:15 | PN ---
Progress Note (short form) - Note Progress Note: Reviewed CT scan with Dr. Mcclelland. Pancreas enhances, there is an anterior ? phlegmon / early pseudocyst anterior to the pancreeas. There also appeared to be right sided hydronephrosis and a markedly distended urinary bladder. I advised nurse to place grey. 900CC fluid drained from bladder. Advised to keep grey in and call PMD. Will reassess in AM, see if improvement now with urinary retention treated, prior to committing her to enteral feeding tube. Problem List - Problems (1) Acute pancreatitis Code(s): K85.90 - ACUTE PANCREATITIS WITHOUT NECROSIS OR INFECTION, UNSP
--- NOTE | 2016-07-15 18:28 | PN ---
Teaching Attending Note Name of Resident: Bo Butler ATTENDING PHYSICIAN STATEMENT I saw and evaluated the patient. I reviewed the resident's note and discussed the case with the resident. I agree with the resident's findings and plan as documented. SUBJECTIVE: Patient continues to have abdominal pain and low grade temps. OBJECTIVE: Vital Signs Period Temp Pulse Resp BP Sys/Beaver Pulse Ox Last 24 Hr 98.2 F-100 F 71-88 18-19 121-148/72-81 97-97 HEART: S1S2, RRR LUNGS: Clear ABDOMEN: Soft, distended, (+) diffuse tenderness, hypoactive BS EXTREMITIES: No edema ASSESSMENT AND PLAN: This is an 89-year-old woman with a history of type 2 DM, HTN, hyperlipidemia, TIA, PAD, RLS, esophageal stricture who presented to the ER with abdominal pain. 1. Acute pancreatitis - Secondary to gallstones vs medication - Tradjenta held - CT shows possible phlegmon/pseudocyst and distended urinary bladder with right hydronephrosis - NPO - Continue IV fluid 2. Urinary retention - Maldonado catheter inserted 3. Acute kidney injury secondary to hypovolemia - Improved 4. Hypotension secondary to hypovolemia - Improved 5. Hypomagnesemia - Improved 6. Hypokalemia - Improved 7. Hypophosphatemia - Improved 8. Asymptomatic bacteriuria - Rocephin discontinued 9. Acute anemia, likely secondary to acute pancreatitis - Hemoglobin stable 10. HTN - Continue Toprol XL 11. Type 2 DM - Continue Novolog sliding scale 12. Hyperlipidemia 13. PAD 14. History of TIA 15. Restless leg syndrome
[2016-07-16] MEDS: INSULIN SLIDING SCALE (NOVOLOG) 1 VIAL SQ SCH ×3 (06:50→18:15)
[2016-07-16] MEDS ORDERED: PT OWN MED DRAWER 7, Y5N ONE ×3 (06:52→21:36)
[2016-07-16 07:39] LABS: MCH 31.2 pg (25.7-33.7); MCHC 33.1 g/dl (32.0-36.0); MEAN CELL VOLUME 94.4 fl (80-96); MEAN PLT VOLUME 7.9 fl (7.5-11.1); PLATELET COUNT 417 K/MM3 (134-434); RDW 13.7 % (11.6-15.6); WHITE BLOOD COUNT 22.3 K/mm3 (4.0-10.0)
[2016-07-16 08:09] LABS: ALBUMIN 2.3 g/dl (3.4-5.0); ALK PHOS 68 U/L (45-117); ANION GAP 13 (8-16); BILIRUBIN,TOTAL 0.2 mg/dL (0.2-1.0); CALCIUM 9.2 mg/dL (8.5-10.1); CO2 27 mmol/L (21-32); COCKROFT - GAULT 47.3535; CREATININE 0.7 mg/dL (0.55-1.02); GLUCOSE,RANDOM 171 mg/dL (74-106); SGOT/AST 22 U/L (15-37); SGPT/ALT 20 U/L (12-78); TOT PROT 5.9 g/dl (6.4-8.2)
[2016-07-16 08:54] LABS: C-REACTIVE PROTEIN 27.9 MG/DL (0.00-0.3)
[2016-07-16] MEDS: HEPARIN NA (PORCINE) 5,000 UNITS/ML 1ML VIAL SQ SCH ×2 (10:11→21:42)
[2016-07-16] MEDS: DOCUSATE SODIUM 100 MG CAPSULE (FP) PO SCH (10:11)
[2016-07-16] MEDS: METOPROLOL SUCCINATE 25 MG TAB.SR.24H (FP) PO SCH (10:11)
[2016-07-16] MEDS: FAMOTIDINE 20 MG/50 ML IVPB 50 ML IVPB SCH (10:11)
--- NOTE | 2016-07-16 11:12 | MSN ---
Progress Note (short form) - Note Progress Note: Saw and evaluated patient this AM. Patient was alert and oriented and in no apparent distress. Patient did not complain of any pain overnight and has stated that her abdominal pain has resolved. Patient had been tolerating a clear liquid diet yesterday and was switched to a soft diet. Last night, patient had a distended bladder. Maldonado catheter was placed and drained 900 cc of fluid. This AM, patient had 400 cc of fluid in Maldonado. Patient also had a large bowel movement yesterday. Patient had a mild fever overnight. Patient's WBC count has gone up from 20.1 to 22.3 this AM. Urine cultures have returned and are growing Enterococcus. Patient given Vancomycin once last night. Will consult ID. Patient will need a new antibiotic regimen for current UTI. Will need urology consult. Will continue to monitor patient's vitals and labs. Current Medications Generic Name Dose Route Start Last Admin Trade Name Freq PRN Reason Stop Dose Admin Acetaminophen 650 mg 07/13/16 19:14 07/15/16 21:07 Tylenol - PO 650 mg Q6H PRN Administration FEVER OR PAIN Albuterol/Ipratropium 1 amp 07/12/16 14:37 Duoneb - NEB Q6H PRN SHORTNESS OF BREATH Docusate Sodium 100 mg 07/13/16 16:30 07/16/16 10:11 Colace - PO 100 mg DAILY ORTEGA Administration Heparin Sodium (Porcine) 5,000 unit 07/12/16 22:00 07/16/16 10:11 Heparin - SQ 5,000 unit BID ORTEGA Administration Famotidine/Sodium Chloride 50 mls @ 100 mls/hr 07/12/16 22:00 07/16/16 10:11 Pepcid 20 Mg Premixed Ivpb - IVPB 100 mls/hr BID ORTEGA Administration Dextrose/Lactated Ringer's 1,000 mls @ 150 mls/hr 07/15/16 15:13 07/15/16 16:19 D5-Lr - IV 150 mls/hr ASDIR ORTEGA Administration Insulin Aspart 1 vial 07/12/16 16:30 07/16/16 06:50 Novolog Vial Sliding Scale - SQ Not Given TIDAC [facility] Protocol Metoprolol Succinate 25 mg 07/13/16 14:00 07/16/16 10:11 Toprol Xl - PO 25 mg DAILY ORTEGA Administration Ondansetron HCl 4 mg 07/12/16 14:37 Zofran Injection IVPUSH Q6H PRN NAUSEA AND/OR VOMITING Oxycodone HCl 5 mg 07/15/16 08:48 07/15/16 14:56 Roxicodone - PO 5 mg Q4H PRN Administration PAIN Vital Signs Period Temp Pulse Resp BP Sys/Beaver Pulse Ox Last 24 Hr 98.3 F-100.6 F 69-98 18-22 108-165/50-95 95 PHYSICAL EXAM GENERAL: Alert, oriented to person, time, and place. In no apparent distress. EYES: PERRLA, EOMI, conjunctiva clear BL ENT: Ears normal, nares patent, no signs of trauma NECK: Trachea midline, no JVD HEART: 3/6 pansystolic murmur, +S1, S2, no gallops LUNGS: Equal breath sounds bilaterally, no wheezes, rubs ABDOMEN: Soft, nontender, hypoactive bowel sounds in all four quadrants. No tenderness to palpation MSK: Muscle strength 5/5 globally NEURO: product handler intact, normal speech, gait not observed EXTREMITIES: 2+ pulses bilaterally, warm, well perfused, no edema Laboratory Results - last 24 hr 07/15/16 07/15/16 07/15/16 05:41 11:37 17:12 WBC RBC Hgb Hct MCV MCHC RDW Plt Count MPV Neutrophils % 75.0 Lymphocytes % 13.0 D Monocytes % 6.0 Band Neutrophils 1.0 D Metamyelocytes 3 H Myelocytes 2 Differential Comment Manual diff done Platelet Estimate Adequate Sodium Potassium Chloride Carbon Dioxide Anion Gap BUN Creatinine Creat Clearance w eGFR POC Glucometer 193 204 Random Glucose Calcium Total Bilirubin AST ALT Alkaline Phosphatase C-Reactive Protein Total Protein Albumin 07/16/16 07/16/16 07/16/16 05:14 05:35 05:35 WBC 22.3 H RBC 3.04 L Hgb 9.5 L D Hct 28.7 L MCV 94.4 MCHC 33.1 RDW 13.7 Plt Count 417 MPV 7.9 Neutrophils % Y Lymphocytes % Y Monocytes % Band Neutrophils Metamyelocytes Myelocytes Differential Comment Platelet Estimate Sodium 140 Potassium 3.4 L Chloride 100 Carbon Dioxide 27 Anion Gap 13 BUN 9 Creatinine 0.7 Creat Clearance w eGFR > 60 POC Glucometer 205 Random Glucose 171 H Calcium 9.2 Total Bilirubin 0.2 D AST 22 ALT 20 Alkaline Phosphatase 68 D C-Reactive Protein 27.9 H D Total Protein 5.9 L Albumin 2.3 L 07/16/16 05:35 WBC RBC Hgb Hct MCV MCHC RDW Plt Count MPV Neutrophils % Lymphocytes % Monocytes % Band Neutrophils Metamyelocytes Myelocytes Differential Comment Platelet Estimate Sodium Potassium Chloride Carbon Dioxide Anion Gap BUN Creatinine Creat Clearance w eGFR POC Glucometer Random Glucose Calcium Total Bilirubin AST ALT Alkaline Phosphatase C-Reactive Protein Cancelled Total Protein Albumin IMAGING CXR (07/07/16): No acute pathology. Degenerative changes. Hiatal hernia. Large heart. Sclerotic knob. Probable old trauma proximal left. CXR (07/08/16): Repeated for signs of fluid overload. No changes Abdominal/Pelvic CT (07/07/16): Acute pancreatitis. Underlying chronic calcific pancreatitis. Cholelithiasis without CT evidence of cholecystitis Abdominal US (07/07/16): Cholelithiasis, Diffuse fatty infiltration of the liver with hepatomegaly CXR (07/09/16): Same as 07/07 and Increased density seen at the left base. CXR (07/11/16): Same as 07/07 and Increased density in the medial left upper lobe CXR (07/12/16): Same as 07/07 and Bilateral pleural effusions CXR: (07/13/16): Same as 07/07 and better aeration than CXR (07/12) Abdominal/Pelvic CT: (07/15/16): Decreasing pleural effusions and lower lobe atelectasis. Evolving acute pancreatitis with slight increase in peripancreatic fluid within the lesser sac and posterior to the pancreas. Increasing BL hydronephrosis and hydroureter without obvious obstruction. ASSESSMENT/PLAN 89 y/o F with PMHx of DMII, HTN, HLD, TIA presents to ED with severe abdominal pain. Admitted for abdominal pain secondary to acute pancreatitis 1. Acute pancreatitis -Amylase 1225, Lipase 6575 -[place] score of 6, BISAP score of 1 -Soft diet, tolerated clear liquid diet -Lactated ringers 150cc/hr -IV Oxycodone, PO Tylenol for pain -IV Zofran for N/V -GI and surgery on board -Continue supportive measures per GI 2. Sepsis secondary to UTI -WBC count up from 20.1 to 22.3 -Urine cx positive for Enterococcus -Vancomycin given once -CT positive for increasing BL hydronephrosis and hydroureter without obvious obstruction. -ID consult appreciated -Urology consult -Need new regimen 3. DMII -ISS -BGM, ACHS -Hold Tradjenta (can cause pancreatitis) 4. Renal insufficiency -Resolved -Creatinine 0.7 now -Likely secondary to hypovolemia -Fluids at 150 cc/hr -Continue to monitor 5. HTN -Continue home meds 6. Constipation -Continue Colace 7. Ppx -Subq Heparin for DVT -Famotidine for GI Dispo: Med/surg
--- NOTE | 2016-07-16 11:19 | PN ---
Teaching Attending Note Name of Resident: Bo Butler ATTENDING PHYSICIAN STATEMENT I saw and evaluated the patient. I reviewed the resident's note and discussed the case with the resident. I agree with the resident's findings and plan as documented. SUBJECTIVE:states abdominal pain resolved last night after grey was placed. requesting to eat. denies CP, SOB,fever, chills, abdominal pain, hematuria, dysuria BM yesterday OBJECTIVE: Last Vital Signs Temp Pulse Resp BP Pulse Ox 99.3 F 69 20 109/52 95 07/16/16 10:18 07/16/16 10:18 07/16/16 10:18 07/16/16 10:18 07/15/16 22:00 General NAD CV S1 S2 RRR + murmur no rub/gallop Lungs CTA B/L no wheezing/rales/rhonchi abdomen soft NT/ND normoactive BS ASSESSMENT AND PLAN: 89yo F wtih PMH DM, HTN, HLD, TIA, PVD, RLS & esophageal stricture presented to the ER and was admitted for further evaluation of their emergent condition 1. Acute pancreatitis- due to gallstones vs medication induced. with pseudocyst seen. clinically improved. continues to have inflammation of the pancreas seen on CT. will try clear liquid diet. surgery saying not a candidate at this time for cholecystectomy as likely due to medication. cont IVF until tolerating diet and then will d/c. GI on board. 2. Urinary retention- with R sided hydronephrosis seen on CT. 900mL post void volume. grey placed. consult urology 3. Group D strep UTI- Tm 100.6 with uptrending leukocytosis. received vanco 1g x1 yesterday. request ID to consult on abx management. will await c&s 4. Hypokalemia- kcl 40meq 5. HTN- controlled. cont home medications 6. DM- hold oral agents, hold trajenda. ISS, BGM 7. DVT ppx- hep sq
[2016-07-16 12:02] LABS: METAMYELOCYTE 1 % (0-2); PLATELET ESTIMATE ADEQUATE (NORMAL)
[2016-07-16] MEDS ORDERED: INSULIN (NOVOLOG) ASPART 100 UNITS/ML 10ML VIAL ONE (12:04)
--- NOTE | 2016-07-16 12:14 | PN ---
Physical Exam: SUBJECTIVE: Patient seen and examined Pt is awake, alert and fully oriented Low grade fever overnight NO use of pain medication overnight Pt say she feels better today no weakness or fatigue no chest pain, palpitation or shortness of breath No abdominal pain, no n/v OBJECTIVE: Vital Signs Period Temp Pulse Resp BP Sys/Beaver Pulse Ox Last 24 Hr 98.3 F-100.6 F 69-98 18-22 108-165/50-95 95 GENERAL: The patient is awake, alert, and fully oriented, in no distress. NECK: Trachea midline, full range of motion, supple. LUNGS: bibasilar crackles to auscultation bilaterally, no wheezes, no accessory muscle use. HEART: Regular rate and rhythm, S1, S2 with systolic murmur, rub or gallop. ABDOMEN: Soft, non-tenderness tenderness, non-distended, normoactive bowel sounds, no guarding no rebound, no hepatosplenomegaly, no masses. EXTREMITIES: 2+ pulses, warm, well-perfused, no edema. NEUROLOGICAL: Normal speech, gait not observed. PSYCH: Normal mood, normal affect. SKIN: Warm, dry, normal turgor, no rashes or lesions noted Laboratory Results - last 24 hr 07/15/16 07/16/16 07/16/16 17:12 05:14 05:35 WBC 22.3 H RBC 3.04 L Hgb 9.5 L D Hct 28.7 L MCV 94.4 MCHC 33.1 RDW 13.7 Plt Count 417 MPV 7.9 Neutrophils % 91.0 H D Lymphocytes % 3.0 L D Monocytes % 4.0 Metamyelocytes 1 D Myelocytes 1 D Differential Comment Manual diff done Platelet Estimate Adequate Sodium Potassium Chloride Carbon Dioxide Anion Gap BUN Creatinine Creat Clearance w eGFR POC Glucometer 204 205 Random Glucose Calcium Total Bilirubin AST ALT Alkaline Phosphatase C-Reactive Protein Total Protein Albumin 07/16/16 07/16/16 05:35 05:35 WBC RBC Hgb Hct MCV MCHC RDW Plt Count MPV Neutrophils % Lymphocytes % Monocytes % Metamyelocytes Myelocytes Differential Comment Platelet Estimate Sodium 140 Potassium 3.4 L Chloride 100 Carbon Dioxide 27 Anion Gap 13 BUN 9 Creatinine 0.7 Creat Clearance w eGFR > 60 POC Glucometer Random Glucose 171 H Calcium 9.2 Total Bilirubin 0.2 D AST 22 ALT 20 Alkaline Phosphatase 68 D C-Reactive Protein 27.9 H D Cancelled Total Protein 5.9 L Albumin 2.3 L Active Medications Generic Name Dose Route Start Last Admin Trade Name Rafaelq PRN Reason Stop Dose Admin Acetaminophen 650 mg 07/13/16 19:14 07/15/16 21:07 Tylenol - PO 650 mg Q6H PRN Administration FEVER OR PAIN Albuterol/Ipratropium 1 amp 07/12/16 14:37 Duoneb - NEB Q6H PRN SHORTNESS OF BREATH Docusate Sodium 100 mg 07/13/16 16:30 07/16/16 10:11 Colace - PO 100 mg DAILY ORTEGA Administration Heparin Sodium (Porcine) 5,000 unit 07/12/16 22:00 07/16/16 10:11 Heparin - SQ 5,000 unit BID ORTEGA Administration Dextrose/Lactated Ringer's 1,000 mls @ 150 mls/hr 07/15/16 15:13 07/15/16 16:19 D5-Lr - IV 150 mls/hr ASDIR [facility] Administration Insulin Aspart 1 vial 07/12/16 16:30 07/16/16 06:50 Novolog Vial Sliding Scale - SQ Not Given TIDAC [facility] Protocol Metoprolol Succinate 25 mg 07/13/16 14:00 07/16/16 10:11 Toprol Xl - PO 25 mg DAILY [facility] Administration Ondansetron HCl 4 mg 07/12/16 14:37 Zofran Injection IVPUSH Q6H PRN NAUSEA AND/OR VOMITING Oxycodone HCl 5 mg 07/15/16 08:48 07/15/16 14:56 Roxicodone - PO 5 mg Q4H PRN Administration PAIN Potassium Chloride 40 meq 07/16/16 11:34 Potassium Chloride Oral Liquid PO 07/16/16 11:35 ONCE ONE Vancomycin HCl 1,000 mg 07/16/16 11:30 Vancomycin (Pre-Docked) IVPB 07/16/16 11:31 ONCE ONE Protocol CBC, BMP 07/16/16 05:35 07/16/16 05:35 Microbiology 07/13/16 17:27 Urine - Urine Grey Urine Culture - Preliminary Group D Strep Or Entero Coccus 07/13/16 17:05 Blood - Peripheral Venous Blood Culture - Preliminary NO GROWTH OBTAINED AFTER 48 HOURS, INCUBATION TO CONTINUE FOR 3 DAYS. 07/13/16 17:05 Blood - Peripheral Venous Blood Culture - Preliminary NO GROWTH OBTAINED AFTER 48 HOURS, INCUBATION TO CONTINUE FOR 3 DAYS. Laboratory Tests 07/16/16 05:35 Calcium 9.2 Total Bilirubin 0.2 D AST 22 ALT 20 Alkaline Phosphatase 68 D C-Reactive Protein 27.9 H D Total Protein 5.9 [address]in [address] abdomen, pelvis with IV contrast 07/15/16: 1. Decreasing pleural effusions and lower lobe atelectasis. 2. Evolving acute pancreatitis with slight increase in peripancreatic fluid within the lesser sac and posterior to the pancreas. No evidence of a pseudocyst or abscess. 3. Increasing bilateral hydronephrosis and hydroureter without obvious obstruction. Clinical correlation and continued follow-up recommended. Please see above discussion ASSESSMENT/PLAN: 89 year old female with pmh og DM, HTN, HPLD, TIA, PVD, RLS, esophageal stricture presented to the Ed with complaint of severe abdominal pain accompanied by nausea and non bloody, non bilious episode of vomiting. Pt was found to have Acute pancreatitis. Acute pancreatitis likely due to gallstone, r/o Trajenta effect. Hus[place] II score 6, Bisap 1 Amylase 1225, Lipase 6575 on admission Pt is still having low grade fever but abdominal pain has improved since placing grey yesterday CT abdomen and pelvis with IV contrast done, showed slighly worsening of acute pancreatitis, no psudocyst, abscess or necrosis Fluid was increased yesterday, wuill continue D5LR at 150 Will do liquid diet trial today since pt is clinically improving Oxycodone 5mg PO Q4h for pain Zofran PRN for Nausea GI consulted, Dr Wong on case Surgery consulted Dr Chan, no surgical intervention right now, will discuss case with them Sepsis from UTI wbc 20.1yesterday, today is 22.3. fever urine culture positive for enteroccus Vancomycin IV 1 gm once given yesterday Will give one more dose of vanco today pending ID evaluation of pt F/u culture and sensitivity Urinary retention/Hydronephrosis Distended bladder on CT abdomen 1 liter post void on grey cath Consult urology Diabetes Now controlled Novolog sliding scale HTN resume home meds Lopressor 5mg PRN IV q4h FEN Fluid: D5LR at 150 ml/h Electrolytes: chemistry in am Nutrition: liquid diet DVT prophyalaxis: SCD Disposition:keep in telemetry pending resolution of pancreatitis Visit type - Emergency Visit Emergency Visit: Yes ED Registration Date: 07/07/16 Care time: The patient presented to the Emergency Department on the above date and was hospitalized for further evaluation of their emergent condition. - New Patient This patient is new to me today: Yes Date on this admission: 07/16/16 - Critical Care Critical Care patient: No - Discharge Referral Referred to [facility] No
[2016-07-16] MEDS ORDERED: POTASSIUM CHLORIDE ORAL LIQUID 20 MEQ/15 ML PO ONE (12:30)
[2016-07-16] MEDS ORDERED: VANCOMYCIN 1 GRAM (PRE-DOCKED) 1,000 MG/250 ML BAG IVPB ONE (13:00)
--- NOTE | 2016-07-16 13:09 | PN ---
GI Progress Note Subjective: Abdominal pain improved. Made NPO last night and increased IVF Also had grey placed yesterday with 900cc output Continued low grade fevers - Objective Vital Signs: Vital Signs Temperature 99.3 F 07/16/16 10:18 Pulse Rate 69 07/16/16 10:18 Respiratory Rate 20 07/16/16 10:18 Blood Pressure 109/52 07/16/16 10:18 O2 Sat by Pulse Oximetry (%) 95 07/15/16 22:00 Constitutional: Calm Cardiovascular: Yes: Regular Rate and Rhythm Respiratory: Yes: Rhonchi (at right lung base) Gastrointestinal Inspection: No: Distention ...Auscultate: Yes: Normoactive Bowel Sounds ...Palpate: Yes: Tenderness (TTP upper abdomen, somewhat improved from previous) Labs: CBC, BMP 07/16/16 05:35 07/16/16 05:35 Problem List - Problems (1) Acute pancreatitis Assessment/Plan: Some clinical improvement however she was also made NPO yesterday. I suspect the bladder distention was contributing to her worsened abdominal pain She does have a rising WBC however along with rising WBC. For feeding purposes we discussed options including jejunal feeding tube placed endoscopically. We discussed potential risks of the procedure like but not limited to bleeding, perforation requiring surgery to repair, infecgtion, sedation medication effects all of which could be potentially life threatening. She did not want to proceed with enterla feeding tube placement at this time. She did agree to a bedside placed feeding tube. Studies suggest that enterla feeding via NG tube can have benefit and be tolerated as well in severe pancreatitis. NGT placed. Awaiting AXR for placement confirmation. If confirmed will start tube feeds with elemental formula ID F/U Guarded prognosis Code(s): K85.90 - ACUTE PANCREATITIS WITHOUT NECROSIS OR INFECTION, UNSP
--- NOTE | 2016-07-16 13:57 | PN ---
Progress Note (short form) - Note Progress Note: intermittent low grade fevers repeat ct scan ab/pelvis- acute pancreatitis- no abscess hydronephrosis noted- she had grey placed with 900 cc urine outpt yesterday vancomycin given yesterday denies SOB or abdominal pain feeding tube just placed cxray with pleural effusions/atelectasis Vital Signs Period Temp Pulse Resp BP Sys/Beaver Pulse Ox Last 24 Hr 98.3 F-100.6 F 69-98 18-22 108-165/50-95 95 cor-rrr lungs decreased bs at bases abd soft,n+BS, NT ext no edema +grey CBC, BMP 07/16/16 05:35 07/16/16 05:35 Microbiology 07/13/16 17:27 Urine - Urine Grey Urine Culture - Preliminary Enterococcus Faecalis 07/13/16 17:05 Blood - Peripheral Venous Blood Culture - Preliminary NO GROWTH OBTAINED AFTER 48 HOURS, INCUBATION TO CONTINUE FOR 3 DAYS. 07/13/16 17:05 Blood - Peripheral Venous Blood Culture - Preliminary NO GROWTH OBTAINED AFTER 48 HOURS, INCUBATION TO CONTINUE FOR 3 DAYS. 07/07/16 15:54 Blood - Peripheral Venous Blood Culture - Final NO GROWTH AFTER 5 DAYS INCUBATION 07/07/16 15:43 Blood - Peripheral Venous Blood Culture - Final NO GROWTH AFTER 5 DAYS INCUBATION 07/10/16 12:25 Urine - Urine Grey Urine Culture - Final NO GROWTH OBTAINED 07/07/16 17:47 Urine - Urine Clean Catch Urine Culture - Final Contaminated: Please Repeat a/p acute pancreatitis with low grade fevers and leukocytosis urinary retention with enterococcus in urine will repeat blood cultures and start ampicillin for UTI encourage incentive spirometry d/w GI
[2016-07-16] MEDS: DEXTROSE 5%-LACTATED RINGERS 1,000 ML IV SCH ×2 (14:37→21:45)
[2016-07-16] MEDS: AMPICILLIN - 1 GM in SODIUM CHLORIDE 100 ML IVPB SCH ×2 (16:27→21:42)
--- NOTE | 2016-07-16 19:19 | CONSULT ---
Consult Consult Specialty:: urology Referred by:: medicine Reason for Consultation:: hydronephrosis - History of Present Illness Chief Complaint: hydronephrosis History of Present Illness: 89 year old female with acute pancreatitis. During her hospitalization and serial CT scans she is noted to have hydronephrosis and hydroureter down to the bladder without any stones or obstruction. She has a positive urine culture for enterococcus on 07/12/16. She denies any specific related symptoms. THe grey cath was replaced. 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: No: Alzheimer's, CVA, Dementia, Migraine, Multiple Sclerosis, Peripheral Neuropathy, Parkinson's, Seizure, Syncope, TIA, Vertigo, Other Cardio/Vascular: No: AFIB, Aneurysm, Aortic Insufficiency, Aortic Stenosis, CAD , CHF, Deep Vein Thrombosis, HTN, Hyperlipdemia, AR, Mitral Insufficiency, Mitral Stenosis, Murmur, Pulmonary Hypertension, Other Gastrointestinal: Yes: GERD, Other (SCHATZKI'S RING) Hepatobiliary: Yes: Cholelithiasis, Other (DIAGNOSED TODAY) Renal/: No: Renal Failure, Renal Inusuff, BPH, Cancer, Hematuria, Hemodialysis , Neurogenic Bladder, Renal Calculi, UTI, Other ...: No Infectious Disease: No: AIDS, C-Diff, Herpes Zoster, HIV, MRSA, STD's, Tuberculosis, VREF, Other Psych: No: Addictions, Anxiety, Bipolar, Depression, Panic, Psychosis, Schizophrenia, Other ENT: No: Allergic Rhinitis, Sinusitis, Other Endocrine: Yes: Diabetes Mellitus Dermatology: No: Basal Cell, Cellulitis, Eczema, Melanoma, Psoriasis, Squamous Cell, Other - Past Surgical History Past Surgical History: Yes: Hysterectomy, Joint Replacement, Upper Endoscopy - Alcohol/Substance Use Hx Alcohol Use: No - Smoking History Smoking history: Never smoked Have you smoked in the past 12 months: No Aproximately how many cigarettes per day: 0 Home Medications - Allergies Allergies/Adverse Reactions: Allergies Allergy/AdvReac Type Severity Reaction Status Date / Time [place]-3 acid Ethyl Esters Allergy Unknown Rash Verified 07/07/16 15:14 [From Lovaza] Egg Derived AdvReac Intermediate Vomiting Verified 07/07/16 15:14 - Home Medications Home Medications: Ambulatory Orders Fenofibrate Nanocrystallized [Fenofibrate] 145 mg PO DAILY 02/03/16 Glucosamine Sulfate Dipot Chlr [Glucosamine] 1,500 mg PO DAILY 02/03/16 Metoprolol Succinate [Toprol Xl -] 25 mg PO DAILY 02/03/16 Aspirin/Dipyridamole [Aspirin-Dipyridam ER 25-200 mg] 1 each PO BID 07/07/16 Calcium Carbonate/Vitamin D3 [Calcium 600 + Vit D Tablet] 1 each PO DAILY Multivit-Min/Iron/Folic/Lutein [Centrum Silver Women Tablet] 1 each PO DAILY Review of Systems - Review of Systems Genitourinary: denies: No Symptoms, Burning, Discharge, Dysuria, Flank Pain, Frequency, Hematuria Physical Exam Vital Signs: Vital Signs Temperature 98.9 F 07/16/16 14:00 Pulse Rate 72 07/16/16 14:00 Respiratory Rate 20 07/16/16 14:00 Blood Pressure 120/66 07/16/16 14:00 O2 Sat by Pulse Oximetry (%) 95 07/15/16 22:00 Renal/: Yes: Grey Present. No: CVA Tenderness - Left, CVA Tenderness - Right , Hematuria Labs: CBC, BMP 07/16/16 05:35 07/16/16 05:35 Imaging - Results Cat Scan: Report Reviewed, Image Reviewed Problem List - Problems (1) Hydronephrosis Code(s): N13.30 - UNSPECIFIED HYDRONEPHROSIS (2) Urinary retention Assessment/Plan: hydronephrosis secondary to severe urinary retention with reflux. Please maintain grey until she is otherwise clinically stable Would start Flomax 0.4mg once she is able to tolerate po meds again, Manage any constipation. Treat UTI and repeat urine culture. Code(s): R33.9 - RETENTION OF URINE, UNSPECIFIED
[2016-07-16] MEDS: oxyCODONE HCL 5 MG TABLET PO PRN (22:03)
[2016-07-16] MEDS: ACETAMINOPHEN 325 MG TABLET (FP) PO PRN (22:04)
[2016-07-17] MEDS: AMPICILLIN - 1 GM in SODIUM CHLORIDE 100 ML IVPB SCH ×4 (02:48→21:42)
[2016-07-17] MEDS ORDERED: KETOROLAC TROMETHAMINE 15 MG/ML VIAL IVPUSH ONE (05:26)
[2016-07-17] MEDS: DEXTROSE 5%-LACTATED RINGERS 1,000 ML IV SCH ×2 (06:38→13:41)
[2016-07-17] MEDS: INSULIN SLIDING SCALE (NOVOLOG) 1 VIAL SQ SCH ×3 (06:39→17:12)
[2016-07-17 07:11] LABS: MCH 31.2 pg (25.7-33.7); MCHC 32.9 g/dl (32.0-36.0); MEAN CELL VOLUME 94.9 fl (80-96); MEAN PLT VOLUME 7.4 fl (7.5-11.1); PLATELET COUNT 437 K/MM3 (134-434); WHITE BLOOD COUNT 17.5 K/mm3 (4.0-10.0)
[2016-07-17] MEDS ORDERED: INSULIN (NOVOLOG) ASPART 100 UNITS/ML 10ML VIAL ONE ×3 (07:39→18:11)
[2016-07-17 07:45] LABS: CALCIUM 9.1 mg/dL (8.5-10.1)
[2016-07-17 07:46] LABS: COCKROFT - GAULT 66.6315; CREATININE 0.5 mg/dL (0.55-1.02)
[2016-07-17] MEDS ORDERED: POTASSIUM CHLORIDE ORAL LIQUID 20 MEQ/15 ML PO ONE (08:30)
--- NOTE | 2016-07-17 09:30 | PN ---
Progress Note (short form) - Note Progress Note: ifeels well some abdominal pain earlier today, relieved by po pain meds temps trending down 2 bms yesterday, none today Vital Signs Period Temp Pulse Resp BP Sys/Beaver Pulse Ox Last 24 Hr 98.2 F-99.9 F 67-84 16-20 104-145/51-66 +feeding tube cor-rrr lungs decreased bs at bases abd soft,nt ext no edema +grey CBC, BMP 07/17/16 05:35 07/17/16 05:35 Microbiology 07/13/16 17:05 Blood - Peripheral Venous Blood Culture - Preliminary NO GROWTH OBTAINED AFTER 72 HOURS, INCUBATION TO CONTINUE FOR 2 DAYS. 07/13/16 17:05 Blood - Peripheral Venous Blood Culture - Preliminary NO GROWTH OBTAINED AFTER 72 HOURS, INCUBATION TO CONTINUE FOR 2 DAYS. 07/13/16 17:27 Urine - Urine Grey Urine Culture - Final Enterococcus Faecalis 07/07/16 15:54 Blood - Peripheral Venous Blood Culture - Final NO GROWTH AFTER 5 DAYS INCUBATION 07/07/16 15:43 Blood - Peripheral Venous Blood Culture - Final NO GROWTH AFTER 5 DAYS INCUBATION 07/10/16 12:25 Urine - Urine Grey Urine Culture - Final NO GROWTH OBTAINED 07/07/16 17:47 Urine - Urine Clean Catch Urine Culture - Final Contaminated: Please Repeat a/p acute pancreatitis with low grade fevers and leukocytosis-improved, now with feeding tube, wbc trending down urinary retention with enterococcus in urine on ampicillin day #2 antibiotics encourage incentive spirometry, encourage ambulation
[2016-07-17] MEDS ORDERED: PT OWN MED DRAWER 7, Y5N ONE ×4 (09:36→21:25)
[2016-07-17] MEDS: HEPARIN NA (PORCINE) 5,000 UNITS/ML 1ML VIAL SQ SCH ×2 (09:43→21:42)
[2016-07-17] MEDS: TAMSULOSIN HCL 0.4 MG CAP.ER.24H (FP) PO SCH (09:45)
[2016-07-17] MEDS: METOPROLOL SUCCINATE 25 MG TAB.SR.24H (FP) PO SCH (09:45)
[2016-07-17] MEDS: DOCUSATE SODIUM 100 MG CAPSULE (FP) PO SCH (09:46)
--- NOTE | 2016-07-17 11:05 | PN ---
Progress Note (short form) - Note Progress Note: PULMONARY VSS/AFEBRILE NGT PRESENT AMBULATING IN [place]ALLWAY ANICTERIC CLEAR B/L POST BREATH SOUNDS S1S2 BS+ LESS EDEMA LOWER EXT LABS/MEDS/NOTES/IMAGING REVIEWED Acute gallstone/obstructive pancreatitis Pulmonary vascular congestion DM HTN HPL TIA Esophageal stricture by history PO as tolerated Pain control Zofran PRN DVT/GI prophylaxis Incentive Spirometry Nikki CHÁVEZ MD
--- NOTE | 2016-07-17 12:38 | MSN ---
Progress Note (short form) - Note Progress Note: Saw patient this AM. Patient was alert, oriented to person, place, and time. Patient was in no apparent distress. Patient had predominantly left sided abdominal pain at 3am and required pain medication. Patient denies chest pain, shortness of breath, palpitations, headaches. Patient had around 200 cc of urine in Maldonado catheter. Per Urology, patient has hydronephrosis secondary to severe urinary retention with reflux. Patient started on Flomax 0.4 mg. Patient' s WBC this AM dropped from 22.3 to 17.5. Patient currently on Day 2 of Ampicillin for UTI with urine culture positive for Enterococcus. Patient currently tolerating NG tube with feedings. Continue to monitor patient's vitals and labs. Current Medications Generic Name Dose Route Start Last Admin Trade Name Freq PRN Reason Stop Dose Admin Acetaminophen 650 mg 07/13/16 19:14 07/16/16 22:04 Tylenol - PO 650 mg Q6H PRN Administration FEVER OR PAIN Albuterol/Ipratropium 1 amp 07/12/16 14:37 Duoneb - NEB Q6H PRN SHORTNESS OF BREATH Docusate Sodium 100 mg 07/13/16 16:30 07/17/16 09:46 Colace - PO Not Given DAILY [facility] Heparin Sodium (Porcine) 5,000 unit 07/12/16 22:00 07/17/16 09:43 Heparin - SQ 5,000 unit BID [facility] Administration Dextrose/Lactated Ringer's 1,000 mls @ 150 mls/hr 07/15/16 15:13 07/17/16 06:38 D5-Lr - IV 150 mls/hr ASDIR [facility] Administration Ampicillin Sodium 1 gm/ Sodium 100 mls @ 200 mls/hr 07/16/16 15:00 07/17/16 09: 43 Chloride IVPB 200 mls/hr Q6H-IV [facility] Administration Insulin Aspart 1 vial 07/12/16 16:30 07/17/16 06:39 Novolog Vial Sliding Scale - SQ 2 units TIDAC [facility] Administration Protocol Metoprolol Succinate 25 mg 07/13/16 14:00 07/17/16 09:45 Toprol Xl - PO 25 mg DAILY [facility] Administration Ondansetron HCl 4 mg 07/12/16 14:37 Zofran Injection IVPUSH Q6H PRN NAUSEA AND/OR VOMITING Oxycodone HCl 5 mg 07/15/16 08:48 07/16/16 22:03 Roxicodone - PO 5 mg Q4H PRN Administration PAIN Tamsulosin HCl 0.4 mg 07/17/16 08:30 07/17/16 09:45 Flomax - PO 0.4 mg DAILY@0830 [facility] Administration Vital Signs Period Temp Pulse Resp BP Sys/Beaver Pulse Ox Last 24 Hr 98.2 F-99.9 F 67-84 16-20 104-145/51-66 96 PHYSICAL EXAM GENERAL: Alert, oriented to person, time, and place. In no apparent distress. EYES: PERRLA, EOMI, conjunctiva clear BL ENT: Ears normal, nares patent, no signs of trauma NECK: Trachea midline, no JVD HEART: 3/6 pansystolic murmur, +S1, S2, no gallops LUNGS: Equal breath sounds bilaterally, no wheezes, rubs ABDOMEN: Soft, tender, hypoactive bowel sounds in all four quadrants. No tenderness to palpation MSK: Muscle strength 5/5 globally NEURO: applications intern intact, normal speech, gait not observed EXTREMITIES: 2+ pulses bilaterally, warm, well perfused, no edema Laboratory Results - last 24 hr 07/16/16 07/17/16 07/17/16 17:32 05:35 05:35 WBC 17.5 H RBC 3.00 L Hgb 9.4 L Hct 28.5 L MCV 94.9 MCHC 32.9 RDW 14.0 Plt Count 437 H MPV 7.4 L Sodium 137 Potassium 3.4 L Chloride 98 Carbon Dioxide 27 Anion Gap 12 BUN 8 Creatinine 0.5 L D POC Glucometer 155 Random Glucose 179 H Calcium 9.1 07/17/16 07/17/16 05:51 11:09 WBC RBC Hgb Hct MCV MCHC RDW Plt Count MPV Sodium Potassium Chloride Carbon Dioxide Anion Gap BUN Creatinine POC Glucometer 192 164 Random Glucose Calcium IMAGING CXR (07/07/16): No acute pathology. Degenerative changes. Hiatal hernia. Large heart. Sclerotic knob. Probable old trauma proximal left. CXR (07/08/16): Repeated for signs of fluid overload. No changes Abdominal/Pelvic CT (07/07/16): Acute pancreatitis. Underlying chronic calcific pancreatitis. Cholelithiasis without CT evidence of cholecystitis Abdominal US (07/07/16): Cholelithiasis, Diffuse fatty infiltration of the liver with hepatomegaly CXR (07/09/16): Same as 07/07 and Increased density seen at the left base. CXR (07/11/16): Same as 07/07 and Increased density in the medial left upper lobe CXR (07/12/16): Same as 07/07 and Bilateral pleural effusions CXR: (07/13/16): Same as 07/07 and better aeration than CXR (07/12) Abdominal/Pelvic CT: (07/15/16): Decreasing pleural effusions and lower lobe atelectasis. Evolving acute pancreatitis with slight increase in peripancreatic fluid within the lesser sac and posterior to the pancreas. Increasing BL hydronephrosis and hydroureter without obvious obstruction. ASSESSMENT/PLAN 89 y/o F with PMHx of DMII, HTN, HLD, TIA presents to ED with severe abdominal pain. Admitted for abdominal pain secondary to acute pancreatitis 1. Acute pancreatitis -Amylase 1225, Lipase 6575 -[place] score of 6, BISAP score of 1 -NGT feedings -Lactated ringers 150cc/hr -IV Oxycodone, PO Tylenol for pain -IV Zofran for N/V -GI and surgery on board -Continue supportive measures per GI 2. Sepsis secondary to UTI -WBC count down from 22.3 to 17.5 -Urine cx positive for Enterococcus -Currently on Ampicillin Day 2 -CT positive for increasing BL hydronephrosis and hydroureter without obvious obstruction. -ID consult appreciated -Need new regimen 3. Hydronephrosis secondary to urinary retention with reflux -Maldonado drained 2500 cc yesterday, 1300 cc so far today -Start Flomax 0.4 mg PO Daily -Urology consult appreciated -CT positive for increasing BL hydronephrosis and hydroureter without obvious obstruction. 4. DMII -ISS -BGM, ACHS -Hold Tradjenta (can cause pancreatitis) 5. Renal insufficiency -Resolved -Creatinine 0.7 now -Likely secondary to hypovolemia -Fluids at 150 cc/hr -Continue to monitor 6. HTN -Continue home meds 7. Constipation -Continue Colace 8. Ppx -Subq Heparin for DVT -Famotidine for GI Dispo: Med/surg
--- NOTE | 2016-07-17 14:09 | PN ---
GI Progress Note Subjective: No abdominal pain No diarrhea Will be reaching tube feed goal today - Objective Vital Signs: Vital Signs Temperature 99.9 F H 07/17/16 13:53 Pulse Rate 68 07/17/16 13:53 Respiratory Rate 16 07/17/16 13:53 Blood Pressure 133/68 07/17/16 13:53 O2 Sat by Pulse Oximetry (%) 96 07/17/16 10:00 Constitutional: Calm Eyes: No: Sclera Icterus Cardiovascular: Yes: Regular Rate and Rhythm Respiratory: Yes: Rhonchi (at right lung base) ...Auscultate: Yes: Normoactive Bowel Sounds ...Palpate: No: Tenderness ...Percussion: No: Tympanitic Neurological: Yes: Alert, Oriented Labs: CBC, BMP 07/17/16 05:35 07/17/16 05:35 Problem List - Problems (1) Acute pancreatitis Assessment/Plan: Continued clinical improvement and now WBC trending down Would continue tube feeds at goal rate for now. I d/c'd IV fluids as she is tolerating feeds and receiving water flushes via NGT AM labs Code(s): K85.90 - ACUTE PANCREATITIS WITHOUT NECROSIS OR INFECTION, UNSP
--- NOTE | 2016-07-17 14:11 | PN ---
Teaching Attending Note Name of Resident: Bo Butler ATTENDING PHYSICIAN STATEMENT I saw and evaluated the patient. I reviewed the resident's note and discussed the case with the resident. I agree with the resident's findings and plan as documented. SUBJECTIVE:c/o R flank pain not related to position. non radiating. requesting to eat. no nausea or pain with NGT tube feeds. denies CP, SOB,fever, chills, N/V /C/. loose stools resolved OBJECTIVE: Last Vital Signs Temp Pulse Resp BP Pulse Ox 99.9 F H 68 16 133/68 96 07/17/16 13:53 07/17/16 13:53 07/17/16 13:53 07/17/16 13:53 07/17/16 10:00 General NAD CV S1 S2 RRR + murmur no rub/gallop Lungs CTA B/L no wheezing/rales/rhonchi abdomen soft NT/ND normoactive BS no CVA tenderness ASSESSMENT AND PLAN: 89yo F wtih PMH DM, HTN, HLD, TIA, PVD, RLS & esophageal stricture presented to the ER and was admitted for further evaluation of their emergent condition 1. Acute pancreatitis- due to gallstones vs medication induced. with pseudocyst seen. clinically improved. tolerating tube feeds. pain does not seem to be related to pancreas (not elicited on palpation and resident was told different presentation of pain). will d/w GI about po trial if pt has desire to eat and pain is gone. unclear benefit of NGT vs oral feeding. call placed out to GI to discuss. GI on board. cdiff pending 2. Urinary retention- with R sided hydronephrosis seen on CT. grey placed. start flomax once able to tolerate po. will start voiding trial when medically improved. consult urology 3. Group D strep UTI- afebrile. leukocytosis improved. started on Ampicillin day 2. 4. Hypokalemia- kcl 40meq via NGT 5. HTN- controlled. cont home medications 6. DM- hold oral agents, hold trajenda. ISS, BGM 7. DVT ppx- hep sq
[2016-07-17] MEDS: ACETAMINOPHEN 325 MG TABLET (FP) PO PRN (17:08)
[2016-07-17] MEDS: oxyCODONE HCL 5 MG TABLET PO PRN (17:12)
--- NOTE | 2016-07-17 17:45 | PN ---
Physical Exam: SUBJECTIVE: Patient seen and examined Pt is feeling well Did have some pain in left lower abdomen No fever or chills no n/v tolerating NG tube OBJECTIVE: Vital Signs Period Temp Pulse Resp BP Sys/Beaver Pulse Ox Last 24 Hr 98.2 F-99.9 F 67-84 16-18 104-145/51-68 96-96 GENERAL: The patient is awake, alert, and fully oriented, in no distress. NECK: Trachea midline, full range of motion, supple. LUNGS: bibasilar crackles to auscultation bilaterally, no wheezes, no accessory muscle use. HEART: Regular rate and rhythm, S1, S2 with systolic murmur, rub or gallop. ABDOMEN: Soft, non-tenderness, non-distended, normoactive bowel sounds, no guarding no rebound, no hepatosplenomegaly, no masses. EXTREMITIES: 2+ pulses, warm, well-perfused, no edema. NEUROLOGICAL: Normal speech, gait not observed. PSYCH: Normal mood, normal affect. SKIN: Warm, dry, normal turgor, no rashes or lesions noted Laboratory Results - last 24 hr 07/16/16 07/17/16 07/17/16 17:32 05:35 05:35 WBC 17.5 H RBC 3.00 L Hgb 9.4 L Hct 28.5 L MCV 94.9 MCHC 32.9 RDW 14.0 Plt Count 437 H MPV 7.4 L Sodium 137 Potassium 3.4 L Chloride 98 Carbon Dioxide 27 Anion Gap 12 BUN 8 Creatinine 0.5 L D POC Glucometer 155 Random Glucose 179 H Calcium 9.1 07/17/16 07/17/16 07/17/16 05:51 11:09 16:16 WBC RBC Hgb Hct MCV MCHC RDW Plt Count MPV Sodium Potassium Chloride Carbon Dioxide Anion Gap BUN Creatinine POC Glucometer 192 164 161 Random Glucose Calcium Active Medications Generic Name Dose Route Start Last Admin Trade Name Freq PRN Reason Stop Dose Admin Acetaminophen 650 mg 07/13/16 19:14 07/17/16 17:08 Tylenol - PO 650 mg Q6H PRN Administration FEVER OR PAIN Albuterol/Ipratropium 1 amp 07/12/16 14:37 Duoneb - NEB Q6H PRN SHORTNESS OF BREATH Docusate Sodium 100 mg 07/13/16 16:30 07/17/16 09:46 Colace - PO Not Given DAILY [facility] Heparin Sodium (Porcine) 5,000 unit 07/12/16 22:00 07/17/16 09:43 Heparin - SQ 5,000 unit BID [facility] Administration Ampicillin Sodium 1 gm/ Sodium 100 mls @ 200 mls/hr 07/16/16 15:00 07/17/16 14: 17 Chloride IVPB 200 mls/hr Q6H-IV [facility] Administration Famotidine/Sodium Chloride 50 mls @ 100 mls/hr 07/17/16 22:00 Pepcid 20 Mg Premixed Ivpb - IVPB BID [facility] Insulin Aspart 1 vial 07/12/16 16:30 07/17/16 17:12 Novolog Vial Sliding Scale - SQ 2 units TIDAC [facility] Administration Protocol Metoprolol Succinate 25 mg 07/13/16 14:00 07/17/16 09:45 Toprol Xl - PO 25 mg DAILY [facility] Administration Ondansetron HCl 4 mg 07/12/16 14:37 Zofran Injection IVPUSH Q6H PRN NAUSEA AND/OR VOMITING Oxycodone HCl 5 mg 07/15/16 08:48 07/17/16 17:12 Roxicodone - PO 5 mg Q4H PRN Administration PAIN Tamsulosin HCl 0.4 mg 07/17/16 08:30 07/17/16 09:45 Flomax - PO 0.4 mg DAILY@0830 [facility] Administration CBC, BMP 07/17/16 05:35 07/17/16 05:35 ASSESSMENT/PLAN: 89 year old female with pmh og DM, HTN, HPLD, TIA, PVD, RLS, esophageal stricture presented to the Ed with complaint of severe abdominal pain accompanied by nausea and non bloody, non bilious episode of vomiting. Pt was found to have Acute pancreatitis. Acute pancreatitis likely due to gallstone, r/o Trajenta effect. [place] II score 6, Bisap 1 Amylase 1225, Lipase [address] abdomen and pelvis with IV contrast done, showed slightly worsening of acute pancreatitis, no psudocyst, abscess or necrosis Pt has clinically imporved, no more abdominal pain, no more abdominal tenderness NG tube in place with Vital tube feeding D5LR at 150 Oxycodone 5mg PO Q4h for pain Zofran PRN for Nausea GI consulted, Dr Wong on case Surgery consulted Dr Chan, no surgical intervention right now Sepsis from UTI yesterday wbc 22.3. today 17.5. No fever urine culture positive for enteroccus on ampicillin 1gm q6h ID on case Urinary retention/Hydronephrosis Distended bladder on CT abdomen 1 liter post void on grey cath Urology consulted Flomax 0.4mg po daily Will treat UTI and repeat urine culture Manage constipation, pt on colace Diabetes Now controlled Novolog sliding scale HTN resume home meds Lopressor 5mg PRN IV q4h FEN Fluid: D5LR at 150 ml/h Electrolytes: chemistry in am Nutrition: liquid diet DVT prophyalaxis: SCD Disposition:keep in telemetry pending resolution of pancreatitis Visit type - Emergency Visit Emergency Visit: Yes ED Registration Date: 07/07/16 Care time: The patient presented to the Emergency Department on the above date and was hospitalized for further evaluation of their emergent condition. - New Patient This patient is new to me today: Yes - Critical Care Critical Care patient: No - Discharge Referral Referred to [facility] Med P.C.: No
[2016-07-17] MEDS: FAMOTIDINE 20 MG/50 ML IVPB 50 ML IVPB SCH (21:43)
[2016-07-18] MEDS: oxyCODONE HCL 5 MG TABLET PO PRN ×3 (00:11→10:30)
[2016-07-18] MEDS: ACETAMINOPHEN 325 MG TABLET (FP) PO PRN ×2 (00:12→10:30)
[2016-07-18] MEDS ORDERED: PT OWN MED DRAWER 7, Y5N ONE ×2 (02:03→10:25)
[2016-07-18] MEDS: AMPICILLIN - 1 GM in SODIUM CHLORIDE 100 ML IVPB SCH ×4 (02:04→21:00)
[2016-07-18] MEDS: INSULIN SLIDING SCALE (NOVOLOG) 1 VIAL SQ SCH ×3 (06:02→17:30)
[2016-07-18 07:31] LABS: MCH 31.6 pg (25.7-33.7); MCHC 33.6 g/dl (32.0-36.0); MEAN CELL VOLUME 94.1 fl (80-96); MEAN PLT VOLUME 7.6 fl (7.5-11.1); PLATELET COUNT 486 K/MM3 (134-434); RDW 13.8 % (11.6-15.6); WHITE BLOOD COUNT 17.5 K/mm3 (4.0-10.0)
[2016-07-18 07:59] LABS: CALCIUM 8.9 mg/dL (8.5-10.1); COCKROFT - GAULT 66.6315; CREATININE 0.5 mg/dL (0.55-1.02)
[2016-07-18 08:05] LABS: C-REACTIVE PROTEIN 19.4 MG/DL (0.00-0.3)
[2016-07-18 10:13] LABS: PLATELET ESTIMATE ADEQUATE (NORMAL)
[2016-07-18] MEDS: METOPROLOL SUCCINATE 25 MG TAB.SR.24H (FP) PO SCH (10:29)
[2016-07-18] MEDS: DOCUSATE SODIUM 100 MG CAPSULE (FP) PO SCH (10:29)
[2016-07-18] MEDS: HEPARIN NA (PORCINE) 5,000 UNITS/ML 1ML VIAL SQ SCH ×2 (10:30→22:10)
[2016-07-18] MEDS: TAMSULOSIN HCL 0.4 MG CAP.ER.24H (FP) PO SCH (10:32)
[2016-07-18] MEDS: FAMOTIDINE 20 MG/50 ML IVPB 50 ML IVPB SCH ×2 (10:36→22:10)
--- NOTE | 2016-07-18 11:36 | MSN ---
Progress Note (short form) - Note Progress Note: Saw patient this AM. Patient was alert, oriented to person, place, and time. Patient slept well overnight. At around 6am, patient was complaining of left sided flank pain that was sharp and was a 8/10. Patient was given Toradol due to difficulty tolerating PO meds at that time. Now, patient has no pain and is resting comfortably in bed. Patient had 200cc of urine in grey and had no BMs overnight. Patient denies fever/chills, N/V, chest pain, shortness of breath, diarrhea, or constipation. At around 9:15am, patient's NGT came out. Patient states that she is hungry and would like something to eat. GI on board. Will discuss with GI about possibly starting patient on soft diet. Urology on board. Will discuss with urology about possibly doing voiding trials for patient starting today. WBC count remains at 17.5 this AM. Will continue to treat patient's UTI on Day 3 of Ampicillin. Continue to monitor patient's vitals and labs. Current Medications Generic Name Dose Route Start Last Admin Trade Name Freq PRN Reason Stop Dose Admin Acetaminophen 650 mg 07/13/16 19:14 07/18/16 10:30 Tylenol - PO 650 mg Q6H PRN Administration FEVER OR PAIN Albuterol/Ipratropium 1 amp 07/12/16 14:37 Duoneb - NEB Q6H PRN SHORTNESS OF BREATH Docusate Sodium 100 mg 07/13/16 16:30 07/18/16 10:29 Colace - PO Not Given DAILY [facility] Heparin Sodium (Porcine) 5,000 unit 07/12/16 22:00 07/18/16 10:30 Heparin - SQ 5,000 unit BID [facility] Administration Ampicillin Sodium 1 gm/ Sodium 100 mls @ 200 mls/hr 07/16/16 15:00 07/18/16 10: 25 Chloride IVPB 200 mls/hr Q6H-IV [facility] Administration Famotidine/Sodium Chloride 50 mls @ 100 mls/hr 07/17/16 22:00 07/18/16 10:36 Pepcid 20 Mg Premixed Ivpb - IVPB 100 mls/hr BID [facility] Administration Insulin Aspart 1 vial 07/12/16 16:30 07/18/16 06:02 Novolog Vial Sliding Scale - SQ 2 units TIDAC [facility] Administration Protocol Metoprolol Succinate 25 mg 07/13/16 14:00 07/18/16 10:29 Toprol Xl - PO 25 mg DAILY [facility] Administration Ondansetron HCl 4 mg 07/12/16 14:37 Zofran Injection IVPUSH Q6H PRN NAUSEA AND/OR VOMITING Oxycodone HCl 5 mg 07/15/16 08:48 07/18/16 10:30 Roxicodone - PO 5 mg Q4H PRN Administration PAIN Tamsulosin HCl 0.4 mg 07/17/16 08:30 07/18/16 10:32 Flomax - PO 0.4 mg DAILY@0830 [facility] Administration Vital Signs Period Temp Pulse Resp BP Sys/Beaver Pulse Ox Last 24 Hr 98.2 F-99.9 F 64-78 16-20 120-146/56-68 96 PHYSICAL EXAM GENERAL: Alert, oriented to person, time, and place. In no apparent distress. EYES: PERRLA, EOMI, conjunctiva clear BL ENT: Ears normal, nares patent, no signs of trauma NECK: Trachea midline, no JVD HEART: 3/6 pansystolic murmur, +S1, S2, no gallops LUNGS: Equal breath sounds bilaterally, no wheezes, rubs ABDOMEN: Soft, tender, normoactive bowel sounds in all four quadrants. 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, normal speech, gait not observed EXTREMITIES: 2+ pulses bilaterally, warm, well perfused, no edema Laboratory Results - last 24 hr 07/17/16 07/18/16 07/18/16 16:16 05:28 05:35 WBC 17.5 H RBC 2.95 L Hgb 9.3 L Hct 27.7 L MCV 94.1 MCHC 33.6 RDW 13.8 Plt Count 486 H MPV 7.6 Neutrophils % 83.0 H Lymphocytes % 12.0 D Monocytes % 4.0 Band Neutrophils 1.0 Differential Comment Manual diff done Platelet Estimate Adequate Sodium Potassium Chloride Carbon Dioxide Anion Gap BUN Creatinine POC Glucometer 161 163 Random Glucose Calcium C-Reactive Protein 07/18/16 07/18/16 05:35 05:35 WBC RBC Hgb Hct MCV MCHC RDW Plt Count MPV Neutrophils % Lymphocytes % Monocytes % Band Neutrophils Differential Comment Platelet Estimate Sodium 135 L Potassium 3.5 Chloride 96 L Carbon Dioxide 26 Anion Gap 13 BUN 12 D Creatinine 0.5 L POC Glucometer Random Glucose 159 H Calcium 8.9 C-Reactive Protein 19.4 H D Cancelled IMAGING CXR (07/07/16): No acute pathology. Degenerative changes. Hiatal hernia. Large heart. Sclerotic knob. Probable old trauma proximal left. CXR (07/08/16): Repeated for signs of fluid overload. No changes Abdominal/Pelvic CT (07/07/16): Acute pancreatitis. Underlying chronic calcific pancreatitis. Cholelithiasis without CT evidence of cholecystitis Abdominal US (07/07/16): Cholelithiasis, Diffuse fatty infiltration of the liver with hepatomegaly CXR (07/09/16): Same as 07/07 and Increased density seen at the left base. CXR (07/11/16): Same as 07/07 and Increased density in the medial left upper lobe CXR (07/12/16): Same as 07/07 and Bilateral pleural effusions CXR: (07/13/16): Same as 07/07 and better aeration than CXR (07/12) Abdominal/Pelvic CT: (07/15/16): Decreasing pleural effusions and lower lobe atelectasis. Evolving acute pancreatitis with slight increase in peripancreatic fluid within the lesser sac and posterior to the pancreas. Increasing BL hydronephrosis and hydroureter without obvious obstruction. ASSESSMENT/PLAN 89 y/o F with PMHx of DMII, HTN, HLD, TIA presents to ED with severe abdominal pain. Admitted for abdominal pain secondary to acute pancreatitis 1. Acute pancreatitis -Amylase 1225, Lipase 6575 -[place] score of 6, BISAP score of 1 -NGT feedings up until 9:15am, will discuss with GI about possibly switching to soft diet today -PO Oxycodone, PO Tylenol for pain -IV Zofran for N/V -GI and surgery on board 2. Sepsis secondary to UTI -WBC count remains at 17.5 -Urine cx positive for Enterococcus -Currently on Ampicillin Day 3 -CT positive for increasing BL hydronephrosis and hydroureter without obvious obstruction. -ID consult appreciated 3. Hydronephrosis secondary to urinary retention with reflux -Grey drained 3200 cc yesterday, 1200 cc so far today -Flomax 0.4 mg PO Daily -Urology consult appreciated -CT positive for increasing BL hydronephrosis and hydroureter without obvious obstruction. -Discuss with urology about starting voiding trial today 4. DMII -ISS -BGM, ACHS -Hold Tradjenta (can cause pancreatitis) 5. Renal insufficiency -Resolved -Creatinine 0.7 now -Likely secondary to hypovolemia -Fluids at 150 cc/hr -Continue to monitor 6. HTN -Continue home meds 7. Constipation -Continue Colace 8. Ppx -Subq Heparin for DVT -Famotidine for GI Dispo: Med/surg
--- NOTE | 2016-07-18 12:30 | PN ---
Teaching Attending Note Name of Resident: Bo Butler ATTENDING PHYSICIAN STATEMENT I saw and evaluated the patient. I reviewed the resident's note and discussed the case with the resident. I agree with the resident's findings and plan as documented. SUBJECTIVE:requesting to eat. denies CP, SOB,fever, chills, abdominal pain, N/V/ C/D. stool are more formed NGT fell out this AM. OBJECTIVE: Last Vital Signs Temp Pulse Resp BP Pulse Ox 99.3 F 78 20 134/62 96 07/18/16 10:37 07/18/16 10:37 07/18/16 10:37 07/18/16 10:37 07/18/16 09:00 General NAD CV S1 S2 RRR + murmur no rub/gallop Lungs CTA B/L no wheezing/rales/rhonchi abdomen soft NT/ND normoactive BS ASSESSMENT AND PLAN: 89yo F wtih PMH DM, HTN, HLD, TIA, PVD, RLS & esophageal stricture presented to the ER and was admitted for further evaluation of their emergent condition 1. Acute pancreatitis- due to gallstones vs medication induced. with pseudocyst seen. clinically improved. tolerated tube feeds. NGT came out this AM. since tolerating NGT will advance diet and see if tolerated. cdiff negative. 2. Urinary retention- with R sided hydronephrosis seen on CT. grey placed. start flomax once able to tolerate po. will start voiding trial when medically improved. consult urology 3. Group D strep UTI- afebrile. leukocytosis improved. started on Ampicillin day 3. 4. Hypokalemia-resolved 5. HTN- controlled. cont home medications 6. DM- hold oral agents, hold trajenda. ISS, BGM 7. DVT ppx- hep sq
--- NOTE | 2016-07-18 13:02 | PN ---
Progress Note (short form) - Note Progress Note: Overall appears better. Abdominal discomfort improving. Hungry. Denies CP or SOB. Intake & Output 07/15/16 07/16/16 07/17/16 07/18/16 23:59 23:59 23:59 23:59 Intake Total 2654 3730 2100 50 Output Total 900 2500 3200 1200 Balance 1754 1230 -1100 -1150 Weight 121 lb 6 oz 122 lb Last Vital Signs Temp Pulse Resp BP Pulse Ox 99.3 F 78 20 134/62 96 07/18/16 10:37 07/18/16 10:37 07/18/16 10:37 07/18/16 10:37 07/18/16 09:00 Active Medications Acetaminophen (Tylenol -) 650 mg PO Q6H PRN PRN Reason: FEVER OR PAIN Last Admin: 07/18/16 10:30 Dose: 650 mg Albuterol/Ipratropium (Duoneb -) 1 amp NEB Q6H PRN PRN Reason: SHORTNESS OF BREATH Docusate Sodium (Colace -) 100 mg PO DAILY [facility] Last Admin: 07/18/16 10:29 Dose: Not Given Heparin Sodium (Porcine) (Heparin -) 5,000 unit SQ BID [facility] Last Admin: 07/18/16 10:30 Dose: 5,000 unit Ampicillin Sodium 1 gm/ Sodium (Chloride) 100 mls @ 200 mls/hr IVPB Q6H-IV [facility] Last Admin: 07/18/16 10:25 Dose: 200 mls/hr Famotidine/Sodium Chloride (Pepcid 20 Mg Premixed Ivpb -) 50 mls @ 100 mls/hr IVPB BID [facility] Last Admin: 07/18/16 10:36 Dose: 100 mls/hr Insulin Aspart (Novolog Vial Sliding Scale -) 1 vial SQ TIDAC [facility] PRN Reason: Protocol Last Admin: 07/18/16 12:04 Dose: Not Given Metoprolol Succinate (Toprol Xl -) 25 mg PO DAILY [facility] Last Admin: 07/18/16 10:29 Dose: 25 mg Ondansetron HCl (Zofran Injection) 4 mg IVPUSH Q6H PRN PRN Reason: NAUSEA AND/OR VOMITING Oxycodone HCl (Roxicodone -) 5 mg PO Q4H PRN PRN Reason: PAIN Last Admin: 07/18/16 10:30 Dose: 5 mg Tamsulosin HCl (Flomax -) 0.4 mg PO DAILY@0830 [facility] Last Admin: 07/18/16 10:32 Dose: 0.4 mg Constitutional: Yes: Awake and alert Eyes: Yes: EOM Intact HENT: Yes: Normocephalic Neck: Yes: Trachea Midline Cardiovascular: Yes: Regular Rate and Rhythm, S1, S2 Respiratory: Yes: Bibasilar rhonchi Gastrointestinal: Yes: Softly distended, (+) BS, (+) Minimal tenderness on the left Extremities: Yes: WNL Edema: No Integumentary: Yes: WNL Neurological: Yes: Alert, Oriented Labs: Laboratory Results - last 24 hr 07/17/16 07/18/16 07/18/16 16:16 05:28 05:35 WBC 17.5 H RBC 2.95 L Hgb 9.3 L Hct 27.7 L MCV 94.1 MCHC 33.6 RDW 13.8 Plt Count 486 H MPV 7.6 Neutrophils % 83.0 H Lymphocytes % 12.0 D Monocytes % 4.0 Band Neutrophils 1.0 Differential Comment Manual diff done Platelet Estimate Adequate Sodium Potassium Chloride Carbon Dioxide Anion Gap BUN Creatinine POC Glucometer 161 163 Random Glucose Calcium C-Reactive Protein 07/18/16 07/18/16 07/18/16 05:35 05:35 11:59 WBC RBC Hgb Hct MCV MCHC RDW Plt Count MPV Neutrophils % Lymphocytes % Monocytes % Band Neutrophils Differential Comment Platelet Estimate Sodium 135 L Potassium 3.5 Chloride 96 L Carbon Dioxide 26 Anion Gap 13 BUN 12 D Creatinine 0.5 L POC Glucometer 145 Random Glucose 159 H Calcium 8.9 C-Reactive Protein 19.4 H D Cancelled Assessment/Plan Acute gallstone/obstructive pancreatitis Pulmonary vascular congestion DM HTN HPL TIA Esophageal stricture by history PO as tolerated Pain control Zofran PRN DVT/GI prophylaxis Incentive Spirometry Dr Tirado
--- NOTE | 2016-07-18 14:15 | PN ---
Physical Exam: SUBJECTIVE: Patient seen and examined Pt is awake, alert and oriented No fever or chills overnight Some mild right abdominal pain no abdominal tenderness Tolerating feeding well No n/v OBJECTIVE: Vital Signs Period Temp Pulse Resp BP Sys/Beaver Pulse Ox Last 24 Hr 98.2 F-99.3 F 64-78 18-20 120-146/56-64 95-96 GENERAL: The patient is awake, alert, and fully oriented, in no distress. NECK: Trachea midline, full range of motion, supple. LUNGS: bibasilar crackles to auscultation bilaterally, no wheezes, no accessory muscle use. HEART: Regular rate and rhythm, S1, S2 with systolic murmur, rub or gallop. ABDOMEN: Soft, non-tenderness, non-distended, normoactive bowel sounds, no guarding no rebound, no hepatosplenomegaly, no masses. EXTREMITIES: 2+ pulses, warm, well-perfused, no edema. NEUROLOGICAL: Normal speech, gait not observed. PSYCH: Normal mood, normal affect. SKIN: Warm, dry, normal turgor, no rashes or lesions noted Laboratory Results - last 24 hr 07/17/16 07/18/16 07/18/16 16:16 05:28 05:35 WBC 17.5 H RBC 2.95 L Hgb 9.3 L Hct 27.7 L MCV 94.1 MCHC 33.6 RDW 13.8 Plt Count 486 H MPV 7.6 Neutrophils % 83.0 H Lymphocytes % 12.0 D Monocytes % 4.0 Band Neutrophils 1.0 Differential Comment Manual diff done Platelet Estimate Adequate Sodium Potassium Chloride Carbon Dioxide Anion Gap BUN Creatinine POC Glucometer 161 163 Random Glucose Calcium C-Reactive Protein 07/18/16 07/18/16 07/18/16 05:35 05:35 11:59 WBC RBC Hgb Hct MCV MCHC RDW Plt Count MPV Neutrophils % Lymphocytes % Monocytes % Band Neutrophils Differential Comment Platelet Estimate Sodium 135 L Potassium 3.5 Chloride 96 L Carbon Dioxide 26 Anion Gap 13 BUN 12 D Creatinine 0.5 L POC Glucometer 145 Random Glucose 159 H Calcium 8.9 C-Reactive Protein 19.4 H D Cancelled Active Medications Generic Name Dose Route Start Last Admin Trade Name Freq PRN Reason Stop Dose Admin Acetaminophen 650 mg 07/13/16 19:14 07/18/16 10:30 Tylenol - PO 650 mg Q6H PRN Administration FEVER OR PAIN Albuterol/Ipratropium 1 amp 07/12/16 14:37 Duoneb - NEB Q6H PRN SHORTNESS OF BREATH Docusate Sodium 100 mg 07/13/16 16:30 07/18/16 10:29 Colace - PO Not Given DAILY [facility] Heparin Sodium (Porcine) 5,000 unit 07/12/16 22:00 07/18/16 10:30 Heparin - SQ 5,000 unit BID [facility] Administration Ampicillin Sodium 1 gm/ Sodium 100 mls @ 200 mls/hr 07/16/16 15:00 07/18/16 10: 25 Chloride IVPB 200 mls/hr Q6H-IV [facility] Administration Famotidine/Sodium Chloride 50 mls @ 100 mls/hr 07/17/16 22:00 07/18/16 10:36 Pepcid 20 Mg Premixed Ivpb - IVPB 100 mls/hr BID [facility] Administration Insulin Aspart 1 vial 07/12/16 16:30 07/18/16 12:04 Novolog Vial Sliding Scale - SQ Not [facility] Protocol Metoprolol Succinate 25 mg 07/13/16 14:00 07/18/16 10:29 Toprol Xl - PO 25 mg DAILY [facility] Administration Ondansetron HCl 4 mg 07/12/16 14:37 Zofran Injection IVPUSH Q6H PRN NAUSEA AND/OR VOMITING Oxycodone HCl 5 mg 07/15/16 08:48 07/18/16 10:30 Roxicodone - PO 5 mg Q4H PRN Administration PAIN Tamsulosin HCl 0.4 mg 07/17/16 08:30 07/18/16 10:32 Flomax - PO 0.4 mg DAILY@0830 [facility] Administration CBC, BMP 07/18/16 05:35 07/18/16 05:35 Microbiology 07/16/16 17:30 Stool Clostridium difficile Antigen (VALERY) - Final 07/16/16 17:30 Stool Clostridium difficile Toxin Assay - Final 07/13/16 17:27 Urine - Urine Maldonado Urine Culture - Final Enterococcus Faecalis 07/16/16 15:20 Blood - Peripheral Venous Blood Culture - Preliminary NO GROWTH OBTAINED AFTER 48 HOURS, INCUBATION TO CONTINUE FOR 3 DAYS. 07/16/16 15:20 Blood - Peripheral Venous Blood Culture - Preliminary NO GROWTH OBTAINED AFTER 24 HOURS, INCUBATION TO CONTINUE FOR 4 DAYS. 07/16/16 15:15 Blood - Peripheral Venous Blood Culture - Preliminary NO GROWTH OBTAINED AFTER 48 HOURS, INCUBATION TO CONTINUE FOR 3 DAYS. 07/16/16 15:15 Blood - Peripheral Venous Blood Culture - Preliminary NO GROWTH OBTAINED AFTER 24 HOURS, INCUBATION TO CONTINUE FOR 4 DAYS. 07/13/16 17:05 Blood - Peripheral Venous Blood Culture - Preliminary NO GROWTH OBTAINED AFTER 96 HOURS, INCUBATION TO CONTINUE FOR 1 DAYS. 07/13/16 17:05 Blood - Peripheral Venous Blood Culture - Preliminary NO GROWTH OBTAINED AFTER 96 HOURS, INCUBATION TO CONTINUE FOR 1 DAYS. Laboratory Tests 07/11/16 07/18/16 05:15 05:35 Calcium 8.9 C-Reactive Protein 31.1 H D 19.4 H D ASSESSMENT/PLAN: 89 year old female with pmh og DM, HTN, HPLD, TIA, PVD, RLS, esophageal stricture presented to the Ed with complaint of severe abdominal pain accompanied by nausea and non bloody, non bilious episode of vomiting. Pt was found to have Acute pancreatitis. Acute pancreatitis likely due to gallstone, r/o Trajenta effect. Avon II score 6, Bisap 1 Amylase 1225, Lipase [address] abdomen and pelvis with IV contrast done, showed slightly worsening of acute pancreatitis, no psudocyst, abscess or necrosis Pt has clinically imporved, no more abdominal pain, no more abdominal tenderness NG tube in place with Vital tube feeding at 55ml/h Oxycodone 5mg PO Q4h for pain Zofran PRN for Nausea GI consulted, Dr Wong on case Surgery consulted Dr Chan, no surgical intervention right now Consider trial of PO diet if ok with GI Sepsis from UTI yesterday wbc 17.5. No fever urine culture positive for enteroccus on ampicillin 1gm q6h day 3 ID on case Urinary retention/Hydronephrosis Distended bladder and hydronephrosis seen on CT abdomen Urology consulted Flomax 0.4mg po daily Will treat UTI and repeat urine culture Manage constipation, pt on colace Diabetes Now controlled Novolog sliding scale HTN Toprol XL 25mg Po daily FEN Fluid: none Electrolytes: chemistry in am Nutrition: liquid diet DVT prophyalaxis: SCD Disposition:keep in telemetry pending resolution of pancreatitis and Sepsis from UTI. Visit type - Emergency Visit Emergency Visit: Yes ED Registration Date: 07/07/16 Care time: The patient presented to the Emergency Department on the above date and was hospitalized for further evaluation of their emergent condition. - New Patient This patient is new to me today: Yes - Critical Care Critical Care patient: No - Discharge Referral Referred to [facility] Med P.C.: No
--- NOTE | 2016-07-18 14:50 | PN ---
Progress Note (short form) - Note Progress Note: ifeels well some abdominal pain earlier today, relieved by po pain meds no diarrhea feeding tube removed today Vital Signs Period Temp Pulse Resp BP Sys/Beaver Pulse Ox Last 24 Hr 98.2 F-99.3 F 64-78 18-20 120-146/56-64 95-96 cor-rrr lungs decreased bs at bases abd soft, +midepigastric disomfort to deep palpation ext no edema +grey CBC, BMP 07/18/16 05:35 07/18/16 05:35 Microbiology 07/13/16 17:05 Blood Culture - Preliminary Blood - Peripheral Venous NO GROWTH OBTAINED AFTER 96 HOURS, INCUBATION TO CONTINUE FOR 1 DAYS. 07/13/16 17:05 Blood Culture - Preliminary Blood - Peripheral Venous NO GROWTH OBTAINED AFTER 96 HOURS, INCUBATION TO CONTINUE FOR 1 DAYS. 07/16/16 15:20 Blood Culture - Preliminary Blood - Peripheral Venous NO GROWTH OBTAINED AFTER 24 HOURS, INCUBATION TO CONTINUE FOR 4 DAYS. 07/16/16 15:15 Blood Culture - Preliminary Blood - Peripheral Venous NO GROWTH OBTAINED AFTER 24 HOURS, INCUBATION TO CONTINUE FOR 4 DAYS. 07/16/16 17:30 Clostridium difficile Antigen (VALERY) - Final Stool Clostridium difficile Toxin Assay - Final Current Medications Acetaminophen (Tylenol -) 650 mg PO Q6H PRN PRN Reason: FEVER OR PAIN Last Admin: 07/18/16 10:30 Dose: 650 mg Albuterol/Ipratropium (Duoneb -) 1 amp NEB Q6H PRN PRN Reason: SHORTNESS OF BREATH Docusate Sodium (Colace -) 100 mg PO DAILY [facility] Last Admin: 07/18/16 10:29 Dose: Not Given Heparin Sodium (Porcine) (Heparin -) 5,000 unit SQ BID [facility] Last Admin: 07/18/16 10:30 Dose: 5,000 unit Ampicillin Sodium 1 gm/ Sodium (Chloride) 100 mls @ 200 mls/hr IVPB Q6H-IV [facility] Last Admin: 07/18/16 10:25 Dose: 200 mls/hr Famotidine/Sodium Chloride (Pepcid 20 Mg Premixed Ivpb -) 50 mls @ 100 mls/hr IVPB BID [facility] Last Admin: 07/18/16 10:36 Dose: 100 mls/hr Insulin Aspart (Novolog Vial Sliding Scale -) 1 vial SQ TIDAC [facility] PRN Reason: Protocol Last Admin: 07/18/16 12:04 Dose: Not Given Metoprolol Succinate (Toprol Xl -) 25 mg PO DAILY [facility] Last Admin: 07/18/16 10:29 Dose: 25 mg Ondansetron HCl (Zofran Injection) 4 mg IVPUSH Q6H PRN PRN Reason: NAUSEA AND/OR VOMITING Oxycodone HCl (Roxicodone -) 5 mg PO Q4H PRN PRN Reason: PAIN Last Admin: 07/18/16 10:30 Dose: 5 mg Tamsulosin HCl (Flomax -) 0.4 mg PO DAILY@0830 [facility] Last Admin: 07/18/16 10:32 Dose: 0.4 mg a/p acute pancreatitis with low grade fevers and leukocytosis-improved, urinary retention with enterococcus in urine on ampicillin day #3 antibiotics encourage incentive spirometry, encourage ambulation
--- NOTE | 2016-07-18 16:24 | PN ---
GI Progress Note Subjective: NGT "came out" earlier today per nursing Patient states feeling well No acute events Was eating a clear liquid diet while I came in to see her today - Objective Vital Signs: Vital Signs Temperature 98.9 F 07/18/16 15:22 Pulse Rate 71 07/18/16 15:22 Respiratory Rate 20 07/18/16 15:22 Blood Pressure 110/59 07/18/16 15:22 O2 Sat by Pulse Oximetry (%) 96 07/18/16 09:00 Constitutional: Calm Eyes: No: Sclera Icterus Respiratory: Yes: Rhonchi (at right base) Gastrointestinal Inspection: No: Distention ...Auscultate: Yes: Normoactive Bowel Sounds ...Palpate: No: Tenderness Edema: LLE: Trace, RLE: Trace Neurological: Yes: Alert Labs: CBC, BMP 07/18/16 05:35 07/18/16 05:35 Laboratory Tests 07/09/16 07/11/16 07/16/16 05:17 05:15 05:35 C-Reactive Protein 26.0 H 31.1 H D 27.9 H D 07/18/16 05:35 C-Reactive Protein 19.4 H D Problem List - Problems (1) Acute pancreatitis Assessment/Plan: Clinically improved with NGT dislodged today If continued clinical improvement advance to full liquids in AM, if Not, needs NGT placed and would continue enteral feeds AM labs Code(s): K85.90 - ACUTE PANCREATITIS WITHOUT NECROSIS OR INFECTION, UNSP
[2016-07-18] MEDS: rOPINIRole HCL 1 MG TABLET (FP) PO SCH (22:10)
[2016-07-19] MEDS ORDERED: PT OWN MED DRAWER 7, Y5N ONE ×4 (02:13→21:37)
[2016-07-19] MEDS: AMPICILLIN - 1 GM in SODIUM CHLORIDE 100 ML IVPB SCH ×4 (02:15→21:45)
[2016-07-19] MEDS: INSULIN SLIDING SCALE (NOVOLOG) 1 VIAL SQ SCH ×3 (06:01→17:27)
[2016-07-19 07:30] LABS: MCH 31.7 pg (25.7-33.7); MCHC 34.4 g/dl (32.0-36.0); MEAN CELL VOLUME 92.3 fl (80-96); MEAN PLT VOLUME 7.5 fl (7.5-11.1); PLATELET COUNT 520 K/MM3 (134-434); RDW 13.4 % (11.6-15.6); WHITE BLOOD COUNT 13.4 K/mm3 (4.0-10.0)
[2016-07-19 07:47] LABS: CALCIUM 8.7 mg/dL (8.5-10.1); COCKROFT - GAULT 66.6315; CREATININE 0.5 mg/dL (0.55-1.02); MAGNESIUM 1.5 mg/dL (1.8-2.4)
[2016-07-19] MEDS: FAMOTIDINE 20 MG/50 ML IVPB 50 ML IVPB SCH ×2 (09:37→21:45)
[2016-07-19] MEDS: METOPROLOL SUCCINATE 25 MG TAB.SR.24H (FP) PO SCH (09:37)
[2016-07-19] MEDS: DOCUSATE SODIUM 100 MG CAPSULE (FP) PO SCH (09:37)
[2016-07-19] MEDS: HEPARIN NA (PORCINE) 5,000 UNITS/ML 1ML VIAL SQ SCH ×2 (09:37→21:44)
[2016-07-19] MEDS: TAMSULOSIN HCL 0.4 MG CAP.ER.24H (FP) PO SCH (09:37)
--- NOTE | 2016-07-19 10:45 | PN ---
Progress Note (short form) - Note Progress Note: PULMONARY VSS/AFEBRILE NGT IS OUT/TOLERATED BREAKFAST RESTING COMFORTABLY ANICTERIC CLEAR BUT DISTANT BREATH SOUNDS S1S2 BS+ SOFT NONTENDER NO EDEMA/NO CALF TENDERNESS LABS/MEDS/NOTES/IMAGING REVIEWED Acute gallstone/obstructive pancreatitis Pulmonary vascular congestion resolved DM HTN HPL TIA Esophageal stricture by history PO as tolerated Pain control Zofran PRN DVT/GI prophylaxis Incentive Spirometry Nikki CHÁVEZ MD
--- NOTE | 2016-07-19 12:20 | PN ---
Teaching Attending Note Name of Resident: Dinesh Santos ATTENDING PHYSICIAN STATEMENT I saw and evaluated the patient. I reviewed the resident's note and discussed the case with the resident. I agree with the resident's findings and plan as documented. SUBJECTIVE:pain has resolved. tolerating liquids and requesting regular food. denies CP, SOB, fever, chills, N/V/C/D OBJECTIVE: Last Vital Signs Temp Pulse Resp BP Pulse Ox 98.2 F 67 20 128/68 98 07/19/16 06:00 07/19/16 09:44 07/19/16 09:44 07/19/16 09:44 07/18/16 22:00 General NAD CV S1 S2 RRR + murmur no rub/gallop Lungs CTA B/L no wheezing/rales/rhonchi abdomen soft NT/ND normoactive BS ASSESSMENT AND PLAN: 89yo F wtih PMH DM, HTN, HLD, TIA, PVD, RLS & esophageal stricture presented to the ER and was admitted for further evaluation of their emergent condition 1. Acute pancreatitis- due to gallstones vs medication induced. with pseudocyst seen. clinically improved. tolerated liquid diet, will advance diet and see if tolerated. cdiff negative. 2. Urinary retention- with R sided hydronephrosis seen on CT. grey placed. on flomax. start voiding trials. will need to f/u with urology as outpatient 3. Group D strep UTI- afebrile. leukocytosis improved. started on Ampicillin day 4. d/w ID about duration of treatment 4. Hypokalemia-resolved 5. HTN- controlled. cont home medications 6. DM- hold oral agents, hold trajenda. ISS, BGM 7. DVT ppx- hep sq 8. d/c planning tomorrow if continues to tolerate diet
--- NOTE | 2016-07-19 12:21 | PN ---
Progress Note (short form) - Note Progress Note: feels well no abdominal pain Vital Signs Period Temp Pulse Resp BP Sys/Beaver Pulse Ox Last 24 Hr 98.2 F-98.9 F 63-71 18-20 110-144/56-72 98-98 cor-rrr lungs clear abd soft,nt ext no edema grey CBC, BMP 07/19/16 05:40 07/19/16 05:40 Microbiology 07/13/16 17:05 Blood - Peripheral Venous Blood Culture - Final NO GROWTH AFTER 5 DAYS INCUBATION 07/13/16 17:05 Blood - Peripheral Venous Blood Culture - Final NO GROWTH AFTER 5 DAYS INCUBATION 07/16/16 15:20 Blood - Peripheral Venous Blood Culture - Preliminary NO GROWTH OBTAINED AFTER 48 HOURS, INCUBATION TO CONTINUE FOR 3 DAYS. 07/16/16 15:15 Blood - Peripheral Venous Blood Culture - Preliminary NO GROWTH OBTAINED AFTER 48 HOURS, INCUBATION TO CONTINUE FOR 3 DAYS. 07/16/16 17:30 Stool Clostridium difficile Antigen (VALERY) - Final 07/16/16 17:30 Stool Clostridium difficile Toxin Assay - Final 07/13/16 17:27 Urine - Urine Grey Urine Culture - Final Enterococcus Faecalis 07/07/16 15:54 Blood - Peripheral Venous Blood Culture - Final NO GROWTH AFTER 5 DAYS INCUBATION 07/07/16 15:43 Blood - Peripheral Venous Blood Culture - Final NO GROWTH AFTER 5 DAYS INCUBATION 07/10/16 12:25 Urine - Urine Grey Urine Culture - Final NO GROWTH OBTAINED 07/07/16 17:47 Urine - Urine Clean Catch Urine Culture - Final Contaminated: Please Repeat Current Medications Acetaminophen (Tylenol -) 650 mg PO Q6H PRN PRN Reason: FEVER OR PAIN Last Admin: 07/18/16 10:30 Dose: 650 mg Albuterol/Ipratropium (Duoneb -) 1 amp NEB Q6H PRN PRN Reason: SHORTNESS OF BREATH Docusate Sodium (Colace -) 100 mg PO DAILY [facility] Last Admin: 07/19/16 09:37 Dose: Not Given Heparin Sodium (Porcine) (Heparin -) 5,000 unit SQ BID [facility] Last Admin: 07/19/16 09:37 Dose: 5,000 unit Ampicillin Sodium 1 gm/ Sodium (Chloride) 100 mls @ 200 mls/hr IVPB Q6H-IV [facility] Last Admin: 07/19/16 11:13 Dose: 200 mls/hr Famotidine/Sodium Chloride (Pepcid 20 Mg Premixed Ivpb -) 50 mls @ 100 mls/hr IVPB BID [facility] Last Admin: 07/19/16 09:37 Dose: 100 mls/hr Insulin Aspart (Novolog Vial Sliding Scale -) 1 vial SQ TIDAC [facility] PRN Reason: Protocol Last Admin: 07/19/16 12:09 Dose: Not Given Magnesium Chloride (Slow-Mag -) 64 mg PO DAILY [facility] Metoprolol Succinate (Toprol Xl -) 25 mg PO DAILY [facility] Last Admin: 07/19/16 09:37 Dose: 25 mg Ondansetron HCl (Zofran Injection) 4 mg IVPUSH Q6H PRN PRN Reason: NAUSEA AND/OR VOMITING Oxycodone HCl (Roxicodone -) 5 mg PO Q4H PRN PRN Reason: PAIN Last Admin: 07/18/16 10:30 Dose: 5 mg Ropinirole HCl (Requip -) 1 mg PO HS [facility] Last Admin: 07/18/16 22:10 Dose: 1 mg Tamsulosin HCl (Flomax -) 0.4 mg PO DAILY@0830 [facility] Last Admin: 07/19/16 09:37 Dose: 0.4 mg a/p acute pancreatitis with low grade fevers and leukocytosis-improved, urinary retention with enterococcus in urine on ampicillin day #4 antibiotics encourage incentive spirometry, encourage ambulation
[2016-07-19 12:23] LABS: PLATELET ESTIMATE INCREASED (NORMAL)
[2016-07-19] MEDS: MAGNESIUM CL 64 MG TABLET.SA PO SCH (14:53)
--- NOTE | 2016-07-19 17:24 | PN ---
Physical Exam: SUBJECTIVE: Patient was seen and examined. Pt is awake, alert and oriented. No fever or chills overnight. Tolerating thin liquid well. OBJECTIVE: Vital Signs Period Temp Pulse Resp BP Sys/Beaver Pulse Ox Last 24 Hr 98.2 F-99.6 F 63-71 18-20 111-144/56-72 98-98 GENERAL: The patient is awake, alert, and fully oriented, in no distress. NECK: Trachea midline, full range of motion, supple. LUNGS: bibasilar crackles to auscultation bilaterally, no wheezes, no accessory muscle use. HEART: Regular rate and rhythm, S1, S2 with systolic murmur, rub or gallop. ABDOMEN: Soft, non-tenderness, non-distended, normoactive bowel sounds, no guarding no rebound, no hepatosplenomegaly, no masses. EXTREMITIES: 2+ pulses, warm, well-perfused, no edema. NEUROLOGICAL: Normal speech, gait not observed. PSYCH: Normal mood, normal affect. SKIN: Warm, dry, normal turgor, no rashes or lesions noted Laboratory Results - last 24 hr 07/18/16 07/19/16 07/19/16 17:17 05:40 05:40 WBC RBC Hgb Hct MCV MCHC RDW Plt Count MPV Neutrophils % Lymphocytes % Monocytes % Eosinophils % Band Neutrophils Differential Comment Platelet Estimate Sodium 138 Potassium 3.7 Chloride 99 Carbon Dioxide 28 Anion Gap 11 BUN 12 Creatinine 0.5 L POC Glucometer 139 Random Glucose 136 H Calcium 8.7 Magnesium 1.5 L C-Reactive Protein 19.7 H D 07/19/16 07/19/16 07/19/16 05:40 05:43 12:00 WBC 13.4 H RBC 2.87 L Hgb 9.1 L Hct 26.5 L MCV 92.3 MCHC 34.4 RDW 13.4 Plt Count 520 H MPV 7.5 Neutrophils % 84.0 H Lymphocytes % 4.0 L D Monocytes % 9.0 D Eosinophils % 2.0 D Band Neutrophils 1.0 Differential Comment Manual diff done Platelet Estimate Increased Sodium Potassium Chloride Carbon Dioxide Anion Gap BUN Creatinine POC Glucometer 147 112 Random Glucose Calcium Magnesium C-Reactive Protein 07/19/16 16:59 WBC RBC Hgb Hct MCV MCHC RDW Plt Count MPV Neutrophils % Lymphocytes % Monocytes % Eosinophils % Band Neutrophils Differential Comment Platelet Estimate Sodium Potassium Chloride Carbon Dioxide Anion Gap BUN Creatinine POC Glucometer 176 Random Glucose Calcium Magnesium C-Reactive Protein Active Medications Generic Name Dose Route Start Last Admin Trade Name Freq PRN Reason Stop Dose Admin Acetaminophen 650 mg 07/13/16 19:14 07/18/16 10:30 Tylenol - PO 650 mg Q6H PRN Administration FEVER OR PAIN Albuterol/Ipratropium 1 amp 07/12/16 14:37 Duoneb - NEB Q6H PRN SHORTNESS OF BREATH Docusate Sodium 100 mg 07/13/16 16:30 07/19/16 09:37 Colace - PO Not Given DAILY [facility] Heparin Sodium (Porcine) 5,000 unit 07/12/16 22:00 07/19/16 09:37 Heparin - SQ 5,000 unit BID [facility] Administration Ampicillin Sodium 1 gm/ Sodium 100 mls @ 200 mls/hr 07/16/16 15:00 07/19/16 16: 07 Chloride IVPB 200 mls/hr Q6H-IV [facility] Administration Famotidine/Sodium Chloride 50 mls @ 100 mls/hr 07/17/16 22:00 07/19/16 09:37 Pepcid 20 Mg Premixed Ivpb - IVPB 100 mls/hr BID [facility] Administration Insulin Aspart 1 vial 07/12/16 16:30 07/19/16 12:09 Novolog Vial Sliding Scale - SQ Not Given TIDAC [facility] Protocol Magnesium Chloride 64 mg 07/19/16 12:00 07/19/16 14:53 Slow-Mag - PO 64 mg DAILY [facility] Administration Metoprolol Succinate 25 mg 07/13/16 14:00 07/19/16 09:37 Toprol Xl - PO 25 mg DAILY [facility] Administration Ondansetron HCl 4 mg 07/12/16 14:37 Zofran Injection IVPUSH Q6H PRN NAUSEA AND/OR VOMITING Oxycodone HCl 5 mg 07/15/16 08:48 07/18/16 10:30 Roxicodone - PO 5 mg Q4H PRN Administration PAIN Ropinirole HCl 1 mg 07/18/16 22:00 07/18/16 22:10 Requip - PO 1 mg HS [facility] Administration Tamsulosin HCl 0.4 mg 07/17/16 08:30 07/19/16 09:37 Flomax - PO 0.4 mg DAILY@0830 [facility] Administration ASSESSMENT/PLAN: 89 year old female with pmh og DM, HTN, HPLD, TIA, PVD, RLS, esophageal stricture presented to the Ed with complaint of severe abdominal pain accompanied by nausea and non bloody, non bilious episode of vomiting. Pt was found to have Acute pancreatitis. Acute pancreatitis gallstone vs. medication Resolving Advance diet gradually Sepsis from UTI Afrebile, wbc trending down on ampicillin 1gm q6h day 4 Urinary retention/Hydronephrosis Distended bladder and hydronephrosis seen on CT abdomen Urology consulted Flomax 0.4mg po daily Will treat UTI and repeat urine culture Manage constipation, pt on colace Diabetes Now controlled Novolog sliding scale HTN Toprol XL 25mg Po daily FEN Fluid: none Electrolytes: chemistry in am Nutrition: liquid diet DVT prophyalaxis: SCD Disposition: may discharge if tolerate diet Visit type - Emergency Visit Emergency Visit: No - New Patient This patient is new to me today: Yes Date on this admission: 07/20/16 - Critical Care Critical Care patient: No
--- NOTE | 2016-07-19 18:08 | PN ---
GI Progress Note Subjective: GI NOte: Pain has subsided as is WBC. Attempting solid diet - Objective Vital Signs: Vital Signs Temperature 99.6 F 07/19/16 15:05 Pulse Rate 71 07/19/16 15:05 Respiratory Rate 20 07/19/16 15:05 Blood Pressure 128/67 07/19/16 15:05 O2 Sat by Pulse Oximetry (%) 98 07/18/16 22:00 CBC,CMP WBC 13.4 K/mm3 (4.0-10.0) H 07/19/16 05:40 RBC 2.87 M/mm3 (3.60-5.2) L 07/19/16 05:40 Hgb 9.1 GM/dL (10.7-15.3) L 07/19/16 05:40 Hct 26.5 % (32.4-45.2) L 07/19/16 05:40 MCV 92.3 fl (80-96) 07/19/16 05:40 MCHC 34.4 g/dl (32.0-36.0) 07/19/16 05:40 RDW 13.4 % (11.6-15.6) 07/19/16 05:40 Plt Count 520 K/MM3 (134-434) H 07/19/16 05:40 MPV 7.5 fl (7.5-11.1) 07/19/16 05:40 Neutrophils % 84.0 % (42.8-82.8) H 07/19/16 05:40 Lymphocytes % 4.0 % (8-40) L D 07/19/16 05:40 Monocytes % 9.0 % (3.8-10.2) D 07/19/16 05:40 Eosinophils % 2.0 % (0-4.5) D 07/19/16 05:40 Basophils % 0.1 % (0-2.0) 07/14/16 07:05 Band Neutrophils 1.0 % (0-10) 07/19/16 05:40 Metamyelocytes 1 % (0-2) D 07/16/16 05:35 Myelocytes 1 % (0-2) D 07/16/16 05:35 Differential Comment Manual diff done 07/19/16 05:40 Reactive Lymphocytes 2 % (0-80) 07/13/16 20:45 Platelet Estimate Increased (NORMAL) 07/19/16 05:40 RBC Morphology Appears normal 07/13/16 20:45 Sodium 138 mmol/L (136-145) 07/19/16 05:40 Potassium 3.7 mmol/L (3.5-5.1) 07/19/16 05:40 Chloride 99 mmol/L (98-107) 07/19/16 05:40 Carbon Dioxide 28 mmol/L (21-32) 07/19/16 05:40 Anion Gap 11 (8-16) 07/19/16 05:40 BUN 12 mg/dL (7-18) 07/19/16 05:40 Creatinine 0.5 mg/dL (0.55-1.02) L 07/19/16 05:40 Creat Clearance w eGFR > 60 (>60) 07/16/16 05:35 POC Glucometer 176 UNITS (()) 07/19/16 16:59 Random Glucose 136 mg/dL (74-106) H 07/19/16 05:40 Lactic Acid 1.997 mmol/L (0.4-2.0) 07/13/16 20:45 Calcium 8.7 mg/dL (8.5-10.1) 07/19/16 05:40 Ionized Calcium 5.0 mg/dL (4.5-5.6) 07/08/16 05:15 Phosphorus 3.2 mg/dL (2.5-4.9) D 07/15/16 05:41 Magnesium 1.5 mg/dL (1.8-2.4) L 07/19/16 05:40 Total Bilirubin 0.2 mg/dL (0.2-1.0) D 07/16/16 05:35 Direct Bilirubin 0.1 mg/dL (0.0-0.2) 07/14/16 07:05 AST 22 U/L (15-37) 07/16/16 05:35 ALT 20 U/L (12-78) 07/16/16 05:35 Alkaline Phosphatase 68 U/L (45-117) D 07/16/16 05:35 LD Total 232 U/L (91-180) H 07/07/16 15:43 Creatine Kinase 297 IU/L (26-140) H 07/07/16 15:43 CK-MB (CK-2) 13.8 ng/ml (0.3-4.0) H 07/07/16 15:43 Troponin I < 0.03 ng/ml (0.03-0.50) L 07/07/16 15:43 C-Reactive Protein 19.7 MG/DL (0.00-0.3) H D 07/19/16 05:40 Total Protein 5.9 g/dl (6.4-8.2) L 07/16/16 05:35 Albumin 2.3 g/dl (3.4-5.0) L 07/16/16 05:35 Triglycerides 308 mg/dL (35-160) H 07/13/16 06:00 Total Amylase 45 U/L (25-115) D 07/15/16 05:41 Lipase 229 U/L (73-393) 07/15/16 05:41 Constitutional: Calm Gastrointestinal Inspection: Yes: Distention ...Auscultate: Yes: Normoactive Bowel Sounds ...Palpate: Yes: Soft, Other (nontender) Labs: CBC, BMP 07/19/16 05:40 07/19/16 05:40 Assessment/Plan Resolving pancreatitis attempting solid diet. Dr Hammond will be covering this weekend.
[2016-07-19] MEDS: rOPINIRole HCL 1 MG TABLET (FP) PO SCH (21:44)
[2016-07-20] MEDS ORDERED: PT OWN MED DRAWER 7, Y5N ONE (02:04)
[2016-07-20] MEDS: AMPICILLIN - 1 GM in SODIUM CHLORIDE 100 ML IVPB SCH ×2 (02:07→12:23)
[2016-07-20] MEDS: ACETAMINOPHEN 325 MG TABLET (FP) PO PRN (02:13)
[2016-07-20] MEDS: INSULIN SLIDING SCALE (NOVOLOG) 1 VIAL SQ SCH ×2 (06:00→12:24)
[2016-07-20 06:25] VITALS: BP 145/61; PULSE 59; TEMP 98.7
[2016-07-20 07:29] LABS: BASOPHIL 0.4 % (0-2.0); MCHC 32.3 g/dl (32.0-36.0); MEAN CELL VOLUME 92.9 fl (80-96); MEAN PLT VOLUME 7.2 fl (7.5-11.1); NEUTROPHILS 74.6 % (42.8-82.8); PLATELET COUNT 614 K/MM3 (134-434); RDW 13.5 % (11.6-15.6); WHITE BLOOD COUNT 11.4 K/mm3 (4.0-10.0)
[2016-07-20 07:38] LABS: C-REACTIVE PROTEIN 14.2 MG/DL (0.00-0.3); CALCIUM 9.3 mg/dL (8.5-10.1); COCKROFT - GAULT 66.6315; CREATININE 0.5 mg/dL (0.55-1.02); MAGNESIUM 1.7 mg/dL (1.8-2.4)
--- NOTE | 2016-07-20 09:21 | PN ---
Progress Note (short form) - Note Progress Note: tolerated dinner and breakfast this AM without difficulty. no abdominal pain. denies CP, SOB,fever, chills, N/V/C/D Current Medications Generic Name Dose Route Start Last Admin Trade Name Freq PRN Reason Stop Dose Admin Acetaminophen 650 mg 07/13/16 19:14 07/20/16 02:13 Tylenol - PO 650 mg Q6H PRN Administration FEVER OR PAIN Albuterol/Ipratropium 1 amp 07/12/16 14:37 Duoneb - NEB Q6H PRN SHORTNESS OF BREATH Docusate Sodium 100 mg 07/13/16 16:30 07/19/16 09:37 Colace - PO Not Given DAILY ORTEGA Ampicillin Sodium 1 gm/ Sodium 100 mls @ 200 mls/hr 07/16/16 15:00 07/20/16 02: 07 Chloride IVPB 200 mls/hr Q6H-IV ORTEGA Administration Famotidine/Sodium Chloride 50 mls @ 100 mls/hr 07/17/16 22:00 07/19/16 21:45 Pepcid 20 Mg Premixed Ivpb - IVPB 100 mls/hr BID ORTEGA Administration Insulin Aspart 1 vial 07/12/16 16:30 07/20/16 06:00 Novolog Vial Sliding Scale - SQ Not Given TIDAC [facility] Protocol Magnesium Chloride 64 mg 07/19/16 12:00 07/19/16 14:53 Slow-Mag - PO 64 mg DAILY ORTEGA Administration Metoprolol Succinate 25 mg 07/13/16 14:00 07/19/16 09:37 Toprol Xl - PO 25 mg DAILY ORTEGA Administration Ondansetron HCl 4 mg 07/12/16 14:37 Zofran Injection IVPUSH Q6H PRN NAUSEA AND/OR VOMITING Oxycodone HCl 5 mg 07/15/16 08:48 07/18/16 10:30 Roxicodone - PO 5 mg Q4H PRN Administration PAIN Ropinirole HCl 1 mg 07/18/16 22:00 07/19/16 21:44 Requip - PO 1 mg HS ORTEGA Administration Tamsulosin HCl 0.4 mg 07/17/16 08:30 07/19/16 09:37 Flomax - PO 0.4 mg DAILY@0830 ORTEGA Administration Last Vital Signs Temp Pulse Resp BP Pulse Ox 98.7 F 59 L 16 145/61 94 L 07/20/16 06:00 07/20/16 06:00 07/20/16 06:00 07/20/16 06:00 07/19/16 21:00 General NAD CV S1 S2 RRR + murmur no rub/gallop Lungs CTA B/L no wheezing/rales/rhonchi abdomen soft NT/ND normoactive BS CBCD WBC 11.4 K/mm3 (4.0-10.0) H 07/20/16 06:15 RBC 3.23 M/mm3 (3.60-5.2) L 07/20/16 06:15 Hgb 9.7 GM/dL (10.7-15.3) L 07/20/16 06:15 Hct 30.0 % (32.4-45.2) L 07/20/16 06:15 MCV 92.9 fl (80-96) 07/20/16 06:15 MCHC 32.3 g/dl (32.0-36.0) 07/20/16 06:15 RDW 13.5 % (11.6-15.6) 07/20/16 06:15 Plt Count 614 K/MM3 (134-434) H 07/20/16 06:15 MPV 7.2 fl (7.5-11.1) L 07/20/16 06:15 CMP Sodium 136 mmol/L (136-145) 07/20/16 06:15 Potassium 3.6 mmol/L (3.5-5.1) 07/20/16 06:15 Chloride 99 mmol/L (98-107) 07/20/16 06:15 Carbon Dioxide 24 mmol/L (21-32) 07/20/16 06:15 Anion Gap 13 (8-16) 07/20/16 06:15 BUN 15 mg/dL (7-18) D 07/20/16 06:15 Creatinine 0.5 mg/dL (0.55-1.02) L 07/20/16 06:15 Creat Clearance w eGFR > 60 (>60) 07/16/16 05:35 Calcium 9.3 mg/dL (8.5-10.1) 07/20/16 06:15 Total Bilirubin 0.2 mg/dL (0.2-1.0) D 07/16/16 05:35 AST 22 U/L (15-37) 07/16/16 05:35 ALT 20 U/L (12-78) 07/16/16 05:35 Alkaline Phosphatase 68 U/L (45-117) D 07/16/16 05:35 Total Protein 5.9 g/dl (6.4-8.2) L 07/16/16 05:35 Albumin 2.3 g/dl (3.4-5.0) L 07/16/16 05:35 ASSESSMENT AND PLAN: 89yo F wtih PMH DM, HTN, HLD, TIA, PVD, RLS & esophageal stricture presented to the ER and was admitted for further evaluation of their emergent condition 1. Acute pancreatitis- due to gallstones vs medication induced. with pseudocyst seen. now resolved. tolerating regular diet. will need repeat CT scan to f/u pseudocyst 2. Urinary retention- with R sided hydronephrosis seen on CT. unsure if passed clamping trial. documented once that she had urge to void with 200cc. requested one more trial prior to removal. on flomax. will need to f/u with urology as outpatient 3. Group D strep UTI- afebrile. leukocytosis improved. started on Ampicillin day 5. will d/c to complete 7 day course 4. Hypokalemia-resolved 5. HTN- controlled. cont home medications 6. DM- hold oral agents, hold trajenda. ISS, BGM. will d/c off diabetic medications as required very little of coverage. will need to f/u with PMD if need to re-start medications 7. DVT ppx- hep sq 8. d/c home. with grey. VNS to be set up at home. called and spoke with son and informed of todays discharge. transportation issue. information given to CM Visit type - Emergency Visit Emergency Visit: Yes ED Registration Date: 07/07/16 Care time: The patient presented to the Emergency Department on the above date and was hospitalized for further evaluation of their emergent condition. - New Patient This patient is new to me today: No - Critical Care Critical Care patient: No - Discharge Referral Physician Referral: Reggie Montalvo MD (Int Med)
[2016-07-20] MEDS: DOCUSATE SODIUM 100 MG CAPSULE (FP) PO SCH (09:48)
[2016-07-20] MEDS: TAMSULOSIN HCL 0.4 MG CAP.ER.24H (FP) PO SCH (09:48)
[2016-07-20] MEDS: FAMOTIDINE 20 MG/50 ML IVPB 50 ML IVPB SCH (09:48)
[2016-07-20] MEDS: METOPROLOL SUCCINATE 25 MG TAB.SR.24H (FP) PO SCH (09:49)
[2016-07-20] MEDS: MAGNESIUM CL 64 MG TABLET.SA PO SCH (09:49)
--- NOTE | 2016-07-21 11:29 | DS ---
Physical Exam: HOSPITAL COURSE: Date of Admission:07/07/16 Ms. Sheth is a 89 year old lady h/o h/p DM, HTN, HPLD, TIA, PVD, RLS, esophageal stricture presented to the Ed with complaint of severe abdominal pain accompanied by nausea and non bloody, non bilious episode of vomiting. Pt was found to have Acute pancreatitis likely due to gallstone but cannot r/o Trajenta effect. She had [place] II score 6, Bisap 1, Amylase 1225, Lipase [address] abdomen and pelvis with IV contrast showed slightly worsening of acute pancreatitis, no psudocyst, abscess or necrosis. She successfully tolerated PO trial and no more abd pain. She also had UTI with hydronephrosis, which was confirmed by positive UA, urine culture and elevated WBC. She was treated with ampicillin and flomax and in stable condition on discharge. Patient now is in stable condition to be discharged. She's instructed to cont. current medication and follow up with her PMD and urologist as soon as possible. Date of Discharge: 07/20/16 Minutes to complete discharge: 30 <Dinesh Santos - Last Filed: 07/21/16 11:30> Physical Exam: pt was d/c with grey catheter <Dede Brar - Last Filed: 07/22/16 17:33> Discharge Summary Reason For Visit: PANCREATITIS - Home Medications Comprehensive Discharge Medication List: Ambulatory Orders Fenofibrate Nanocrystallized [Fenofibrate] 145 mg PO DAILY 02/03/16 Glucosamine Sulfate Dipot Chlr [Glucosamine] 1,500 mg PO DAILY 02/03/16 Aspirin/Dipyridamole [Aspirin-Dipyridam ER 25-200 mg] 1 each PO BID 07/07/16 Calcium Carbonate/Vitamin D3 [Calcium 600 + Vit D Tablet] 1 each PO DAILY Multivit-Min/Iron/Folic/Lutein [Centrum Silver Women Tablet] 1 each PO DAILY Ampicillin Trihydrate [Ampicillin Trihydrate Capsule] 500 mg PO Q6H #11 cap 08/31 Tamsulosin HCl [Flomax -] 0.4 mg PO DAILY@0830 #30 cap 07/20/16 <Dinesh Santos - Last Filed: 07/21/16 11:30> - Home Medications Comprehensive Discharge Medication List: Ambulatory Orders Fenofibrate Nanocrystallized [Fenofibrate] 145 mg PO DAILY 02/03/16 Glucosamine Sulfate Dipot Chlr [Glucosamine] 1,500 mg PO DAILY 02/03/16 Aspirin/Dipyridamole [Aspirin-Dipyridam ER 25-200 mg] 1 each PO BID 07/07/16 Calcium Carbonate/Vitamin D3 [Calcium 600 + Vit D Tablet] 1 each PO DAILY Multivit-Min/Iron/Folic/Lutein [Centrum Silver Women Tablet] 1 each PO DAILY Ampicillin Trihydrate [Ampicillin Trihydrate Capsule] 500 mg PO Q6H #11 cap 08/31 Tamsulosin HCl [Flomax -] 0.4 mg PO DAILY@0830 #30 cap 07/20/16 <Dede Brar - Last Filed: 07/22/16 17:33> Condition: Improved - Instructions Diet, Activity, Other Instructions: You were treated for acute pancreatitis while you were here. this is likely due to your diabetic medications. Hold your diabetic medications for now. continue to eat a diabetic diet. follow up with your primary doctor to see if you need to be started on alternative medications. (your sugars here in the hospital were controlled and you did not require medications) You were also treated for urinary tract infection. Take antibiotic until completed, even if your symptoms resolved FOllow the handout and nursing instructions for the grey catheter. Follow up with urologist this week to assess when it can be removed. The urologist you saw here information have been provided. you were started on medication here for your bladder. (flomax) You may need repeat imaging to follow up on your kidneys as they were swollen due to your urinary retention. Follow a diabetic diet your home medications have changed. refer to medication list for these changes Follow with your primary care doctor this week, he will need to assess if you need to be re-started on diabetic medications. If your symptoms worsen, return to the ER. Referrals: Chito Cline MD [Staff Physician] - Reggie Montalvo MD [Primary Care Provider] - Disposition: VNS/HOME HEALTH CARE This patient is new to me today: No Emergency Visit: No Critical Care patient: No - Discharge Referral Referred to [facility] Med [facility].C[facility] No Physician Referral: Reggie Montalvo MD (Int Med) <Dinesh Santos - Last Filed: 07/21/16 11:30>
== END 2016-07-20 12:27 | disposition home health service (06) | DRG 438 ==
LOC: FER 14:58 → JICU 21:25 → FER 21:58 → J4S 07-12 19:00
PROVIDERS: ADMIT Internal Medicine; ATTEND Internal Medicine
DX: K85.90 Acute pancreatitis without necrosis or infection, unspecified (principal); A41.9 Sepsis, unspecified organism; N39.0 Urinary tract infection, site not specified; N17.9 Acute kidney failure, unspecified; N13.30 Unspecified hydronephrosis; E87.0 Hyperosmolality and hypernatremia; K86.1 Other chronic pancreatitis; I10 Essential (primary) hypertension; E78.5 Hyperlipidemia, unspecified; I73.9 Peripheral vascular disease, unspecified; E11.9 Type 2 diabetes mellitus without complications; G25.81 Restless legs syndrome; E83.42 Hypomagnesemia; K80.80 Other cholelithiasis without obstruction; E86.1 Hypovolemia; E83.39 Other disorders of phosphorus metabolism; M19.90 Unspecified osteoarthritis, unspecified site; D64.9 Anemia, unspecified; B95.2 Enterococcus as the cause of diseases classified elsewhere; R33.9 Retention of urine, unspecified; K59.00 Constipation, unspecified; R19.7 Diarrhea, unspecified
CPT/HCPCS: 36415; 71010-TC; 74176-TC; 74177-TC; 74178-TC; 76705-TC; 76775-TC; 76856-TC; 80048; 80053; 80076; 81003; 81015; 82150; 82330; 82436; 82550; 82553; 82570; 83605; 83615; 83690; 83735; 84100; 84133; 84156; 84300; 84478; 84484; 84540; 85025; 85027; 86140; 87040; 87086; 87186; 87324; 87449; 93005; 93306-TC; 97116-GP; 97161-GP; 99285-25; J1644; Q9967